=== PATIENT | male | born 1955 | race Caucasian/White ===

== ENCOUNTER → 2016-10-25 | Outpatient (CLI) | payer BC ==
[~2016-10-25] MED LIST: ALPR.5T PO; AMT25T PO; ASP325T PO; ATEN25TA PO; CALC-656 PO; CTLP20T PO; ETAN50PE SQ; FOLI0.8T PO; HYDR1TAB PO; INSULIN PUMP SQ; MELO-195 PO; MTX2.5T PO; MULT-608 PO; NIAC250T17 PO; PNT40TEC PO; PRD10T PO
== END ==
DX: E11.621 Type 2 diabetes mellitus with foot ulcer (principal); M81.0 Age-related osteoporosis without current pathological fracture; L97.422 Non-pressure chronic ulcer of left heel and midfoot with fat layer exposed; L03.116 Cellulitis of left lower limb; Z72.0 Tobacco use

== ENCOUNTER 2016-11-28 10:49 | Outpatient (RCR) | payer BC, OTHER | END 2016-12-04 16:00 | disposition home or self-care (01) | LOC: WOUNDCARE 10:49 | PROVIDERS: ATTEND Nurse Practitioner | DX: E11.621 Type 2 diabetes mellitus with foot ulcer (principal); L97.522 Non-pressure chronic ulcer of other part of left foot with fat layer exposed; L03.116 Cellulitis of left lower limb; I25.10 Atherosclerotic heart disease of native coronary artery without angina pectoris; Z72.0 Tobacco use | CPT/HCPCS: 11042; 11045; 87070; 87075; 87077; 87186; 87205; 99204 ==

== ENCOUNTER → 2016-12-05 | Outpatient (CLI) | payer BC | LOC: WOUNDCARE 08:24 | PROVIDERS: ATTEND Nurse Practitioner | DX: E11.621 Type 2 diabetes mellitus with foot ulcer (principal); L97.422 Non-pressure chronic ulcer of left heel and midfoot with fat layer exposed; I70.244 Atherosclerosis of native arteries of left leg with ulceration of heel and midfoot; N18.4 Chronic kidney disease, stage 4 (severe); M14.672 Charcot's joint, left ankle and foot; Z72.0 Tobacco use | CPT/HCPCS: 11042 ==

== ENCOUNTER → 2016-12-11 | Outpatient (CLI) | payer BC | LOC: WOUNDCARE 12:58 | PROVIDERS: ATTEND Surgery | DX: E11.621 Type 2 diabetes mellitus with foot ulcer (principal); L97.422 Non-pressure chronic ulcer of left heel and midfoot with fat layer exposed; I70.244 Atherosclerosis of native arteries of left leg with ulceration of heel and midfoot; Z72.0 Tobacco use; N18.4 Chronic kidney disease, stage 4 (severe); M14.672 Charcot's joint, left ankle and foot | CPT/HCPCS: 11042 ==

== ENCOUNTER → 2016-12-13 | Outpatient (CLI) | payer BC | LOC: WOUNDCARE 12:46 | PROVIDERS: ATTEND Surgery | DX: E11.621 Type 2 diabetes mellitus with foot ulcer (principal); L97.422 Non-pressure chronic ulcer of left heel and midfoot with fat layer exposed; I70.244 Atherosclerosis of native arteries of left leg with ulceration of heel and midfoot; M14.672 Charcot's joint, left ankle and foot; N18.4 Chronic kidney disease, stage 4 (severe); Z72.0 Tobacco use | CPT/HCPCS: 99212 ==

== ENCOUNTER → 2016-12-19 | Outpatient (CLI) | payer BC | LOC: WOUNDCARE 11:30 | PROVIDERS: ATTEND Nurse Practitioner | DX: E11.621 Type 2 diabetes mellitus with foot ulcer (principal); L97.422 Non-pressure chronic ulcer of left heel and midfoot with fat layer exposed; I70.244 Atherosclerosis of native arteries of left leg with ulceration of heel and midfoot; Z72.0 Tobacco use | CPT/HCPCS: 11042 ==

== ENCOUNTER → 2016-12-26 | Outpatient (CLI) | payer BC | LOC: WOUNDCARE 11:18 | PROVIDERS: ATTEND Nurse Practitioner | DX: E11.621 Type 2 diabetes mellitus with foot ulcer (principal); L97.422 Non-pressure chronic ulcer of left heel and midfoot with fat layer exposed; I70.244 Atherosclerosis of native arteries of left leg with ulceration of heel and midfoot; Z72.0 Tobacco use; N18.4 Chronic kidney disease, stage 4 (severe); M14.672 Charcot's joint, left ankle and foot | CPT/HCPCS: 11042; 87070; 87075; 87077; 87186; 87205 ==

== ENCOUNTER → 2017-01-09 | Outpatient (CLI) | payer BC | LOC: WOUNDCARE 09:53 | PROVIDERS: ATTEND Nurse Practitioner | DX: E11.621 Type 2 diabetes mellitus with foot ulcer (principal); L97.422 Non-pressure chronic ulcer of left heel and midfoot with fat layer exposed; I70.244 Atherosclerosis of native arteries of left leg with ulceration of heel and midfoot; N18.4 Chronic kidney disease, stage 4 (severe); M14.672 Charcot's joint, left ankle and foot; Z72.0 Tobacco use | CPT/HCPCS: 15275 ==

== ENCOUNTER → 2017-01-16 | Outpatient (CLI) | payer BC | LOC: WOUNDCARE 11:23 | PROVIDERS: ATTEND Nurse Practitioner | DX: E11.621 Type 2 diabetes mellitus with foot ulcer (principal); L97.422 Non-pressure chronic ulcer of left heel and midfoot with fat layer exposed; I70.244 Atherosclerosis of native arteries of left leg with ulceration of heel and midfoot; N18.4 Chronic kidney disease, stage 4 (severe); M14.672 Charcot's joint, left ankle and foot; Z72.0 Tobacco use | CPT/HCPCS: 11042 ==

== ENCOUNTER → 2017-01-23 | Outpatient (CLI) | payer BC | LOC: WOUNDCARE 10:53 | PROVIDERS: ATTEND Nurse Practitioner | DX: E11.621 Type 2 diabetes mellitus with foot ulcer (principal); L97.422 Non-pressure chronic ulcer of left heel and midfoot with fat layer exposed; I70.244 Atherosclerosis of native arteries of left leg with ulceration of heel and midfoot; N18.4 Chronic kidney disease, stage 4 (severe); M14.672 Charcot's joint, left ankle and foot; Z72.0 Tobacco use | CPT/HCPCS: 11042 ==

== ENCOUNTER → 2017-01-30 | Outpatient (CLI) | payer BC | LOC: WOUNDCARE 10:47 | PROVIDERS: ATTEND Nurse Practitioner | DX: E11.621 Type 2 diabetes mellitus with foot ulcer (principal); L97.422 Non-pressure chronic ulcer of left heel and midfoot with fat layer exposed; I70.244 Atherosclerosis of native arteries of left leg with ulceration of heel and midfoot; Z72.0 Tobacco use; M14.672 Charcot's joint, left ankle and foot; N18.4 Chronic kidney disease, stage 4 (severe) | CPT/HCPCS: 11042 ==

== ENCOUNTER → 2017-02-06 | Outpatient (CLI) | payer BC | LOC: WOUNDCARE 10:53 | PROVIDERS: ATTEND Nurse Practitioner | DX: E11.621 Type 2 diabetes mellitus with foot ulcer (principal); L97.422 Non-pressure chronic ulcer of left heel and midfoot with fat layer exposed; I70.244 Atherosclerosis of native arteries of left leg with ulceration of heel and midfoot; Z72.0 Tobacco use; N18.4 Chronic kidney disease, stage 4 (severe); M14.672 Charcot's joint, left ankle and foot | CPT/HCPCS: 11042; 11045 ==

== ENCOUNTER → 2017-02-13 | Outpatient (CLI) | payer BC | LOC: WOUNDCARE 10:54 | PROVIDERS: ATTEND Nurse Practitioner | DX: E11.621 Type 2 diabetes mellitus with foot ulcer (principal); L97.422 Non-pressure chronic ulcer of left heel and midfoot with fat layer exposed; I70.244 Atherosclerosis of native arteries of left leg with ulceration of heel and midfoot; Z72.0 Tobacco use | CPT/HCPCS: 11042 ==

== ENCOUNTER → 2017-02-27 | Outpatient (CLI) | payer BC | LOC: WOUNDCARE 10:57 | PROVIDERS: ATTEND Nurse Practitioner | DX: E11.621 Type 2 diabetes mellitus with foot ulcer (principal); L97.422 Non-pressure chronic ulcer of left heel and midfoot with fat layer exposed; I70.244 Atherosclerosis of native arteries of left leg with ulceration of heel and midfoot | CPT/HCPCS: 11042 ==

== ENCOUNTER → 2017-03-14 | Outpatient (CLI) | payer BC, OTHER | LOC: WOUNDCARE 10:57 | PROVIDERS: ATTEND Surgery | DX: E11.621 Type 2 diabetes mellitus with foot ulcer (principal); L97.422 Non-pressure chronic ulcer of left heel and midfoot with fat layer exposed; I70.244 Atherosclerosis of native arteries of left leg with ulceration of heel and midfoot; Z72.0 Tobacco use; N18.4 Chronic kidney disease, stage 4 (severe); M14.672 Charcot's joint, left ankle and foot | CPT/HCPCS: 11042; 87070; 87075; 87205 ==

== ENCOUNTER → 2017-03-27 | Outpatient (CLI) | payer BC | LOC: WOUNDCARE 10:47 | PROVIDERS: ATTEND Nurse Practitioner | DX: I70.244 Atherosclerosis of native arteries of left leg with ulceration of heel and midfoot (principal); M14.672 Charcot's joint, left ankle and foot; N18.4 Chronic kidney disease, stage 4 (severe); Z72.0 Tobacco use | CPT/HCPCS: 11042 ==

== ENCOUNTER → 2017-04-03 | Outpatient (CLI) | payer BC | LOC: WOUNDCARE 10:59 | PROVIDERS: ATTEND Nurse Practitioner | DX: E11.621 Type 2 diabetes mellitus with foot ulcer (principal); L97.422 Non-pressure chronic ulcer of left heel and midfoot with fat layer exposed; I70.244 Atherosclerosis of native arteries of left leg with ulceration of heel and midfoot; N18.4 Chronic kidney disease, stage 4 (severe); M14.672 Charcot's joint, left ankle and foot | CPT/HCPCS: 11042; 82962 ==

== ENCOUNTER → 2017-04-10 | Outpatient (CLI) | payer BC | LOC: WOUNDCARE 11:06 | PROVIDERS: ATTEND Nurse Practitioner | DX: E11.621 Type 2 diabetes mellitus with foot ulcer (principal); L97.422 Non-pressure chronic ulcer of left heel and midfoot with fat layer exposed; I70.244 Atherosclerosis of native arteries of left leg with ulceration of heel and midfoot; Z72.0 Tobacco use; N18.4 Chronic kidney disease, stage 4 (severe); M14.672 Charcot's joint, left ankle and foot | CPT/HCPCS: 11042 ==

== ENCOUNTER → 2017-04-16 | Outpatient (CLI) | payer BC | LOC: WOUNDCARE 11:07 | PROVIDERS: ATTEND Surgery | DX: E11.621 Type 2 diabetes mellitus with foot ulcer (principal); L97.422 Non-pressure chronic ulcer of left heel and midfoot with fat layer exposed; I70.244 Atherosclerosis of native arteries of left leg with ulceration of heel and midfoot; N18.4 Chronic kidney disease, stage 4 (severe); M14.672 Charcot's joint, left ankle and foot; Z72.0 Tobacco use | CPT/HCPCS: 99212 ==

== ENCOUNTER → 2018-08-20 | Outpatient (CLI) | payer OTHER ==
[2018-08-20 10:36] LABS: BASOPHILS % (AUTO) 0 % (0-10); EOSINOPHILS # (AUTO) 0.2 10^3/uL (0.0-0.3); EOSINOPHILS % (AUTO) 1 % (0-10); HEMATOCRIT 35 % (40-54); HEMOGLOBIN 11.6 G/DL (13.3-17.7); LYMPHOCYTES # (AUTO) 1.5 X 10^3 (1.0-4.0); LYMPHOCYTES % (AUTO) 10 % (12-44); MEAN CORPUSCULAR HEMOGLOBIN 28 PG (25-34); MEAN CORPUSCULAR HGB CONC 33 G/DL (32-36); MEAN CORPUSCULAR VOLUME 85 FL (80-99); MEAN PLATELET VOLUME 10.1 FL (7.4-10.4); MONOCYTES # (AUTO) 1.5 X 10^3 (0.0-1.0); MONOCYTES % (AUTO) 11 % (0-12); NEUTROPHILS # (AUTO) 11.3 X 10^3 (1.8-7.8); NEUTROPHILS % (AUTO) 78 % (42-75); PLATELET COUNT 347 10^3/uL (130-400); RED CELL DISTRIBUTION WIDTH 17.2 % (10.0-14.5); WHITE BLOOD COUNT 14.5 10^3/uL (4.3-11.0)
[2018-08-20 10:52] LABS: CALCIUM 8.8 MG/DL (8.5-10.1); CREATININE SERUM 1.31 MG/DL (0.60-1.30); POTASSIUM 4.1 MMOL/L (3.6-5.0)
[2018-08-20 11:04] LABS: ANISOCYTOSIS SLIGHT; BAND NEUTROPHILS 1 %; BASOPHILS % (MANUAL) 1 %; EOSINOPHILS % (MANUAL) 1 %; LYMPHOCYTES % (MANUAL) 10 %; MONOCYTES % (MANUAL) 4 %; NEUTROPHILS % (MANUAL) 83 %
--- NOTE | 2018-08-20 16:19 | Diagnostic Imaging Report ---
INDICATION: Skin ulceration. TECHNIQUE: Three views of the left ankle. CORRELATION STUDY: 10/25/2016. FINDINGS: There is marked collapse of the hindfoot. Significant distortion and abnormal appearance about all osseous structures of the hindfoot are noted likely owing to neuropathic changes. Joint spaces are largely obscured. At the ankle, there is slightly better preservation. There is slight collapse of the talar dome. Generalized soft tissue swelling is present. While there is slight asymmetric lucency along the plantar aspect of the mid foot, otherwise gas collection not suggested. There do appear to be slight erosive changes however suggested about the hind to mid tarsal region along its plantar aspect. Possibility of underlying osteomyelitis would be difficult to exclude. IMPRESSION: 1. Marked deformity about the hindfoot like reflective of neuropathic changes. 2. There does appear to be slight asymmetric lucency along the plantar aspect of the distorted tarsal bones for which underlying erosive change is suspect. If further assessment is desired, MRI may be of additional benefit. Dictated by: Dictated on workstation # [id number]
--- NOTE | 2018-08-20 17:47 | Diagnostic Imaging Report ---
INDICATION: Charcot's joint, pain. TECHNIQUE: 3 views of the left foot at 10:41 a.m. CORRELATION STUDY: 10/25/2016. FINDINGS: Marked midtarsal articulation with slight better preservation of the tarsometatarsal articulations. Diffuse bony demineralization. Amputation at the interphalangeal joint of the great toe. There does appear to be slight more indistinct loss of the cortical margin along the plantar aspect of the midfoot. This is adjacent to slight asymmetric soft tissue thinning, could be reflective of an area of ulceration. Generalized soft tissue swelling present. IMPRESSION: 1. Marked chronic deformity about the left foot, compatible with neuropathic changes. 2. There does appear to be question of some asymmetric erosive change along the plantar aspect of the midtarsal region adjacent to the potential area of ulceration. Dictated by: Dictated on workstation # [id number]
== END ==
LOC: RAD 10:17
PROVIDERS: ATTEND Nurse Practitioner
DX: E11.621 Type 2 diabetes mellitus with foot ulcer (principal); E11.22 Type 2 diabetes mellitus with diabetic chronic kidney disease; N18.4 Chronic kidney disease, stage 4 (severe); L97.424 Non-pressure chronic ulcer of left heel and midfoot with necrosis of bone; M14.672 Charcot's joint, left ankle and foot; I70.244 Atherosclerosis of native arteries of left leg with ulceration of heel and midfoot; M21.6X2 Other acquired deformities of left foot
CPT/HCPCS: 36415; 73610; 73630; 80048; 83036; 85007; 85027

== ENCOUNTER → 2018-08-20 | Outpatient (CLI) | payer BC, OTHER | LOC: WOUNDCARE 08:26 | PROVIDERS: ATTEND Nurse Practitioner | DX: E11.621 Type 2 diabetes mellitus with foot ulcer (principal); L97.424 Non-pressure chronic ulcer of left heel and midfoot with necrosis of bone; N18.4 Chronic kidney disease, stage 4 (severe); M14.672 Charcot's joint, left ankle and foot; I70.244 Atherosclerosis of native arteries of left leg with ulceration of heel and midfoot | CPT/HCPCS: 11044; 87070; 87075; 87077; 87205; 99213 ==

== ENCOUNTER 2018-08-27 10:33 | Emergency (ER) | payer OTHER ==
[~2018-08-27] VITALS: Ht 165.1 cm; Wt 95.3 kg
[~2018-08-27 10:33] MED LIST changes: -CLIN300C11 PO
--- OUTSIDE RECORDS SUMMARY | 2018-08-27 11:07 | XMS REPORT ---
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 Problem list No authorized problems tracked for continuity of care are available for this visit. Encounters No authorized problems tracked for encounter diagnoses are available for this visit. Medications No medications recorded for this patient visit Allergies, adverse reactions, alerts Allergen Category Ingredient Status Reaction Severity Onset No known drug allergies No known drug allergies No known drug allergies Confirmed or Verified Immunizations No immunizations recorded for this patient visit Relevant diagnostic tests and/or laboratory data RESULTS Chemistry [id number]:05:00 Result Normal Range Units Sodium 135 134-145 mEq/l Potassium 4.8 3.5-5.1 mEq/l Chloride 102 98-107 mEq/l CO2 24.1 22-28 mEq/l Glucose H 277 70-105 mg/dl BUN H 33 7-18 mg/dl Creatinine H 1.52 0.6-1.3 mg/dl Calcium L 8.1 8.4-10.2 mg/dl TP - Total Protein 6.2 6.0-8.3 g/dl Albumin L 2.8 3.5-5 g/dl Bilirubin - Total 0.2 0.1-1.0 mg/dl AST 17 10-42 IU/L ALT 15 12-65 IU/L ALP H 123 39-107 IU/L Osmolality 287.3 280-300 mOsm/L Albumin/Globulin Ratio 0.8 0-8 Anion GAP 8.9 8-16 BUN/Creatinine Ratio H 21.7 10-20 Estimated GFR L 47 >=60 mL/min/1.7 Hematology [id number]:05:00 Result Normal Range Units WBC 10.4 4.8-10.8 103/uL RBC 4.9 4.7-6.1 106/uL HGB 13.2 13.0-18.0 g/dl HCT L 39.9 41.9-52.0 % MCV 81.4 80-94 FL MCH L 26.9 27-31 pg MCHC 33.1 33-37 g/dl RDW H 16.5 11.5-15.5 % PLT H 424 130-400 103/uL MPV 9.7 7.3-10.4 FL Neutro % 68.3 40-70 % Lymph % L 18.8 20-40 % Catron % 9.6 0-10.0 % Eos % 2.9 0-7.0 % Baso % 0.4 0-2 % Neutro # 7.1 1.5-7.5 103/uL Lymph # 2.0 0.9-4.0 103/uL Catron # H 1.0 0-0.8 103/uL Eos # 0.3 0-0.6 103/uL Baso # 0.0 0-0.1 103/uL Radiology Results [id number]:05:00 Result Normal Range Units MPV 9.7 7.3-10.4 FL History of procedures No procedures recorded for this patient visit. Functional status Functional Status Finding Observation Time Abdomen Appearance flat 47-27-371961:40 Abdomen soft 04-42-466974:40 Bowel Sounds present 05-00-510336:40 Urination normal :40 Quality sym/unlabored 35-79-881562:40 Cough absent :40 Secretions no :40 Airway natural :40 Chest Tube no :40 Oxygen no 97-99-362968:00 Temp >100.4 no :40 Temp <96.8 no :40 Chills with rigors no :40 HR > 90bpm no 81-20-097088:40 Respirations > 20 no :40 Systolic <90 no 50-83-355532:40 headache stiff neck no 74-08-813318:40 IV Site Location R FA [id number]:55 IV Type peripheral 01-47-649864:55 IV Site Information discontinued :55 IV Site Start Attmpt 1 times :00 IV Site Darius 20 :00 IV Site Appearance WNL [id number]:00 IV Site Color clear :00 IV Site Patent yes :00 Dressing Type occlusive :00 Nursing Note SL dc intact. Discharge instructions reviewed with pt-verbalized understanding. Dc in good condition and ambulatory with cane :55 Vital signs Type Value Date Respiration Rate 16breaths per minute :00 Pulse 65beats per minute :00 Oxygen Saturation 98% :00 BP Systolic 135mmHg :00 BP Diastolic 86mmHg :00 Temperature See CommentsF :00 Social history Type Value Smoking Status CURRENT EVERY DAY SMOKER Treatment Plan No treatment plan text is available for this visit. Hospital discharge instructions Dismissal Condition good Disposition on DC home DC Inst/Educ Give yes Med/Side Effects Rev yes PNE Vac 2014 Flu Vac 2014
--- OUTSIDE RECORDS SUMMARY | 2018-08-27 11:08 | XMS REPORT ---
Author Author [facility] Medical Staff Organization [facility] Address [address] [place], [place] [address] Phone [phone] Care Team Providers Care Elementary Art Teacher Name Role Phone JOSELIN TROTTER, FREEMAN PP [phone] Summary purpose TRANSITION OF CARE AUTO GENERATION [...] diagnostic tests and/or laboratory data RESULTS Chemistry [id number]:05:00 Result Normal Range Units Sodium 135 134-145 [...] Estimated GFR L 47 >=60 mL/min/1.7 Hematology [id number]:05:00 Result Normal Range Units WBC 10.4 4.8-10.8 103/uL RBC 4.9 4.7-6.1 106/uL HGB 13.2 13.0-18.0 g/dl HCT L 39.9 41.9-52.0 % MCV 81.4 80-94 FL MCH L 26.9 27-31 pg MCHC 33.1 33-37 g/dl RDW H 16.5 11.5-15.5 % PLT H 424 130-400 103/uL MPV 9.7 7.3-10.4 FL Neutro % 68.3 40-70 % Lymph % L 18.8 20-40 % [place] % 9.6 0-10.0 % Eos % 2.9 0-7.0 % Baso % 0.4 0-2 % Neutro # 7.1 1.5-7.5 103/uL Lymph # 2.0 0.9-4.0 103/uL [place] # H 1.0 0-0.8 103/uL Eos # 0.3 0-0.6 103/uL Baso # 0.0 0-0.1 103/uL Radiology Results [id number]:05:00 Result Normal Range Units MPV 9.7 7.3-10.4 FL History of procedures Procedure Code Code Type Description Date Performed Performing Physician 96762 CPT-4 ROUTINE VENIPUNCTURE 05-01-2015 COMPA AMARI 43425 CPT-4 COMPREHEN METABOLIC PANEL 05-01-2015 COMPA AMARI 17088 CPT-4 COMPLETE CBC W/AUTO DIFF WBC 05-01-2015 COMPA AMARI J7030 CPT-4 NORMAL SALINE SOLUTION INFUS 05-01-2015 COMPA AMARI 12625 CPT-4 EMERGENCY DEPT VISIT 05-01-2015 COMPA AMARI 25544 CPT-4 EMERGENCY DEPT VISIT 05-01-2015 COMPA AMARI 64263 CPT-4 HYDRATION IV INFUSION INIT 05-01-2015 COMPA AMARI 66442 CPT-4 HYDRATE IV INFUSION ADD-ON 05-01-2015 COMPA AMARI Functional status Functional Status Finding Observation Time Abdomen Appearance flat 77-45-459682:40 Abdomen soft 93-68-138773:40 Bowel Sounds present 88-64-355869:40 Urination normal 99-63-815388:40 Quality sym/unlabored 72-03-688674:40 Cough absent 12-42-057714:40 Secretions no :40 Airway natural :40 Chest Tube no :40 Oxygen no :00 Temp >100.4 no :40 Temp <96.8 no :40 Chills with rigors no :40 HR > 90bpm no :40 Respirations > 20 no :40 Systolic <90 no :40 headache stiff neck no :40 IV Site Location R FA [id number]:55 IV Type peripheral 49-38-279762:55 IV Site Information discontinued :55 IV Site Start Attmpt 1 times :00 IV Site Darius 20 31-28-664228:00 IV Site Appearance WNL [id number]:00 IV Site Color clear :00 IV Site Patent yes 20-67-569421:00 Dressing Type occlusive 01-38-328115:00 Nursing Note SL dc intact. Discharge instructions reviewed with pt-verbalized understanding. Dc in good condition and ambulatory with cane :55 Vital signs Type Value Date Respiration Rate 16breaths per minute :00 Pulse 65beats per minute :00 Oxygen Saturation 98% :00 BP Systolic 135mmHg :00 BP Diastolic 86mmHg :00 Temperature See CommentsF 10-77-058044:00 Social history Type Value Smoking Status CURRENT EVERY DAY SMOKER Treatment Plan No treatment plan text is available for this visit. Hospital discharge instructions Dismissal Condition good Disposition on DC home DC Inst/Educ Give yes Med/Side Effects Rev yes PNE Vac 2014 Flu Vac 2014
--- OUTSIDE RECORDS SUMMARY | 2018-08-27 11:09 | XMS REPORT | Continuity of Care Document ---
Demographics x Preferred Language Unknown Marital Status Unknown Cheondoism Affiliation Unknown Race Unknown Ethnic Group Unknown Author Organization Unknown Address Unknown Allergies Active Description Code Type Severity Reaction Onset Reported/Identified Relationship to Patient Clinical Status Yes No known drug allergies [id number] ND N/A N/A Confirmed or Verified Medications There is no data. Problems There is no data. Procedures There is no data. Results Test Result Range CBC WITH DIFF - 05/01/15 00:00 BASO% 0.4 % 0-2 EOS% 2.9 % 0-7.0 HCT 39.9 % 41.9-52.0 HGB 13.2 G/DL 13.0-18.0 LYMPH% 18.8 % 20-40 MCH 26.9 PG 27-31 MCHC 33.1 G/DL 33-37 MCV 81.4 FL 80-94 MONO% 9.6 % 0-10.0 MPV 9.7 FL 7.3-10.4 NEUTRO% 68.3 % 40-70 PLT 424 10^3u 130-400 RBC 4.9 10^6u 4.7-6.1 RDW 16.5 % 11.5-15.5 WBC 10.4 10^3u 4.8-10.8 NEUTRO# 7.1 10^3u 1.5-7.5 LYMPH# 2.0 10^3u 0.9-4.0 MONO# 1.0 10^3u 0-0.8 EOS# 0.3 10^3u 0-0.6 BASO# 0.0 10^3u 0-0.1 IMM GRANULOCYTE % 0.6 % IMM GRANULOCYTE # 0.1 10^3u 0-5 CMP - 05/01/15 00:00 ALB 2.8 G/DL 3.5-5 ALP 123 IU/L 39-107 ALT 15 IU/L 12-65 AST 17 IU/L 10-42 BCR 21.7 10-20 BUN 33 MG/DL 7-18 CA 8.1 MG/DL 8.4-10.2 CL 102 MEQ/L 98-107 CO2 24.1 MEQ/L 22-28 CREA 1.52 MG/DL 0.6-1.3 EGFR 47 eGFR >=60 GLU 277 MG/DL 70-105 K 4.8 MEQ/L 3.5-5.1 NA 135 MEQ/L 134-145 OSMSC 287.3 MOSML 280-300 TBIL 0.2 MG/DL 0.1-1.0 TP 6.2 G/DL 6.0-8.3 Albumin/Globulin Ratio 0.8 0-8 Anion Gap 8.9 8-16 Encounters ACCT No. Visit Date/Time Discharge Status Pt. Type Provider Facility Loc./Unit Complaint [id number] 05/01/2015 16:35:00 05/01/2015 18:55:00 DIS Emergency COMPA FITZPATRICK [facility] EMR [id number] 04/05/2014 00:00:00 Document Registration [id number] 08/22/2018 14:40:00 08/22/2018 23:59:59 CLS Outpatient [facility]
[2018-08-27 11:51] LABS: BASOPHILS % (AUTO) 0 % (0-10); EOSINOPHILS # (AUTO) 0.2 10^3/uL (0.0-0.3); EOSINOPHILS % (AUTO) 2 % (0-10); HEMATOCRIT 35 % (40-54); HEMOGLOBIN 11.5 G/DL (13.3-17.7); LYMPHOCYTES # (AUTO) 1.7 X 10^3 (1.0-4.0); LYMPHOCYTES % (AUTO) 16 % (12-44); MEAN CORPUSCULAR HEMOGLOBIN 28 PG (25-34); MEAN CORPUSCULAR HGB CONC 33 G/DL (32-36); MEAN CORPUSCULAR VOLUME 85 FL (80-99); MEAN PLATELET VOLUME 10.3 FL (7.4-10.4); MONOCYTES % (AUTO) 9 % (0-12); NEUTROPHILS # (AUTO) 7.6 X 10^3 (1.8-7.8); NEUTROPHILS % (AUTO) 72 % (42-75); PLATELET COUNT 328 10^3/uL (130-400); RED CELL DISTRIBUTION WIDTH 17.3 % (10.0-14.5); WHITE BLOOD COUNT 10.5 10^3/uL (4.3-11.0)
[2018-08-27 12:07] LABS: ALBUMIN 3.2 GM/DL (3.2-4.5); BILIRUBIN,TOTAL 0.4 MG/DL (0.1-1.0); CALCIUM 8.6 MG/DL (8.5-10.1); CREATININE SERUM 1.42 MG/DL (0.60-1.30); INR 1.1 (0.8-1.4); POTASSIUM 3.7 MMOL/L (3.6-5.0); PROTHROMBIN TIME PATIENT 14.1 SEC (12.2-14.7); TOTAL PROTEIN 6.8 GM/DL (6.4-8.2)
--- NOTE | 2018-08-27 12:12 | ED Integumentary General ---
General Chief Complaint: Skin/Wound Problems Stated Complaint: POSS SEPSIS Nursing Triage Note: PT TO ED FROM WOUND CARE, PT HAS LARGE CHRONIC WOUND OF 4 YEARS L BOTTOM OF FOOT, STATES MAYBE INFECTED, WOUND CARE DID DRESSING CHANGE TODAY. PT HAS DRESSING INTACT. PT DENIES FEVER STATES HAS LOTS OF NAUSEA AND PAIN FROM WOUND. SEE LIST FOR CURRENT MEDS. CONTACTED WOUND CARE FOR MEASUREMENT OF WOUND L FOOT Source: patient Exam Limitations: no limitations History of Present Illness Date Seen by Provider: Aug 27, 2018 Time Seen by Provider: 11:06 Allergies and Home Medications Allergies Coded Allergies: No Known Drug Allergies (Unverified , 02/24/11) Home Medications Alprazolam 0.5 Mg Tablet, 1 TAB PO TID PRN, (Reported) Amitriptyline Hcl 25 Mg Tablet, 1 EACH PO HS, (Reported) Aspirin 325 Mg Tab, 325 MG PO DAILY, (Reported) Atenolol 25 Mg Tablet, 1 EACH PO DAILY, (Reported) Calcium Carbonate/Vitamin D3 1 Each Tablet, 1 EACH PO BID, (Reported) Citalopram Hydrobromide 20 Mg Tablet, 1 EACH PO DAILY, (Reported) Etanercept 50 Mg/1 Ml Pen.injctr, 50 MG SQ WEEKLY/WEDNESDAYS, (Reported) Folic Acid 0.8 Mg Tablet, 1 MG PO DAILY, (Reported) Hydrocodone Bit/Acetaminophen 1 Each Tablet, 1 EACH PO Q4HR PRN, (Reported) Meloxicam 15 Mg Tablet, 1 EACH PO DAILY, (Reported) Methotrexate 2.5 Mg Tab, 15 MG PO WEEKLY/FRIDAYS, (Reported) Multivitamins 1 Tab Tablet, 1 TAB PO DAILY, (Reported) Niacin 250 Mg Tablet, 500 MG PO DAILY, (Reported) Pantoprazole Sodium 40 Mg Tablet.dr, 1 TAB PO DAILY, (Reported) Prednisone 10 Mg Tab, 10 MG PO EVERY OTHER DAY, (Reported) Past Dcsxvmu-Ivemac-Gbtojq Hx Patient Social History Alcohol Use: Denies Use Recreational Drug Use: No Smoking Status: Never a Smoker Recent Foreign Travel: No Contact w/Someone Who Travel: No Recent Infectious Disease Expo: No Recent Hopitalizations: No Seasonal Allergies Seasonal Allergies: No Past Medical History Surgeries: Yes Respiratory: Yes Pneumonia Cardiac: No Hypertension Neurological: Yes (16 YRS AGO) Sexually Transmitted Disease: No Genitourinary: No Gastrointestinal: Yes Gastroesophageal Reflux Musculoskeletal: Yes (RHEUMATOID ARTHRITIS) Arthritis Endocrine: Yes Diabetes, Insulin dep HEENT: No Cancer: No Integumentary: Yes (DIABETIC ULCER L FOOT) Blood Disorders: No Physical Exam Vital Signs Vital Signs - First Documented 08/27/18 10:45 Temp 97.9 Pulse 67 Resp 18 B/P (MAP) 174/76 (108) Pulse Ox 100 Capillary Refill : Less Than 3 Seconds Progress/Results/Core Measures Results/Orders Lab Results Laboratory Tests Test 08/27/18 11:33 Range/Units White Blood Count 10.5 4.3-11.0 10^3/uL Red Blood Count 4.17 L 4.35-5.85 10^6/uL Hemoglobin 11.5 L 13.3-17.7 G/DL Hematocrit 35 L 40-54 % Mean Corpuscular Volume 85 80-99 FL Mean Corpuscular Hemoglobin 28 25-34 PG Mean Corpuscular Hemoglobin Concent 33 32-36 G/DL Red Cell Distribution Width 17.3 H 10.0-14.5 % Platelet Count 328 130-400 10^3/uL Mean Platelet Volume 10.3 7.4-10.4 FL Neutrophils (%) (Auto) 72 42-75 % Lymphocytes (%) (Auto) 16 12-44 % Monocytes (%) (Auto) 9 0-12 % Eosinophils (%) (Auto) 2 0-10 % Basophils (%) (Auto) 0 0-10 % Neutrophils # (Auto) 7.6 1.8-7.8 X 10^3 Lymphocytes # (Auto) 1.7 1.0-4.0 X 10^3 Monocytes # (Auto) 1.0 0.0-1.0 X 10^3 Eosinophils # (Auto) 0.2 0.0-0.3 10^3/uL Basophils # (Auto) 0.0 0.0-0.1 10^3/uL Prothrombin Time 14.1 12.2-14.7 SEC INR Comment 1.1 0.8-1.4 Activated Partial Thromboplast Time 32 24-35 SEC Sodium Level 133 L 135-145 MMOL/L Potassium Level 3.7 3.6-5.0 MMOL/L Chloride Level 99 98-107 MMOL/L Carbon Dioxide Level 26 21-32 MMOL/L Anion Gap 8 5-14 MMOL/L Blood Urea Nitrogen 25 H 7-18 MG/DL Creatinine 1.42 H 0.60-1.30 MG/DL Estimat Glomerular Filtration Rate 50 BUN/Creatinine Ratio 18 Glucose Level 73 70-105 MG/DL Lactic Acid Level 1.03 0.50-2.00 MMOL/L Calcium Level 8.6 8.5-10.1 MG/DL Corrected Calcium 9.2 8.5-10.1 MG/DL Total Bilirubin 0.4 0.1-1.0 MG/DL Aspartate Amino Transf (AST/SGOT) 18 5-34 U/L Alanine Aminotransferase (ALT/SGPT) 16 0-55 U/L Alkaline Phosphatase 89 40-136 U/L Total Protein 6.8 6.4-8.2 GM/DL Albumin 3.2 3.2-4.5 GM/DL My Orders Orders - NOBLE HAYES Cbc With Automated Diff (08/27/18 11:06) Comprehensive Metabolic Panel (08/27/18 11:06) Blood Culture (08/27/18 11:06) Protime With Inr (08/27/18 11:06) Partial Thromboplastin Time (08/27/18 11:06) Ed Iv/Invasive Line Start (08/27/18 11:06) Vital Signs Adult Sepsis Patie Q15M (08/27/18 11:06) O2 (08/27/18 11:06) Remove Rings In Anticipation O (08/27/18 11:06) Wound Culture (08/27/18 11:06) Lactic Acid Analyzer (08/27/18 11:06) Foot, Left, 3 Views (08/27/18 11:06) Vital Signs/I&O 08/27/18 10:45 Temp 97.9 Pulse 67 Resp 18 B/P (MAP) 174/76 (108) Pulse Ox 100 Blood Pressure Mean: 108 Departure Impression Primary Impression: Chronic ulcer of left foot Disposition: 01 HOME, SELF-CARE Condition: Stable/Unchanged Departure-Patient Inst. Decision time for Depature: 12:28 Referrals: NO,LOCAL PHYSICIAN (PCP) Primary Care Physician SILVIO MATHEW APRN (Family) Primary Care Physician ALEE CASILLAS APRN, DAVID G DPBetsy Patient Instructions: MRSA (DC), Wound Care (DC) Add. Discharge Instructions: Take medications as directed. Keep your appointment with Dr. Ahmadi as scheduled for 08/29/18 and wound care as scheduled for next week. Return back to the emergency room for worsening symptoms, fever, red streaks going up your leg , or any other concerns as needed. All discharge instructions reviewed with patient and/or family. Voiced understanding. Scripts Clindamycin HCl (Clindamycin HCl) 300 Mg Capsule 300 MG PO TID for 7 Days, #21 CAP Prov: NOBLE HAYES 08/27/18 NOBLE HAYES Aug 27, 2018 12:12
--- NOTE | 2018-08-27 12:21 | Diagnostic Imaging Report ---
CLINICAL INDICATION: Came for wound care. Checking for sepsis. EXAM: X-ray of the left foot, 3 views. COMPARISON: X-ray of the left foot dated 08/20/2018. FINDINGS: Again seen is an area of soft tissue irregularity on the lateral plantar aspect of the foot. There is again seen an area of bony irregularity involving the plantar aspect of the midfoot and erosions cannot be completely excluded. MRI would better evaluate, if clinically necessary. Stable deformity of the left ankle and left foot regions with sclerosis, flatfoot deformity, and disorganization of the midfoot and hindfoot bony structures which may be related to Charcot's joint. There are some chronic appearing calcifications about the mid foot and ankle region. Diffuse osteopenia is seen. There is partial amputation of the first digit at the level of the IP joint. There are stable bony hypertrophic changes involving the base of the first metatarsal bone which may be from old healed fracture changes. A hypertrophic calcaneal spur at the plantar attachment is seen. There is no subcutaneous gas. There is swelling about the left foot. IMPRESSION: 1. Stable appearance of the left foot and bony irregularity involving the plantar aspect of the mid foot. Bony erosions in the region cannot be completely excluded. If there is concern for osteomyelitis, MRI would better evaluate. 2. Again seen is an area suspected to represent a foot ulcer or skin irregularity on the lateral plantar aspect of the foot. There is no subcutaneous air. 3. Again seen are osteopenia and bony sclerosis with disorganization of the left ankle and mid foot region which may related to a Charcot joint. 4. Again seen is partial amputation of the first digit at the IP joint region. Dictated by: Dictated on workstation # [id number]
[2018-08-27] MEDS ORDERED: CLIN300C11 PO (12:33)
[2018-08-27 12:35] VITALS: BP 162/76
== END 2018-08-27 13:00 | disposition home or self-care (01) ==
LOC: EDUNIT# 10:33 → ER 10:34
DX: E11.621 Type 2 diabetes mellitus with foot ulcer (principal); L97.529 Non-pressure chronic ulcer of other part of left foot with unspecified severity; M06.9 Rheumatoid arthritis, unspecified; I10 Essential (primary) hypertension; K21.9 Gastro-esophageal reflux disease without esophagitis; Z79.82 Long term (current) use of aspirin; Z79.52 Long term (current) use of systemic steroids; Z87.01 Personal history of pneumonia (recurrent)
CPT/HCPCS: 36415; 73630; 80053; 83605; 85025; 85610; 85730; 87040; 87070; 87077; 87205

== ENCOUNTER → 2018-08-27 | Outpatient (CLI) | payer OTHER ==
[~2018-08-27] MED LIST changes: +CLIN300C11 PO
== END ==
LOC: WOUNDCARE 10:15
PROVIDERS: ATTEND Nurse Practitioner
DX: E11.621 Type 2 diabetes mellitus with foot ulcer (principal); L97.424 Non-pressure chronic ulcer of left heel and midfoot with necrosis of bone; M14.672 Charcot's joint, left ankle and foot; I70.244 Atherosclerosis of native arteries of left leg with ulceration of heel and midfoot; N18.4 Chronic kidney disease, stage 4 (severe)
CPT/HCPCS: 99213

== ENCOUNTER → 2018-08-27 | Outpatient (CLI) | payer OTHER | LOC: RAD 09:07 | PROVIDERS: ATTEND Nurse Practitioner | DX: E11.621 Type 2 diabetes mellitus with foot ulcer (principal); L97.424 Non-pressure chronic ulcer of left heel and midfoot with necrosis of bone; M14.672 Charcot's joint, left ankle and foot; I70.244 Atherosclerosis of native arteries of left leg with ulceration of heel and midfoot; E11.22 Type 2 diabetes mellitus with diabetic chronic kidney disease; N18.4 Chronic kidney disease, stage 4 (severe); Z53.8 Procedure and treatment not carried out for other reasons ==

== ENCOUNTER 2018-09-11 12:33 | Day surgery (SDC) | payer OTHER, MEDICARE ==
[~2018-09-11] VITALS: Ht 165.1 cm; Wt 95.3 kg
[2018-09-11] VITALS (11 sets, daily range): BP systolic 138–176; BP diastolic 61–78
[~2018-09-11 12:33] MED LIST changes: +CLIN300C11 PO
[2018-09-11] MEDS ORDERED: LIDOCAINE 1% INJ 20 ML 20 ML VIAL ONE (12:58)
[2018-09-11] MEDS ORDERED: HEParin (CATH LAB) 2,000 ML IV ONE (12:58)
[2018-09-11] MEDS ORDERED: NS IV 1000 ML 1,000 ML ONE (12:58)
[2018-09-11] MEDS ORDERED: NS IV 1000 ML 1,000 ML IV SCH ×2 (13:11→14:52)
[2018-09-11] MEDS ORDERED: FURO40TA4 PO (13:36)
[2018-09-11] MEDS ORDERED: INSU100V16 (13:36)
[2018-09-11] MEDS ORDERED: ATEN25TA PO (13:36)
[2018-09-11] MEDS ORDERED: METH2.5T PO (13:36)
[2018-09-11] MEDS ORDERED: PANT40TA3 PO (13:36)
[2018-09-11] MEDS ORDERED: ZOLP10TA5 PO (13:36)
[2018-09-11] MEDS ORDERED: ASPI-983 PO (13:37)
[2018-09-11] MEDS ORDERED: HYDR-3820 PO (13:39)
--- NOTE | 2018-09-11 13:46 | NUR ---
SPOKE WITH THE PATIENT ABOUT HIS MEDICATIONS. HE HAD SOME OF HIS BOTTLES WITH HIM, I COMPARED WITH THE EXT MED HX WELL THE LIST FROM THE DR. OFFICE. HE STATES HE IS NO LONGER TAKING CRESTOR. HE ALSO STATES HIS FUROSEMIDE IS WRITTEN FOR 2 DAILY HOWEVER HE ONLY TAKES 1 TAB DAILY.
--- NOTE | 2018-09-11 13:46 | Diagnostic Imaging Report ---
INDICATION: Preop for heart catheterization. TIME OF EXAM: 1:34 p.m. COMPARISON: No prior studies are available for comparison. FINDINGS: Right chest wall port has tip overlying the SVC. Lungs are clear. There is no infiltrate or failure. No effusion or pneumothorax is seen. IMPRESSION: No acute cardiopulmonary process is detected. Dictated by: Dictated on workstation # [id number]
[2018-09-11] MEDS ORDERED: HEParin 1000 UNIT/ML (10ML VIAL) FOR BOLUS ONE (13:48)
[2018-09-11] MEDS ORDERED: MIDAZOLAM 5 MG/5 ML (VERSED) VIAL ONE (13:48)
[2018-09-11] MEDS ORDERED: fentaNYL INJECTION 100 MCG/2 ML AMP ONE (13:48)
[2018-09-11 13:52] LABS: HEMOGLOBIN 12.3 G/DL (13.3-17.7); MEAN PLATELET VOLUME 10.4 FL (7.4-10.4); RED CELL DISTRIBUTION WIDTH 19.3 % (10.0-14.5)
[2018-09-11 14:04] LABS: PROTHROMBIN TIME PATIENT 13.4 SEC (12.2-14.7)
[2018-09-11 14:10] LABS: ALANINE AMINOTRANSFERASE 18 U/L (0-55); ALBUMIN 3.4 GM/DL (3.2-4.5); ALKALINE PHOSPHATASE 95 U/L (40-136); BILIRUBIN,TOTAL 0.4 MG/DL (0.1-1.0); BUN/CREATININE RATIO 19; CALCIUM 9.1 MG/DL (8.5-10.1); CARBON DIOXIDE 25 MMOL/L (21-32); CHLORIDE 106 MMOL/L (98-107); CHOLESTEROL 161 MG/DL (< 200); CREATININE SERUM 1.04 MG/DL (0.60-1.30); GFR ESTIMATED > 60; GLUCOSE 117 MG/DL (70-105); HDL CHOLESTEROL 55 MG/DL (40-60); POTASSIUM 4.5 MMOL/L (3.6-5.0); SODIUM 138 MMOL/L (135-145); TRIGLYCERIDES 70 MG/DL (<150); VLDL CHOLESTEROL 14 MG/DL (5-40)
--- NOTE | 2018-09-11 14:54 | Discharge Inst-Post CATH ---
Discharge Inst-CATH/EP Post Cardiac Cath/EP D/C Inst Follow Up/Plan Appointment with Dr. DOMINGO's office in 2-4 weeks <b>CARDIAC CATH/EP PROCEDURE DISCHARGE INSTRUCTIONS</b> Cardiac Rehab Please be expecting a follow up call from Cardiac Rehab within in one week. ACTIVITY * Go Home directly and rest. * Limit activity of the leg (or wrist if it was used) for 7 days including aerobics, swimming, jogging, bicycling, etc. * Restrict stair-climbing for 7 days if possible, if not, climb up with your non -cath leg, then bring together on the same step. * Avoid lifting, pushing, pulling or excessive movement of the affected extremity for 7 days. * Customary sexual activity may be resumed after 2 days-use caution not to use a position that strains or causes pain to the affected extremity. * No driving for 24 hours. * NO SMOKING. * Avoid straining for bowel movements for 7 days. * Gentle walking on level ground is allowed. * Returning to work will depend on the type of procedure and the results. Your doctor will discuss this with you. CALL YOUR DOCTOR FOR ANY OF THE FOLLOWING: *If bleeding from the puncture site occurs- Apply gentle pressure to site with clean cloth and call your doctor or EMS. * If a knot or lump forms under the skin, increases in size, or causes pain. * If bruising appears to be worsening or moving further down your leg instead of disappearing. * Temperature above 101 F. CARE OF YOUR GROIN INCISION; * Bruising or purple discoloration of the skin near the puncture site is common. * You may shower only, no bathtub bathing for 5 days. Be careful to avoid slipping as your leg may feel stiff. * If a closure device was used on your femoral artery, please see the attached guide regarding care of the device and your leg. * Leave dressing on FOR 24 hours. CARE OF YOUR WRIST INCISION; * Bruising or purple discoloration of the skin near the puncture site is common. * You may shower. * DO NOT submerge wrist. * Leave dressing on FOR 24 hours. ARLIN DOMINGO MD September 11, 2018 14:54
--- NOTE | 2018-09-11 14:55 | Cardiac Procedure Note-CS/ASA ---
Pre-Procedure Note Pre-Op Procedure Note H&P Reviewed The H&P was reviewed, patient examined and no changes noted. Date H&P Reviewed: September 11, 2018 Time H&P Reviewed: 13:00 Conscious Sedation Pre-Proced Time 13:00 ASA Score 3 For ASA 3 and 4: Consider anesthesia and medical clearance. Also, for patients with a history of failed moderate sedation consider anesthesia. Airway Lungs Heart ASA score ASA 1: a normal healthy patient ASA 2: a patient with a mild systemic disease (mid diabetes, controlled hypertension, obesity x ASA 3: a patient with a severe systemic disease that limits activity (angina , COPD, prior Myocardial infarction) ASA 4: a patient with an incapacitating disease that is a constant threat to life (CHF, renal failure) ASA 5: a moribund patient not expected to survive 24 hrs. (ruptured aneurysm) ASA 6: a declared brain- patient whose organs are being harvested. For emergent operations, add the letter E after the classification Mallampati Classification Grade 3 Sedation Plan Analgesia, Amnesia, Plan communicated to team members, Discussed options with patient/fam, Discussed risks with patient/fam The patient is an appropriate candidate to undergo the planned procedure, sedation, and anesthesia. The patient immediately re-assessed prior to indication. ARLIN DOMINGO MD September 11, 2018 14:55
[2018-09-11] MEDS ORDERED: PATIENT MAY USE OWN MEDS, ALL PO SCH (15:00)
--- NOTE | 2018-09-11 15:01 | Peripheral Report ---
Peripheral Report Physician (s)/Cocoa Room Operator (s) Physician ARLIN DOMINGO MD Pre-Procedure Diagnosis Pre-Procedure Diagnosis: nonhealing foot ulcer Post-Procedure Note Procedure Start Date: September 11, 2018 Name of Procedure: Abdominal aortogram with bilateral runoff Third order Additional imaging Findings/Procedure Note PROCEDURE NOTE: 63 years old gentleman with peripheral arterial disease multiple intervention the past, has nonhealing foot ulcer. Scheduled for peripheral angiogram. After explaining the procedure to the patient, all pros and cons were explained , all questions were answered. The patient signed the consent and then he was placed on the cardiac catheterization laboratory. The patient was placed on the cardiac catheterization laboratory. Groin was prepped SL fashion local anesthesia was used. Sheath placed in the right femoral artery, runoff to the right leg was done. Then I proceeded with a remote catheter placed at the bifurcation and angiogram was done then I crossed over with the stork wire and used short straight catheter advanced to the common femoral artery and runoff to the left leg was done then exchanged the catheter over a long J-wire into a long straight catheter advanced to the popliteal artery and angiogram was done, additional imaging was done to evaluate the trifurcation then separate imaging to the foot level at 2 different angles. Angiogram was done. Then the catheter was flushed and pressure was measured pullback through the SFA did not show significant gradient there was significant step-off from 90/44-126/51 in the common iliac artery, angiogram was done again then I pulled the straight catheter and exchange it into a pigtail catheter placed in the abdominal aorta and abdominal aortogram was done. Addendum the procedure sheath was removed and closure device was used FINDINGS: Abdominal aortogram: Diffuse atherosclerotic disease, normal renal and mesenteric artery, bilateral iliac stents are patent with [id number] disease. Right lower extremity, moderate diffuse disease in the SFA, did not see the arteries below the trifurcation Left lower extremity, patent stent in the proximal and mid SFA patent stent in the distal SFA total occlusion of the posterior tibial artery, good flow through the anterior tibial and peroneal artery, there are stents in the common iliac artery, there is a step up of 35 mmHg but no significant obstructive disease by angiogram. CONCLUSIONS: 1. Patent bilateral iliac stent with diffuse disease in the common iliac arteries and common femoral arteries, there is a step up of 30 mmHg gradient but no significant obstructive disease by angiogram with 2 different angles. 2. Patent stent in the proximal and mid left SFA, patent stent at the distal SFA. 3. Totally occluded left posterior tibial artery that was not reconstructed by collateral, there is good flow through the anterior tibial and peroneal artery down to the foot 4. Moderate to severe diffuse disease at the right lower extremity down to the popliteal artery DISCUSSION AND RECOMMENDATIONS: continue to maximize medical therapy. No intervention is warranted Anesthesia Type: Conscious Sedation Estimated blood loss (mL): 30 ml Contrast Amount: 80 ml Total Radiation Dose: 189 mGy Post-Procedure Diagnosis Post-operative diagnosis: Nonhealing foot ulcer Peripheral vascular disease Hypertension Hyperlipidemia ARLIN DOMINGO MD September 11, 2018 15:01
--- NOTE | 2018-09-11 20:55 | NUR ---
1929-PATIENT EXPLAINED THAT HE HAS INSULIN PUMP AND THAT HE HAD SUPPLIES IN HIS BAG TO CHECK HIS BLOOD SUGAR. HE OBTAINED AN ACCUCHECK AND STATED THAT IT READ 55. PATIENT ORDERED DINNER AND WAS GIVEN THREE ORANGE JUICES TO DRINK WHILE WAITING FOR DINNER TO ARRIVE. 2014-AFTER EATING DINNER, PATIENT STATES THAT HE RECHECKED HIS BLOOD SUGAR AND IT WAS 162. PATIENT AMBULATED IN HALLS WITH NO DIFFICULTY. PATIENT DENIES PAIN IN THE RIGHT GROIN. PATIENT STATES THAT HE IS READY TO GO HOME. 2044-RIGHT GROIN SOFT AND DRESSING DRY/INTACT. IV REMOVED-CATHETER INTACT. PATIENT DENIES ANY PAIN. DISCHARGE INSTRUCTIONS COMPLETED AND PATIENT VERBALIZES UNDERSTANDING.
== END 2018-09-11 20:55 | disposition home or self-care (01) ==
LOC: CATH 12:33 → ICU 15:05 → CATH 20:55
PROVIDERS: ATTEND Internal Medicine Cardiovascular Disease
DX: E11.621 Type 2 diabetes mellitus with foot ulcer (principal); L97.529 Non-pressure chronic ulcer of other part of left foot with unspecified severity; I25.10 Atherosclerotic heart disease of native coronary artery without angina pectoris; E78.2 Mixed hyperlipidemia; F17.210 Nicotine dependence, cigarettes, uncomplicated; E11.51 Type 2 diabetes mellitus with diabetic peripheral angiopathy without gangrene; I10 Essential (primary) hypertension; A52.16 Charcot's arthropathy (tabetic); M06.9 Rheumatoid arthritis, unspecified; Z79.4 Long term (current) use of insulin; Z79.82 Long term (current) use of aspirin; Z79.899 Other long term (current) drug therapy
CPT/HCPCS: 36248; 36415; 71045; 75630; 80053; 80061; 85027; 85610; 85730; 87081

== ENCOUNTER → 2018-09-17 | Outpatient (CLI) | payer OTHER ==
[~2018-09-17] MED LIST changes: +ASPI-983 PO; +FURO40TA4 PO; +GADOBUTROL 10 MMOL/10 ML (GADAVIST) VIAL IV ONE; +HYDR-3820 PO; +INSU100V16; +METH2.5T PO; +PANT40TA3 PO; +ZOLP10TA5 PO
--- NOTE | 2018-09-17 17:35 | Diagnostic Imaging Report ---
PROCEDURE: MRI left lower extremity with and without contrast. TECHNIQUE: Multiplanar, multisequence pre and post contrast-enhanced MRI of the left lower extremity was accomplished. INDICATION: Nonhealing ulcer in left midfoot. FINDINGS: Postsurgical changes of the amputation of the distal phalanx of the great toe is again seen. Marrow signal intensity of the phalanges as well as the metatarsals appears normal. No marrow edema or destructive changes are seen to suggest osteomyelitis. There is significant disorganization and chronic changes involving the ankle and midfoot as well as the subtalar joint. 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 There is a curvilinear line through the subchondral portion of the calcaneus, suspicious for a fracture. Overall quality of the study is severely compromised due to patient motion. Marked heterogeneous signal within the talus as well as the distal tibia is seen. There is generalized enhancement on post contrast images. No definite superficial or deep soft tissue fluid collection or abscess is seen. No definite soft tissue gas is identified. IMPRESSION: Significant disorganization and abnormal signal throughout the midfoot and hindfoot, consistent with a neuropathic joint. There is generalized enhancement present. This does make evaluation for osteomyelitis very difficult. No definite findings of osteomyelitis are seen. No superficial or deep soft tissue fluid collection or abscess is identified. There is lucency through the subchondral portion of the calcaneus at the level of the subtalar joint, suspicious for fracture. Dictated by: Dictated on workstation # [id number]
== END ==
LOC: RAD 14:35
PROVIDERS: ATTEND Surgery
DX: E11.621 Type 2 diabetes mellitus with foot ulcer (principal); L97.429 Non-pressure chronic ulcer of left heel and midfoot with unspecified severity; Z89.412 Acquired absence of left great toe
CPT/HCPCS: 73720

== ENCOUNTER → 2018-09-17 | Outpatient (CLI) | payer OTHER ==
[~2018-09-17] MED LIST changes: -GADOBUTROL 10 MMOL/10 ML (GADAVIST) VIAL IV ONE
== END ==
LOC: WOUNDCARE 10:47
PROVIDERS: ATTEND Nurse Practitioner
DX: E11.621 Type 2 diabetes mellitus with foot ulcer (principal); L97.424 Non-pressure chronic ulcer of left heel and midfoot with necrosis of bone; M14.672 Charcot's joint, left ankle and foot; I70.244 Atherosclerosis of native arteries of left leg with ulceration of heel and midfoot; N18.4 Chronic kidney disease, stage 4 (severe)
CPT/HCPCS: 11042; 11045; 87070; 87075; 87077; 87205

== ENCOUNTER 2018-09-26 12:09 | Inpatient (IN) | payer OTHER, MEDICARE | END 2018-10-02 16:10 | disposition home or self-care (01) | LOC: 4TH 10-02 13:00 → ER 12:09 → 4TH 15:03 | DX: E11.52 Type 2 diabetes mellitus with diabetic peripheral angiopathy with gangrene (principal); L97.524 Non-pressure chronic ulcer of other part of left foot with necrosis of bone; E11.621 Type 2 diabetes mellitus with foot ulcer; E11.618 Type 2 diabetes mellitus with other diabetic arthropathy; I10 Essential (primary) hypertension; F17.210 Nicotine dependence, cigarettes, uncomplicated; K21.9 Gastro-esophageal reflux disease without esophagitis; M06.9 Rheumatoid arthritis, unspecified; M19.91 Primary osteoarthritis, unspecified site; E66.9 Obesity, unspecified; Z79.4 Long term (current) use of insulin; Z68.33 Body mass index [BMI] 33.0-33.9, adult; Z86.73 Personal history of transient ischemic attack (TIA), and cerebral infarction without residual deficits ==

== ENCOUNTER → 2018-09-26 | Outpatient (CLI) | payer OTHER | LOC: WOUNDCARE 10:26 | PROVIDERS: ATTEND Nurse Practitioner | DX: E11.621 Type 2 diabetes mellitus with foot ulcer (principal); L97.424 Non-pressure chronic ulcer of left heel and midfoot with necrosis of bone; M14.672 Charcot's joint, left ankle and foot; I70.244 Atherosclerosis of native arteries of left leg with ulceration of heel and midfoot; N18.4 Chronic kidney disease, stage 4 (severe) | CPT/HCPCS: 11043; 11045 ==

== ENCOUNTER → 2018-10-03 | Outpatient (CLI) | payer MEDICARE, OTHER ==
[~2018-10-03] MED LIST changes: +CFTR1PB IV; +LISI-552 PO; +VANC2PLA5 IV
== END ==
LOC: WOUNDCARE 10:36
PROVIDERS: ATTEND Nurse Practitioner
DX: E11.621 Type 2 diabetes mellitus with foot ulcer (principal); L97.424 Non-pressure chronic ulcer of left heel and midfoot with necrosis of bone; M14.672 Charcot's joint, left ankle and foot; I70.244 Atherosclerosis of native arteries of left leg with ulceration of heel and midfoot; N18.4 Chronic kidney disease, stage 4 (severe)
CPT/HCPCS: 99212

== ENCOUNTER → 2018-10-10 | Outpatient (CLI) | payer OTHER | LOC: WOUNDCARE 10:29 | PROVIDERS: ATTEND Nurse Practitioner | DX: E11.621 Type 2 diabetes mellitus with foot ulcer (principal); L97.424 Non-pressure chronic ulcer of left heel and midfoot with necrosis of bone; M14.672 Charcot's joint, left ankle and foot; I70.244 Atherosclerosis of native arteries of left leg with ulceration of heel and midfoot; N18.4 Chronic kidney disease, stage 4 (severe) | CPT/HCPCS: 99212 ==

== ENCOUNTER → 2018-10-17 | Outpatient (CLI) | payer OTHER | LOC: WOUNDCARE 10:20 | PROVIDERS: ATTEND Nurse Practitioner | DX: E11.621 Type 2 diabetes mellitus with foot ulcer (principal); L97.424 Non-pressure chronic ulcer of left heel and midfoot with necrosis of bone; M14.672 Charcot's joint, left ankle and foot; I70.244 Atherosclerosis of native arteries of left leg with ulceration of heel and midfoot; N18.4 Chronic kidney disease, stage 4 (severe) | CPT/HCPCS: 99213 ==

== ENCOUNTER 2018-11-01 10:00 | Outpatient (CLI) | payer OTHER ==
[~2018-11-01] VITALS: Ht 165.1 cm; Wt 90.7 kg
[~2018-11-01 10:00] MED LIST changes: +ONDN4T PO
== END 2018-11-01 10:36 | disposition home or self-care (01) ==
LOC: PREOP 10:00
PROVIDERS: ATTEND Surgery
DX: Z01.818 Encounter for other preprocedural examination (principal)
CPT/HCPCS: 87081

== ENCOUNTER 2018-11-03 08:09 | Outpatient (RCR) | payer OTHER ==
[2018-10-03] MEDS: cefTRIAXone 2,000 MG/SWFI 20 ML IV PUSH IV SCH ×2 (12:20)
[2018-10-03] MEDS: VANCOMYCIN 2000 MG/NS 500 ML IVPB IV SCH ×2 (13:00)
[2018-10-03 13:06] VITALS: BP 134/57
--- NOTE | 2018-10-03 13:14 | NUR ---
1200 - PT STATED HE FELT THAT HIS BLOOD SUGAR WAS LOW. PT ASKED FOR BLOOD SUGAR TO BE CHECKED. FSBS 94. PT REQUESTED FOOD. DIET ET FOOD ORDERED FOR PT. Addendum: 10/03/18 at 1316 by CAMMIE QUIROZ RN Amended: Links added.
[2018-10-03 15:21] VITALS: BP 134/57
[2018-10-04] MEDS: cefTRIAXone 2,000 MG/SWFI 20 ML IV PUSH IV SCH ×2 (11:32)
[2018-10-04] MEDS: VANCOMYCIN 2000 MG/NS 500 ML IVPB IV SCH ×2 (11:51)
[2018-10-04 14:00] VITALS: BP 160/72
[2018-10-05] MEDS: cefTRIAXone 2,000 MG/SWFI 20 ML IV PUSH IV SCH ×2 (09:50)
--- NOTE | 2018-10-05 10:20 | NUR ---
VANCO TROUGH DRAWN, OK PER BETH VARGAS, PHARMACIST, TO START VANCOMYCIN 2 GM IV WHILE VANCO TROUGH RESULTS ARE PENDING.
[2018-10-05] MEDS: VANCOMYCIN 2000 MG/NS 500 ML IVPB IV SCH ×2 (10:25)
--- NOTE | 2018-10-05 11:05 | NUR ---
VANCO TROUGH 21.1 UG/ML. CALL RECEIVED FROM BETH VARGAS, PHARMACIST, TO STOP VANCOMYCIN INFUSION AND DRAW VANCO TROUGH TOMORROW, 10/06/18.
[2018-10-05 11:10] VITALS: BP 152/63
[2018-10-06] MEDS: cefTRIAXone 2,000 MG/SWFI 20 ML IV PUSH IV SCH ×2 (09:44)
--- NOTE | 2018-10-06 09:50 | NUR ---
VANCO TROUGH DRAWN PER ORDER, PERIPHERAL STICK BY [employer]EROOM FOUNDRY LABORER.
[2018-10-06] MEDS: VANCOMYCIN 1500 MG/NS 500 ML IVPB IV SCH ×2 (10:31)
--- NOTE | 2018-10-06 10:31 | NUR ---
VANCO TROUGH 15.5. VANCO DOSE CHANGED TO 1500 MG PER PHARMACY.
[2018-10-06 12:45] VITALS: BP 138/60
[2018-10-07] MEDS: cefTRIAXone 2,000 MG/SWFI 20 ML IV PUSH IV SCH ×2 (11:35)
[2018-10-07] MEDS: VANCOMYCIN 1500 MG/NS 500 ML IVPB IV SCH ×2 (12:08)
[2018-10-07 14:18] VITALS: BP 146/56
[2018-10-08] MEDS: cefTRIAXone 2,000 MG/SWFI 20 ML IV PUSH IV SCH ×2 (11:39)
[2018-10-08 11:51] LABS: BASOPHILS % (AUTO) 0 % (0-10); EOSINOPHILS # (AUTO) 0.2 10^3/uL (0.0-0.3); EOSINOPHILS % (AUTO) 2 % (0-10); HEMATOCRIT 35 % (40-54); HEMOGLOBIN 11.1 G/DL (13.3-17.7); LYMPHOCYTES # (AUTO) 1.2 X 10^3 (1.0-4.0); LYMPHOCYTES % (AUTO) 10 % (12-44); MEAN CORPUSCULAR HGB CONC 32 G/DL (32-36); MEAN CORPUSCULAR VOLUME 84 FL (80-99); MEAN PLATELET VOLUME 9.8 FL (7.4-10.4); MONOCYTES # (AUTO) 0.9 X 10^3 (0.0-1.0); MONOCYTES % (AUTO) 8 % (0-12); NEUTROPHILS # (AUTO) 9.7 X 10^3 (1.8-7.8); NEUTROPHILS % (AUTO) 81 % (42-75); PLATELET COUNT 509 10^3/uL (130-400); RED CELL DISTRIBUTION WIDTH 21.4 % (10.0-14.5)
[2018-10-08 11:52] LABS: MEAN CORPUSCULAR HEMOGLOBIN 26 PG (25-34)
--- NOTE | 2018-10-08 12:35 | NUR ---
VANCO TROUGH 17 .8. CALLED TO PHARMACY. WILL CONTINUE CURRENT 1500 MG DOSE IV DAILY
[2018-10-08] MEDS: VANCOMYCIN 1500 MG/NS 500 ML IVPB IV SCH ×2 (12:55)
[2018-10-08 13:07] LABS: BAND NEUTROPHILS 1 %; BASOPHILS % (MANUAL) 0 %; EOSINOPHILS % (MANUAL) 1 %; LYMPHOCYTES % (MANUAL) 9 %; MONOCYTES % (MANUAL) 5 %; NEUTROPHILS % (MANUAL) 84 %
[2018-10-08 13:08] LABS: ANISOCYTOSIS SLIGHT; HELMET/BITE CELLS SLIGHT; HYPOCHROMASIA SLIGHT
[2018-10-08 15:00] VITALS: BP 145/61
[2018-10-09 11:20] VITALS: BP 120/54
[2018-10-09] MEDS: cefTRIAXone 2,000 MG/SWFI 20 ML IV PUSH IV SCH ×2 (11:34)
[2018-10-09] MEDS: VANCOMYCIN 1500 MG/NS 500 ML IVPB IV SCH ×2 (11:34)
[2018-10-10] MEDS: cefTRIAXone 2,000 MG/SWFI 20 ML IV PUSH IV SCH ×2 (11:51)
[2018-10-10] MEDS: VANCOMYCIN 1500 MG/NS 500 ML IVPB IV SCH ×2 (11:56)
[2018-10-10 14:19] VITALS: BP 157/63
[2018-10-11] MEDS: cefTRIAXone 2,000 MG/SWFI 20 ML IV PUSH IV SCH ×2 (11:35)
[2018-10-11] MEDS: VANCOMYCIN 1500 MG/NS 500 ML IVPB IV SCH ×2 (11:40)
[2018-10-11 13:45] VITALS: BP 151/58
[2018-10-12] MEDS: cefTRIAXone 2,000 MG/SWFI 20 ML IV PUSH IV SCH ×2 (09:31)
[2018-10-12] MEDS: VANCOMYCIN 1500 MG/NS 500 ML IVPB IV SCH ×2 (09:36)
[2018-10-12 09:53] VITALS: BP 108/56
[2018-10-13] MEDS: cefTRIAXone 2,000 MG/SWFI 20 ML IV PUSH IV SCH ×2 (08:17)
[2018-10-13] MEDS: VANCOMYCIN 1500 MG/NS 500 ML IVPB IV SCH ×2 (08:21)
[2018-10-13 08:22] VITALS: BP 146/63
[2018-10-14 07:55] VITALS: BP 157/68
[2018-10-14] MEDS: cefTRIAXone 2,000 MG/SWFI 20 ML IV PUSH IV SCH ×2 (08:17)
[2018-10-14] MEDS: VANCOMYCIN 1500 MG/NS 500 ML IVPB IV SCH ×2 (08:17)
[2018-10-14 08:36] LABS: BUN/CREATININE RATIO 13; CALCIUM 8.9 MG/DL (8.5-10.1); CARBON DIOXIDE 23 MMOL/L (21-32); CHLORIDE 101 MMOL/L (98-107); CREATININE SERUM 0.98 MG/DL (0.60-1.30); GFR ESTIMATED > 60; GLUCOSE 120 MG/DL (70-105); POTASSIUM 3.6 MMOL/L (3.6-5.0); SODIUM 133 MMOL/L (135-145)
[2018-10-14 08:43] LABS: VANCOMYCIN,TROUGH 20.2 UG/ML (10.0-20.0)
[2018-10-15] MEDS: cefTRIAXone 2,000 MG/SWFI 20 ML IV PUSH IV SCH ×2 (11:17)
[2018-10-15] MEDS: VANCOMYCIN 1500 MG/NS 500 ML IVPB IV SCH ×2 (11:23)
[2018-10-15 13:25] VITALS: BP 147/62
[2018-10-16 11:20] VITALS: BP 133/63
[2018-10-16 11:36] LABS: BASOPHILS % (AUTO) 1 % (0-10); EOSINOPHILS # (AUTO) 0.2 10^3/uL (0.0-0.3); EOSINOPHILS % (AUTO) 2 % (0-10); HEMATOCRIT 34 % (40-54); LYMPHOCYTES # (AUTO) 1.1 X 10^3 (1.0-4.0); LYMPHOCYTES % (AUTO) 13 % (12-44); MEAN CORPUSCULAR HEMOGLOBIN 27 PG (25-34); MEAN CORPUSCULAR HGB CONC 32 G/DL (32-36); MEAN CORPUSCULAR VOLUME 85 FL (80-99); MEAN PLATELET VOLUME 10.5 FL (7.4-10.4); MONOCYTES # (AUTO) 0.5 X 10^3 (0.0-1.0); MONOCYTES % (AUTO) 6 % (0-12); NEUTROPHILS # (AUTO) 6.8 X 10^3 (1.8-7.8); NEUTROPHILS % (AUTO) 79 % (42-75); PLATELET COUNT 376 10^3/uL (130-400); RED CELL DISTRIBUTION WIDTH 21.2 % (10.0-14.5); WHITE BLOOD COUNT 8.6 10^3/uL (4.3-11.0)
[2018-10-16] MEDS: cefTRIAXone 2,000 MG/SWFI 20 ML IV PUSH IV SCH ×2 (12:03)
[2018-10-16] MEDS: VANCOMYCIN 1500 MG/NS 500 ML IVPB IV SCH ×2 (12:06)
[2018-10-17 11:05] VITALS: BP 110/49
[2018-10-17] MEDS: cefTRIAXone 2,000 MG/SWFI 20 ML IV PUSH IV SCH ×2 (11:20)
[2018-10-17] MEDS: VANCOMYCIN 1250 MG/NS 250 ML IVPB IV SCH ×2 (11:25)
[2018-10-18 11:08] VITALS: BP 146/63
[2018-10-18] MEDS: cefTRIAXone 2,000 MG/SWFI 20 ML IV PUSH IV SCH ×2 (11:23)
[2018-10-18] MEDS: VANCOMYCIN 1250 MG/NS 250 ML IVPB IV SCH ×2 (11:33)
[2018-10-19 08:05] VITALS: BP 146/63
[2018-10-19] MEDS: cefTRIAXone 2,000 MG/SWFI 20 ML IV PUSH IV SCH ×2 (08:15)
[2018-10-19] MEDS: VANCOMYCIN INJECTION 1,000 MG in NS (IVPB) 250 ML IV SCH (08:32)
[2018-10-19 08:44] LABS: BUN/CREATININE RATIO 23; CALCIUM 8.3 MG/DL (8.5-10.1); CARBON DIOXIDE 22 MMOL/L (21-32); CHLORIDE 101 MMOL/L (98-107); CREATININE SERUM 1.17 MG/DL (0.60-1.30); GFR ESTIMATED > 60; GLUCOSE 143 MG/DL (70-105); POTASSIUM 3.4 MMOL/L (3.6-5.0); SODIUM 133 MMOL/L (135-145)
[2018-10-20 08:00] VITALS: BP 144/66
[2018-10-20] MEDS: cefTRIAXone 2,000 MG/SWFI 20 ML IV PUSH IV SCH ×2 (08:09)
[2018-10-20] MEDS: VANCOMYCIN INJECTION 1,000 MG in NS (IVPB) 250 ML IV SCH (08:30)
[2018-10-21] MEDS: VANCOMYCIN INJECTION 1,000 MG in NS (IVPB) 250 ML IV SCH (08:17)
[2018-10-21] MEDS: cefTRIAXone 2,000 MG/SWFI 20 ML IV PUSH IV SCH ×2 (09:32)
[2018-10-21 09:38] VITALS: BP 126/54
[2018-10-22 10:28] VITALS: BP 125/50
[2018-10-22] MEDS: cefTRIAXone 2,000 MG/SWFI 20 ML IV PUSH IV SCH ×2 (10:41)
[2018-10-22] MEDS: VANCOMYCIN INJECTION 1,000 MG in NS (IVPB) 250 ML IV SCH (10:41)
[2018-10-23 10:20] VITALS: BP 139/59
[2018-10-23] MEDS: cefTRIAXone 2,000 MG/SWFI 20 ML IV PUSH IV SCH ×2 (10:48)
[2018-10-23] MEDS: VANCOMYCIN INJECTION 1,000 MG in NS (IVPB) 250 ML IV SCH (10:59)
[2018-10-23 13:48] LABS: BASOPHILS % (AUTO) 0 % (0-10); EOSINOPHILS # (AUTO) 0.2 10^3/uL (0.0-0.3); EOSINOPHILS % (AUTO) 2 % (0-10); HEMATOCRIT 34 % (40-54); HEMOGLOBIN 10.9 G/DL (13.3-17.7); LYMPHOCYTES # (AUTO) 1.2 X 10^3 (1.0-4.0); LYMPHOCYTES % (AUTO) 13 % (12-44); MEAN CORPUSCULAR HEMOGLOBIN 28 PG (25-34); MEAN CORPUSCULAR HGB CONC 32 G/DL (32-36); MEAN CORPUSCULAR VOLUME 86 FL (80-99); MEAN PLATELET VOLUME 10.1 FL (7.4-10.4); MONOCYTES # (AUTO) 0.6 X 10^3 (0.0-1.0); MONOCYTES % (AUTO) 7 % (0-12); NEUTROPHILS # (AUTO) 7.1 X 10^3 (1.8-7.8); NEUTROPHILS % (AUTO) 77 % (42-75); PLATELET COUNT 271 10^3/uL (130-400); WHITE BLOOD COUNT 9.2 10^3/uL (4.3-11.0)
[2018-10-24 09:20] VITALS: BP 134/54
[2018-10-24] MEDS: cefTRIAXone 2,000 MG/SWFI 20 ML IV PUSH IV SCH ×2 (09:30)
[2018-10-24] MEDS: VANCOMYCIN INJECTION 1,000 MG in NS (IVPB) 250 ML IV SCH (09:35)
[2018-10-25] MEDS: cefTRIAXone 2,000 MG/SWFI 20 ML IV PUSH IV SCH ×2 (08:35)
[2018-10-25] MEDS: VANCOMYCIN INJECTION 1,000 MG in NS (IVPB) 250 ML IV SCH (08:40)
[2018-10-25 11:34] VITALS: BP 140/67
[2018-10-26 08:25] VITALS: BP 103/42
[2018-10-27 08:15] VITALS: BP 141/62
[2018-10-27] MEDS: cefTRIAXone 2,000 MG/SWFI 20 ML IV PUSH IV SCH ×2 (08:25)
[2018-10-27] MEDS: VANCOMYCIN INJECTION 1,000 MG in NS (IVPB) 250 ML IV SCH (08:32)
[2018-10-28] MEDS: VANCOMYCIN INJECTION 1,000 MG in NS (IVPB) 250 ML IV SCH (08:12)
[2018-10-28] MEDS: cefTRIAXone 2,000 MG/SWFI 20 ML IV PUSH IV SCH ×2 (09:29)
[2018-10-28 09:35] VITALS: BP 133/52
[2018-10-29] MEDS: cefTRIAXone 2,000 MG/SWFI 20 ML IV PUSH IV SCH ×2 (10:02)
[2018-10-29] MEDS: VANCOMYCIN INJECTION 1,000 MG in NS (IVPB) 250 ML IV SCH (10:07)
--- NOTE | 2018-10-29 11:04 | NUR ---
PTD VANCOMYCIN VANCOMYCIN TROUGH 18.5 - CONTINUE WITH CURRENT DOSING AND REPEAT LEVEL IN 1 WEEK.
[2018-10-29 11:26] VITALS: BP 147/62
[2018-10-30 09:40] VITALS: BP 141/50
[2018-10-30 09:47] LABS: BASOPHILS % (AUTO) 0 % (0-10); EOSINOPHILS # (AUTO) 0.4 10^3/uL (0.0-0.3); EOSINOPHILS % (AUTO) 3 % (0-10); HEMATOCRIT 33 % (40-54); HEMOGLOBIN 10.6 G/DL (13.3-17.7); LYMPHOCYTES # (AUTO) 1.3 X 10^3 (1.0-4.0); LYMPHOCYTES % (AUTO) 12 % (12-44); MEAN CORPUSCULAR HEMOGLOBIN 27 PG (25-34); MEAN CORPUSCULAR HGB CONC 32 G/DL (32-36); MEAN CORPUSCULAR VOLUME 85 FL (80-99); MEAN PLATELET VOLUME 10.2 FL (7.4-10.4); MONOCYTES # (AUTO) 1.2 X 10^3 (0.0-1.0); MONOCYTES % (AUTO) 11 % (0-12); NEUTROPHILS % (AUTO) 74 % (42-75); PLATELET COUNT 308 10^3/uL (130-400); RED CELL DISTRIBUTION WIDTH 20.6 % (10.0-14.5); WHITE BLOOD COUNT 10.9 10^3/uL (4.3-11.0)
[2018-10-30] MEDS: cefTRIAXone 2,000 MG/SWFI 20 ML IV PUSH IV SCH ×2 (09:54)
[2018-10-30] MEDS: VANCOMYCIN INJECTION 1,000 MG in NS (IVPB) 250 ML IV SCH (09:55)
[2018-10-30 10:02] LABS: CALCIUM 8.3 MG/DL (8.5-10.1); CREATININE SERUM 1.43 MG/DL (0.60-1.30)
[2018-10-31] MEDS: cefTRIAXone 2,000 MG/SWFI 20 ML IV PUSH IV SCH ×2 (08:39)
[2018-10-31 08:43] VITALS: BP 145/63
[2018-10-31] MEDS: VANCOMYCIN INJECTION 1,000 MG in NS (IVPB) 250 ML IV SCH (08:47)
[2018-11-01] MEDS: cefTRIAXone 2,000 MG/SWFI 20 ML IV PUSH IV SCH ×2 (09:13)
[2018-11-01] MEDS: VANCOMYCIN INJECTION 1,000 MG in NS (IVPB) 250 ML IV SCH (09:22)
[2018-11-01 10:58] VITALS: BP 126/52
[2018-11-02] MEDS: cefTRIAXone 2,000 MG/SWFI 20 ML IV PUSH IV SCH ×2 (08:46)
[2018-11-02] MEDS: VANCOMYCIN INJECTION 1,000 MG in NS (IVPB) 250 ML IV SCH (08:47)
[2018-11-02 09:06] VITALS: BP 130/53
[~2018-11-03] VITALS: Ht 165.1 cm; Wt 90.7 kg
[~2018-11-03 08:09] MED LIST changes: +TROUGH ORDER-PHARMACY XX NR; +TROUGH ORDER-PHARMACY XX ONE
[2018-11-03] MEDS: VANCOMYCIN INJECTION 1,000 MG in NS (IVPB) 250 ML IV SCH (08:24)
[2018-11-03] MEDS: cefTRIAXone 2,000 MG/SWFI 20 ML IV PUSH IV SCH ×2 (08:24)
[2018-11-03 09:35] VITALS: BP 131/61
[2018-11-04] MEDS ORDERED: TROUGH ORDER-PHARMACY XX ONE (09:00)
[2018-11-22] MEDS ORDERED: BACL10TA PO (15:01)
[2018-11-22] MEDS ORDERED: TAMS0.4C98 PO (15:01)
[2018-11-22] MEDS ORDERED: PROM25TA14 PO (15:01)
[2018-12-28] MEDS ORDERED: FURO-125 PO (12:40)
[2018-12-28] MEDS ORDERED: POTA-53 PO (12:40)
== END 2019-01-01 | disposition home or self-care (01) ==
LOC: SDC 08:09
PROVIDERS: ATTEND Family Medicine
DX: M86.672 Other chronic osteomyelitis, left ankle and foot (principal)
CPT/HCPCS: 36415; 80048; 80202; 82962; 85007; 85025; 85027; 86141; 96365; 96366; 96374; 96375; 96376; 99211; 99212

== ENCOUNTER 2018-11-04 06:15 | Inpatient (IN) | payer OTHER, MEDICARE ==
[~2018-11-04] VITALS: Ht 165.1 cm; Wt 90.3 kg
[2018-11-04] VITALS (12 sets, daily range): BP systolic 101–165; BP diastolic 54–72
[~2018-11-04 06:15] MED LIST changes: -TROUGH ORDER-PHARMACY XX NR; -TROUGH ORDER-PHARMACY XX ONE
[2018-11-04] MEDS ORDERED: LACTATED RINGERS 1,000 ML IV PRN (06:23)
[2018-11-04] MEDS ORDERED: ceFAZolin 2 GM/50 ML NS 50 ML IV ONE (06:30)
[2018-11-04] MEDS ORDERED: MIDAZOLAM 2 MG/2 ML (VERSED) VIAL ONE (07:20)
[2018-11-04] MEDS ORDERED: fentaNYL INJECTION 250 MCG/5 ML AMP ONE (07:21)
--- NOTE | 2018-11-04 07:47 | Progress Note-Pre Operative ---
Pre-Operative Progress Note H&P Reviewed The H&P was reviewed, patient examined and no changes noted. Date Seen by Provider: Nov 04, 2018 Time Seen by Provider: 07:35 Date H&P Reviewed: Nov 04, 2018 Time H&P Reviewed: 07:35 Pre-Operative Diagnosis: left charcot joint, chronic open wound left lower extremity ROGER NOGUERA DO Nov 04, 2018 07:47
[2018-11-04] MEDS ORDERED: ROCURONIUM 10 MG/ML 5 ML SYRINGE IV ONE (08:05)
[2018-11-04] MEDS ORDERED: GLYCOPYRROLATE 0.2 MG/ML (ROBINUL) 2 ML VIAL ONE (08:05)
[2018-11-04] MEDS ORDERED: NEOSTIGMINE 3 MG/3 ML VIAL ONE (08:05)
[2018-11-04] MEDS ORDERED: DEXAMETHASONE 10 MG/ML (DECADRON) 1 ML VIAL ONE (08:05)
[2018-11-04] MEDS ORDERED: proPOfol 200 MG/20 ML (DIPRIVAN) VIAL IV ONE (08:05)
[2018-11-04] MEDS ORDERED: ONDANSETRON 4 MG/2 ML (SDV) Z0FRAN ONE ×2 (08:05→09:31)
[2018-11-04] MEDS ORDERED: SUCCINYLCHOLINE INJ 100 MG/5 ML SYR ONE (08:05)
[2018-11-04] MEDS: D5 NS 1000 ML IV SOLUTION 1,000 ML IV SCH ×2 (09:25→11:11)
[2018-11-04] MEDS ORDERED: D5 NS 1000 ML IV SOLUTION 1,000 ML IV ONE (09:26)
[2018-11-04] MEDS ORDERED: morphine INJ 10 MG/ML 1ML (SYR OR VIAL) ONE (09:31)
[2018-11-04] MEDS ORDERED: ONDANSETRON 4 MG/2 ML (SDV) Z0FRAN IVP PRN (09:45)
[2018-11-04] MEDS ORDERED: MEPERIDINE (DEMEROL) INJ 50 MG/ML IVP ONE (09:45)
[2018-11-04] MEDS ORDERED: morphine INJ 10 MG/ML 1ML (SYR OR VIAL) IVP ONE (09:45)
[2018-11-04] MEDS ORDERED: fentaNYL INJECTION 100 MCG/2 ML AMP IVP ONE (09:45)
[2018-11-04] MEDS ORDERED: HYDROmorphone 2 MG/ML VIAL (DILAUDID) IV ONE (09:45)
[2018-11-04] MEDS ORDERED: PROMETHAZINE INJ 25 MG/ML (PHENERGAN) AMP IVP ONE (09:45)
--- NOTE | 2018-11-04 10:20 | NUR ---
Pt to room 410 via bed from PACU, pt awake but sleepy, O2 @ 4lpm n/c, dressing to L) leg c/d/i, pt had L) BKA. Bolus of 500ml D5NS infusing into power port in R) upper chest. Report rec'd from Saira WHITMAN
--- NOTE | 2018-11-04 10:29 | Progress Note-Post Operative ---
Post-Operative Progess Note Surgeon (s)/Passenger Service Representative (s) Surgeon ROGER NOGUERA DO Passenger Service Representative: Dr. Jones Pre-Operative Diagnosis left charcot joint, chronic open wound left lower extremity Post-Operative Diagnosis same Procedure & Operative Findings Date of Procedure 11/04/18 Procedure Performed/Findings left below knee amputation Anesthesia Type gen Estimated Blood Loss Estimated blood loss (mL): min Specimens/Packing Specimens Removed left lower extremity ROGER NOGUERA DO Nov 04, 2018 10:29
--- NOTE | 2018-11-04 10:41 | Consultation-Hospitalist ---
HPI History of Present Illness: HPI/Chief Complaint Chief Complaint: Osteomyelitis of the left foot s/p left amputation HPI: This is a 63yoWM known to me from prior admission who presents after an amputation performed by Dr. Sandhu he performed an uncomplicated left below the knee amputation. He does use and insulin pump boluses only and his present who does not live in the same house as him is at the bedside and reports he continuing to smoke although he says he is not smoking anymore. We will evaluate blood sugar readings monitor BP and monitor lab work. Source: patient Exam Limitations: no limitations Date Seen 11/04/18 Attending Physician Brannon Sandhu DO [facility] Center/[facility] [place] Referring Physician Date of Admission Nov 04, 2018 at 06:15 Home Medications & Allergies Home Medications Reviewed patient Home Medication Reconciliation performed by pharmacy medication reconciliations wafer fab technician and/or nursing. Patients Allergies have been reviewed. Allergies Allergies Coded Allergies No Known Drug Allergies (Glqwbhakmb83/21/11) Past Cijogyf-Ukklbb-Nufwjr Hx Past Med/Social Hx: Reviewed Nursing Past Med/Soc Hx, Reviewed and Corrections made Patient Social History Marrital Status: Employed/Student: retired Alcohol Use: Denies Use Recreational Drug Use: No Smoking Status: Current Everyday Smoker Type Used: Cigarettes 2nd Hand Smoke Exposure: Yes Physical Abuse Screen: No Sexual Abuse: No Recent Foreign Travel: No Contact w/other who traveled: No Recent Hopitalizations: No Recent Infectious Disease Expo: No Immunizations Up To Date Pediatric: No Date of Pneumonia Vaccine: Dec 12, 2017 Seasonal Allergies Seasonal Allergies: Yes (FOOT INFECTION) Past Medical History Surgeries: Appendectomy, Gallbladder, Orthopedic Currently Using CPAP: No Currently Using BIPAP: No Cardiac: High Cholesterol, Hypertension, Peripheral Vascular Neurological: Neuropathy, TIA Sexually Transmitted Disease: No Genitourinary: Bladder Infection, Renal Failure Gastrointestinal: Chronic Constipation, Ulcer, Gall Bladder Disease Musculoskeletal: Arthritis, Rheumatoid Arthritis, Chronic Back Pain, Fractures Endocrine: Diabetes, Insulin dep Loss of Vision: Denies Hearing Impairment: Denies History of Blood Disorders: No Adverse Reaction to Blood Magallanes: No (N/A) Family History No Pertinent Family Hx Review of Systems Constitutional: see HPI, malaise, weakness EENTM: no symptoms reported Respiratory: no symptoms reported Cardiovascular: no symptoms reported Gastrointestinal: no symptoms reported Genitourinary: no symptoms reported Musculoskeletal: see HPI (right bka) Skin: no symptoms reported Psychiatric/Neurological: No Symptoms Reported Physical Exam Physical Exam Vital Signs Vital Signs - First Documented Capillary Refill : Height, Weight, BMI Height: 5'5.00" Weight: 200lbs. 0.0oz. 90.590691kn; 33.3 BMI Method:Stated General Appearance: No Apparent Distress, WD/WN, Chronically ill Eyes: Bilateral Eye Normal Inspection, Bilateral Eye PERRL HEENT: PERRL/EOMI, Normal ENT Inspection, Pharynx Normal Neck: Full Range of Motion, Normal Inspection, Non Tender, Supple, Carotid Bruit Respiratory: Chest Non Tender, Lungs Clear, Normal Breath Sounds, No Accessory Muscle Use, No Respiratory Distress Cardiovascular: Regular Rate, Rhythm, No Edema, No Gallop, No JVD, No Murmur, Normal Peripheral Pulses Gastrointestinal: Normal Bowel Sounds, No Organomegaly, No Pulsatile Mass, Non Tender, Soft Back: Normal Inspection, No CVA Tenderness, No Vertebral Tenderness Extremity: Normal Capillary Refill, Normal Inspection, Normal Range of Motion, Non Tender, No Calf Tenderness, No Pedal Edema, Other (left BKA with dressing intact) Neurologic/Psychiatric: Alert, Oriented x3, No Motor/Sensory Deficits, Normal Mood/Affect Skin: Normal Color, Warm/Dry Lymphatic: No Adenopathy Results Results/Procedures Labs Laboratory Tests 11/04/18 18:35 Patient resulted labs reviewed. 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 DM brittle on insulin pump HTN HLP Plan: Insulin pump boluses along with SSI Home meds Pain control Check labs in am Diagnosis/Problems Diagnosis/Problems (1) Status post below knee amputation of left lower extremity Status: Acute (2) Insulin pump in place Status: Chronic (3) Hypertension Status: Chronic Qualifiers: Hypertension type: essential hypertension Qualified Codes: I10 - Essential (primary) hypertension (4) Rheumatoid arthritis Status: Chronic Qualifiers: Rheumatoid arthritis location: unspecified site Rheumatoid factor presence: unspecified presence Qualified Codes: M06.9 - Rheumatoid arthritis, unspecified (5) Atherosclerotic occlusive disease Status: Chronic (6) Smoker Status: Chronic (7) Diabetes Status: Chronic Qualifiers: Diabetes mellitus type: type 2 Diabetes mellitus custodial insulin use: with ad terminal makeup operator use Diabetes mellitus complication status: with circulatory complication Diabetes mellitus complication detail: with peripheral angiopathy with gangrene Qualified Codes: E11.52 - Type 2 diabetes mellitus with diabetic peripheral angiopathy with gangrene; 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
[2018-11-04] MEDS ORDERED: HYDROcodone/APAP 5 MG/325 MG (LORTAB) TAB PO PRN (10:45)
[2018-11-04] MEDS: morphine INJ 4 MG/ML 1 ML (VIAL/SYRINGE) IVP PRN ×2 (11:28→14:00)
[2018-11-04] MEDS ORDERED: D5 NS 1000 ML IV SOLUTION 500 ML IV SCH (11:45)
[2018-11-04] MEDS ORDERED: SEVOFLURANE (ULTANE) 15 ML INHAL SOLN ONE (12:46)
[2018-11-04] MEDS ORDERED: NON-FORMULARY MEDICATION 1 EA EA (Zolpidem Tartrate 10 MG) PO PRN (13:45)
--- NOTE | 2018-11-04 14:08 | Physical Therapy Progress Note ---
Therapy Progress Note Patient is still lethargic from surgery and is unsafe to evaluate at this time. PT to begin in a.m. Family present and agree. KASIE ANTONY PT Nov 04, 2018 14:08
[2018-11-04] MEDS: LACTATED RINGERS 1,000 ML IV SCH ×2 (14:30→23:52)
[2018-11-04] MEDS ORDERED: ZOLPIDEM 5 MG (AMBIEN) TAB PO PRN (14:30)
[2018-11-04] MEDS: ceFAZolin 2 GM/50 ML NS 50 ML IV SCH ×2 (15:21→23:59)
--- NOTE | 2018-11-04 16:35 | NUR ---
Dr. Cantrell notified of bs of 443, pt is to give self Novolog with his pump, gave 11 units.
[2018-11-04 19:07] LABS: CALCIUM 8.1 MG/DL (8.5-10.1); CREATININE SERUM 1.36 MG/DL (0.60-1.30); POTASSIUM 4.5 MMOL/L (3.6-5.0)
[2018-11-04] MEDS: HYDROcodone/APAP 10 MG/325 MG (LORTAB) TAB PO PRN ×2 (19:37→23:53)
[2018-11-04] MEDS: inSUlin ASPART (NovoLOG) 1 UNIT/0.01 ML (CHARGE PER UNIT) SC SCH ×2 (20:58→21:00)
[2018-11-05 03:35] VITALS: BP 148/68
--- NOTE | 2018-11-05 05:49 | OPERATIVE REPORT ---
DATE OF SERVICE: 11/04/2018 PREOPERATIVE DIAGNOSIS: Left Charcot joint chronic open wound, left lower extremity. POSTOPERATIVE DIAGNOSIS: Left Charcot joint chronic open wound, left lower extremity. PROCEDURE: Left below knee amputation. SURGEON: Brannon Sandhu DO PLUG SHAPER HAND: Dr. Jones, assisted in retraction, dissection and closure. ANESTHESIA: General. ESTIMATED BLOOD LOSS: Minimal. COMPLICATIONS: None. INDICATIONS: The patient is a 63-year-old male with a chronic open wound left lower extremity that has unable to be heal despite multiple medical management strategies. The patient has been recommended by multiple physicians to have left below knee amputation. He is also suspected that he has osteomyelitis present as well. He has left Charcot joint. The patient was discussed risks and benefits of procedure and wished to proceed with procedure. Consent was signed in the chart. DESCRIPTION OF PROCEDURE: The patient was taken to the operating suite. His left lower extremity was prepped and draped in sterile fashion. Timeout was performed. A fish mouth incision was made distal to the tibia plateau. Skin and subcutaneous tissue was divided. The muscle was continued to be divided until the tibia was encountered. The tibia was then dissected completely around and a bone saw was used to transect the tibia. The anterior surface also had angle cut made for better pressure positioning. File was used to file the bone edges until smooth. The muscles were then continued to be divided until vascular bundles were encountered. When vascular bundles were encountered, these were dissected around tied off and then transected. The fibula was also dissected around proximal to where the tibia was cut and then transected as well with the bone saw. A tourniquet was used during dissection. Once the tibia and fibula were both cut, the muscles were continued to be divided until completely divided. Once completely divided, the skin flaps were then brought together for closure after the wound was irrigated with copious amounts of irrigation. Hemostasis was achieved. Vasculature hemostasis was checked with the tourniquet off and was left off the remainder of the case. Again, the wound was irrigated with copious amounts of irrigation. The skin was then closed using Prolene sutures and justo. The skin was then washed and dried, sterile bandage was applied. The patient tolerated procedure well without any complications. He was taken to recovery room in stable condition. Job ID: [id number] DocumentID: [id number] Dictated Date: 11/04/2018 21:05:48 Peeled Potato Inspector Date: 11/05/2018 05:48:31 Dictated By: DO BALDO BARLOW
[2018-11-05 06:07] LABS: BASOPHILS % (AUTO) 0 % (0-10); EOSINOPHILS % (AUTO) 0 % (0-10); HEMATOCRIT 29 % (40-54); HEMOGLOBIN 8.9 G/DL (13.3-17.7); LYMPHOCYTES # (AUTO) 1.5 X 10^3 (1.0-4.0); LYMPHOCYTES % (AUTO) 10 % (12-44); MEAN CORPUSCULAR HEMOGLOBIN 27 PG (25-34); MEAN CORPUSCULAR HGB CONC 31 G/DL (32-36); MEAN CORPUSCULAR VOLUME 86 FL (80-99); MEAN PLATELET VOLUME 10.3 FL (7.4-10.4); MONOCYTES # (AUTO) 1.2 X 10^3 (0.0-1.0); MONOCYTES % (AUTO) 8 % (0-12); NEUTROPHILS # (AUTO) 12.6 X 10^3 (1.8-7.8); NEUTROPHILS % (AUTO) 82 % (42-75); PLATELET COUNT 313 10^3/uL (130-400); RED CELL DISTRIBUTION WIDTH 19.7 % (10.0-14.5); WHITE BLOOD COUNT 15.3 10^3/uL (4.3-11.0)
[2018-11-05] MEDS: HYDROcodone/APAP 10 MG/325 MG (LORTAB) TAB PO PRN ×3 (06:12→23:20)
[2018-11-05] MEDS: inSUlin ASPART (NovoLOG) 1 UNIT/0.01 ML (CHARGE PER UNIT) SC SCH ×4 (06:12→21:02)
[2018-11-05 06:27] LABS: ANISOCYTOSIS SLIGHT; BAND NEUTROPHILS 2 %; LYMPHOCYTES % (MANUAL) 4 %; MONOCYTES % (MANUAL) 7 %; NEUTROPHILS % (MANUAL) 87 %
[2018-11-05 06:28] LABS: ALANINE AMINOTRANSFERASE 9 U/L (0-55); ALBUMIN 2.5 GM/DL (3.2-4.5); ALKALINE PHOSPHATASE 83 U/L (40-136); BILIRUBIN,TOTAL 0.2 MG/DL (0.1-1.0); BUN/CREATININE RATIO 18; CALCIUM 7.9 MG/DL (8.5-10.1); CARBON DIOXIDE 23 MMOL/L (21-32); CHLORIDE 104 MMOL/L (98-107); CREATININE SERUM 1.12 MG/DL (0.60-1.30); GFR ESTIMATED > 60; GLUCOSE 173 MG/DL (70-105); POTASSIUM 4.6 MMOL/L (3.6-5.0); SODIUM 133 MMOL/L (135-145); TOTAL PROTEIN 5.5 GM/DL (6.4-8.2)
--- NOTE | 2018-11-05 07:08 | Anesthesia-General Post-Op ---
General Patient Condition Mental Status/LOC: Same as Preop Cardiovascular: Satisfactory Nausea/Vomiting: Absent Respiratory: Satisfactory Pain: Controlled Complications: Absent Post Op Complications Complications None Follow Up Care/Instructions Patient Instructions None needed. Anesthesia/Patient Condition Patient Condition Patient is doing well, no complaints, stable vital signs, no apparent adverse anesthesia problems. No complications reported per nursing. LOIS MO CRNA Nov 05, 2018 07:08
[2018-11-05 08:54] VITALS: BP 128/62
--- NOTE | 2018-11-05 09:25 | Physical Therapy Evaluation ---
PT Evaluation-General Medical Diagnosis Admission Date Nov 04, 2018 at 06:15 Medical Diagnosis: left BKA Onset Date: Nov 04, 2018 Therapy Diagnosis Therapy Diagnosis: generalized weakness/debility Height/Weight Height (Feet): 5 Height (Inches): 5.00 Weight (Pounds): 211 Weight (Ounces): 4.2 Precautions Precautions/Isolations: Fall Prevention, Standard Precautions Weight Bear Status Right Lower Extremity: Right Full Weight Bearing Referral Physician: Edson Reason for Referral: Evaluation/Treatment Medical History Pertinent Medical History: DM, HTN, PVD, Rheumatoid Arthritis, Smoking Additional Medical History left Charcot joint (chronic wound) Current History s/p left BKA due to osteomyelitis left foot Reviewed History: Yes Social History Home: Single Level Current Living Status: Spouse family is putting ramp for w/c access Prior/Core FIM Prior Level of Function Therapy Code Descriptions/Definitions Functional [place] Measure: 0=Not Assessed/NA 4=Minimal Assistance 1=Total Assistance 5=Supervision or Setup 2=Maximal Assistance 6=Modified [place] 3=Moderate Assistance 7=Complete [place] Therapy Quality Codes: 6 Independent with activity with or without an assistive device 5 Patient requires set up or clean up by helper. Patient completes activity by themselves 4 Supervision or touching assist (CGA). Speed provide cues , steadying assist 3 The helper provides less than half the effort to complete the activity 2 The helper provides more than half the effort to complete the activity 1 Dependent. The helper does all the effort to complete an activity 7 Patient refused to complete or attempt activity 9 The patient did not perform the activity before the current illness or injury 88 Not attempted due to Medical conditions or safety concerns Functional Abilities and Goals: Independent: Patient completed the activities by him/herself, with or without an assistive device, with no assistance from a helper. Needed Some Help: Patient needed partial assistance from another person to complete activities. Dependent: A helper completed the activities for the patient. Unknown: Not Applicable: Bed Mobility: 6 Transfers (B,C,W/C) (FIM): 6 Gait: 6 Stairs: 6 Indoor Mobility (Ambulation): Independent Stairs: Independent Prior Devices Use: Other-see list below Prior Device Use: cane PT Evaluation-Current Subjective Patient agrees to PT. Pain Numeric Pain Scale: 3 Location: Left Pain Description: Acute Comment: stump Objective Patient Orientation: Normal For Age Problem Solving: Fair Attachments: IV ROM/Strength ROM Lower Extremities bilateral LE WFL Strength Lower Extremities right knee flexion/extension 4-/5 grossly/hip flexion 4/5; DF/PF 3+/5 left LE NT due to new BKA Integumentary/Posture Integumentary refer to nursing notes Bowel Incontinence: No Bladder Incontinence: No Posture WFL Neuromuscular (Tone, Coordination, Reflexes) grossly intact Sensory Vision: Wears Glasses Hearing: Functional Sensation Right Lower Extremit: Impaired Sensation Left Lower Extremity: Impaired Transfers Therapy Code Descriptions/Definitions Functional [place] Measure: 0=Not Assessed/NA 4=Minimal Assistance 1=Total Assistance 5=Supervision or Setup 2=Maximal Assistance 6=Modified [place] 3=Moderate Assistance 7=Complete [place] Transfers (B, C, W/C) (FIM): 4 Scootin Rollin Supine to/from Sit: 5 Sit to/from Stand: 4 patient unable to perform "hopping" with FWW bed to recliner due to right LE weakness and impaired sensation/proprioception Gait Mode of Locomotion: Both Anticipated Mode of Locomotion: Both Balance Sitting Static: Normal Sitting Dynamic: Normal Standing Static: Fair Standing Dynamic: Fair Assessment/Needs 63 y.o. male, will benefit from skilled PT to address functional strength and mobility to improve current LOF and to safely return to home with spouse at maximum LOF. From a PT standpoint, patient would benefit from ARU to address functional goals. Rehab Potential: Fair PT Jail Goals Jail Goals PT Jail Goals Time Frame: Nov 23, 2018 Transfers (B,C,W/C) (FIM): 6 Gait (FIM): 1 Gait distance (FIM): 1=up to 49 ft Distance: 45' Gait Level of Assist: 5 Gait Assistive Device: FWW Wheelchair (FIM): 6 Wheelchair distance (FIM): 3=150 ft Distance: 150' Wheelchair Level of Assist: 6 PT Plan Problem List Problem List: Activity Tolerance, Functional Strength, Safety, Balance, Gait, Transfer, Bed Mobility Treatment/Plan Treatment Plan: Continue Plan of Care Treatment Plan: Bed Mobility, Education, Functional Activity Talia, Functional Strength, Gait, Safety, Therapeutic Exercise, Transfers Treatment Duration: Nov 23, 2018 Frequency: 11 times per week Estimated Hrs Per Day: .5 hour per day Patient and/or Family Agrees t: Yes Safety Risks/Education Patient Education: Safety Issues Teaching Recipient: Patient Teaching Methods: Discussion Response to Teaching: Verbalize Understanding Discharge Recommendations Therapy D/C Recommendations: Acute Rehab, Home w/ Family Support Equpiment Recommendations-D/C: Front Wheeled Walker, Manual Wheelchair Time/GCodes Time In: 815 Time Out: 832 Total Billed Treatment Time: 17 Total Billed Treatment 1 visit EVModC 17 min KASIE ANTONY PT Nov 05, 2018 09:25
[2018-11-05] MEDS: LACTATED RINGERS 1,000 ML IV SCH ×3 (09:35→22:10)
[2018-11-05] MEDS: ASPIRIN E.C. 81 MG (ECOTRIN) TAB PO SCH (09:36)
[2018-11-05] MEDS: PANTOPRAZOLE 40 MG (PROTONIX) TAB PO SCH ×2 (09:36→11:05)
[2018-11-05] MEDS: lisINopril 20 MG (PRINIVIL) TABLET PO SCH (09:36)
[2018-11-05] MEDS: ATENOLOL 25 MG (TENORMIN) TAB PO SCH (09:36)
[2018-11-05] MEDS: FUROSEMIDE 40 MG (LASIX) TAB PO SCH (09:36)
--- NOTE | 2018-11-05 10:52 | Progress Note-Hospitalist ---
Subjective HPI/CC On Admission Date Seen by Provider: Nov 05, 2018 Time Seen by Provider: 10:00 Chief Complaint: Osteomyelitis of the left foot s/p left amputation HPI: This is a 63yoWM known to me from prior admission who presents after an amputation performed by Dr. Sandhu he performed an uncomplicated left below the knee amputation. He does use and insulin pump boluses only and his present who does not live in the same house as him is at the bedside and reports he continuing to smoke although he says he is not smoking anymore. We will evaluate blood sugar readings monitor BP and monitor lab work. Subjective/Events-last exam Pt doing much better Up in a chair Suppository and fleets will be initiated for BM Miralax BID will also be ordered Urinary retention will be managed by Dr. Aguilar who will place Bui catheter in place on bladder medication and will manage that component Vancomycin was discontinued since he was on that as an out patient and I don't believe that is necessary since he did have the amputation of the left BKA He will be transferred to in patient rehab for further recovery after suffering the amputation Review of Systems General: Fatigue Musculoskeletal: leg pain Objective Exam Vital Signs Vital Signs Date Time Temp Pulse Resp B/P (MAP) Pulse Ox O2 Delivery O2 Flow Rate FiO2 11/05/18 16:16 97.8 58 20 146/65 (92) 100 Room Air 11/05/18 12:49 0.00 Capillary Refill : Less Than 3 Seconds General Appearance: No Apparent Distress, WD/WN, Chronically ill HEENT: PERRL/EOMI, Normal ENT Inspection, Pharynx Normal Neck: Full Range of Motion, Normal Inspection, Non Tender, Supple, Carotid Bruit Respiratory: Chest Non Tender, Lungs Clear, Normal Breath Sounds, No Accessory Muscle Use, No Respiratory Distress Cardiovascular: Regular Rate, Rhythm, No Edema, No Gallop, No JVD, No Murmur, Normal Peripheral Pulses Gastrointestinal: Normal Bowel Sounds, No Organomegaly, No Pulsatile Mass, Non Tender, Soft Back: Normal Inspection, No CVA Tenderness, No Vertebral Tenderness Extremity: Normal Capillary Refill, Normal Inspection, Normal Range of Motion, Non Tender, No Calf Tenderness, No Pedal Edema, Other (left BKA with dressing intact) Neurologic/Psychiatric: Alert, Oriented x3, No Motor/Sensory Deficits, Normal Mood/Affect Skin: Normal Color, Warm/Dry Lymphatic: No Adenopathy Results/Procedures Lab Laboratory Tests 11/05/18 05:50 Patient resulted labs reviewed. 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 DM brittle on insulin pump HTN HLP Leukocytosis Anemia of chronic disease Plan: Insulin pump boluses along with SSI Home meds Pain control Check labs in am Diagnosis/Problems Diagnosis/Problems (1) Status post below knee amputation of left lower extremity Status: Acute (2) Insulin pump in place Status: Chronic (3) Hypertension Status: Chronic Qualifiers: Hypertension type: essential hypertension Qualified Codes: I10 - Essential (primary) hypertension (4) Rheumatoid arthritis Status: Chronic Qualifiers: Rheumatoid arthritis location: unspecified site Rheumatoid factor presence: unspecified presence Qualified Codes: M06.9 - Rheumatoid arthritis, unspecified (5) Atherosclerotic occlusive disease Status: Chronic (6) Smoker Status: Chronic (7) Diabetes Status: Chronic Qualifiers: Diabetes mellitus type: type 2 Diabetes mellitus fci insulin use: with salvage determiner use Diabetes mellitus complication status: with circulatory complication Diabetes mellitus complication detail: with peripheral angiopathy with gangrene Qualified Codes: E11.52 - Type 2 diabetes mellitus with diabetic peripheral angiopathy with gangrene; 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
--- NOTE | 2018-11-05 11:07 | NUR ---
pt states he is giving himself 6.5 units of insulin for a BS of 291.
[2018-11-05] MEDS: morphine INJ 4 MG/ML 1 ML (VIAL/SYRINGE) IVP PRN (11:14)
[2018-11-05] MEDS ORDERED: BISACODYL 10 MG SUPP (DULCOLAX) PR NR (12:45)
[2018-11-05 12:49] VITALS: BP 161/72
--- NOTE | 2018-11-05 13:27 | CONSULTATION REPORT ---
DATE OF SERVICE: 11/05/2018 ATTENDING PHYSICIAN: Dr. Cantrell and Dr. Sandhu. SUMMARY: A 63-year-old white man who yesterday underwent a left below knee amputation and postop retention yesterday. Bladder scan showed 1000 mL of urine and he was straight cathed for it. Now he has 900 mL. He denies any voiding symptoms in the past. He takes no medication for prostate or bladder. No previous surgeries on them either. PHYSICAL EXAMINATION: : Phallus circumcised adequate meatus. Testes down the scrotum. RECTAL: Deferred at this point. IMPRESSION: Urinary retention, benign prostatic hyperplasia and/or neurogenic bladder. PLAN: A 16-[place] Bui catheter to dependent drainage with the bladder and decompress it. Start him on Flomax 0.4 mg daily and Proscar 5 mg daily. The patient will be here for a while and probably go to the rehab downstairs. So, we will take that opportunity to monitor his voiding and few days after the Flomax buildup in his system, we will take the catheter out and perform a flexible cystoscopy at bedside and manage accordingly. This plan was fully explained to the patient. Job ID: [id number] DocumentID: [id number] Dictated Date: 11/05/2018 10:25:04 Armed Security Guard Date: 11/05/2018 13:26:18 Dictated By: ESMER ROBERTSON MD
--- NOTE | 2018-11-05 13:29 | Occupational Therapy Eval ---
OT Evaluation-General/PLF Medical Diagnosis Admission Date Nov 04, 2018 at 06:15 Medical Diagnosis: left BKA Onset Date: Nov 04, 2018 Therapy Diagnosis Therapy Diagnosis: impaired ADLS and mobility Height/Weight Height (Feet): 5 Height (Inches): 5.00 Weight (Pounds): 211 Weight (Ounces): 4.2 Precautions Precautions/Isolations: Fall Prevention, Standard Precautions Safety Interventions: Reorient-PRN Referral Physician: Edson Referral Reason: Activity Tolerance, Self Care, Evaluation/Treatment, Strengthening/ROM Medical History Pertinent Medical History: DM, HTN, PVD, Rheumatoid Arthritis, Smoking Current History s/p left BKA due to osteomyelitis left foot Reviewed History: Yes Social History Home: Single Level Current Living Status: Spouse Entry Into Home: Stairs With Railing Steps Into Home: 2 pt stated there are 2 OMER then landing with additional step./ pt stated his family will be building ramp. ADL-Prior Level of Function Therapy Code Descriptions/Definitions Functional [place] Measure: 0=Not Assessed/NA 4=Minimal Assistance 1=Total Assistance 5=Supervision or Setup 2=Maximal Assistance 6=Modified [place] 3=Moderate Assistance 7=Complete [place] Therapy Quality Codes: 6 Independent with activity with or without an assistive device 5 Patient requires set up or clean up by helper. Patient completes activity by themselves 4 Supervision or touching assist (CGA). [place] provide cues , steadying assist 3 The helper provides less than half the effort to complete the activity 2 The helper provides more than half the effort to complete the activity 1 Dependent. The helper does all the effort to complete an activity 7 Patient refused to complete or attempt activity 9 The patient did not perform the activity before the current illness or injury 88 Not attempted due to Medical conditions or safety concerns Functional Abilities and Goals: Independent: Patient completed the activities by him/herself, with or without an assistive device, with no assistance from a helper. Needed Some Help: Patient needed partial assistance from another person to complete activities. Dependent: A helper completed the activities for the patient. Unknown: Not Applicable: Self Care: Independent Functional Cognition: Independent DME/Equipment: Tub/Shower Occupation: works at [employer] as [address] Self: Yes OT Current Status Subjective pt sitting in recliner chair upon OT arrival in no apparent distress. pt c/o of no pain. pt agreed to OT eval. . Pain Numeric Pain Scale: 0-No Pain Mental Status/Objective Patient Orientation: Person, Place, Time, Situation Attachments: Bui Catheter, IV Current Glasses/Contacts: Yes Hearing Aids: No Dentures/Partials: No Hand Dominance: Right Upper Extremity ROM WFL Upper Extremity Coordination WFL finger to nose test Upper Extremity Sensation WFL Tobi UE Upper Extremity Strength 4/5 MMT Edema: noted edema in L stump ADL-Treatment Therapy Code Descriptions/Definitions Functional [place] Measure: 0=Not Assessed/NA 4=Minimal Assistance 1=Total Assistance 5=Supervision or Setup 2=Maximal Assistance 6=Modified [place] 3=Moderate Assistance 7=Complete [place] Therapy Quality Codes: 6 Independent with activity with or without an assistive device 5 Patient requires set up or clean up by helper. Patient completes activity by themselves 4 Supervision or touching assist (CGA). [place] provide cues , steadying assist 3 The helper provides less than half the effort to complete the activity 2 The helper provides more than half the effort to complete the activity 1 Dependent. The helper does all the effort to complete an activity 7 Patient refused to complete or attempt activity 9 The patient did not perform the activity before the current illness or injury 88 Not attempted due to Medical conditions or safety concerns Grooming (FIM): 4 (CGA while standing for safety. balacne) Bathing (FIM): 4 (CGA while stanidng fo rsafety/ balance ) Upper Body Dressing (FIM): 5 Lower Body Dressing (FIM): 4 (CGA ) Toileting (FIM): 4 (standing to perform hygiene ) Transfers (B, C, W/C) (FIM): 4 SCORE for evaluation not TREATMENT this date. based on clinical judgement. OT Short Term Goals Short Term Goals Grooming(FIM): 5 Bathing(FIM): 5 Lower Body Dressing(FIM): 5 Toileting(FIM): 5 Transfers (B,C,W/C) (FIM): 5 Toilet/Commode Transfer(FIM): 5 1=Demonstrate adherence to instructed precautions during ADL tasks. 2=Patient will verbalize/demonstrate understanding of assistive devices/modifications for ADL. 3=Patient will improve strength/tolerance for activity to enable patient to perform ADL's. OT Real Estate Loan Processor Goals Real Estate Loan Processor Goals Time Frame: Dec 03, 2018 Grooming(FIM): 6 Bathing(FIM): 6 Bathing Location: L Arm, R Arm, L Upper Leg, R Upper Leg, R Lower Leg (including foot), Chest, Abdomen, Buttocks, Perineal Area Upper Body Dressing(FIM): 6 Lower Body Dressing(FIM): 6 Toileting(FIM): 6 Transfers (B,C,W/C) (FIM): 6 Toilet/Commode Transfer(FIM): 6 Additional Goals: 1-Demonstrate ADL Tasks, 2-Verbalize Understanding, 3- ImproveStrength/Talia 1=Demonstrate adherence to instructed precautions during ADL tasks. 2=Patient will verbalize/demonstrate understanding of assistive device s/modifications for ADL. 3=Patient will improve strength/tolerance for activity to enable patient to perform ADL's. OT Education/Plan Problem List/Assessment Assessment: Decreased Activ Tolerance, Decreased Safety Aware, Decreased UE Strength, Impaired Coordination, Impaired Funct Balance, Impaired I ADL's, Impaired Self-Care Skills pt presents with functional limitations affecting areas of ADLS and functional transfers with deficits in the above mentioned. pt would benefot from OT services to increase independence with ADLS/ functional transfers and for safe transition to home. pt is NOT safe to return home at this time. recommended d/c to inpt rehab to continue address above mention deficits. Discharge Recommendations Plan/Recommendations: Continue POC Therapy D/C Recommendations: Acute Rehab Treatment Plan/Plan of Care Treatment,Training & Education: Yes Patient would benefit from OT for education, treatment and training to promote independence in ADL's, mobility, safety and/or upper extremity function for ADL's. Plan of Care: ADL Retraining, Caregiver Training, Functional Mobility, Group Exercise/Act as Ind, UE Funct Exercise/Act Treatment Duration: Nov 26, 2018 Frequency: 5 times per week Estimated Hrs Per Day: .25 hour per day Agreement: Yes Rehab Potential: Fair Time/GCodes Start Time: 13:00 Stop Time: 13:15 Billed Treatment Time EVM 15 minutes MINO CHIN OT Nov 05, 2018 13:29
--- NOTE | 2018-11-05 13:37 | Physical Therapy Daily Note ---
PT Daily Note-Current Subjective Patient reports fatigue and agrees to PT. Mental Status Patient Orientation: Normal For Age Attachments: Bui Catheter, IV Transfers Therapy Code Descriptions/Definitions Functional [place] Measure: 0=Not Assessed/NA 4=Minimal Assistance 1=Total Assistance 5=Supervision or Setup 2=Maximal Assistance 6=Modified [place] 3=Moderate Assistance 7=Complete [place] Therapy Quality Codes: 6 Independent with activity with or without an assistive device 5 Patient requires set up or clean up by helper. Patient completes activity by themselves 4 Supervision or touching assist (CGA). [place] provide cues , steadying as sist 3 The helper provides less than half the effort to complete the activity 2 The helper provides more than half the effort to complete the activity 1 Dependent. The helper does all the effort to complete an activity 7 Patient refused to complete or attempt activity 9 The patient did not perform the activity before the current illness or injury 88 Not attempted due to Medical conditions or safety concerns Transfers (B, C, W/C) (FIM): 3 Scootin Supine to/from Sit: 5 Sit to/from Stand: 3 Bed to/from Chair: 3 patient is slightly unsteady and requires mod assist for safety with transfer recliner to bed with use of FWW Weight Bearing Right Lower Extremity: Right Full Weight Bearing Exercises Supine Ex: Quad Set, Glut sets, Heel Slides, Straight leg raise Supine Reps: 15 Assessment Patient tolerated treatment well and is in bed with needs met. Plan transfer to ARU this week. PT Short Term Goals Short Term Goals Transfers (B,C,W/C) (FIM): 5 PT [facility] Goals Chancellor Goals PT [facility] Goals Time Frame: Nov 23, 2018 Transfers (B,C,W/C) (FIM): 6 Gait (FIM): 1 Gait distance (FIM): 1=up to 49 ft Distance: 45' Gait Level of Assist: 5 Gait Assistive Device: FWW Wheelchair (FIM): 6 Wheelchair distance (FIM): 3=150 ft Distance: 150' Wheelchair Level of Assist: 6 PT Plan Treatment/Plan Treatment Plan: Continue Plan of Care Treatment Plan: Bed Mobility, Education, Functional Activity Talia, Functional Strength, Gait, Safety, Therapeutic Exercise, Transfers Treatment Duration: Nov 23, 2018 Frequency: 11 times per week Estimated Hrs Per Day: .5 hour per day Patient and/or Family Agrees t: Yes Time/GCodes Time In: 1316 Time Out: 1328 Total Billed Treatment Time: 12 Total Billed Treatment 1 visit EX 12 min KASIE ANTONY PT Nov 05, 2018 13:37
[2018-11-05] MEDS ORDERED: ONDANSETRON 4 MG (ZOFRAN) ORAL DISSOLVE TAB PO PRN (15:15)
[2018-11-05 16:16] VITALS: BP 146/65
[2018-11-05] MEDS: TAMSULOSIN 0.4 MG (FLOMAX) CAP PO SCH (18:08)
[2018-11-05] MEDS ORDERED: MINERAL OIL ENEMA 133 ML BTL PR NR (18:15)
[2018-11-05] MEDS ORDERED: FLEET ENEMA ADULT 1 EA BTL PR NR (18:45)
--- NOTE | 2018-11-05 19:43 | Progress Note ---
Subjective Date Seen by a Provider: Nov 05, 2018 Time Seen by a Provider: 07:10 Subjective/Events-last exam patient states that his pain is under control. Patient was in urinary retention had to be straight cathed. denies any new complaints. Denies any nausea vomiting fever sweats chills shortness of breath or chest pain. Objective Exam Vital Signs Date Time Temp Pulse Resp B/P (MAP) Pulse Ox O2 Delivery O2 Flow Rate FiO2 11/05/18 16:16 97.8 58 20 146/65 (92) 100 Room Air 11/05/18 12:49 97.9 56 20 161/72 (101) 98 Room Air 0.00 11/05/18 08:54 97.6 63 19 128/62 (84) 98 Room Air 0.00 11/05/18 08:15 Room Air 11/05/18 03:35 98.2 58 16 148/68 (94) 94 Room Air 11/04/18 23:41 97.8 56 19 135/63 (87) 96 Room Air 11/04/18 21:00 Room Air I & O 11/05/18 07:00 Intake Total 5070 ml Output Total 1810 ml Balance 3260 ml Capillary Refill : Less Than 3 Seconds General Appearance: No Apparent Distress, WD/WN, Chronically ill HEENT: PERRL/EOMI, Normal ENT Inspection, Pharynx Normal Neck: Full Range of Motion, Normal Inspection, Non Tender, Supple Respiratory: Chest Non Tender, No Accessory Muscle Use, No Respiratory Distress Cardiovascular: Regular Rate, Rhythm, No JVD Gastrointestinal: non tender, soft, no organomegaly Extremity: No Pedal Edema, Other (left BKA with dressing intact takeoff tomorr ow for evaluation.) Neurologic/Psychiatric: Alert, Oriented x3, No Motor/Sensory Deficits, Normal Mood/Affect Skin: Normal Color, Warm/Dry Lymphatic: No Adenopathy Results Lab Laboratory Tests 11/04/18 20:37: Glucometer 290H 11/05/18 02:25: Glucometer 146H 11/05/18 05:50: White Blood Count 15.3H, Red Blood Count 3.34L, Hemoglobin 8.9L, Hematocrit 29L, Mean Corpuscular Volume 86, Mean Corpuscular Hemoglobin 27, Mean Corpuscular Hemoglobin Concent 31L, Red Cell Distribution Width 19.7H, Platelet Count 313, Mean Platelet Volume 10.3, Neutrophils (%) (Auto) 82H, Lymphocytes (%) (Auto) 10L, Monocytes (%) (Auto) 8, Eosinophils (%) (Auto) 0, Basophils (%) (Auto) 0, Neutrophils # (Auto) 12.6H, Lymphocytes # (Auto) 1.5, Monocytes # (Auto) 1.2H, Eosinophils # (Auto) 0.0, Basophils # (Auto) 0.0, Neutrophils % (Manual) 87, Lymphocytes % (Manual) 4, Monocytes % (Manual) 7, Band Neutrophils 2, Anisocytosis SLIGHT, Sodium Level 133L, Potassium Level 4.6, Chloride Level 104, Carbon Dioxide Level 23, Anion Gap 6, Blood Urea Nitrogen 20H, Creatinine 1.12, Estimat Glomerular Filtration Rate > 60, BUN/Creatinine Ratio 18, Glucose Level 173H, Calcium Level 7.9L, Corrected Calcium 9.1, Total Bilirubin 0.2, Aspartate Amino Transf (AST/SGOT) 17, Alanine Aminotransferase (ALT/SGPT) 9, Alkaline Phosphatase 83, Total Protein 5.5L, Albumin 2.5L 11/05/18 05:52: Glucometer 151H 11/05/18 11:02: Glucometer 291H 11/05/18 12:22: Glucometer 253H 11/05/18 15:25: Glucometer 76 11/05/18 17:39: Glucometer 45*L 11/05/18 18:56: Glucometer 81 Assessment/Plan Assessment/Plan Assessment/Plan status post left BKA Continue pain control PTOT. We'll take bandage down tomorrow Incentive spirometry Clinical Quality Measures DVT/VTE Risk/Contraindication: Risk Factor Score Per Nursin RFS Level Per Nursing on Admit: 4+=Very High ROGER NOGUERA DO Nov 05, 2018 19:43
[2018-11-05 20:06] VITALS: BP 116/56
[2018-11-05] MEDS: POLYETHYLENE GLYCOL 17 GM (MIRALAX) PACK PO SCH (21:01)
[2018-11-05 23:40] VITALS: BP 151/66
[2018-11-06 03:51] VITALS: BP 154/66
[2018-11-06 05:50] LABS: BASOPHILS % (AUTO) 0 % (0-10); EOSINOPHILS # (AUTO) 0.4 10^3/uL (0.0-0.3); EOSINOPHILS % (AUTO) 4 % (0-10); HEMATOCRIT 28 % (40-54); HEMOGLOBIN 8.9 G/DL (13.3-17.7); LYMPHOCYTES # (AUTO) 2.3 X 10^3 (1.0-4.0); LYMPHOCYTES % (AUTO) 25 % (12-44); MEAN CORPUSCULAR HEMOGLOBIN 27 PG (25-34); MEAN CORPUSCULAR HGB CONC 32 G/DL (32-36); MEAN CORPUSCULAR VOLUME 85 FL (80-99); MEAN PLATELET VOLUME 10.4 FL (7.4-10.4); MONOCYTES % (AUTO) 11 % (0-12); NEUTROPHILS # (AUTO) 5.6 X 10^3 (1.8-7.8); NEUTROPHILS % (AUTO) 60 % (42-75); PLATELET COUNT 289 10^3/uL (130-400); RED CELL DISTRIBUTION WIDTH 19.2 % (10.0-14.5); WHITE BLOOD COUNT 9.3 10^3/uL (4.3-11.0)
[2018-11-06 06:07] LABS: ALANINE AMINOTRANSFERASE 8 U/L (0-55); ALBUMIN 2.4 GM/DL (3.2-4.5); ALKALINE PHOSPHATASE 87 U/L (40-136); BILIRUBIN,TOTAL 0.2 MG/DL (0.1-1.0); BUN/CREATININE RATIO 20; CALCIUM 7.8 MG/DL (8.5-10.1); CARBON DIOXIDE 26 MMOL/L (21-32); CHLORIDE 101 MMOL/L (98-107); CREATININE SERUM 1.02 MG/DL (0.60-1.30); GFR ESTIMATED > 60; GLUCOSE 140 MG/DL (70-105); POTASSIUM 4.1 MMOL/L (3.6-5.0); SODIUM 134 MMOL/L (135-145); TOTAL PROTEIN 5.3 GM/DL (6.4-8.2)
[2018-11-06] MEDS: inSUlin ASPART (NovoLOG) 1 UNIT/0.01 ML (CHARGE PER UNIT) SC SCH ×4 (06:07→20:19)
[2018-11-06] MEDS: PANTOPRAZOLE 40 MG (PROTONIX) TAB PO SCH (06:18)
--- NOTE | 2018-11-06 07:03 | Progress Note ---
Subjective Date Seen by a Provider: Nov 06, 2018 Time Seen by a Provider: 07:00 Subjective/Events-last exam Patient doing well. No complaints. Pain controlled. Denies n/v fever sweats chills shortness of breath or chest pain. Objective Exam Vital Signs Date Time Temp Pulse Resp B/P (MAP) Pulse Ox O2 Delivery O2 Flow Rate FiO2 11/06/18 03:51 98.6 58 18 154/66 (95) 98 Room Air 11/05/18 23:40 98.5 68 18 151/66 (94) 95 Room Air 11/05/18 21:00 Room Air 11/05/18 20:50 Room Air 11/05/18 20:06 98.2 59 20 116/56 (76) 98 Room Air 11/05/18 16:16 97.8 58 20 146/65 (92) 100 Room Air 11/05/18 12:49 97.9 56 20 161/72 (101) 98 Room Air 0.00 11/05/18 08:54 97.6 63 19 128/62 (84) 98 Room Air 0.00 11/05/18 08:15 Room Air I & O 11/06/18 07:00 Intake Total 2820 ml Output Total 5275 ml Balance -2455 ml Capillary Refill : Less Than 3 Seconds General Appearance: No Apparent Distress, WD/WN, Chronically ill HEENT: PERRL/EOMI, Normal ENT Inspection Neck: Full Range of Motion, Normal Inspection, Non Tender, Supple Respiratory: Chest Non Tender, No Accessory Muscle Use, No Respiratory Distress Cardiovascular: Regular Rate, Rhythm, No JVD Gastrointestinal: non tender, soft, no organomegaly Extremity: No Pedal Edema, Other (left BKA incision clean dry intact minimal swelling) Neurologic/Psychiatric: Alert, Oriented x3, No Motor/Sensory Deficits, Normal Mood/Affect Skin: Normal Color, Warm/Dry Lymphatic: No Adenopathy Results Lab Laboratory Tests 11/05/18 11:02: Glucometer 291H 11/05/18 12:22: Glucometer 253H 11/05/18 15:25: Glucometer 76 11/05/18 17:39: Glucometer 45*L 11/05/18 18:56: Glucometer 81 11/05/18 20:42: Glucometer 163H 11/06/18 05:07: Glucometer 156H 11/06/18 05:40: White Blood Count 9.3, Red Blood Count 3.26L, Hemoglobin 8.9L, Hematocrit 28L, Mean Corpuscular Volume 85, Mean Corpuscular Hemoglobin 27, Mean Corpuscular Hemoglobin Concent 32, Red Cell Distribution Width 19.2H, Platelet Count 289, Mean Platelet Volume 10.4, Neutrophils (%) (Auto) 60, Lymphocytes (%) (Auto) 25, Monocytes (%) (Auto) 11, Eosinophils (%) (Auto) 4, Basophils (%) (Auto) 0, Neutrophils # (Auto) 5.6, Lymphocytes # (Auto) 2.3, Monocytes # (Auto) 1.0, Eosinophils # (Auto) 0.4H, Basophils # (Auto) 0.0, Sodium Level 134L, Potassium Level 4.1, Chloride Level 101, Carbon Dioxide Level 26, Anion Gap 7, Blood Urea Nitrogen 20H, Creatinine 1.02, Estimat Glomerular Filtration Rate > 60, BUN/Creatinine Ratio 20, Glucose Level 140H, Calcium Level 7.8L, Corrected Calcium 9.1, Total Bilirubin 0.2, Aspartate Amino Transf (AST/SGOT) 18, Alanine Aminotransferase (ALT/SGPT) 8, Alkaline Phosphatase 87, Total Protein 5.3L, Albumin 2.4L Assessment/Plan Assessment/Plan Assessment/Plan status post left BKA Urinary retention-Dr. Aguilar following Dr. Cantrell for medical management Continue pain control PTOT. Change dressing daily Incentive spirometry Clinical Quality Measures DVT/VTE Risk/Contraindication: Risk Factor Score Per Nursin RFS Level Per Nursing on Admit: 4+=Very High ROGER NOGUERA DO Nov 06, 2018 07:03
[2018-11-06 08:13] VITALS: BP 146/67
[2018-11-06] MEDS: HYDROcodone/APAP 10 MG/325 MG (LORTAB) TAB PO PRN ×2 (08:31→15:10)
[2018-11-06] MEDS: lisINopril 20 MG (PRINIVIL) TABLET PO SCH (08:31)
[2018-11-06] MEDS: POLYETHYLENE GLYCOL 17 GM (MIRALAX) PACK PO SCH ×2 (08:31→20:43)
[2018-11-06] MEDS: FUROSEMIDE 40 MG (LASIX) TAB PO SCH (08:31)
[2018-11-06] MEDS: ATENOLOL 25 MG (TENORMIN) TAB PO SCH (08:32)
[2018-11-06] MEDS: ASPIRIN E.C. 81 MG (ECOTRIN) TAB PO SCH (08:32)
[2018-11-06] MEDS: FINASTERIDE (PROSCAR) 5 MG TAB PO SCH (08:32)
--- NOTE | 2018-11-06 10:15 | NUR ---
IRF Evaluation Order received to evaluate patient for the ARU. Chart review complete and discussed with Dr. Cantrell - patient accepted. Prior authorization initiated and clinic information submitted; prior auth granted for admission, 11/08/18. Met with patient to discuss details of rehabilitation program, as well as notification of insurance authorization. Patient please to hear insurance has approved. Patient agreeable to required therapy regimen and admission. Patient notified of admission date. Will continue to follow, as needed. Thank you for this referral.
--- NOTE | 2018-11-06 11:12 | Progress Note-Urology ---
Progress Note-Urology Progress Notes/Assess & Plan Progress/Assessment & Plan URINE CLEAR. TOLERATE FLOMAX WELL. BEDSIDE CYSTOSCOPY SUNDAY Final Diagnosis URINE RETENTION ESMER ROBERTSON MD Nov 06, 2018 11:12
--- NOTE | 2018-11-06 11:32 | Physical Therapy Daily Note ---
PT Daily Note-Current Subjective Patient in bed pre tx, agrees to PT, has no pain at rest but states that he has been having a lot of phantom sensation. Appearance Patient in recliner post tx with nurse call, phone, tray, legs elevated with left leg on pillow. Mental Status Patient Orientation: Person, Place, Situation Attachments: Bui Catheter Transfers Therapy Code Descriptions/Definitions Functional [place] Measure: 0=Not Assessed/NA 4=Minimal Assistance 1=Total Assistance 5=Supervision or Setup 2=Maximal Assistance 6=Modified [place] 3=Moderate Assistance 7=Complete [place] Therapy Quality Codes: 6 Independent with activity with or without an assistive device 5 Patient requires set up or clean up by helper. Patient completes activity by themselves 4 Supervision or touching assist (CGA). [place] provide cues , steadying assist 3 The helper provides less than half the effort to complete the activity 2 The helper provides more than half the effort to complete the activity 1 Dependent. The helper does all the effort to complete an activity 7 Patient refused to complete or attempt activity 9 The patient did not perform the activity before the current illness or injury 88 Not attempted due to Medical conditions or safety concerns Transfers (B, C, W/C) (FIM): 4 Scootin Rollin Supine to/from Sit: 5 Sit to/from Stand: 4 Bed to/from Chair: 4 Sit to stand and transfers min assist. Patient is able to slowly pivot on his right foot but not able to lift it from the floor. Weight Bearing Right Lower Extremity: Right Full Weight Bearing Exercises Supine Ex: Ankle pumps, Quad Set, Glut sets, Heel Slides (left leg, just SLR with knee flex/ext), Straight leg raise, Hip abd/add Supine Reps: 15 Treatments LE ROM, bed mobility and transfers Assessment Current Status: Fair Progress improved bed mobility and transfers PT Short Term Goals Short Term Goals Transfers (B,C,W/C) (FIM): 5 PT Single End Sewer Goals Fdc Goals PT Fdc Goals Time Frame: Nov 23, 2018 Transfers (B,C,W/C) (FIM): 6 Gait (FIM): 1 Gait distance (FIM): 1=up to 49 ft Distance: 45' Gait Level of Assist: 5 Gait Assistive Device: FWW Wheelchair (FIM): 6 Wheelchair distance (FIM): 3=150 ft Distance: 150' Wheelchair Level of Assist: 6 PT Plan Problem List Problem List: Activity Tolerance, Functional Strength, Safety, Balance, Gait, Transfer, Bed Mobility, ROM Treatment/Plan Treatment Plan: Continue Plan of Care Treatment Plan: Bed Mobility, Education, Functional Activity Talia, Functional Strength, Gait, Safety, Therapeutic Exercise, Transfers Treatment Duration: Nov 23, 2018 Frequency: 11 times per week Estimated Hrs Per Day: .5 hour per day Patient and/or Family Agrees t: Yes Safety Risks/Education Patient Education: Transfer Techniques, Correct Positioning, Safety Issues Teaching Recipient: Patient Teaching Methods: Demonstration, Discussion Response to Teaching: Reinforcement Needed Time/GCodes Time In: 1111 Time Out: 1127 Total Billed Treatment Time: 16 Total Billed Treatment 1 visit FA Sally' NICHOLAS PINA PT Nov 06, 2018 11:32
--- NOTE | 2018-11-06 11:35 | Progress Note-Hospitalist ---
Subjective HPI/CC On Admission Date Seen by Provider: Nov 06, 2018 Time Seen by Provider: 10:00 Chief Complaint: Osteomyelitis of the left foot s/p left amputation HPI: This is a 63yoWM known to me from prior admission who presents after an amputation performed by Dr. Sandhu he performed an uncomplicated left below the knee amputation. He does use and insulin pump boluses only and his present who does not live in the same house as him is at the bedside and reports he continuing to smoke although he says he is not smoking anymore. We will evaluate blood sugar readings monitor BP and monitor lab work. Subjective/Events-last exam Patient doing very well today Obtained approval from insurance to admit to inpatient rehab on Sunday Looking forward to inpatient rehab Had a bowel movement after suppository Bui maintained by Dr. Aguilar No pain is reported Dr. Sandhu reviewed the amputation site and everything looks good to his satisfaction Reviewed meds and labs Blood sugar is much improved Review of Systems General: Fatigue Musculoskeletal: leg pain Objective Exam Vital Signs Vital Signs Date Time Temp Pulse Resp B/P (MAP) Pulse Ox O2 Delivery O2 Flow Rate FiO2 11/06/18 19:01 98.2 65 20 109/64 (79) 95 Room Air 11/06/18 12:31 0.00 Capillary Refill : Less Than 3 Seconds General Appearance: No Apparent Distress, WD/WN, Chronically ill HEENT: PERRL/EOMI, Normal ENT Inspection Neck: Full Range of Motion, Normal Inspection, Non Tender, Supple Respiratory: Chest Non Tender, No Accessory Muscle Use, No Respiratory Distress Cardiovascular: Regular Rate, Rhythm, No JVD Gastrointestinal: Normal Bowel Sounds, No Organomegaly, No Pulsatile Mass, Non Tender, Soft Back: Normal Inspection, No CVA Tenderness, No Vertebral Tenderness Extremity: No Pedal Edema, Other (left BKA incision clean dry intact minimal swelling) Neurologic/Psychiatric: Alert, Oriented x3, No Motor/Sensory Deficits, Normal Mood/Affect Skin: Normal Color, Warm/Dry Lymphatic: No Adenopathy Results/Procedures Lab Laboratory Tests 11/06/18 05:40 Patient resulted labs reviewed. 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 DM brittle on insulin pump HTN HLP Leukocytosis Anemia of chronic disease Plan: Insulin pump boluses along with SSI Home meds Pain control Check labs in am Diagnosis/Problems Diagnosis/Problems (1) Status post below knee amputation of left lower extremity Status: Acute (2) Insulin pump in place Status: Chronic (3) Hypertension Status: Chronic Qualifiers: Hypertension type: essential hypertension Qualified Codes: I10 - Essential (primary) hypertension (4) Rheumatoid arthritis Status: Chronic Qualifiers: Rheumatoid arthritis location: unspecified site Rheumatoid factor presence: unspecified presence Qualified Codes: M06.9 - Rheumatoid arthritis, unspecified (5) Atherosclerotic occlusive disease Status: Chronic (6) Smoker Status: Chronic (7) Diabetes Status: Chronic Qualifiers: Diabetes mellitus type: type 2 Diabetes mellitus joint terminal attack controller insulin use: with nursing home use Diabetes mellitus complication status: with circulatory complication Diabetes mellitus complication detail: with peripheral angiopathy with gangrene Qualified Codes: E11.52 - Type 2 diabetes mellitus with diabetic peripheral angiopathy with gangrene; Z79.4 - FPC (current) use of insulin (8) Nausea Status: Acute Clinical Quality Measures DVT/VTE Risk/Contraindication: Risk Factor Score Per Nursin RFS Level Per Nursing on Admit: 4+=Very High NANCY ORR DO Nov 06, 2018 11:35
[2018-11-06 12:31] VITALS: BP 164/70
[2018-11-06] MEDS: LACTATED RINGERS 1,000 ML IV SCH (12:58)
--- NOTE | 2018-11-06 14:11 | Occupational Ther Daily Note ---
OT Current Status-Daily Note Subjective Pt alert, sitting in recliner. Pt agrees to therapy. No c/o pain. Mental Status/Objective Patient Orientation: Person, Place, Time, Situation Therapy Code Descriptions/Definitions Functional [place] Measure: 0=Not Assessed/NA 4=Minimal Assistance 1=Total Assistance 5=Supervision or Setup 2=Maximal Assistance 6=Modified [place] 3=Moderate Assistance 7=Complete [place] Attachments: IV (midline) Other Treatment Pt stated that nrsg gave pt sponge bath today. UE exercises using light resistance theraband to increase strength for daily functional tasks and transfers. Pt tolerated 5 exercises 2 sets 10 reps each. After therapy, pt sitting in recliner with call light/phone in reach. All needs met in room. OT Short Term Goals Short Term Goals Grooming(FIM): 5 Bathing(FIM): 5 Lower Body Dressing(FIM): 5 Toileting(FIM): 5 Transfers (B,C,W/C) (FIM): 5 Toilet/Commode Transfer(FIM): 5 1=Demonstrate adherence to instructed precautions during ADL tasks. 2=Patient will verbalize/demonstrate understanding of assistive devices/modifications for ADL. 3=Patient will improve strength/tolerance for activity to enable patient to perform ADL's. OT Mcfp Goals [place] Goals Time Frame: Dec 03, 2018 Grooming(FIM): 6 Bathing(FIM): 6 Bathing Location: L Arm, R Arm, L Upper Leg, R Upper Leg, R Lower Leg (including foot), Chest, Abdomen, Buttocks, Perineal Area Upper Body Dressing(FIM): 6 Lower Body Dressing(FIM): 6 Toileting(FIM): 6 Transfers (B,C,W/C) (FIM): 6 Toilet/Commode Transfer(FIM): 6 Additional Goals: 1-Demonstrate ADL Tasks, 2-Verbalize Understanding, 3- ImproveStrength/Talia 1=Demonstrate adherence to instructed precautions during ADL tasks. 2=Patient will verbalize/demonstrate understanding of assistive devices/modifications for ADL. 3=Patient will improve strength/tolerance for activity to enable patient to perform ADL's. OT Education/Plan Problem List/Assessment Assessment: Decreased UE Strength, Impaired Self-Care Skills pt presents with functional limitations affecting areas of ADLS and functional transfers with deficits in the above mentioned. pt would benefot from OT services to increase independence with ADLS/ functional transfers and for safe transition to home. pt is NOT safe to return home at this time. recommended d/c to inpt rehab to continue address above mention deficits. Discharge Recommendations Plan/Recommendations: Continue POC Treatment Plan/Plan of Care Patient would benefit from OT for education, treatment and training to promote independence in ADL's, mobility, safety and/or upper extremity function for ADL's. Plan of Care: ADL Retraining, Caregiver Training, Functional Mobility, Group Exercise/Act as Ind, UE Funct Exercise/Act Treatment Duration: Nov 26, 2018 Frequency: 5 times per week Estimated Hrs Per Day: .25 hour per day Agreement: Yes Rehab Potential: Fair Time/GCodes Start Time: 13:30 Stop Time: 13:45 Total Time Billed (hr/min): 15 Billed Treatment Time 1 visit-EX 1 (15 min) RUDOLPH LANG Nov 06, 2018 14:11
--- NOTE | 2018-11-06 15:12 | Physical Therapy Daily Note ---
PT Daily Note-Current Subjective Patient in recliner pre tx, agrees to PT, has 7/10 pain in left leg, nurse notified. Appearance Patient in bed post tx with nurse call, phone, tray, family in the room. Mental Status Patient Orientation: Person, Place, Situation Transfers Therapy Code Descriptions/Definitions Functional [place] Measure: 0=Not Assessed/NA 4=Minimal Assistance 1=Total Assistance 5=Supervision or Setup 2=Maximal Assistance 6=Modified [place] 3=Moderate Assistance 7=Complete [place] Therapy Quality Codes: 6 Independent with activity with or without an assistive device 5 Patient requires set up or clean up by helper. Patient completes activity by themselves 4 Supervision or touching assist (CGA). [place] provide cues , steadying assist 3 The helper provides less than half the effort to complete the activity 2 The helper provides more than half the effort to complete the activity 1 Dependent. The helper does all the effort to complete an activity 7 Patient refused to complete or attempt activity 9 The patient did not perform the activity before the current illness or injury 88 Not attempted due to Medical conditions or safety concerns Transfers (B, C, W/C) (FIM): 4 Scootin Rollin Supine to/from Sit: 5 Sit to/from Stand: 4 Bed to/from Chair: 4 Min assist to stand from chair, CGA for transfer to bed Weight Bearing Right Lower Extremity: Right Full Weight Bearing Exercises Supine Ex: Quad Set, Glut sets, Heel Slides (just SLR and then knee flex/ext on the left side), Straight leg raise, Hip abd/add Supine Reps: 15 (LLE) Treatments bed mobility and transfers, LE ROM Assessment Current Status: Fair Progress improving general mobility but does not have enough strength in arms to get right foot off of floor to take a step. PT Short Term Goals Short Term Goals Transfers (B,C,W/C) (FIM): 5 PT Mcc Goals Mcc Goals PT Mcc Goals Time Frame: Nov 23, 2018 Transfers (B,C,W/C) (FIM): 6 Gait (FIM): 1 Gait distance (FIM): 1=up to 49 ft Distance: 45' Gait Level of Assist: 5 Gait Assistive Device: FWW Wheelchair (FIM): 6 Wheelchair distance (FIM): 3=150 ft Distance: 150' Wheelchair Level of Assist: 6 PT Plan Problem List Problem List: Activity Tolerance, Functional Strength, Safety, Balance, Gait, Transfer, Bed Mobility, ROM Treatment/Plan Treatment Plan: Continue Plan of Care Treatment Plan: Bed Mobility, Education, Functional Activity Talia, Functional Strength, Gait, Safety, Therapeutic Exercise, Transfers Treatment Duration: Nov 23, 2018 Frequency: 11 times per week Estimated Hrs Per Day: .5 hour per day Patient and/or Family Agrees t: Yes Safety Risks/Education Patient Education: Transfer Techniques, Correct Positioning, Safety Issues Teaching Recipient: Patient Teaching Methods: Demonstration, Discussion Response to Teaching: Reinforcement Needed Time/GCodes Time In: 1452 Time Out: 1505 Total Billed Treatment Time: 13 Total Billed Treatment 1 visit FA Juvenal' NICHOLAS PINA PT Nov 06, 2018 15:12
[2018-11-06 15:44] VITALS: BP 151/65
[2018-11-06] MEDS: TAMSULOSIN 0.4 MG (FLOMAX) CAP PO SCH (17:46)
[2018-11-06 19:01] VITALS: BP 109/64
--- NOTE | 2018-11-06 20:43 | NUR ---
PT FSBS 186. PT STATED HE ADMINISTERED 1.5 UNITS VIA INSULIN PUMP.
[2018-11-06 23:34] VITALS: BP 156/71
[2018-11-07] MEDS: inSUlin ASPART (NovoLOG) 1 UNIT/0.01 ML (CHARGE PER UNIT) SC SCH ×4 (05:24→21:49)
[2018-11-07] MEDS: PANTOPRAZOLE 40 MG (PROTONIX) TAB PO SCH (06:01)
[2018-11-07 07:55] VITALS: BP 170/68
[2018-11-07] MEDS: ATENOLOL 25 MG (TENORMIN) TAB PO SCH (08:06)
[2018-11-07] MEDS: FUROSEMIDE 40 MG (LASIX) TAB PO SCH (08:06)
[2018-11-07] MEDS: FINASTERIDE (PROSCAR) 5 MG TAB PO SCH (08:06)
[2018-11-07] MEDS: ASPIRIN E.C. 81 MG (ECOTRIN) TAB PO SCH (08:06)
[2018-11-07] MEDS: lisINopril 20 MG (PRINIVIL) TABLET PO SCH (08:06)
[2018-11-07] MEDS: POLYETHYLENE GLYCOL 17 GM (MIRALAX) PACK PO SCH ×2 (08:06→21:51)
--- NOTE | 2018-11-07 09:23 | Progress Note-Urology ---
Progress Note-Urology Progress Notes/Assess & Plan Progress/Assessment & Plan CYSTOSCOPY TOMORROW AT BEDSIDE. FULLY EXPLAINED Final Diagnosis URINE RETENTION ESMER ROBERTSON MD Nov 07, 2018 09:23
[2018-11-07] MEDS: HYDROcodone/APAP 10 MG/325 MG (LORTAB) TAB PO PRN (09:41)
--- NOTE | 2018-11-07 09:51 | Physical Therapy Daily Note ---
PT Daily Note-Current Subjective Pt. in bed and agrees to therapy, pain rated 7/10 in the L leg. Pt. received pain meds prior to session. Mental Status Patient Orientation: Normal For Age Attachments: Bui Catheter Transfers Therapy Code Descriptions/Definitions Functional [place] Measure: 0=Not Assessed/NA 4=Minimal Assistance 1=Total Assistance 5=Supervision or Setup 2=Maximal Assistance 6=Modified [place] 3=Moderate Assistance 7=Complete [place] Therapy Quality Codes: 6 Independent with activity with or without an assistive device 5 Patient requires set up or clean up by helper. Patient completes activity by themselves 4 Supervision or touching assist (CGA). [place] provide cues , steadying assist 3 The helper provides less than half the effort to complete the activity 2 The helper provides more than half the effort to complete the activity 1 Dependent. The helper does all the effort to complete an activity 7 Patient refused to complete or attempt activity 9 The patient did not perform the activity before the current illness or injury 88 Not attempted due to Medical conditions or safety concerns Transfers (B, C, W/C) (FIM): 4 Supine to/from Sit: 5 Sit to/from Stand: 4 Bed to/from Chair: 4 Weight Bearing Right Lower Extremity: Right Full Weight Bearing Exercises Supine Ex: Quad Set, Glut sets, Straight leg raise, Hip abd/add Supine Reps: 15 (15-20) Seated Therapy Exercises: Long arc quads Seated Reps: 20 Treatments LE exercise, transfers Assessment Current Status: Good Progress Pt. did well with exercises. He is still unable to clear R foot fully from floor during bed to chair transfer, only able to pivot foot. Pt. up in chair with call light and all needs met. PT Short Term Goals Short Term Goals Transfers (B,C,W/C) (FIM): 5 PT C.O.D. Biller Goals C.O.D. Biller Goals PT C.O.D. Biller Goals Time Frame: Nov 23, 2018 Transfers (B,C,W/C) (FIM): 6 Gait (FIM): 1 Gait distance (FIM): 1=up to 49 ft Distance: 45' Gait Level of Assist: 5 Gait Assistive Device: FWW Wheelchair (FIM): 6 Wheelchair distance (FIM): 3=150 ft Distance: 150' Wheelchair Level of Assist: 6 PT Plan Treatment/Plan Treatment Plan: Continue Plan of Care Treatment Plan: Bed Mobility, Education, Functional Activity Tlaia, Functional Strength, Gait, Safety, Therapeutic Exercise, Transfers Treatment Duration: Nov 23, 2018 Frequency: 11 times per week Estimated Hrs Per Day: .5 hour per day Patient and/or Family Agrees t: Yes Time/GCodes Time In: 938 Time Out: 1002 Total Billed Treatment Time: 23 Total Billed Treatment 1, Ex 13', FA 10' KAY JOHNSTON PT Nov 07, 2018 09:51
--- NOTE | 2018-11-07 10:43 | Progress Note ---
Subjective Date Seen by a Provider: Nov 07, 2018 Time Seen by a Provider: 10:41 Subjective/Events-last exam patient doing well. Pain controlled. No new complaints. Denies any nausea vomiting fever sweats chills shortness of breath or chest pain. Patient for cystoscopy tomorrow at bedside. Objective Exam Vital Signs Date Time Temp Pulse Resp B/P (MAP) Pulse Ox O2 Delivery O2 Flow Rate FiO2 11/07/18 08:10 Room Air 11/07/18 07:55 97.9 62 18 170/68 (102) 97 Room Air 11/06/18 23:34 97.2 58 18 156/71 (99) 97 Room Air 11/06/18 21:00 Room Air 11/06/18 19:01 98.2 65 20 109/64 (79) 95 Room Air 11/06/18 15:44 98.5 56 20 151/65 (93) 100 Room Air 11/06/18 12:31 97.4 59 19 164/70 (101) 98 Room Air 0.00 I & O 11/07/18 07:00 Intake Total 2067 ml Output Total 5350 ml Balance -3283 ml Capillary Refill : Less Than 3 Seconds General Appearance: No Apparent Distress, WD/WN, Chronically ill HEENT: PERRL/EOMI, Normal ENT Inspection Neck: Full Range of Motion, Normal Inspection, Non Tender, Supple Respiratory: Chest Non Tender, No Accessory Muscle Use, No Respiratory Distress Cardiovascular: Regular Rate, Rhythm, No JVD Gastrointestinal: non tender, soft, no organomegaly Extremity: No Pedal Edema, Other (left BKA incision clean dry intact minimal swelling) Neurologic/Psychiatric: Alert, Oriented x3, No Motor/Sensory Deficits, Normal Mood/Affect Skin: Normal Color, Warm/Dry Lymphatic: No Adenopathy Results Lab Laboratory Tests 11/06/18 11:04: Glucometer 90 11/06/18 16:22: Glucometer 66L 11/06/18 19:47: Glucometer 186H 11/07/18 05:19: Glucometer 62L 11/07/18 08:00: Glucometer 42*L Assessment/Plan Assessment/Plan Assessment/Plan status post left BKA Urinary retention-Dr. Aguilar following planning cystoscopy tomorrow at bedside Dr. Cantrell for medical management Continue pain control PTOT. Change dressing daily Incentive spirometry possible transferred to rehabilitation tomorrow Clinical Quality Measures DVT/VTE Risk/Contraindication: Risk Factor Score Per Nursin RFS Level Per Nursing on Admit: 4+=Very High ROGER NOGUERA DO Nov 07, 2018 10:43
--- NOTE | 2018-11-07 11:28 | Progress Note-Hospitalist ---
Subjective HPI/CC On Admission Date Seen by Provider: Nov 07, 2018 Time Seen by Provider: 10:30 Chief Complaint: Osteomyelitis of the left foot s/p left amputation HPI: This is a 63yoWM known to me from prior admission who presents after an amputation performed by Dr. Sandhu he performed an uncomplicated left below the knee amputation. He does use and insulin pump boluses only and his present who does not live in the same house as him is at the bedside and reports he continuing to smoke although he says he is not smoking anymore. We will evaluate blood sugar readings monitor BP and monitor lab work. Subjective/Events-last exam Patient doing well Sleeping in chair currently We'll send rehabilitation tomorrow No pain is reported Bowels are moving well Maintained on catheter for urology Review of Systems General: Fatigue Genitourinary: Retention Musculoskeletal: leg pain Objective Exam Vital Signs Vital Signs Date Time Temp Pulse Resp B/P (MAP) Pulse Ox O2 Delivery O2 Flow Rate FiO2 11/07/18 08:10 Room Air 11/07/18 07:55 97.9 62 18 170/68 (102) 97 11/06/18 12:31 0.00 Capillary Refill : Less Than 3 Seconds General Appearance: No Apparent Distress, WD/WN, Chronically ill HEENT: PERRL/EOMI, Normal ENT Inspection Neck: Full Range of Motion, Normal Inspection, Non Tender, Supple Respiratory: Chest Non Tender, No Accessory Muscle Use, No Respiratory Distress Cardiovascular: Regular Rate, Rhythm, No JVD Gastrointestinal: Normal Bowel Sounds, No Organomegaly, No Pulsatile Mass, Non Tender, Soft Back: Normal Inspection, No CVA Tenderness, No Vertebral Tenderness Extremity: No Pedal Edema, Other (left BKA incision clean dry intact minimal swelling) Neurologic/Psychiatric: Alert, Oriented x3, No Motor/Sensory Deficits, Normal Mood/Affect Skin: Normal Color, Warm/Dry Lymphatic: No Adenopathy Results/Procedures Lab Patient resulted labs reviewed. 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 DM brittle on insulin pump HTN HLP Leukocytosis Anemia of chronic disease Plan: Insulin pump boluses along with SSI Home meds Pain control Check labs in am Inpatient rehabilitation tomorrow Diagnosis/Problems Diagnosis/Problems (1) Status post below knee amputation of left lower extremity Status: Acute (2) Insulin pump in place Status: Chronic (3) Hypertension Status: Chronic Qualifiers: Hypertension type: essential hypertension Qualified Codes: I10 - Essential (primary) hypertension (4) Rheumatoid arthritis Status: Chronic Qualifiers: Rheumatoid arthritis location: unspecified site Rheumatoid factor presence: unspecified presence Qualified Codes: M06.9 - Rheumatoid arthritis, unspecified (5) Atherosclerotic occlusive disease Status: Chronic (6) Smoker Status: Chronic (7) Diabetes Status: Chronic Qualifiers: Diabetes mellitus type: type 2 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
--- NOTE | 2018-11-07 11:28 | NUR ---
Blood sugar 182, pt stated he would give himself 1.5 units of insulin.
--- NOTE | 2018-11-07 14:19 | Occupational Ther Daily Note ---
OT Current Status-Daily Note Subjective Pt alert, sitting in recliner. Pt agrees to therapy. No c/o pain at this time. Mental Status/Objective Patient Orientation: Person, Place, Time, Situation Therapy Code Descriptions/Definitions Functional Cocke Measure: 0=Not Assessed/NA 4=Minimal Assistance 1=Total Assistance 5=Supervision or Setup 2=Maximal Assistance 6=Modified Cocke 3=Moderate Assistance 7=Complete Cocke Other Treatment UE exercises using medium resistance theraband to increase strength for daily functional tasks and transfers. Pt requires skills of therapist for instructions to complete technique of exercises correctly. Pt tolerated 5 exercises 2 sets 10 reps each. Pt fatigued after 2 sets and requested to quit. After therapy, pt sitting in recliner with call light/phone in reach. All needs met in room. OT Short Term Goals Short Term Goals Grooming(FIM): 5 Bathing(FIM): 5 Lower Body Dressing(FIM): 5 Toileting(FIM): 5 Transfers (B,C,W/C) (FIM): 5 Toilet/Commode Transfer(FIM): 5 1=Demonstrate adherence to instructed precautions during ADL tasks. 2=Patient will verbalize/demonstrate understanding of assistive devices/modifications for ADL. 3=Patient will improve strength/tolerance for activity to enable patient to perform ADL's. OT Rn Paralegal Goals Rn Paralegal Goals Time Frame: Dec 03, 2018 Grooming(FIM): 6 Bathing(FIM): 6 Bathing Location: L Arm, R Arm, L Upper Leg, R Upper Leg, R Lower Leg (including foot), Chest, Abdomen, Buttocks, Perineal Area Upper Body Dressing(FIM): 6 Lower Body Dressing(FIM): 6 Toileting(FIM): 6 Transfers (B,C,W/C) (FIM): 6 Toilet/Commode Transfer(FIM): 6 Additional Goals: 1-Demonstrate ADL Tasks, 2-Verbalize Understanding, 3- ImproveStrength/Talia 1=Demonstrate adherence to instructed precautions during ADL tasks. 2=Patient will verbalize/demonstrate understanding of assistive devices/modifications for ADL. 3=Patient will improve strength/tolerance for activity to enable patient to perform ADL's. OT Education/Plan Problem List/Assessment pt presents with functional limitations affecting areas of ADLS and functional transfers with deficits in the above mentioned. pt would benefot from OT services to increase independence with ADLS/ functional transfers and for safe transition to home. pt is NOT safe to return home at this time. recommended d/c to inpt rehab to continue address above mention deficits. Discharge Recommendations Plan/Recommendations: Continue POC Treatment Plan/Plan of Care Patient would benefit from OT for education, treatment and training to promote independence in ADL's, mobility, safety and/or upper extremity function for ADL's. Plan of Care: ADL Retraining, Caregiver Training, Functional Mobility, Group Exercise/Act as Ind, UE Funct Exercise/Act Treatment Duration: Nov 26, 2018 Frequency: 5 times per week Estimated Hrs Per Day: .25 hour per day Agreement: Yes Rehab Potential: Fair Time/GCodes Start Time: 11:30 Stop Time: 11:40 Total Time Billed (hr/min): 10 Billed Treatment Time 1 visit-EX 1 (10 min) RUDOLPH LANG Nov 07, 2018 14:19
[2018-11-07 15:56] VITALS: BP 105/61
[2018-11-07] MEDS: TAMSULOSIN 0.4 MG (FLOMAX) CAP PO SCH (17:49)
[2018-11-07 23:52] VITALS: BP 168/62
[2018-11-08] MEDS: inSUlin ASPART (NovoLOG) 1 UNIT/0.01 ML (CHARGE PER UNIT) SC SCH (05:27)
[2018-11-08 05:31] LABS: BASOPHILS % (AUTO) 1 % (0-10); EOSINOPHILS # (AUTO) 0.3 10^3/uL (0.0-0.3); EOSINOPHILS % (AUTO) 4 % (0-10); HEMATOCRIT 32 % (40-54); LYMPHOCYTES # (AUTO) 2.2 X 10^3 (1.0-4.0); LYMPHOCYTES % (AUTO) 29 % (12-44); MEAN CORPUSCULAR HEMOGLOBIN 27 PG (25-34); MEAN CORPUSCULAR HGB CONC 32 G/DL (32-36); MEAN CORPUSCULAR VOLUME 85 FL (80-99); MEAN PLATELET VOLUME 10.5 FL (7.4-10.4); MONOCYTES # (AUTO) 0.8 X 10^3 (0.0-1.0); MONOCYTES % (AUTO) 11 % (0-12); NEUTROPHILS # (AUTO) 4.2 X 10^3 (1.8-7.8); NEUTROPHILS % (AUTO) 56 % (42-75); PLATELET COUNT 341 10^3/uL (130-400); RED CELL DISTRIBUTION WIDTH 19.5 % (10.0-14.5); WHITE BLOOD COUNT 7.5 10^3/uL (4.3-11.0)
[2018-11-08] MEDS: PANTOPRAZOLE 40 MG (PROTONIX) TAB PO SCH (05:43)
[2018-11-08 05:48] LABS: ALANINE AMINOTRANSFERASE 9 U/L (0-55); ALBUMIN 2.6 GM/DL (3.2-4.5); ALKALINE PHOSPHATASE 97 U/L (40-136); BILIRUBIN,TOTAL 0.3 MG/DL (0.1-1.0); BUN/CREATININE RATIO 25; CALCIUM 8.4 MG/DL (8.5-10.1); CARBON DIOXIDE 27 MMOL/L (21-32); CHLORIDE 102 MMOL/L (98-107); GFR ESTIMATED > 60; GLUCOSE 105 MG/DL (70-105); POTASSIUM 4.7 MMOL/L (3.6-5.0); SODIUM 136 MMOL/L (135-145); TOTAL PROTEIN 5.8 GM/DL (6.4-8.2)
[2018-11-08 08:00] VITALS: BP 131/70
[2018-11-08] MEDS: ASPIRIN E.C. 81 MG (ECOTRIN) TAB PO SCH (08:34)
[2018-11-08] MEDS: FUROSEMIDE 40 MG (LASIX) TAB PO SCH (08:34)
[2018-11-08] MEDS: POLYETHYLENE GLYCOL 17 GM (MIRALAX) PACK PO SCH (08:35)
[2018-11-08] MEDS: lisINopril 20 MG (PRINIVIL) TABLET PO SCH (08:35)
[2018-11-08] MEDS: FINASTERIDE (PROSCAR) 5 MG TAB PO SCH (08:35)
[2018-11-08] MEDS: ATENOLOL 25 MG (TENORMIN) TAB PO SCH (08:35)
[2018-11-08] MEDS ORDERED: LIDOCAINE UROJET 2% GEL 10 ML PKG ONE (08:42)
--- NOTE | 2018-11-08 09:12 | Discharge Summary-Hospitalist ---
Diagnosis/Chief Complaint Date of Admission Nov 04, 2018 at 06:15 Date of Discharge Discharge Date: Nov 08, 2018 Discharge Diagnosis (1) Status post below knee amputation of left lower extremity Status: Acute (2) Insulin pump in place Status: Chronic (3) Hypertension Status: Chronic (4) Rheumatoid arthritis Status: Chronic (5) Atherosclerotic occlusive disease Status: Chronic (6) Smoker Status: Chronic (7) Diabetes Status: Chronic (8) Nausea Status: Acute Discharge Summary Discharge Physical Exam Allergies: Coded Allergies: No Known Drug Allergies (Unverified , 02/24/11) Vitals & I&Os Vital Signs Date Time Temp Pulse Resp B/P (MAP) Pulse Ox O2 Delivery O2 Flow Rate FiO2 11/08/18 09:14 99 Room Air 11/08/18 08:00 97.3 67 20 131/70 (90) 11/06/18 12:31 0.00 General Appearance: No Apparent Distress, WD/WN Respiratory: Chest Non Tender, Lungs Clear, Normal Breath Sounds, No Accessory Muscle Use, No Respiratory Distress Cardiovascular: Regular Rate, Rhythm, No Edema, No Gallop, No JVD, No Murmur, Normal Peripheral Pulses Neurologic/Psychiatric: Alert, Oriented x3, No Motor/Sensory Deficits, Normal Mood/Affect Hospital Course Was the Problem List Reviewed?: Yes Hospital course: Patient had an uneventful hospital course for the 5 days he was in the hospital following an uncomplicated left below the knee amputation due to chronic diabetic ulcer with severe osteomyelitis unable to be salvaged even with aggressive wound care. He does continue to smoke so we did chromosomal disorders counselor smoking cessation. He had no complications other than labile blood sugars and he was restarted on his insulin pump for boluses only. Labs remained stable and pain was controlled and bowel function was regaining normalcy with the use of laxatives. Overall he was deemed stable for discharge to the inpatient rehab unit to continue recovery with a new left below the knee amputation status. Labs (last 24 hrs) Laboratory Tests 11/07/18 20:54: Glucometer 111H 11/08/18 05:13: Glucometer 111H 11/08/18 05:20: White Blood Count 7.5, Red Blood Count 3.72L, Hemoglobin 10.0L, Hematocrit 32L, Mean Corpuscular Volume 85, Mean Corpuscular Hemoglobin 27, Mean Corpuscular Hemoglobin Concent 32, Red Cell Distribution Width 19.5H, Platelet Count 341, Mean Platelet Volume 10.5H, Neutrophils (%) (Auto) 56, Lymphocytes (%) (Auto) 29, Monocytes (%) (Auto) 11, Eosinophils (%) (Auto) 4, Basophils (%) (Auto) 1, Neutrophils # (Auto) 4.2, Lymphocytes # (Auto) 2.2, Monocytes # (Auto) 0.8, Eosinophils # (Auto) 0.3, Basophils # (Auto) 0.0, Sodium Level 136, Potassium Level 4.7, Chloride Level 102, Carbon Dioxide Level 27, Anion Gap 7, Blood Urea Nitrogen 25H, Creatinine 1.00, Estimat Glomerular Filtration Rate > 60, BUN/Creatinine Ratio 25, Glucose Level 105, Calcium Level 8.4L, Corrected Calcium 9.5, Total Bilirubin 0.3, Aspartate Amino Transf (AST/SGOT) 17, Alanine Aminotransferase (ALT/SGPT) 9, Alkaline Phosphatase 97, Total Protein 5.8L, Albumin 2.6L Patient resulted labs reviewed. Pending Labs Discussion & Recommendations Discharge Planning: <30 minutes discharge planning Discharge Home Medications: Active Scripts Active Lisinopril 20 Mg Tablet 20 Mg PO DAILY Reported Zofran (Ondansetron HCl) 4 Mg Tab 4 Mg PO PRN Hydrocodon-Acetaminophn 10-325 (Hydrocodone/Acetaminophen) 1 Each Tablet 1 Tab PO TID PRN Aspirin EC (Aspirin) 81 Mg Tablet.dr 81 Mg PO DAILY Pantoprazole Sodium 40 Mg Tablet.dr 40 Mg PO DAILY Novolog (Insulin Aspart) 100 Unit/1 Ml Susp PER INSULIN PUMP Zolpidem Tartrate 10 Mg Tablet 10 Mg PO HS PRN Furosemide 40 Mg Tablet 40 Mg PO DAILY Atenolol 25 Mg Tablet 25 Mg PO DAILY Instructions to patient/family Please see electronic discharge instructions given to patient. Clinical Quality Measures DVT/VTE Risk/Contraindication: Risk Factor Score Per Nursin RFS Level Per Nursing on Admit: 4+=Very High Problem Qualifiers (1) Hypertension: Hypertension type: essential hypertension Qualified Codes: I10 - Essential (primary) hypertension (2) Rheumatoid arthritis: Rheumatoid arthritis location: unspecified site Rheumatoid factor presence: unspecified presence Qualified Codes: M06.9 - Rheumatoid arthritis, unspecified (3) Diabetes: Diabetes mellitus type: type 2 Diabetes mellitus mcc insulin use: with mcc use Diabetes mellitus complication status: with circulatory complication Diabetes mellitus complication detail: with peripheral angiopathy with gangrene Qualified Codes: E11.52 - Type 2 diabetes mellitus with diabetic peripheral angiopathy with gangrene; Z79.4 - nursing home (current) use of insulin NANCY ORR DO Nov 08, 2018 09:12
--- NOTE | 2018-11-08 09:22 | NUR ---
CYSTO DONE AT BEDSIDE. HURTADO LEFT OUT.
--- NOTE | 2018-11-08 09:24 | Progress Note-Pre Operative ---
Pre-Operative Progress Note H&P Reviewed The H&P was reviewed, patient examined and no changes noted. Date Seen by Provider: Nov 08, 2018 Time Seen by Provider: 09:24 Date H&P Reviewed: Nov 04, 2018 Time H&P Reviewed: 09:24 Pre-Operative Diagnosis: ESMER COLÓN MD Nov 08, 2018 09:24
--- NOTE | 2018-11-08 09:25 | Progress Note-Post Operative ---
Post-Operative Progess Note Surgeon (s)/Library Media Specialist (s) Surgeon ESMER ROBERTSON MD Library Media Specialist: NONE Pre-Operative Diagnosis RETENTION Post-Operative Diagnosis SAME Procedure & Operative Findings Date of Procedure 11/08/18 Procedure Performed/Findings CYSTOSCOPY Anesthesia Type LOCAL Estimated Blood Loss Estimated blood loss (mL): NONE Specimens/Packing Specimens Removed NONE Packing: NONE ESMER ROBERTSON MD Nov 08, 2018 09:25
--- NOTE | 2018-11-08 09:49 | NUR ---
TO RASHAD PER . REPORT TO ROBERTO.
--- NOTE | 2018-11-08 09:52 | NUR ---
UPDATED ROBERTO WHITMAN ON DR. WETZEL NEW ORDERS.
--- NOTE | 2018-11-08 16:12 | OPERATIVE REPORT ---
DATE OF SERVICE: 11/08/2018 PREOPERATIVE DIAGNOSIS: Urinary retention. POSTOPERATIVE DIAGNOSIS: Urinary retention. OPERATION PERFORMED: Cystoscopy. SURGEON: Jesus Robertson MD. ANESTHESIA: Local. COMPLICATIONS: None. DESCRIPTION OF PROCEDURE: With the patient supine in his bed, the catheter was removed. The genitalia were prepped and draped in the usual sterile fashion. Urethra was infiltrated with lidocaine jelly. A penile clamp was applied. This was then removed and a flexible cystoscope was introduced under vision. The anterior urethra was normal. The prostate was small with mild obstruction. The bladder was entered. This revealed some trabeculations. Ureteric orifices were normal in shape, size and configuration with clear efflux. No foreign body or bladder tumor visualized. Cystoscopy confirmed in antegrade fashion and the cystoscope was removed. The patient tolerated the procedure and anesthesia well, remained in his bed in stable condition. PLAN: Trial of voiding and follow up with bladder scans. Keep him on Flomax, stop the Proscar. Job ID: [id number] DocumentID: [id number] Dictated Date: 11/08/2018 09:26:46 Asphalt Patcher Date: 11/08/2018 16:11:49 Dictated By: JESUS ROBERTSON MD
== END 2018-11-08 09:45 | DRG 617 ==
LOC: 4TH 06:15 → SURG 06:16 → EDSTATUS 07:30 → 4TH 10:20
PROVIDERS: ADMIT Surgery; ATTEND Surgery
PROC: 0Y6J0Z1 Detachment at Left Lower Leg, High, Open Approach (ICD-10-PCS; principal; 2018-11-04 07:48)
PROC: 0TJB8ZZ Inspection of Bladder, Via Natural or Artificial Opening Endoscopic (ICD-10-PCS; 2018-11-08)
DX: E11.621 Type 2 diabetes mellitus with foot ulcer (principal); L97.529 Non-pressure chronic ulcer of other part of left foot with unspecified severity; E11.69 Type 2 diabetes mellitus with other specified complication; M86.9 Osteomyelitis, unspecified; E11.65 Type 2 diabetes mellitus with hyperglycemia; E11.610 Type 2 diabetes mellitus with diabetic neuropathic arthropathy; E11.51 Type 2 diabetes mellitus with diabetic peripheral angiopathy without gangrene; I70.203 Unspecified atherosclerosis of native arteries of extremities, bilateral legs; F17.210 Nicotine dependence, cigarettes, uncomplicated; I12.9 Hypertensive chronic kidney disease with stage 1 through stage 4 chronic kidney disease, or unspecified chronic kidney disease; N18.9 Chronic kidney disease, unspecified; M06.9 Rheumatoid arthritis, unspecified; I25.10 Atherosclerotic heart disease of native coronary artery without angina pectoris; E78.2 Mixed hyperlipidemia; R33.9 Retention of urine, unspecified; D63.8 Anemia in other chronic diseases classified elsewhere
CPT/HCPCS: 36415; 80048; 80053; 82962; 85007; 85025; 85027; 86850; 86900; 86901

== ENCOUNTER 2018-11-08 09:47 | Inpatient (IN) | payer OTHER, MEDICARE | END 2018-11-23 12:30 | disposition home health service (06) ==

== ENCOUNTER 2018-12-28 11:45 | Emergency (ER) | payer OTHER, MEDICARE | END 2018-12-28 13:37 | disposition home or self-care (01) | LOC: ER FS 11:45 ==

== ENCOUNTER 2019-03-05 11:17 | Emergency (ER) | payer OTHER, MEDICARE ==
[~2019-03-05] VITALS: Ht 167.7 cm; Wt 85.9 kg
[~2019-03-05 11:17] MED LIST changes: +BACL10TA PO; +FURO-125 PO; +POTA-53 PO; +PROM25TA14 PO; +TAMS0.4C98 PO
[2019-03-05] MEDS ORDERED: D5 LR IV SOLUTION 1,000 ML IV SCH (11:30)
[2019-03-05] MEDS ORDERED: ONDANSETRON 4 MG/2 ML (SDV) Z0FRAN IVP ONE (11:45)
[2019-03-05 11:47] LABS: BACTERIA,URINE NEGATIVE /HPF; BILIRUBIN,URINE NEGATIVE (NEGATIVE); CLARITY,URINE CLEAR; COLOR,URINE YELLOW; GLUCOSE, URINE (UA) 1+ (NEGATIVE); KETONES,URINE NEGATIVE (NEGATIVE); LEUKOCYTE ESTERASE ,URINE NEGATIVE (NEGATIVE); NITRITE,URINE NEGATIVE (NEGATIVE); PROTEIN,URINE NEGATIVE (NEGATIVE); SQUAMOUS EPITHELIAL CELL,UR RARE /HPF; WBC,URINE RARE /HPF
--- NOTE | 2019-03-05 11:57 | ED General ---
General Stated Complaint: AMS Source of Information: Patient, EMS Exam Limitations: No Limitations History of Present Illness Date Seen by Provider: Mar 05, 2019 Time Seen by Provider: 11:35 Initial Comments The patient is a pleasant 64-year-old male who presents for evaluation of hypoglycemia via EMS. Apparently someone at been trying to reach the patient while he was sleeping and someone checked on him and then called EMS when he was not responding to the door or the phone calls. He has an insulin pump on which had still been running. He has had episodes of hypoglycemia in the past. He reports some mild nausea but denies any pain, fevers or chills, urinary complaints, abdominal or back pain, chest pain or shortness of breath, headache, or diarrhea. He is now alert and oriented 4, calm, and appears to be no distress. In the field the patient had a glucose of 27. Upon arrival his blood sugar is 80. He disconnected his insulin pump upon arrival to prevent further insulin administration. Timing/Duration: 12 Hours Severity: Moderate Associated Systoms: Nausea/Vomiting (nausea only) Allergies and Home Medications Allergies Coded Allergies: metaproterenol (Verified Allergy, Unknown, 03/05/19) Home Medications Aspirin 81 Mg Tablet.dr, 81 MG PO DAILY, (Reported) Baclofen 10 Mg Tablet, 5 MG PO Q6H PRN for MUSCLE SPASMS Prescribed by: NANCY ORR on 11/22/18 1501 Insulin Aspart 100 Unit/1 Ml Susp, PER INSULIN PUMP, (Reported) Lisinopril 20 Mg Tablet, 20 MG PO DAILY Prescribed by: SUSANA RODRIGUEZ on 10/02/18 1206 Ondansetron HCl 4 Mg Tab, 4 MG PO PRN, (Reported) Pantoprazole Sodium 40 Mg Tablet.dr, 40 MG PO DAILY, (Reported) Promethazine HCl 25 Mg Tablet, 25 MG PO Q6H PRN for NAUSEA/VOMITING Prescribed by: NANCY ORR on 11/22/18 1501 Tamsulosin HCl 0.4 Mg Cap, 0.4 MG PO DAILY@1800 Prescribed by: NANCY ORR on 11/22/18 1501 Zolpidem Tartrate 10 Mg Tablet, 10 MG PO HS PRN for SLEEP, (Reported) Patient Home Medication List Home Medication List Reviewed: Yes Review of Systems Review of Systems Constitutional: no symptoms reported EENTM: no symptoms reported Respiratory: no symptoms reported Cardiovascular: no symptoms reported Gastrointestinal: nausea Genitourinary: no symptoms reported Musculoskeletal: no symptoms reported Skin: no symptoms reported Psychiatric/Neurological: No Symptoms Reported Hematologic/Lymphatic: No Symptoms Reported Immunological/Allergic: no symptoms reported All Other Systems Reviewed Negative Unless Noted: Yes Past Uvkucml-Pzlhbw-Aoaqgw Hx Past Med/Social Hx: Reviewed Nursing Past Med/Soc Hx Patient Social History Alcohol Beverage of Choice: [place] Type Used: Cigarettes Former Smoker, Quit: Nov 03, 2018 2nd Hand Smoke Exposure: Yes Recent Foreign Travel: No Recent Hopitalizations: No Immunizations Up To Date PED Vaccines UTD: Yes Date of Pneumonia Vaccine: Dec 12, 2017 Seasonal Allergies Seasonal Allergies: Yes Past Medical History Surgeries: Yes (L FOOT-MULTIPLE ) Amputation, Appendectomy, Gallbladder, Orthopedic Respiratory: No Pneumonia, COPD Currently Using CPAP: No Currently Using BIPAP: No Cardiac: Yes Cardiomyopathy, Chronic Edema/Swelling, Coronary Artery Disease, High Cholesterol, Hypertension, Peripheral Vascular Neurological: Yes Neuropathy, TIA Sexually Transmitted Disease: No Genitourinary: No Bladder Infection, Renal Failure Gastrointestinal: No Chronic Constipation, Ulcer, Gall Bladder Disease Musculoskeletal: Yes (RHEUMATOID ARTHRITIS) Arthritis, Rheumatoid Arthritis, Chronic Back Pain, Fractures Endocrine: Yes (HAS INSULIN PUMP) Diabetes, Insulin dep HEENT: Yes (GLASSES) Loss of Vision: Denies Hearing Impairment: Denies Cancer: No Psychosocial: No Integumentary: Yes (DIABETIC ULCER L FOOT resulting in BKA) Blood Disorders: No Adverse Reaction/Blood Tranf: No (N/A) Family Medical History No Pertinent Family Hx Physical Exam Vital Signs Vital Signs - First Documented 03/05/19 11:17 Temp 36.3 Pulse 91 Resp 18 B/P (MAP) 178/82 (114) Pulse Ox 99 O2 Delivery Room Air Capillary Refill : Height, Weight, BMI Height: 5'5.00" Weight: 193lbs. 8.0oz. 87.041402oe; 33.1 BMI Method:Stated General Appearance: No Apparent Distress, WD/WN HEENT: PERRL/EOMI, Pharynx Normal Neck: Full Range of Motion, Non Tender, Supple Respiratory: Chest Non Tender, Lungs Clear, Normal Breath Sounds, No Accessory Muscle Use, No Respiratory Distress Cardiovascular: Regular Rate, Rhythm, No Edema, No Murmur Gastrointestinal: Normal Bowel Sounds, Non Tender, Soft Extremity: Normal Capillary Refill, Normal Inspection, Non Tender Neurologic/Psychiatric: Alert, Oriented x3, No Motor/Sensory Deficits, Normal Mood/Affect Skin: Normal Color, Warm/Dry Progress/Results/Core Measures Suspected Sepsis SIRS Temperature: Pulse: Respiratory Rate: Laboratory Tests 03/05/19 11:30: White Blood Count 7.4 Blood Pressure / Mean: Laboratory Tests 03/05/19 11:30: Creatinine 1.15, Platelet Count 265, Total Bilirubin 0.4 Results/Orders Lab Results Laboratory Tests Test 03/05/19 11:25 03/05/19 11:30 Range/Units Glucometer 79 70-110 MG/DL White Blood Count 7.4 4.3-11.0 10^3/uL Red Blood Count 5.26 4.35-5.85 10^6/uL Hemoglobin 13.2 L 13.3-17.7 G/DL Hematocrit 41 40-54 % Mean Corpuscular Volume 78 L 80-99 FL Mean Corpuscular Hemoglobin 25 25-34 PG Mean Corpuscular Hemoglobin Concent 32 32-36 G/DL Red Cell Distribution Width 17.6 H 10.0-14.5 % Platelet Count 265 130-400 10^3/uL Mean Platelet Volume 10.1 7.4-10.4 FL Neutrophils (%) (Auto) 73 42-75 % Lymphocytes (%) (Auto) 15 12-44 % Monocytes (%) (Auto) 10 0-12 % Eosinophils (%) (Auto) 1 0-10 % Basophils (%) (Auto) 1 0-10 % Neutrophils # (Auto) 5.4 1.8-7.8 X 10^3 Lymphocytes # (Auto) 1.1 1.0-4.0 X 10^3 Monocytes # (Auto) 0.7 0.0-1.0 X 10^3 Eosinophils # (Auto) 0.1 0.0-0.3 10^3/uL Basophils # (Auto) 0.1 0.0-0.1 10^3/uL Urine Color YELLOW Urine Clarity CLEAR Urine pH 6.0 5-9 Urine Specific [place] 1.020 1.016-1.022 Urine Protein NEGATIVE NEGATIVE Urine Glucose (UA) 1+ H NEGATIVE Urine Ketones NEGATIVE NEGATIVE Urine Nitrite NEGATIVE NEGATIVE Urine Bilirubin NEGATIVE NEGATIVE Urine Urobilinogen 0.2 NORMAL MG/DL Urine Leukocyte Esterase NEGATIVE NEGATIVE Urine RBC (Auto) NEGATIVE NEGATIVE Urine RBC NONE /HPF Urine WBC RARE /HPF Urine Squamous Epithelial Cells RARE /HPF Urine Crystals NONE /LPF Urine Bacteria NEGATIVE /HPF Urine Casts NONE /LPF Urine Mucus NONE /LPF Urine Culture Indicated NO Sodium Level 136 135-145 MMOL/L Potassium Level 4.6 3.6-5.0 MMOL/L Chloride Level 101 98-107 MMOL/L Carbon Dioxide Level 21 21-32 MMOL/L Anion Gap 14 5-14 MMOL/L Blood Urea Nitrogen 21 H 7-18 MG/DL Creatinine 1.15 0.60-1.30 MG/DL Estimat Glomerular Filtration Rate > 60 BUN/Creatinine Ratio 18 Glucose Level 98 70-105 MG/DL Calcium Level 9.1 8.5-10.1 MG/DL Corrected Calcium 9.3 8.5-10.1 MG/DL Magnesium Level 2.1 1.6-2.4 MG/DL Total Bilirubin 0.4 0.1-1.0 MG/DL Aspartate Amino Transf (AST/SGOT) 28 5-34 U/L Alanine Aminotransferase (ALT/SGPT) 13 0-55 U/L Alkaline Phosphatase 143 H 40-136 U/L Troponin I < 0.30 <0.30 NG/ML Total Protein 7.8 6.4-8.2 GM/DL Albumin 3.7 3.2-4.5 GM/DL Serum Alcohol < 10 <10 MG/DL My Orders Orders - STEFANY ARMSTRONG DO Alcohol (03/05/19 11:29) Cbc With Automated Diff (03/05/19 11:29) Comprehensive Metabolic Panel (03/05/19 11:29) Creatine Kinase (03/05/19 11:29) Magnesium (03/05/19 11:29) Ua Culture If Indicated (03/05/19 11:29) Accucheck Stat ONCE (03/05/19 11:29) Troponin I Fs (03/05/19 11:29) Ekg Tracing (03/05/19 11:29) Continuous Ekg Monitoring (03/05/19 11:29) D5 Lr Iv Solution (Dextrose 5%/Lactated (03/05/19 11:30) Ondansetron Injection (Zofran Injectio (03/05/19 11:45) Accucheck Stat ONCE (03/05/19 12:45) Medications Given in ED Current Medications Medications Dose Ordered Sig/Shay Route Start Time Stop Time Status Last Admin Dose Admin Ondansetron HCl 4 mg ONCE ONCE IVP 03/05/19 11:45 03/05/19 11:46 DC 03/05/19 12:02 4 MG Vital Signs/I&O 03/05/19 11:17 Temp 36.3 Pulse 91 Resp 18 B/P (MAP) 178/82 (114) Pulse Ox 99 O2 Delivery Room Air Capillary Refill : Progress Note : Progress Note @1312 - Patient and updated on lab and imaging results. The patient's states the patient is supposed to be checked his blood sugar every 6 hours and subsequent alarm clock but slept through it. She states that he has done this before where he did not wake up and check his sugar which caused him to go to low. Workup today fails to reveal any emergent pathology. The patient is stable for discharge home at this time. His is comfortable keeping a close eye on him. The patient understands that if he has not checked his blood sugar and his insulin pump continues to run that this could be life-threatening. Advised the patient to return to the emergency Department immediately for new or worsening symptoms. He expresses verbal understanding and agreement. ECG EKG : Comment @1153 - normal sinus rhythm, rate of 85, normal axis, no acute ischemic findings noted, no STEMI, reviewed and interpreted by myself Departure Impression Primary Impression: Hypoglycemia associated with diabetes Disposition: 01 HOME, SELF-CARE Condition: Stable Departure-Patient Inst. Decision time for Depature: 13:15 Referrals: ROGER NOGUERA DO (PCP) Primary Care Physician Patient Instructions: Low Blood Sugar in People With Diabetes Add. Discharge Instructions: Check your blood sugar frequently as directed. Return to the emergency Department immediately for new or worsening symptoms. Follow-up with your doctor in the next 1-2 days. STEFANY ARMSTRONG DO Mar 05, 2019 11:56 POS
[2019-03-05 11:59] LABS: HEMATOCRIT 41 % (40-54); HEMOGLOBIN 13.2 G/DL (13.3-17.7); MEAN CORPUSCULAR HEMOGLOBIN 25 PG (25-34); MEAN CORPUSCULAR HGB CONC 32 G/DL (32-36); MEAN CORPUSCULAR VOLUME 78 FL (80-99); MEAN PLATELET VOLUME 10.1 FL (7.4-10.4); PLATELET COUNT 265 10^3/uL (130-400); RED CELL DISTRIBUTION WIDTH 17.6 % (10.0-14.5); WHITE BLOOD COUNT 7.4 10^3/uL (4.3-11.0)
[2019-03-05 12:00] LABS: BASOPHILS # (AUTO) 0.1 10^3/uL (0.0-0.1); BASOPHILS % (AUTO) 1 % (0-10); EOSINOPHILS # (AUTO) 0.1 10^3/uL (0.0-0.3); EOSINOPHILS % (AUTO) 1 % (0-10); LYMPHOCYTES # (AUTO) 1.1 X 10^3 (1.0-4.0); LYMPHOCYTES % (AUTO) 15 % (12-44); MONOCYTES # (AUTO) 0.7 X 10^3 (0.0-1.0); MONOCYTES % (AUTO) 10 % (0-12); NEUTROPHILS # (AUTO) 5.4 X 10^3 (1.8-7.8); NEUTROPHILS % (AUTO) 73 % (42-75)
[2019-03-05 12:21] LABS: ALANINE AMINOTRANSFERASE 13 U/L (0-55); ALKALINE PHOSPHATASE 143 U/L (40-136); BILIRUBIN,TOTAL 0.4 MG/DL (0.1-1.0); BUN/CREATININE RATIO 18; CALCIUM 9.1 MG/DL (8.5-10.1); CARBON DIOXIDE 21 MMOL/L (21-32); CHLORIDE 101 MMOL/L (98-107); CREATININE SERUM 1.15 MG/DL (0.60-1.30); GFR ESTIMATED > 60; GLUCOSE 98 MG/DL (70-105); MAGNESIUM 2.1 MG/DL (1.6-2.4); POTASSIUM 4.6 MMOL/L (3.6-5.0); SODIUM 136 MMOL/L (135-145)
[2019-03-05 12:22] LABS: ALBUMIN 3.7 GM/DL (3.2-4.5); TOTAL PROTEIN 7.8 GM/DL (6.4-8.2)
[2019-03-05 13:32] VITALS: BP 125/52
[2019-03-05 15:05] LABS: CREATINE KINASE 53 U/L (30-200)
== END 2019-03-05 13:32 | disposition home or self-care (01) ==
LOC: EDUNIT# 11:17 → ER FS 11:18
DX: E11.649 Type 2 diabetes mellitus with hypoglycemia without coma (principal); E11.40 Type 2 diabetes mellitus with diabetic neuropathy, unspecified; E11.621 Type 2 diabetes mellitus with foot ulcer; L97.529 Non-pressure chronic ulcer of other part of left foot with unspecified severity; I10 Essential (primary) hypertension; E78.00 Pure hypercholesterolemia, unspecified; J44.9 Chronic obstructive pulmonary disease, unspecified; I25.10 Atherosclerotic heart disease of native coronary artery without angina pectoris; M06.9 Rheumatoid arthritis, unspecified; Z90.49 Acquired absence of other specified parts of digestive tract; Z86.73 Personal history of transient ischemic attack (TIA), and cerebral infarction without residual deficits; Z79.4 Long term (current) use of insulin; Z88.8 Allergy status to other drugs, medicaments and biological substances; Z79.82 Long term (current) use of aspirin; Z87.891 Personal history of nicotine dependence
CPT/HCPCS: 36415; 80053; 80320; 81000; 82550; 82962; 83735; 84484; 85025; 93005; 96361; 96374

== ENCOUNTER 2019-03-20 13:17 | Outpatient (RCR) | payer OTHER, MEDICARE ==
[~2019-03-20 13:17] MED LIST changes: -TAMS0.4C98 PO; +TMSL.4C PO
== END 2019-03-20 15:08 | disposition home or self-care (01) ==
PROVIDERS: ATTEND Surgery
DX: R26.9 Unspecified abnormalities of gait and mobility (principal); Z89.512 Acquired absence of left leg below knee

== ENCOUNTER → 2019-04-25 | Outpatient (CLI) | payer OTHER, MEDICARE ==
[~2019-04-25] MED LIST changes: +TAMS0.4C98 PO; -TMSL.4C PO
== END ==
LOC: WOUNDCARE 09:04
PROVIDERS: ATTEND Surgery
DX: E11.622 Type 2 diabetes mellitus with other skin ulcer (principal); L22 Diaper dermatitis; L89.892 Pressure ulcer of other site, stage 2
CPT/HCPCS: 99214

== ENCOUNTER → 2020-10-13 | Outpatient (CLI) | payer BC, MEDICARE ==
[~2020-10-13] MED LIST changes: +ACHYD1T PO; +ASPI-1238 PO; -ASPI-983 PO; -CLIN300C11 PO; +CLIN300C12 PO; -HYDR-3820 PO; -LISI-552 PO; +LISI20TA26 PO; -PANT40TA3 PO; +PANT40TA52 PO; -TAMS0.4C98 PO; +TMSL.4C PO
--- NOTE | 2020-10-13 16:35 | Diagnostic Imaging Report ---
INDICATION: Right hand pain. EXAMINATION: Three views of the right hand. FINDINGS: No fracture, dislocation or other acute abnormality. Joint spaces are well maintained. IMPRESSION: Negative right hand. Dictated by: Dictated on workstation # [id number]
== END ==
LOC: RAD FS 15:17
PROVIDERS: ATTEND Nurse Practitioner Family
DX: M25.441 Effusion, right hand (principal)
CPT/HCPCS: 73130

== ENCOUNTER → 2020-10-19 | Outpatient (CLI) | payer BC, MEDICARE ==
--- NOTE | 2020-10-19 14:45 | Diagnostic Imaging Report ---
INDICATION: Hand pain. COMPARISON: None. FINDINGS: Three views of the left hand were obtained and show no fractures, dislocations, or other acute bony abnormalities. Joint spaces are well maintained throughout. The soft tissues appear unremarkable. No radiopaque foreign bodies are identified. IMPRESSION: Unremarkable radiographic exam of the left hand. Dictated by: Dictated on workstation # [id number]
== END ==
LOC: RAD FS 14:21
PROVIDERS: ATTEND Nurse Practitioner
DX: M79.642 Pain in left hand (principal)
CPT/HCPCS: 73130

== ENCOUNTER 2021-09-14 02:00 | Emergency (ER) | payer BC, MEDICARE ==
[~2021-09-14] VITALS: Ht 165.1 cm; Wt 83.4 kg
[~2021-09-14 02:00] MED LIST changes: +CLIN-144 PO; -CLIN300C12 PO
--- NOTE | 2021-09-14 02:08 | ED General ---
General Stated Complaint: HYPOGLYCEMIA History of Present Illness Date Seen by Provider: September 14, 2021 Time Seen by Provider: 02:07 Initial Comments 66-year-old male with hyperglycemia. Patient has a history of diabetes. His pump is not working and presents for insulin. 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 Patient's blood sugar is over 500. Allergies and Home Medications Allergies Coded Allergies: metaproterenol (Verified Allergy, Unknown, 03/05/19) Patient Home Medication List Home Medication List Reviewed: Yes Aspirin (Aspirin EC) 81 Mg Tablet.dr, 81 MG PO DAILY, (Reported) Entered as Reported by: SILVIO CHANG on 09/11/18 1337 Baclofen (Baclofen) 10 Mg Tablet, 5 MG PO Q6H PRN for MUSCLE SPASMS Prescribed by: NANCY ORR on 11/22/18 1501 Insulin Aspart (Novolog) 100 Unit/1 Ml Susp, PER INSULIN PUMP, (Reported) Entered as Reported by: SILVIO CHANG on 09/11/18 1336 Lisinopril (Lisinopril) 20 Mg Tablet, 20 MG PO DAILY Prescribed by: SUSANA RODRIGUEZ on 10/02/18 1206 Ondansetron HCl (Zofran) 4 Mg Tab, 4 MG PO PRN, (Reported) Entered as Reported by: ZOHAIB POSEY on 11/01/18 0958 Pantoprazole Sodium (Pantoprazole Sodium) 40 Mg Tablet.dr, 40 MG PO DAILY, (Reported) Entered as Reported by: SILVIO CHANG on 09/11/18 1336 Promethazine HCl (Promethazine Tablet) 25 Mg Tablet, 25 MG PO Q6H PRN for NAUSEA/VOMITING Prescribed by: NANCY ORR on 11/22/18 1501 Tamsulosin HCl (Flomax) 0.4 Mg Cap, 0.4 MG PO DAILY@1800 Prescribed by: NANCY ORR on 11/22/18 1501 Zolpidem Tartrate (Zolpidem Tartrate) 10 Mg Tablet, 10 MG PO HS PRN for SLEEP, (Reported) Entered as Reported by: SILVIO CHANG on 09/11/18 1336 Review of Systems Review of Systems Constitutional: see HPI EENTM: no symptoms reported Respiratory: no symptoms reported Cardiovascular: no symptoms reported Gastrointestinal: no symptoms reported Genitourinary: no symptoms reported Musculoskeletal: no symptoms reported Skin: no symptoms reported Psychiatric/Neurological: No Symptoms Reported Hematologic/Lymphatic: See HPI Physical Exam Vital Signs Vital Signs - First Documented 09/14/21 02:02 Temp 37.0 Pulse 85 Resp 16 B/P (MAP) 135/80 (98) Pulse Ox 99 O2 Delivery Room Air Capillary Refill : Height, Weight, BMI Height: '" Weight: lbs. oz. kg; BMI Method: General Appearance: No Apparent Distress, WD/WN Respiratory: No Accessory Muscle Use, No Respiratory Distress Cardiovascular: Regular Rate, Rhythm Neurologic/Psychiatric: Alert, Oriented x3, Normal Mood/Affect Skin: Normal Color, Warm/Dry Progress/Results/Core Measures Suspected Sepsis SIRS Temperature: Pulse: Respiratory Rate: Blood Pressure / Mean: Results/Orders Lab Results Laboratory Tests Test 09/14/21 03:11 09/14/21 04:16 09/14/21 05:24 Range/Units Glucometer 480 *H 385 H 309 H 70-110 MG/DL My Orders Orders - ELAINA ENGEL DO Accucheck Stat ONCE (09/14/21 02:02) Insulin Aspart (Novolog) (Novolog (Charg (09/14/21 02:15) Insulin Aspart (Novolog) (Novolog (Charg (09/14/21 02:16) Insulin Aspart (Novolog) (Novolog (Charg (09/14/21 03:15) Insulin Aspart (Novolog) (Novolog (Charg (09/14/21 04:30) Medications Given in ED Current Medications Medications Dose Ordered Sig/Shay Route Start Time Stop Time Status Last Admin Dose Admin Insulin Aspart 7 unit ONCE ONCE SC 09/14/21 03:15 09/14/21 03:16 DC 09/14/21 03:19 7 UNIT Insulin Aspart 10 unit ONCE ONCE SC 09/14/21 02:15 09/14/21 02:16 DC 09/14/21 02:18 10 UNIT Insulin Aspart 10 unit ONCE ONCE SC 09/14/21 04:30 09/14/21 04:31 DC 09/14/21 04:25 10 UNIT Vital Signs/I&O 09/14/21 02:02 Temp 37.0 Pulse 85 Resp 16 B/P (MAP) 135/80 (98) Pulse Ox 99 O2 Delivery Room Air Capillary Refill : Progress Note : Progress Note Patient received approximately 27 units of insulin subcu. Patient's blood sugar now around 300. He feels he will be good the rest of his shift until he gets home. Departure Impression Primary Impression: Hyperglycemia Disposition: 01 HOME, SELF-CARE Condition: Stable ELAINA ENGEL DO September 14, 2021 02:08
[2021-09-14] MEDS ORDERED: inSUlin ASPART (NovoLOG) 1 UNIT/0.01 ML (CHARGE PER UNIT) SC ONE ×3 (02:15→04:30)
[2021-09-14] MEDS ORDERED: inSUlin ASPART (NovoLOG) 1 UNIT/0.01 ML (CHARGE PER UNIT) ONE (02:16)
[2021-09-14 06:16] VITALS: BP 135/80
== END 2021-09-14 06:17 | disposition home or self-care (01) ==
LOC: EDUNIT# 02:00 → ER FS 02:07
DX: E11.65 Type 2 diabetes mellitus with hyperglycemia (principal); Z79.4 Long term (current) use of insulin
CPT/HCPCS: 82947

== ENCOUNTER → 2021-10-17 | Outpatient (CLI) | payer BC, MEDICARE ==
[~2021-10-17] MED LIST changes: +CATHETER FLUSH 10 ML SYR IVP PRN
--- NOTE | 2021-10-17 13:26 | Diagnostic Imaging Report ---
PROCEDURE: CT abdomen and pelvis without contrast. TECHNIQUE: Multiple contiguous axial images were obtained through the abdomen and pelvis without the use of intravenous contrast. Auto Exposure Controls were utilized during the CT exam to meet ALARA standards for radiation dose reduction. INDICATION: Prostate carcinoma. COMPARISON: No prior studies are available for comparison. FINDINGS: The lung bases are clear. No focal liver mass is identified. The gallbladder is surgically absent. No biliary ductal dilatation is seen. Pancreas and spleen are unremarkable. A low-density nodule in the right adrenal gland is noted measuring 3.4 x 2.0 cm suggestive of an adenoma. Left adrenal gland is unremarkable. A right kidney contains a tiny hyperdense cortical lesion in the lower pole, 7 mm in size. Left kidney contains an exophytic low-attenuation lesion measuring 2.7 cm in diameter. There is a hyperdense lesion arising laterally and exophytically from the left kidney measuring 2.8 cm. Additional cortical lesions are present as well. There are marked renal vascular calcifications present. Aorta is heavily calcified but nonaneurysmal. No central retroperitoneal or mesenteric lymphadenopathy is seen. Colon does show moderate stool. No free fluid is seen. There is no fluid collection. The bladder is unremarkable. Prostate is unremarkable. No definite pelvic lymphadenopathy is identified. No definite osteolytic or blastic lesions are identified. IMPRESSION: 1. No evidence of abdominal or pelvic lymphadenopathy or metastatic disease. 2. Probable right adrenal adenoma. 3. Hyperdense renal lesions bilaterally. While these may represent hemorrhagic cysts, solid lesions cannot be entirely excluded, and continued follow-up to confirm stability would be recommended. Dictated by: Dictated on workstation # [id number]
--- NOTE | 2021-10-17 16:09 | Diagnostic Imaging Report ---
INDICATION: Prostate carcinoma. Patient was administered 26.1 mCi technetium 99m MDP intravenously and whole-body imaging was performed after 3 hour delay. No prior bone scans are available for comparison. There is normal uptake of activity by the axial and appendicular skeleton. There is uptake by the kidneys with excretion to urinary bladder. Postop changes of left below-knee amputations noted. There is a focus of intense uptake involving the right lower extremity at the level of the mid tibia, indeterminate. No other suspicious foci are identified. IMPRESSION: Abnormal focus of uptake involving the right tibia, mid shaft. Plain film radiographs would be useful for further evaluation, if not already performed. Dictated by: Dictated on workstation # [id number]
== END ==
LOC: CARD 12:00
PROVIDERS: ATTEND Urology
DX: C61 Malignant neoplasm of prostate (principal); N28.9 Disorder of kidney and ureter, unspecified
CPT/HCPCS: 74176; 78306; A9503

== ENCOUNTER 2021-10-24 13:23 | Outpatient (RCR) | payer BC, MEDICARE ==
[~2021-10-24 13:23] MED LIST changes: -CATHETER FLUSH 10 ML SYR IVP PRN
== END 2021-11-03 | disposition home or self-care (01) ==
LOC: ONC 13:23
PROVIDERS: ATTEND Radiology Radiation Oncology
DX: C61 Malignant neoplasm of prostate (principal)
CPT/HCPCS: 99204

== ENCOUNTER → 2021-10-28 | Outpatient (CLI) | payer BC, MEDICARE ==
--- NOTE | 2021-10-28 13:25 | Diagnostic Imaging Report ---
PROCEDURE: US Renal Bilateral. TECHNIQUE: Multiple real-time grayscale images were obtained over the kidneys in various projections bilaterally. INDICATION: Hyperdense renal lesions noted on recent CT. The study is performed for further evaluation. Correlation is made with CT exam from 10/17/2021. Right kidney measures 10.2 x 5.1 x 5.8 cm and left kidney measures 10.5 x 5.0 x 5.3 cm. Hypoechoic masses within both kidneys are noted which have the appearance of cysts. Largest on the right measures 1.1 x 0.8 x 0.5 cm in the mid upper pole. Largest on the left is in the lower pole measuring 2.9 x 2.5 x 3.27 m. No internal vascularity is present. Prostate appears to be enlarged and indents the bladder base. IMPRESSION: 1. Bilateral renal cysts, likely accounting for the hyperdense lesions noted on CT. No definite solid renal lesion is seen. There is no hydronephrosis. 2. Prostatomegaly. Dictated by: Dictated on workstation # [id number]
--- NOTE | 2021-10-28 15:03 | Diagnostic Imaging Report ---
INDICATION: Leg pain. TIME OF EXAM: 12:21 PM. COMPARISON: No prior studies are available for comparison. EXAMINATION: AP and lateral views of the right tibia and fibula were obtained. FINDINGS: There is a healing fracture of the fibula at the junction of the proximal and mid 3rd. There is some callus formation present. Fracture line does remain visible however. Alignment is anatomic. Tibia is intact. Alignment at the knee and ankle is normal. IMPRESSION: Healing fibular fracture, as described. Dictated by: Dictated on workstation # [id number]
== END ==
LOC: RAD 12:00
PROVIDERS: ATTEND Urology
DX: N28.1 Cyst of kidney, acquired (principal); S82.401D Unspecified fracture of shaft of right fibula, subsequent encounter for closed fracture with routine healing; C61 Malignant neoplasm of prostate
CPT/HCPCS: 73590; 76770

== ENCOUNTER 2021-11-22 14:28 | Emergency (ER) | payer OTHER, BC, MEDICARE ==
[~2021-11-22] VITALS: Ht 165.1 cm; Wt 79.4 kg
[2021-11-22 14:39] VITALS: BP 150/66
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
== END 2021-11-22 15:31 | disposition home or self-care (01) ==
LOC: EDUNIT# 14:28 → ER FS 14:29
DX: S29.9XXA Unspecified injury of thorax, initial encounter (principal); E11.9 Type 2 diabetes mellitus without complications; F17.200 Nicotine dependence, unspecified, uncomplicated; Z96.41 Presence of insulin pump (external) (internal); Z79.4 Long term (current) use of insulin; V43.52XA Car driver injured in collision with other type car in traffic accident, initial encounter; Y92.410 Unspecified street and highway as the place of occurrence of the external cause
CPT/HCPCS: 71101

== ENCOUNTER 2021-12-14 05:59 | Outpatient (CLI) | payer BC, MEDICARE ==
[~2021-12-14] VITALS: Ht 165 cm; Wt 72.3 kg
== END 2021-12-14 14:20 | disposition home or self-care (01) ==
LOC: PREOP 05:59
PROVIDERS: ATTEND Urology
DX: Z01.818 Encounter for other preprocedural examination (principal)

== ENCOUNTER 2021-12-21 06:04 | Day surgery (SDC) | payer BC, MEDICARE ==
[2021-12-21] VITALS (10 sets, daily range): BP systolic 118–190; BP diastolic 58–91
[~2021-12-21] VITALS: Ht 165 cm; Wt 72.3 kg
[2021-12-21] MEDS ORDERED: fentaNYL INJ 100 MCG/2 ML AMP ONE (07:10)
[2021-12-21] MEDS ORDERED: proPOfol 200 MG/20 ML (DIPRIVAN) VIAL IV ONE (07:10)
[2021-12-21] MEDS ORDERED: ONDANSETRON 4 MG/2 ML (SDV) Z0FRAN ONE (07:10)
[2021-12-21] MEDS ORDERED: MIDAZOLAM 2 MG/2 ML (VERSED) VIAL ONE (07:10)
[2021-12-21] MEDS ORDERED: LIDOCAINE PF 2% 5 ML (XYLOCAINE) VIAL ONE (07:10)
[2021-12-21] MEDS ORDERED: LACTATED RINGERS 1,000 ML IV PRN (07:15)
[2021-12-21] MEDS ORDERED: ceFAZolin INJECTION 1,000 MG VIAL IV ONE (07:15)
--- NOTE | 2021-12-21 07:21 | Progress Note-Pre Operative ---
Pre-Operative Progress Note Date of Available H&P: Dec 21, 2021 Date H&P Reviewed: Dec 21, 2021 Time H&P Reviewed: 07:21 Changes from last HP NONE Pre-Operative Diagnosis: CA PROSTATE ESMER ROBERTSON MD Dec 21, 2021 07:21
--- NOTE | 2021-12-21 07:25 | Progress Note-Post Operative ---
Post-Operative Progess Note Surgeon (s)/Consultant Electronics (s) Surgeon ESMER ROBERTSON MD Consultant Electronics: NONE Pre-Operative Diagnosis CA PROSTATE Post-Operative Diagnosis SAME Procedure & Operative Findings Date of Procedure 12/21/21 Procedure Performed/Findings SPACE OAR PLACEMENT Anesthesia Type GENERAL Estimated Blood Loss Estimated blood loss (mL): NONE Specimens/Packing Specimens Removed NONE Packing: NONE ESMER ROBERTSON MD Dec 21, 2021 07:25
--- NOTE | 2021-12-21 07:36 | Discharge Inst-Urology ---
Discharge Inst-Urology Reconcile Patient Problems Problems Reviewed?: Yes Final Diagnosis CA PROSTATE Patient Instructions/Follow Up Plan/Assessment/Instructions Please make appointment to been seen in office in 3 months. Rest for 2 days Showers, no bath for a week In 48 hours, if no bleeding, may resume ASA Keep bowels soft and moving Increase oral fluids for 48 hours and then as needed. Diet as tolerated. If questions or concerns contact your physician Or seek help at emergency department. ESMER ROBERTSON MD Dec 21, 2021 07:36
[2021-12-21] MEDS ORDERED: SEVOFLURANE (ULTANE) 15 ML INHAL SOLN ONE (08:11)
--- NOTE | 2021-12-21 08:21 | Anesthesia-General Post-Op ---
General Patient Condition Mental Status/LOC: Same as Preop Cardiovascular: Satisfactory Nausea/Vomiting: Absent Respiratory: Satisfactory Pain: Controlled Complications: Absent Post Op Complications Complications None Follow Up Care/Instructions Patient Instructions None needed. Anesthesia/Patient Condition Patient Condition Patient is doing well, no complaints, stable vital signs, no apparent adverse anesthesia problems. No complications reported per nursing. ANISHA LUTHER CRNA Dec 21, 2021 08:21
[2021-12-21] MEDS ORDERED: fentaNYL INJ 100 MCG/2 ML AMP IVP ONE (08:30)
[2021-12-21] MEDS ORDERED: ONDANSETRON 4 MG/2 ML (SDV) Z0FRAN IVP PRN (08:30)
[2021-12-21] MEDS ORDERED: SULF1TAB38 PO (09:35)
== END 2021-12-21 10:15 ==
LOC: SDC 06:04
PROVIDERS: ATTEND Urology
DX: C61 Malignant neoplasm of prostate (principal)
CPT/HCPCS: 55874; 87081; C1889

== ENCOUNTER → 2022-01-04 | Outpatient (RCR) | payer BC, MEDICARE ==
[~2022-01-04] MED LIST changes: +SULF1TAB38 PO
== END | disposition home or self-care (01) ==
LOC: ONC 12-26 09:32
PROVIDERS: ATTEND Radiology Radiation Oncology
DX: Z51.0 Encounter for antineoplastic radiation therapy (principal); C61 Malignant neoplasm of prostate; E11.9 Type 2 diabetes mellitus without complications; E78.00 Pure hypercholesterolemia, unspecified; I10 Essential (primary) hypertension; K21.9 Gastro-esophageal reflux disease without esophagitis
CPT/HCPCS: 77300; 77301; 77334; 77338; 77385

== ENCOUNTER → 2022-02-03 | Outpatient (RCR) | payer BC, MEDICARE | END | disposition home or self-care (01) | LOC: ONC 01-05 14:40 | PROVIDERS: ATTEND Radiology Radiation Oncology | DX: Z51.0 Encounter for antineoplastic radiation therapy (principal); C61 Malignant neoplasm of prostate; E11.9 Type 2 diabetes mellitus without complications; E78.00 Pure hypercholesterolemia, unspecified; I10 Essential (primary) hypertension; K21.9 Gastro-esophageal reflux disease without esophagitis | CPT/HCPCS: 77336; 77385 ==

== ENCOUNTER 2022-02-08 14:11 | Outpatient (RCR) | payer BC, MEDICARE | END 2022-03-06 | disposition home or self-care (01) | LOC: ONC 14:11 | PROVIDERS: ATTEND Radiology Radiation Oncology | DX: Z51.0 Encounter for antineoplastic radiation therapy (principal); C61 Malignant neoplasm of prostate; E11.9 Type 2 diabetes mellitus without complications; E78.00 Pure hypercholesterolemia, unspecified; I10 Essential (primary) hypertension; K21.9 Gastro-esophageal reflux disease without esophagitis | CPT/HCPCS: 77336; 77385 ==

== ENCOUNTER 2022-03-16 10:40 | Outpatient (RCR) | payer BC, MEDICARE ==
[2022-03-27] MEDS ORDERED: ASPI-1238 PO (11:52)
[2022-03-27] MEDS ORDERED: LISI40TA9 PO (11:52)
[2022-03-27] MEDS ORDERED: ZOLP10TA PO (11:52)
[2022-03-27] MEDS ORDERED: INSU100V (11:52)
[2022-03-27] MEDS ORDERED: HYDR-3820 PO (11:52)
[2022-04-01] MEDS ORDERED: MECL-149 PO (11:23)
[2022-04-01] MEDS ORDERED: INSU100V SC (11:23)
[2022-04-01] MEDS ORDERED: BENZ100C18 PO (11:23)
[2022-04-01] MEDS ORDERED: AMLO-250 PO (11:23)
== END 2022-04-05 | disposition home or self-care (01) ==
LOC: ONC 10:40
PROVIDERS: ATTEND Radiology Radiation Oncology
DX: C61 Malignant neoplasm of prostate (principal); E11.9 Type 2 diabetes mellitus without complications; E78.00 Pure hypercholesterolemia, unspecified; I10 Essential (primary) hypertension; K21.9 Gastro-esophageal reflux disease without esophagitis; Z12.5 Encounter for screening for malignant neoplasm of prostate
CPT/HCPCS: G0103; G0463; 36415; 84153; 99214

== ENCOUNTER 2022-03-26 21:12 | Inpatient (IN) | payer BC, MEDICARE ==
[~2022-03-26] VITALS: Ht 165.1 cm; Wt 77.9 kg
[2022-03-26 21:38] LABS: BASOPHILS # (AUTO) 0.1 10^3/uL (0.0-0.1); BASOPHILS % (AUTO) 1 % (0-10); EOSINOPHILS # (AUTO) 0.3 10^3/uL (0.0-0.3); EOSINOPHILS % (AUTO) 4 % (0-10); HEMATOCRIT 37 % (40-54); HEMOGLOBIN 12.2 g/dL (13.3-17.7); LYMPHOCYTES # (AUTO) 1.4 10^3/uL (1.0-4.0); LYMPHOCYTES % (AUTO) 20 % (12-44); MEAN CORPUSCULAR HEMOGLOBIN 28 pg (25-34); MEAN CORPUSCULAR HGB CONC 33 g/dL (32-36); MEAN CORPUSCULAR VOLUME 87 fL (80-99); MEAN PLATELET VOLUME 10.3 fL (9.0-12.2); MONOCYTES # (AUTO) 0.7 10^3/uL (0.0-1.0); MONOCYTES % (AUTO) 10 % (0-12); NEUTROPHILS # (AUTO) 4.8 10^3/uL (1.8-7.8); NEUTROPHILS % (AUTO) 65 % (42-75); PLATELET COUNT 274 10^3/uL (130-400); WHITE BLOOD COUNT 7.4 10^3/uL (4.3-11.0)
--- NOTE | 2022-03-26 21:38 | ED Neurological Problem ---
General Stated Complaint: CONFUSION Source: patient Exam Limitations: no limitations History of Present Illness Date Seen by Provider: Mar 26, 2022 Time Seen by Provider: 21:18 Initial Comments 67yoM with PMH of IDDM, TIA, COPD, CAD, PAD, HTN, HLD coming in due to confusion. 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 He was confused as to what he was doing even with the mouse and required assistance. He states when he came into work around 7 PM he was feeling okay. Shortly after arrival that he started feeling odd. He states he is feeling a little off balance as well. Denies any pain anywhere. Otherwise denying any headache, vision changes, chest pain, shortness of breath, abdominal pain, nausea, vomiting, diarrhea, focal weakness or numbness, fever, chills, or any other concerns. Allergies and Home Medications Allergies Coded Allergies: metaproterenol (Verified Allergy, Unknown, 12/21/21) Patient Home Medication List Home Medication List Reviewed: Yes Insulin Aspart (Novolog) 100 Unit/1 Ml Susp, PER INSULIN PUMP, (Reported) Entered as Reported by: SILVIO CHANG on 09/11/18 1336 Lisinopril (Lisinopril) 20 Mg Tablet, 20 MG PO DAILY Prescribed by: SUSANA RODRIGUEZ on 10/02/18 1206 Ondansetron HCl (Zofran) 4 Mg Tab, 4 MG PO PRN, (Reported) Entered as Reported by: ZOHAIB POSEY on 11/01/18 0958 Pantoprazole Sodium (Pantoprazole Sodium) 40 Mg Tablet.dr, 40 MG PO DAILY, (Reported) Entered as Reported by: SILVIO CHANG on 09/11/18 1336 Sulfamethoxazole/Trimethoprim (Bactrim Ds Tablet) 1 Each Tablet, 1 EACH PO BID Prescribed by: MINDY BROWN on 12/21/21 0935 Zolpidem Tartrate (Zolpidem Tartrate) 10 Mg Tablet, 10 MG PO HS PRN for SLEEP, (Reported) Entered as Reported by: SILVIO CHANG on 09/11/18 1336 Review of Systems Review of Systems Constitutional: No fever Eyes: No Symptoms Reported Ears, Nose, Mouth, Throat: no symptoms reported Respiratory: no symptoms reported Cardiovascular: no symptoms reported Gastrointestinal: no symptoms reported Genitourinary: no symptoms reported Musculoskeletal: no symptoms reported Skin: no symptoms reported Psychiatric/Neurological: See HPI Endocrine: No Symptoms Reported Hematologic/Lymphatic: No Symptoms Reported All Other Systems Reviewed Negative Unless Noted: Yes Past Qrmmqrq-Ivulto-Ztlcgg Hx Patient Social History Tobacco Use?: Yes Tobacco type used: Cigarettes Immunizations Up To Date PED Vaccines UTD: Yes First/Initial COVID19 Vaccinat: 04/25 Second COVID19 Vaccination Vincent: 05/27 Third COVID19 Vaccination Date: 01/25 Seasonal Allergies Seasonal Allergies: Yes Past Medical History Surgery/Hospitalization HX: DM Surgeries: Yes (L FOOT-MULTIPLE, L Below the Knee Amputation,COLONOSCOPY, CATARACTS) Amputation, Appendectomy, Gallbladder, Orthopedic Respiratory: Yes Pneumonia Currently Using CPAP: No Currently Using BIPAP: No Cardiac: Yes Chronic Edema/Swelling, High Cholesterol, Hypertension, Peripheral Vascular Neurological: Yes (TIA OVER 20 YEARS AGO) Neuropathy, TIA Sexually Transmitted Disease: No Genitourinary: No Bladder Infection Gastrointestinal: No Chronic Constipation, Ulcer, Gall Bladder Disease Musculoskeletal: Yes (RHEUMATOID ARTHRITIS) Arthritis, Rheumatoid Arthritis, Chronic Back Pain, Fractures Endocrine: Yes (HAS INSULIN PUMP) Diabetes, Insulin dep HEENT: Yes (GLASSES) Loss of Vision: Denies Hearing Impairment: Denies Cancer: Yes Prostate Psychosocial: Yes ( INSOMNIA) Sleep Difficulties Integumentary: Yes (DIABETIC ULCER L FOOT resulting in BKA) Blood Disorders: No Adverse Reaction/Blood Tranf: No (N/A) Family Medical History No Pertinent Family Hx Physical Exam Vital Signs Vital Signs - First Documented 03/26/22 21:26 Temp 36.5 Pulse 72 Resp 20 B/P (MAP) 131/56 (81) Pulse Ox 98 O2 Delivery Room Air Capillary Refill : Height, Weight, BMI Height: 5'5.00" Weight: 193lbs. 8.0oz. 87.855180cv; 26.55 BMI Method:Stated General Appearance: WD/WN, no apparent distress HEENT: PERRL/EOMI, normal ENT inspection, TMs normal, pharynx normal Neck: non-tender, full range of motion, supple, normal inspection Respiratory: chest non-tender, lungs clear, normal breath sounds, no respiratory distress, no accessory muscle use Cardiovascular: regular rate, rhythm, no edema, no murmur Gastrointestinal: normal bowel sounds, non tender, soft; No distended, No guarding, No rebound Back: normal inspection, no CVA tenderness, no vertebral tenderness Extremities: normal range of motion, non-tender, normal inspection, no pedal edema, no calf tenderness, normal capillary refill Neurologic/Psychiatric: heat treater helper II-XII nml as tested, no motor/sensory deficits, al ert, normal mood/affect, oriented x 3 Crainal Nerves: normal hearing, PERRL, other (Intermittently with some word finding difficulty, other times no problem speaking) Coordination/Gait: normal finger to nose, other (Difficult to assess gait given he has left leg partial amputation, appears similar to baseline) Motor/Sensory: no motor deficit, no sensory deficit, no pronator drift Skin: normal color, warm/dry Lymphatic: no adenopathy Stroke Onset of Symptoms Date of Onset of Symptoms: Mar 26, 2022 Time of Symptom Onset: 19:20 Onset of Symptoms: Yes NIH Stroke Scale Assessment Select: Initial Level of Consciousness: 0=Alert (0), Level of Consciousness- Questions: 0=Answers both month/age (0), LOC Commands: 0=Performs both tasks (0), Gaze: Normal (0), Visual Dewitt: 0=No visual loss (0), Facial Movement (Facial Paresis): 0=Normal symmetrical mnt (0), Motor Function-Arms Right: 0= No drift (0), Motor Function-Arms Left: 0=No drift (0), Motor Function-Legs Right: 0=No drift (0), Motor Function-Legs Left: 0=No drift (0), Limb Ataxia: 0=Absent (0), Sensory: 0=Normal:no loss (0), Best Language: 0=No aphasia (0), Dysarthria: 1=Mild to moderate loss (1), Extinction & Inattention: 0=No abnormality (0), Total: 1 Stroke Thrombolytic Exclusion Improving Symptoms: Yes TPA Contraindication: Yes IV - TPa Received IV - TPa Procedure Performed?: No Progress/Results/Core Measures Results/Orders Lab Results Laboratory Tests Test 03/26/22 21:36 Range/Units White Blood Count 7.4 4.3-11.0 10^3/uL Red Blood Count 4.29 L 4.30-5.52 10^6/uL Hemoglobin 12.2 L 13.3-17.7 g/dL Hematocrit 37 L 40-54 % Mean Corpuscular Volume 87 80-99 fL Mean Corpuscular Hemoglobin 28 25-34 pg Mean Corpuscular Hemoglobin Concent 33 32-36 g/dL Red Cell Distribution Width 15.6 H 10.0-14.5 % Platelet Count 274 130-400 10^3/uL Mean Platelet Volume 10.3 9.0-12.2 fL Immature Granulocyte % (Auto) 0 % Neutrophils (%) (Auto) 65 42-75 % Lymphocytes (%) (Auto) 20 12-44 % Monocytes (%) (Auto) 10 0-12 % Eosinophils (%) (Auto) 4 0-10 % Basophils (%) (Auto) 1 0-10 % Neutrophils # (Auto) 4.8 1.8-7.8 10^3/uL Lymphocytes # (Auto) 1.4 1.0-4.0 10^3/uL Monocytes # (Auto) 0.7 0.0-1.0 10^3/uL Eosinophils # (Auto) 0.3 0.0-0.3 10^3/uL Basophils # (Auto) 0.1 0.0-0.1 10^3/uL Immature Granulocyte # (Auto) 0.0 0.0-0.1 10^3/uL Prothrombin Time 12.9 12.2-14.7 SEC INR Comment 0.9 0.8-1.4 Activated Partial Thromboplast Time 28 24-35 SEC Sodium Level 133 L 135-145 MMOL/L Potassium Level 4.0 3.6-5.0 MMOL/L Chloride Level 98 98-107 MMOL/L Carbon Dioxide Level 22 21-32 MMOL/L Anion Gap 13 5-14 MMOL/L Blood Urea Nitrogen 34 H 7-18 MG/DL Creatinine 1.97 H 0.60-1.30 MG/DL Estimat Glomerular Filtration Rate 36 BUN/Creatinine Ratio 17 Glucose Level 202 H 70-105 MG/DL Calcium Level 8.5 8.5-10.1 MG/DL Corrected Calcium 9.0 8.5-10.1 MG/DL Total Bilirubin 0.2 0.1-1.0 MG/DL Aspartate Amino Transf (AST/SGOT) 11 5-34 U/L Alanine Aminotransferase (ALT/SGPT) 6 0-55 U/L Alkaline Phosphatase 100 40-136 U/L Troponin I < 0.30 <0.30 NG/ML Total Protein 6.6 6.4-8.2 GM/DL Albumin 3.4 3.2-4.5 GM/DL My Orders Orders - NYA CODY MD Cbc With Automated Diff (03/26/22:30) Protime With Inr (03/26/22:30) Partial Thromboplastin Time (03/26/22:30) Comprehensive Metabolic Panel (03/26/22:) Troponin I Fs (03/26/22:30) Ua Culture If Indicated (03/26/22:30) Chest 1 View Ap/Pa Only (03/26/22:) Ekg Tracing (03/26/22) Accucheck Stat ONCE (03/26/22:30) Ed Iv/Invasive Line Start (03/26/22:30) Ed Iv/Invasive Line Start (03/26/22:30) Vital Signs Stroke Patient Q15M (03/26/22 21:30) Ct Head Wo-R/O Stroke (03/26/22 21:30) O2 (03/26/22:30) Intake & Output 06,14,22 (03/26/22:30) Monitor-Rhythm Ecg Trace Only (03/26/22:30) Dysphagia Screening Tool Q10MX1 (03/26/22 21:30) Ondansetron Injection (Zofran Injectio (03/26/22 21:45) Lactated Ringers (Lr 1000 Ml Iv Solution (03/26/22 21:52) Meclizine Tablet (Antivert Tablet) (03/26/22 22:00) Ct Angio Head/Neck (03/26/22 22:05) Iohexol Injection (Omnipaque 350 Mg/Ml 1 (03/26/22 22:15) Received Contrast (Hold Metformin- Contr (03/26/22 22:15) Ns (Ivpb) (Sodium Chloride 0.9% Ivpb Bag (03/26/22 22:15) Medications Given in ED Current Medications Medications Dose Ordered Sig/Shay Route Start Time Stop Time Status Last Admin Dose Admin Iohexol 75 ml ONCE ONCE IV 03/26/22 22:15 03/26/22 22:16 DC 03/26/22 22:29 75 ML Meclizine HCl 25 mg ONCE ONCE PO 03/26/22 22:00 03/26/22 22:01 DC 03/26/22 21:58 25 MG Ondansetron HCl 4 mg ONCE ONCE IVP 03/26/22 21:45 03/26/22 21:46 DC 03/26/22 21:49 4 MG Sodium Chloride 100 ml ONCE ONCE IV 03/26/22 22:15 03/26/22 22:16 DC 03/26/22 22:29 100 ML Vital Signs/I&O 03/26/22 21:26 Temp 36.5 Pulse 72 Resp 20 B/P (MAP) 131/56 (81) Pulse Ox 98 O2 Delivery Room Air Progress Progress Note : Progress Note 67-year-old male with above history presenting for word finding difficulties initially as well as dizziness. ABCs were intact and vitals were stable on presentation. Glucose 186. EKG sinus with no acute ischemic changes. An IV was placed and basic labs were obtained and were significant for an elevated creatinine around 1.96 which is significant compared to prior, sodium 133, hemoglobin around baseline, negative troponin. CT head with no acute abnormalities as well as chest x-ray. CTA head and neck also obtained. I contacted stroke and discussed the case with the stroke neurologist, Dr. Valdovinos. The patient's initial NIH was 1 for his word finding difficulties, but when I reassessed him after CT head, it was 0 and he was improving. Although he is feeling dizzy, he had normal truncal stability, normal wphidn-ud-nstf, normal visual dewitt, and no objective findings of a posterior stroke. Dr. Valdovinos recommended against tPA at this time given the relatively mild symptoms and improvement in them as well. He did recommend an MRI when able. I contacted Dr. Roberts, and the patient will be admitted under observation status for an MRI of the brain tomorrow. He did get some IV fluids and creatinine can be reassessed tomorrow for improvement. Initial ECG Impression Date: Mar 26, 2022 Initial ECG Impression Time: 21:34 Initial ECG Rate: 74 Initial ECG Rhythm: Normal Sinus Comment Narrow QRS, normal axis, no significant ST changes or T wave abnormalities, incomplete right bundle branch block Diagnostic Imaging Diagonstic Imaging: Xray (chest), CT (head without, CTA head and neck) Comments NAME: EMANUEL CABRERA [facility] REC#: [id number] PT STATUS: REG ER : 1955 PHYSICIAN: YNA CODY MD ADMIT DATE: 03/26/22/ER FS Draft Date of Exam:03/26/22 CT HEAD WO-R/O STROKE INDICATION: Word finding difficulty, dysarthria. TECHNIQUE: Routine non contrast-enhanced axial images were obtained from the skull base to the vertex. Auto Exposure Controls were utilized during the CT exam to meet ALARA standards for radiation dose reduction COMPARISON: None. FINDINGS: The ventricles and cortical sulci are diffusely prominent, compatible with age-related volume loss. There are confluent areas of abnormal, low attenuation in the periventricular white matter. This is consistent with small vessel ischemic changes; age-indeterminate. There is no prior study available for comparison. There is no midline shift or mass-effect. No acute intra-axial hemorrhage is seen. There is no abnormal area of increased or decreased density to suggest acute hemorrhage or edema. No extra-axial mass or collection is present. The bony calvarium is intact. The visualized paranasal sinuses are unremarkable. The mastoid air cells are clear. IMPRESSION: 1. No acute intracranial abnormality. No CT evidence of mass, acute infarct or intracranial hemorrhage. 2. Small vessel ischemic changes in the periventricular and subcortical white matter; likely chronic. Report was called and faxed to the [facility] at 9:58 p.m., by jojo. Dictated on workstation # [id number] Dict: 03/26/222152 Trans: 03/26/222199 JOJO [id number] Interpreted by: ISAAK JACKSON MD Electronically signed by: [facility], [facility]. [place], [place] NAME: EMANUEL CABRERA [facility] REC#: [id number] PT STATUS: REG ER : 1955 PHYSICIAN: NYA CODY MD ADMIT DATE: 03/26/22/ER FS Draft Date of Exam:03/26/22 CHEST 1 VIEW AP/PA ONLY INDICATION: AMS Dizziness. COMPARISON: 11/22/2021. FINDINGS: Single frontal view of the chest demonstrates normal heart size and pulmonary vascularity. The lungs are well aerated and clear. No large pleural effusion or pneumothorax is seen. The visualized osseous structures show no acute abnormality. Right-sided subclavian central line is seen with tip in cavoatrial junction IMPRESSION: No acute cardiopulmonary process. Dictated on workstation # [id number] Dict: 03/26/222154 Trans: 03/26/222202 [facility] [id number] Interpreted by: ISAAK JACKSON MD Electronically signed by: Departure Impression Primary Impression: TIA (transient ischemic attack) Additional Impressions: LAMBERT (acute kidney injury) Diabetes Qualified Codes: E10.9 - Type 1 diabetes mellitus without complications Disposition: 30 STILL A PATIENT Condition: Stable Admissions Decision to Admit Reason: Admit from ER (General) Decision to Admit/Date: Mar 26, 2022 Time/Decision to Admit Time: 22:45 Transfer Method of Transfer: EMS Departure-Patient Inst. Referrals: [facility] (PCP) Primary Care Physician SILVIO MATHEW APRN (Family) Primary Care Physician NYA CODY MD Mar 26, 2022 21:38
[2022-03-26] MEDS ORDERED: ONDANSETRON 4 MG/2 ML (SDV) Z0FRAN IVP ONE (21:45)
[2022-03-26 21:46] LABS: INR 0.9 (0.8-1.4); PROTHROMBIN TIME PATIENT 12.9 SEC (12.2-14.7)
[2022-03-26] MEDS ORDERED: LACTATED RINGERS 1,000 ML IV STA (21:52)
[2022-03-26 21:58] LABS: BUN/CREATININE RATIO 17; CARBON DIOXIDE 22 MMOL/L (21-32); CHLORIDE 98 MMOL/L (98-107); CREATININE SERUM 1.97 MG/DL (0.60-1.30); GFR ESTIMATED 36; SODIUM 133 MMOL/L (135-145)
[2022-03-26 21:59] LABS: ALANINE AMINOTRANSFERASE 6 U/L (0-55); ALBUMIN 3.4 GM/DL (3.2-4.5); ALKALINE PHOSPHATASE 100 U/L (40-136); BILIRUBIN,TOTAL 0.2 MG/DL (0.1-1.0); CALCIUM 8.5 MG/DL (8.5-10.1); GLUCOSE 202 MG/DL (70-105); TOTAL PROTEIN 6.6 GM/DL (6.4-8.2)
[2022-03-26] MEDS ORDERED: MECLIZINE 25 MG (ANTIVERT) TAB PO ONE (22:00)
--- NOTE | 2022-03-26 22:01 | Diagnostic Imaging Report ---
INDICATION: Word finding difficulty, dysarthria. TECHNIQUE: Routine non contrast-enhanced axial images were obtained from the skull base to the vertex. Auto Exposure Controls were utilized during the CT exam to meet ALARA standards for radiation dose reduction COMPARISON: None. FINDINGS: The ventricles and cortical sulci are diffusely prominent, compatible with age-related volume loss. There are confluent areas of abnormal, low attenuation in the periventricular white matter. This is consistent with small vessel ischemic changes; age-indeterminate. There is no prior study available for comparison. There is no midline shift or mass-effect. No acute intra-axial hemorrhage is seen. There is no abnormal area of increased or decreased density to suggest acute hemorrhage or edema. No extra-axial mass or collection is present. The bony calvarium is intact. The visualized paranasal sinuses are unremarkable. The mastoid air cells are clear. IMPRESSION: 1. No acute intracranial abnormality. No CT evidence of mass, acute infarct or intracranial hemorrhage. 2. Small vessel ischemic changes in the periventricular and subcortical white matter; likely chronic. Report was called and faxed to the [facility] at 9:58 p.m., by linda. Dictated by: Dictated on workstation # [id number]
--- NOTE | 2022-03-26 22:04 | Diagnostic Imaging Report ---
INDICATION: AMS Dizziness. COMPARISON: 11/22/2021. FINDINGS: Single frontal view of the chest demonstrates normal heart size and pulmonary vascularity. The lungs are well aerated and clear. No large pleural effusion or pneumothorax is seen. The visualized osseous structures show no acute abnormality. Right-sided subclavian central line is seen with tip in cavoatrial junction IMPRESSION: No acute cardiopulmonary process. Dictated by: Dictated on workstation # [id number]
[2022-03-26] MEDS ORDERED: IOHEXOL 350 MG/ML 100 ML (OMNIPAQUE 350) VIAL IV ONE (22:15)
[2022-03-26] MEDS ORDERED: HOLD METFORMIN - RECEIVED CONTRAST 20 ML VIAL IV SCH (22:15)
[2022-03-26] MEDS ORDERED: NS 100 ML (IVPB) BAG IV ONE (22:15)
[2022-03-26] MEDS ORDERED: PROMETHAZINE INJ 25 MG/ML (PHENERGAN) AMP IVP ONE (23:30)
[2022-03-27] VITALS (24 sets, daily range): BP systolic 99–200; BP diastolic 43–91
[2022-03-27] MEDS ORDERED: MECLIZINE 25 MG (ANTIVERT) TAB PO PRN (01:00)
[2022-03-27] MEDS ORDERED: ACETAMINOPHEN 500 MG TAB (TYLENOL) PO PRN (01:00)
[2022-03-27] MEDS ORDERED: RT-ALBUTEROL SULF 2.5 MG/3 ML PRE-MIX VIAL INH PRN (01:45)
[2022-03-27] MEDS ORDERED: DEXTROSE 50% 50 ML (IMS) SYR ONE ×3 (03:44→18:59)
[2022-03-27] MEDS ORDERED: D5W 1000 ML IV SOLUTION 1,000 ML IV SCH (04:15)
[2022-03-27] MEDS ORDERED: DEXTROSE 50% 50 ML (IMS) SYR IV ONE ×3 (04:30→19:15)
[2022-03-27] MEDS: CATHETER FLUSH 10 ML SYR IVP SCH ×3 (05:55→21:40)
[2022-03-27] MEDS: hydrALAZINE (APESOLINE) 20 MG/ML VIAL IV PRN (05:55)
[2022-03-27] MEDS: PANTOPRAZOLE 40 MG (PROTONIX) TAB PO SCH (06:00)
[2022-03-27] MEDS: inSUlin ASPART (NovoLOG) 1 UNIT/0.01 ML (CHARGE PER UNIT) SC SCH ×2 (06:10→11:55)
[2022-03-27] MEDS ORDERED: NS IV 500 ML 500 ML IV PRN (06:15)
--- NOTE | 2022-03-27 07:33 | Diagnostic Imaging Report ---
PROCEDURE: CT angiography of the head and CT angiography of the neck with and without contrast. TECHNIQUE: Contiguous noncontrast images were obtained from the skull base through the vertex. After intravenous contrast administration, helical CT angiography of the neck was performed. Source data was reformatted into 3D MIP projections. Delayed post contrast acquisition was also obtained. Auto Exposure Controls were utilized during the CT exam to meet ALARA standards for radiation dose reduction. INDICATION: Vertigo, difficulty finding words, delayed postcontrast, enhanced head CT shows dural venous sinus enhancement with no suspicious parenchymal or meningeal enhancement. There is some atrophy and periventricular white matter disease more advanced than typically encountered for age, correlate for risk factors of small vessel disease. FINDINGS: CT angiogram neck: There is conventional branching of the aortic arch. Cervical vertebral arteries widely patent and codominant. The bilateral common carotids, the carotid bifurcations, major extrarenal and cervical internal carotids patent with scattered calcified plaques without significant stenosis. CT angiogram head: Scattered calcified plaques throughout the intradural vertebral arteries results in about 50% stenoses. The basilar was patent. The bilateral OFFICE RECEPTIONIST segments patent. There is heavy calcified plaques of the intracranial ICAs without their significant stenosis. The anterior cerebral arteries patent. The bilateral middle cerebral arterial segments as well as their primary branches patent. No aneurysm or vascular malformation or branch occlusion. No thrombus. IMPRESSION: 1. Atrophy and white matter disease greater than typically encountered for age. No acute-appearing intracerebral pathology. 2. Cervical and intracranial atherosclerotic disease without occlusive thrombus, aneurysm or hemodynamically significant stenosis and no dissection or acute-appearing abnormalities. Agree with preliminary. Dictated by: Dictated on workstation # [id number]
[2022-03-27] MEDS: ONDANSETRON 4 MG/2 ML (SDV) Z0FRAN IV PRN ×2 (08:12→21:44)
[2022-03-27 10:05] LABS: ABG BASE EXCESS -4.8 MMOL/L (-2.5-2.5); ABG OXYGEN SATURATION 99 % (94-100); ABG PCO2 35 MMHG (35-45); ABG PH 7.36 (7.37-7.43); ABG PO2 84 MMHG (79-93); ABG TCO2 20.5 MMOL/L (21.0-31.0)
[2022-03-27 10:08] LABS: ALLENS TEST POSITIVE; PATIENT TEMP 37.7; VENTILATOR NO
[2022-03-27 10:20] LABS: BILIRUBIN,URINE NEGATIVE (NEGATIVE); CLARITY,URINE CLEAR; COLOR,URINE YELLOW; GLUCOSE, URINE (UA) TRACE (NEGATIVE); KETONES,URINE TRACE (NEGATIVE); LEUKOCYTE ESTERASE ,URINE TRACE (NEGATIVE); NITRITE,URINE NEGATIVE (NEGATIVE); PH,URINE 5.5 (5-9); PROTEIN,URINE 2+ (NEGATIVE)
--- NOTE | 2022-03-27 10:27 | Tele-ICU Consult ---
History of Present Illness History of Present Illness Date Seen by Provider: Mar 27, 2022 Time Seen by Provider: 09:21 Date of Admission (Tele-ICU Physician , consultation as per request of PCP Service provided via interactive audio and video telecommunications E-CARE system to a patient admitted to ICU bed in [facility]. Available chart/ vitals / labs / Images reviewed H&P is from ER notes Patient's information available about PMH, Shx, Fhx allergy reviewed inEMR. ROS as per chart and RN report Now in ICU, hemodynamically stable Video assessment done using teleICU camera, rest of exam as per RN Discussed with RN. 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 There is no hydronephros) Hypoglycemia - insulin pump removed , satble BS now , regular accuchecks Lethargy - follows command , but as per RN can be kept awake for only few minites - CT - No acute intracranial abnormality - BS WNL - will check ABG COPD, - stable CAD - stable Prostate CA dx 2021 - no mets - s/p RAD TX summer 2021 Hyperdense renal lesions on CT 10/2021 , suspected hemorr cysts Tobacco addiction , smoker PAD, s/o LEFT BKA 2018 Probable right adrenal adenoma on CT 10/2021 Lines : periph , (Central Line Necessity Reviewed) Pantoja: + ( has h/o post op urinary retention OG: Nutrition: might need speach eval - Analgesia: Anxiety/ delirium VTE Prophylaxis: heparin sq Stress Ulcer Prophylaxis: Plans in collaboration with bedside consultants and IM MDs. Discussed with RN to reach out if any questions or concerns A total of 35 minutes of critical care time was devoted to this patient today, required to treat and/or prevent further deterioration of critical care condition ( as above ) . I am remotely monitoring this patient from another state. I am unable to do the bedside exam, and history/physical and pertinent information is taken from other notes in the computer and bedside staff. . Allergies and Home Medications Allergies Coded Allergies: metaproterenol (Verified Allergy, Unknown, 12/21/21) Home Medications Insulin Aspart 100 Unit/1 Ml Susp, PER INSULIN PUMP, (Reported) Lisinopril 20 Mg Tablet, 20 MG PO DAILY Prescribed by: SUSANA RODRIGUEZ on 10/02/18 1206 Ondansetron HCl 4 Mg Tab, 4 MG PO PRN, (Reported) Pantoprazole Sodium 40 Mg Tablet.dr, 40 MG PO DAILY, (Reported) Sulfamethoxazole/Trimethoprim 1 Each Tablet, 1 EACH PO BID Prescribed by: MINDY BROWN on 12/21/21 0935 Zolpidem Tartrate 10 Mg Tablet, 10 MG PO HS PRN for SLEEP, (Reported) Past Medical/Social/Family Hx Patient Social History Tobacco Use?: Yes Tobacco type used: Cigarettes Smoking Status: Current Everyday Smoker Smokeless Tobacco Frequency: Never a User Use of E-Cig and/or Vaping dev: No Substance use?: No Alcohol Use?: Yes Alcohol Frequency: Rarely Pt stated abuse/neglect: No Immunizations Up To Date Influenza Vaccine Up-to-Date: Yes; Up-to-Date First/Initial COVID19 Vaccinat: 04/25 Second COVID19 Vaccination Vincent: 05/27 Tetanus Booster (TDap): More Than 5 Years Hepatitis A: Yes Hepatitis B: Yes TB Skin Test: Negative Date of Pneumonia Vaccine: Dec 12, 2017 Current Status Advance Directives: No Communicates: Verbally Primary Language: [place] Preferred Spoken Language: [place] Is interpretation needed?: No Implanted or Applied Medical D: Insulin pump Review of Systems Constitutional: see HPI Focused Exam Height, Weight, BMI Height: 5'5.00" Weight: 193lbs. 8.0oz. 87.695747lt; 28.57 BMI Method:Stated Exam Exam Patient acknowledged, consented, and participated in this virtual visit which was conducted using real time audio/video Vital Signs Date Time Temp Pulse Resp B/P (MAP) Pulse Ox O2 Delivery O2 Flow Rate FiO2 03/27/22 10:00 87 8 110/46 (67) 96 Nasal Cannula 2.00 03/27/22 09:00 78 10 120/49 (72) 95 Nasal Cannula 2.00 03/27/22 08:00 95 Room Air 03/27/22 08:00 89 17 129/59 (82) 95 Nasal Cannula 2.00 03/27/22 07:46 37.2 03/27/22 07:00 94 16 132/59 (83) 98 Nasal Cannula 2.00 03/27/22 07:00 96 03/27/22 06:00 89 12 177/77 (110) 98 Nasal Cannula 2.00 03/27/22 05:33 03/27/22 05:00 72 29 200/91 (127) 86 Nasal Cannula 2.00 03/27/22 04:10 36.2 74 17 129/55 (79) 97 Nasal Cannula 2.00 03/27/22 04:05 97 Nasal Cannula 2.00 03/27/22 03:20 36.2 79 16 183/54 (97) 94 Nasal Cannula 2.00 03/27/22 01:38 Room Air 03/27/22 01:22 36.5 72 98 21 03/27/22 00:40 36.3 71 18 138/72 (94) 97 Room Air 03/26/22 23:46 75 18 157/66 98 Room Air 03/26/22 21:26 36.5 72 20 131/56 (81) 98 Room Air I & O 03/27/22 07:00 Intake Total 1025 ml Output Total 1500 ml Balance -475 ml Height & Weight Height: 5'5.00" Weight: 193lbs. 8.0oz. 87.978481zz; 28.57 BMI Method:Stated General Appearance: No Apparent Distress Capillary Refill: Less Than 3 Seconds Gastrointestinal: normal bowel sounds, non tender, soft; No distended, No guarding, No rebound Results Lab Laboratory Tests 03/26/22 21:36 Assessment/Plan Assessment/Plan 1 DALLIN STARK MD Mar 27, 2022 10:27
[2022-03-27 10:38] LABS: AMORPHOUS SEDIMENT,UR FEW AMOR URATES /LPF; BACTERIA,URINE FEW /HPF; RBC,URINE 0-2 /HPF
[2022-03-27 10:53] LABS: CALCIUM 8.1 MG/DL (8.5-10.1); CREATININE SERUM 1.74 MG/DL (0.60-1.30); POTASSIUM 4.8 MMOL/L (3.6-5.0)
[2022-03-27] MEDS ORDERED: NS IV 1000 ML 1,000 ML IV SCH (11:45)
[2022-03-27] MEDS ORDERED: ASPI-1238 PO (11:52)
[2022-03-27] MEDS ORDERED: LISI40TA9 PO (11:52)
[2022-03-27] MEDS ORDERED: HYDR-3820 PO (11:52)
[2022-03-27] MEDS ORDERED: ZOLP10TA PO (11:52)
[2022-03-27] MEDS ORDERED: INSU100V (11:52)
[2022-03-27] MEDS ORDERED: NS IV 1000 ML 500 ML IV SCH (12:15)
[2022-03-27] MEDS ORDERED: inSUlin (REGULAR) HUMAN 1 UNIT/0.01 ML (CHARGE PER UNIT) SC NR (13:30)
[2022-03-27] MEDS ORDERED: inSUlin (REGULAR) HUMAN 1 UNIT/0.01 ML (CHARGE PER UNIT) IV NR (13:45)
--- NOTE | 2022-03-27 14:19 | Progress Note ---
Subjective Subjective/Events-last exam Patient is very lethargic. Wakes and answers questions appropriately but does not stay awake. States that he has not felt any better since arriving to hospital. No new neurological concerns since arriving. Review of Systems General: Malaise Pulmonary: No Dyspnea, No Cough Cardiovascular: No: Chest Pain, Palpitations Gastrointestinal: No: Nausea, Vomiting, Abdominal Pain, Diarrhea, Constipation Neurological: Weakness, Confusion Objective Exam Last Set of Vital Signs Vital Signs Date Time Temp Pulse Resp B/P (MAP) Pulse Ox O2 Delivery O2 Flow Rate FiO2 03/27/22 13:00 90 18 117/49 (71) 94 Nasal Cannula 2.00 03/27/22 12:00 37.6 03/27/22 01:22 21 Capillary Refill : Less Than 3 Seconds I&O Intake and Output 03/27/22 00:00 Intake Total 1000 ml Balance 1000 ml IV Total 1000 ml General: Alert, Oriented X3, No Acute Distress Lungs: Clear to Auscultation, Normal Air Movement Heart: Regular Rate, Other (systolic murmur) Abdomen: Soft, No Tenderness Extremities: No Edema, Other (L BKA) Neuro: Other (lethargic) Results/Procedures Lab Laboratory Tests 03/26/22 21:36: White Blood Count 7.4, Red Blood Count 4.29L, Hemoglobin 12.2L, Hematocrit 37L, Mean Corpuscular Volume 87, Mean Corpuscular Hemoglobin 28, Mean Corpuscular Hemoglobin Concent 33, Red Cell Distribution Width 15.6H, Platelet Count 274, Mean Platelet Volume 10.3, Immature Granulocyte % (Auto) 0, Neutrophils (%) (Auto) 65, Lymphocytes (%) (Auto) 20, Monocytes (%) (Auto) 10, Eosinophils (%) (Auto) 4, Basophils (%) (Auto) 1, Neutrophils # (Auto) 4.8, Lymphocytes # (Auto) 1.4, Monocytes # (Auto) 0.7, Eosinophils # (Auto) 0.3, Basophils # (Auto) 0.1, Immature Granulocyte # (Auto) 0.0, Prothrombin Time 12.9, INR Comment 0.9, Activated Partial Thromboplast Time 28, Sodium Level 133L, Potassium Level 4.0, Chloride Level 98, Carbon Dioxide Level 22, Anion Gap 13, Blood Urea Nitrogen 34H, Creatinine 1.97H, Estimat Glomerular Filtration Rate 36, BUN/Creatinine Ratio 17, Glucose Level 202H, Calcium Level 8.5, Corrected Calcium 9.0, Total B ilirubin 0.2, Aspartate Amino Transf (AST/SGOT) 11, Alanine Aminotransferase (ALT/SGPT) 6, Alkaline Phosphatase 100, Troponin I < 0.30, Total Protein 6.6, Albumin 3.4 03/27/22 03:43: Glucometer 20*L 03/27/22 03:54: Glucometer 293H 03/27/22 04:10: Glucometer 211H 03/27/22 05:14: Glucometer 207H 03/27/22 06:02: Glucometer 197H 03/27/22 08:02: Glucometer 230H 03/27/22 09:58: Blood Gas Puncture Site R RADIAL, Blood Gas Patient Temperature 37.7, Arterial Blood pH 7.36L, Arterial Blood Partial Pressure CO2 35, Arterial Blood Partial Pressure O2 84, Arterial Blood HCO3 20L, Arterial Blood Total CO2 20.5L, Arterial Blood Oxygen Saturation 99, Arterial Blood Base Excess -4.8L, Georges Test POSITIVE, Blood Gas Ventilator Setting NO, Blood Gas Inspired Oxygen UNK 03/27/22 10:05: Urine Color YELLOW, Urine Clarity CLEAR, Urine pH 5.5, Urine Specific [place] >=1.030, Urine Protein 2+H, Urine Glucose (UA) TRACEH, Urine Ketones TRACEH, Urine Nitrite NEGATIVE, Urine Bilirubin NEGATIVE, Urine Urobilinogen 0.2, Urine Leukocyte Esterase TRACEH, Urine RBC (Auto) TRACE-IH, Urine RBC 0-2, Urine WBC 5-10H, Urine Crystals PRESENTH, Urine Amorphous Sediment FEW BUBBA URATESH, Urine Bacteria FEWH, Urine Casts NONE, Urine Mucus NEGATIVE, Urine Culture Indicated YES, Influenza Type A (RT-PCR) Not Detected, Influenza Type B (RT-PCR) Not Detected, SARS-CoV-2 RNA (RT-PCR) Not Detected 03/27/22 10:09: Sodium Level 130L, Potassium Level 4.8, Chloride Level 100, Carbon Dioxide Level 16L, Anion Gap 14, Blood Urea Nitrogen 28H, Creatinine 1.74H, Estimat Glomerular Filtration Rate 42, BUN/Creatinine Ratio 16, Glucose Level 395H, Calcium Level 8.1L, Procalcitonin 0.11H 03/27/22 10:47: Glucometer 424*H 03/27/22 12:57: Glucometer 426*H Assessment/Plan Assessment/Plan (1) Altered mental status Status: Acute Assessment & Plan: 03/27: TIA vs Hypoglycemia, CT w/o acute concerns. MRI today pending, Speech ordered Qualifiers: Qualified Codes: R40.0 - Somnolence (2) LAMBERT (acute kidney injury) Status: Acute Assessment & Plan: 03/27: Gentle IVF hydration, continue to trend (3) HTN (hypertension) Status: Chronic Assessment & Plan: 03/27: With concerns about TIA, permissive HTN, will continue to monitor Qualifiers: Qualified Codes: I10 - Essential (primary) hypertension (4) Hyponatremia Status: Acute Assessment & Plan: 03/27: Will continue to monitor, could be related to hyperglycemia (5) Type 1 diabetes mellitus Status: Chronic Assessment & Plan: 03/27: Insulin pump dependent, pump has been removed and patient is on SSI Qualifiers: Qualified Codes: E10.59 - Type 1 diabetes mellitus with other circulatory complications (6) Systolic murmur Status: Acute Assessment & Plan: 03/27: Echo ordered and pending (7) CAD (coronary artery disease) Status: Chronic Qualifiers: Qualified Codes: I25.10 - Atherosclerotic heart disease of [place] coronary artery without angina pectoris (8) Tobacco abuse Status: Chronic (9) Insulin pump in place Status: Chronic (10) H/O prostate cancer Status: Chronic Clinical Quality Measures Stroke: Date of last known well: Mar 26, 2022 Time of last known well: 19:20 CORKY FIERRO MD Mar 27, 2022 14:19
[2022-03-27 14:47] LABS: POTASSIUM 4.3 MMOL/L (3.6-5.0)
[2022-03-27 14:48] LABS: CALCIUM 7.9 MG/DL (8.5-10.1)
[2022-03-27 14:53] LABS: CREATININE SERUM 1.97 MG/DL (0.60-1.30)
--- NOTE | 2022-03-27 15:16 | Diagnostic Imaging Report ---
PROCEDURE: MR imaging of the brain without contrast. TECHNIQUE: Multiplanar, multisequence MR imaging of the brain was performed without contrast. INDICATION: Possible stroke. COMPARISON is made with CT brain study of 03/26/2022. The quality of the study is significantly compromised. Patient was unable to lie still. The patient had significant coughing episodes during the study. Ventricles and sulci are prominent. Periventricular white matter changes are again noted. No diffusion restriction is seen to suggest acute ischemia. IMPRESSION: Limited exam. There are significant changes of chronic microvascular ischemia. No acute ischemia is detected. Dictated by: Dictated on workstation # [id number]
[2022-03-27] MEDS: cefTRIAXone 1 GM PRE-MIX 50 ML IV SCH (16:13)
[2022-03-27] MEDS: NS IV 1000 ML 1,000 ML IV SCH (17:30)
[2022-03-27 20:38] LABS: CALCIUM 7.9 MG/DL (8.5-10.1); CREATININE SERUM 1.91 MG/DL (0.60-1.30); POTASSIUM 4.4 MMOL/L (3.6-5.0)
[2022-03-27] MEDS ORDERED: cefTRIAXone 1 GM PRE-MIX 50 ML IV SCH (21:00)
[2022-03-28] VITALS (25 sets, daily range): BP systolic 118–184; BP diastolic 44–82
[2022-03-28] MEDS: NS IV 1000 ML 1,000 ML IV SCH ×5 (01:33→23:32)
[2022-03-28] MEDS: cefTRIAXone 1 GM PRE-MIX 50 ML IV SCH ×2 (04:24→17:10)
[2022-03-28 05:06] LABS: BASOPHILS % (AUTO) 0 % (0-10); EOSINOPHILS # (AUTO) 0.1 10^3/uL (0.0-0.3); EOSINOPHILS % (AUTO) 1 % (0-10); HEMATOCRIT 36 % (40-54); HEMOGLOBIN 11.5 g/dL (13.3-17.7); LYMPHOCYTES # (AUTO) 0.9 10^3/uL (1.0-4.0); LYMPHOCYTES % (AUTO) 10 % (12-44); MEAN CORPUSCULAR HEMOGLOBIN 29 pg (25-34); MEAN CORPUSCULAR HGB CONC 32 g/dL (32-36); MEAN CORPUSCULAR VOLUME 90 fL (80-99); MEAN PLATELET VOLUME 10.7 fL (9.0-12.2); MONOCYTES # (AUTO) 0.7 10^3/uL (0.0-1.0); MONOCYTES % (AUTO) 8 % (0-12); NEUTROPHILS # (AUTO) 7.2 10^3/uL (1.8-7.8); NEUTROPHILS % (AUTO) 80 % (42-75); PLATELET COUNT 263 10^3/uL (130-400)
[2022-03-28 05:27] LABS: BILIRUBIN,TOTAL 0.3 MG/DL (0.1-1.0); CALCIUM 8.1 MG/DL (8.5-10.1); CREATININE SERUM 2.13 MG/DL (0.60-1.30); PHOSPHORUS 3.4 MG/DL (2.3-4.7); POTASSIUM 4.1 MMOL/L (3.6-5.0); TOTAL PROTEIN 5.7 GM/DL (6.4-8.2)
[2022-03-28] MEDS: POTASSIUM CL 10MEQ/50ML IVPB 50 ML IV SCH (05:44)
[2022-03-28] MEDS: MAGNESIUM 1 GM/100 ML IVPB 100 ML IV SCH (05:45)
[2022-03-28] MEDS: KCL 20 MEQ TAB (K-DUR) PO SCH (05:45)
[2022-03-28] MEDS: PANTOPRAZOLE 40 MG (PROTONIX) TAB PO SCH (06:02)
[2022-03-28] MEDS: CATHETER FLUSH 10 ML SYR IVP SCH ×3 (06:02→22:06)
[2022-03-28] MEDS: ONDANSETRON 4 MG/2 ML (SDV) Z0FRAN IV PRN ×2 (08:09→19:55)
--- NOTE | 2022-03-28 09:56 | Tele-ICU Progress Note ---
Subjective Date Seen by a Provider: Mar 28, 2022 Time Seen by a Provider: 09:50 Subjective/Events-last exam (Tele-ICU Physician , Progress Note ) Service provided via interactive audio and video telecommunications E-CARE system to a patient admitted to ICU bed in [facility]. 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 There are significant changes of chronic microvascular ischemia. No acute ischemia is detected. - AO this am , no focal deficit , still somewhat lethargic as per RN report Hypertension on presentation SBP 200 - permissive hypertension LAMBERT - not improved with hydration IV Bui in place, good UO ( US 10/2021 - Bilateral renal cysts, likely accounting for the hyperdense lesions noted on CT. There is no hydronephros) - will repeat if no improvement mild DKA 03/27 - insulin gtt to cont , follow AG and bicarb ( Hypoglycemia on admission - insulin pump removed , regular accuchecks ) Fever, suspected UTI - started on Ceftriaxone empirically 03/27- follow urine cx Lethargy - follows command , but as per RN can be kept awake for only few minites - CT - No acute intracranial abnormality - ABG WNL COPD, - stable CAD - ECHO 03/27/22- EF 75% , RVSP 35 mmHg - stable Prostate CA dx 2021 - no mets - s/p RAD TX summer 2021 Hyperdense renal lesions on CT 10/2021 , suspected hemorrhagic cysts Tobacco addiction , smoker PAD, s/p LEFT BKA 2018 Probable right adrenal adenoma on CT 10/2021 Lines : periph , (Central Line Necessity Reviewed) Bui: + ( has h/o post op urinary retention OG: Nutrition: might need speach eval - Analgesia: Anxiety/ delirium VTE Prophylaxis: heparin sq Stress Ulcer Prophylaxis: ppi Plans in collaboration with bedside consultants and IM MDs. Discussed with RN to reach out if any questions or concerns A total of 35 minutes of critical care time was devoted to this patient today, required to treat and/or prevent further deterioration of critical care condition ( as above ) . I am remotely monitoring this patient from another state. I am unable to do the bedside exam, and history/physical and pertinent information is taken from other notes in the computer and bedside staff. . Sepsis Event Evaluation Height, Weight, BMI Height: 5'5.00" Weight: 193lbs. 8.0oz. [id number]; 28.57 BMI Method:Stated Exam Exam Patient acknowledged, consented, and participated in this virtual visit which was conducted using real time audio/video Vital Signs Date Time Temp Pulse Resp B/P (MAP) Pulse Ox O2 Delivery O2 Flow Rate FiO2 03/28/22 09:00 61 20 121/71 (88) 96 Nasal Cannula 2.00 03/28/22 08:50 37.0 03/28/22 08:15 95 Room Air 03/28/22 08:00 68 21 130/48 (75) 96 Nasal Cannula 2.00 03/28/22 07:51 73 03/28/22 07:00 68 24 141/57 (85) 93 Nasal Cannula 2.00 03/28/22 06:00 68 22 138/49 (78) 96 Room Air 03/28/22 05:00 74 23 124/44 (70) 97 Room Air 03/28/22 04:05 37.5 Room Air 03/28/22 04:00 92 Room Air 03/28/22 04:00 73 26 118/48 (71) 88 Room Air 03/28/22 03:00 82 24 135/53 (80) 93 Room Air 03/28/22 02:00 77 22 134/57 (82) 94 Room Air 03/28/22 01:00 73 03/28/22 01:00 76 12 127/61 (83) 93 Room Air 03/28/22 00:00 73 20 142/57 (85) 95 Room Air 03/27/22 23:59 95 Room Air 03/27/22 23:08 03/27/22 23:00 69 19 106/52 (70) 94 Room Air 03/27/22 22:00 70 16 115/56 (75) 93 Room Air 03/27/22 21:00 80 15 118/49 (72) 96 Room Air 03/27/22 20:00 97 Room Air 03/27/22 20:00 70 20 116/53 (74) 93 Room Air 03/27/22 19:50 37.6 71 20 101/46 (64) 95 Room Air 03/27/22 19:00 71 22 118/49 (72) 95 Room Air 03/27/22 19:00 71 03/27/22 18:45 93 Nasal Cannula 2.00 03/27/22 18:00 68 99/50 (66) 94 Nasal Cannula 2.00 03/27/22 17:00 69 16 102/45 (64) 96 Nasal Cannula 2.00 03/27/22 16:00 73 14 101/43 (62) 93 Nasal Cannula 2.00 03/27/22 16:00 37.3 03/27/22 16:00 94 Nasal Cannula 2.00 03/27/22 15:00 84 16 126/52 (76) 97 Nasal Cannula 2.00 03/27/22 14:00 89 17 116/50 (72) 94 Nasal Cannula 2.00 03/27/22 13:00 90 18 117/49 (71) 94 Nasal Cannula 2.00 03/27/22 13:00 92 03/27/22 12:00 37.6 03/27/22 12:00 89 24 109/54 (72) 95 Nasal Cannula 2.00 03/27/22 12:00 97 Nasal Cannula 2.00 03/27/22 11:00 89 30 95 Nasal Cannula 2.00 03/27/22 10:00 87 8 110/46 (67) 96 Nasal Cannula 2.00 I & O 03/28/22 07:00 Intake Total 3475 ml Output Total 550 ml Balance 2925 ml Height & Weight Height: 5'5.00" Weight: 193lbs. 8.0oz. 87.686219ug; 28.57 BMI Method:Stated General Appearance: No Apparent Distress Capillary Refill: Less Than 3 Seconds Gastrointestinal: normal bowel sounds, non tender, soft; No distended, No guarding, No rebound Results Lab Laboratory Tests 03/26/22 21:36 03/27/22 10:09 03/27/22 14:30 03/27/22 20:08 03/28/22 04:15 Assessment/Plan Assessment/Plan 1 DALLIN STARK MD Mar 28, 2022 09:56
[2022-03-28 10:10] LABS: POTASSIUM 4.1 MMOL/L (3.6-5.0)
[2022-03-28 10:11] LABS: CALCIUM 8.1 MG/DL (8.5-10.1)
[2022-03-28 10:16] LABS: CREATININE SERUM 1.7 MG/DL (0.60-1.30)
[2022-03-28] MEDS: inSUlin ASPART (NovoLOG) 1 UNIT/0.01 ML (CHARGE PER UNIT) SC SCH ×3 (13:45→21:00)
--- NOTE | 2022-03-28 17:21 | Progress Note ---
Subjective Subjective/Events-last exam Patient states that he feels some better but still very weak. He stays awake much better. Little appetite and was started on insulin gtts yesterday due to labial blood sugars. Review of Systems General: Fatigue, Malaise Pulmonary: No Dyspnea; Cough Cardiovascular: No: Chest Pain, Palpitations, Edema Gastrointestinal: No: Nausea, Vomiting, Abdominal Pain, Diarrhea, Constipation Neurological: Weakness, Incoordination Objective Exam Last Set of Vital Signs Vital Signs Date Time Temp Pulse Resp B/P (MAP) Pulse Ox O2 Delivery O2 Flow Rate FiO2 03/28/22 17:00 76 20 165/67 (99) 95 Room Air 03/28/22 16:00 36.8 03/28/22 09:00 2.00 03/27/22 01:22 21 Capillary Refill : Less Than 3 Seconds I&O Intake and Output 03/28/22 00:00 Intake Total 2350 ml Output Total 1950 ml Balance 400 ml Intake Oral 200 ml IV Total 2150 ml Output Urine Total 1950 ml Daily Weight Change No General: Alert, Oriented X3, No Acute Distress Lungs: Other (Basilar crackles and diffuse wheezing, no signs of consolidation) Heart: Regular Rate, Normal S2, Other (systolic murmur ) Abdomen: Soft Extremities: Other (Left BKA) Neuro: Normal Speech Results/Procedures Lab Laboratory Tests 03/27/22 17:32: Glucometer 108 03/27/22 18:13: Glucometer 73 03/27/22 18:58: Glucometer 62L 03/27/22 19:16: Glucometer 119H 03/27/22 19:30: Glucometer 117H 03/27/22 19:39: Glucometer 105 03/27/22 19:49: Glucometer 123H 03/27/22 20:08: Sodium Level 135, Potassium Level 4.4, Chloride Level 105, Carbon Dioxide Level 18L, Anion Gap 12, Blood Urea Nitrogen 33H, Creatinine 1.91H, Estimat Glomerular Filtration Rate 37, BUN/Creatinine Ratio 17, Glucose Level 120H, Calcium Level 7.9L 03/27/22 20:13: Glucometer 119H 03/27/22 20:32: Glucometer 125H 03/27/22 21:19: Glucometer 158H 03/27/22 21:57: Glucometer 171H 03/27/22 23:16: Glucometer 195H 03/28/22 00:21: Glucometer 233H 03/28/22 01:13: Glucometer 249H 03/28/22 02:27: Glucometer 295H 03/28/22 03:09: Glucometer 279H 03/28/22 04:01: Glucometer 261H 03/28/22 04:15: White Blood Count 9.0, Red Blood Count 3.96L, Hemoglobin 11.5L, Hematocrit 36L, Mean Corpuscular Volume 90, Mean Corpuscular Hemoglobin 29, Mean Corpuscular Hemoglobin Concent 32, Red Cell Distribution Width 15.9H, Platelet Count 263, Mean Platelet Volume 10.7, Immature Granulocyte % (Auto) 1, Neutrophils (%) (Auto) 80H, Lymphocytes (%) (Auto) 10L, Monocytes (%) (Auto) 8, Eosinophils (%) (Auto) 1, Basophils (%) (Auto) 0, Neutrophils # (Auto) 7.2, Lymphocytes # (Auto) 0.9L, Monocytes # (Auto) 0.7, Eosinophils # (Auto) 0.1, Basophils # (Auto) 0.0, Immature Granulocyte # (Auto) 0.1, Sodium Level 135, Potassium Level 4.1, Chloride Level 107, Carbon Dioxide Level 13L, Anion Gap 15H, Blood Urea Nitrogen 37H, Creatinine 2.13H, Estimat Glomerular Filtration Rate 33, BUN/Creatinine Ratio 17, Glucose Level 275H, Calcium Level 8.1L, Corrected Calcium 8.9, Phosphorus Level 3.4, Magnesium Level 2.0, Total Bilirubin 0.3, Aspartate Amino Transf (AST/SGOT) 12, Alanine Aminotransferase (ALT/SGPT) 6, Alkaline Phosphatase 83, Total Protein 5.7L, Albumin 3.0L 03/28/22 05:00: Glucometer 235H 03/28/22 06:06: Glucometer 202H 03/28/22 07:05: Glucometer 186H 03/28/22 08:01: Glucometer 151H 03/28/22 08:57: Glucometer 117H 03/28/22 09:47: Sodium Level 136, Potassium Level 4.1, Chloride Level 110H, Carbon Dioxide Level 20L, Anion Gap 6, Blood Urea Nitrogen 33H, Creatinine 1.70H, Estimat Glomerular Filtration Rate 43, BUN/Creatinine Ratio 19, Glucose Level 101, Calcium Level 8.1L 03/28/22 10:07: Glucometer 88 03/28/22 10:57: Glucometer 128H 03/28/22 16:29: Glucometer 86 Microbiology 03/27/22 MRSA Screen - Final, Complete MRSA not isolated Assessment/Plan Assessment/Plan (1) Altered mental status Status: Acute Assessment & Plan: 03/27: TIA vs Hypoglycemia, CT w/o acute concerns. MRI today pending, Speech ordered 03/28: MRI with chronic microvascular disease, no acute findings, not likely cause of acute mental status change Qualifiers: Qualified Codes: R40.0 - Somnolence (2) LAMBERT (acute kidney injury) Status: Acute Assessment & Plan: 03/27: Gentle IVF hydration, continue to trend 03/28: Mild improvement, will continue to monitor (3) HTN (hypertension) Status: Chronic Assessment & Plan: 03/27: With concerns about TIA, permissive HTN, will con tinue to monitor Qualifiers: Qualified Codes: I10 - Essential (primary) hypertension (4) Type 1 diabetes mellitus Status: Chronic Assessment & Plan: 03/27: Insulin pump dependent, pump has been removed and patient is on SSI Qualifiers: Qualified Codes: E10.59 - Type 1 diabetes mellitus with other circulatory complications (5) Systolic murmur Status: Acute Assessment & Plan: 03/27: Echo ordered and pending (6) CAD (coronary artery disease) Status: Chronic Qualifiers: Qualified Codes: I25.10 - Atherosclerotic heart disease of [place] coronary artery without angina pectoris (7) Tobacco abuse Status: Chronic (8) Insulin pump in place Status: Chronic (9) H/O prostate cancer Status: Chronic (10) Hyponatremia Status: Resolved Assessment & Plan: 03/27: Will continue to monitor, could be related to hyperglycemia Clinical Quality Measures Stroke: Date of last known well: Mar 26, 2022 Time of last known well: 19:20 CORKY FIERRO MD Mar 28, 2022 17:21
[2022-03-28] MEDS: hydrALAZINE (APESOLINE) 20 MG/ML VIAL IV PRN (18:30)
[2022-03-29] VITALS: BP 147/57
[2022-03-29 05:30] LABS: BASOPHILS % (AUTO) 1 % (0-10); EOSINOPHILS # (AUTO) 0.1 10^3/uL (0.0-0.3); EOSINOPHILS % (AUTO) 1 % (0-10); HEMATOCRIT 37 % (40-54); HEMOGLOBIN 11.9 g/dL (13.3-17.7); LYMPHOCYTES # (AUTO) 0.7 10^3/uL (1.0-4.0); LYMPHOCYTES % (AUTO) 9 % (12-44); MEAN CORPUSCULAR HEMOGLOBIN 29 pg (25-34); MEAN CORPUSCULAR HGB CONC 32 g/dL (32-36); MEAN CORPUSCULAR VOLUME 89 fL (80-99); MEAN PLATELET VOLUME 10.2 fL (9.0-12.2); MONOCYTES # (AUTO) 0.8 10^3/uL (0.0-1.0); MONOCYTES % (AUTO) 9 % (0-12); NEUTROPHILS % (AUTO) 80 % (42-75); PLATELET COUNT 223 10^3/uL (130-400); WHITE BLOOD COUNT 8.7 10^3/uL (4.3-11.0)
[2022-03-29 05:52] LABS: ALBUMIN 2.9 GM/DL (3.2-4.5); BILIRUBIN,TOTAL 0.3 MG/DL (0.1-1.0); CALCIUM 8.2 MG/DL (8.5-10.1); CREATININE SERUM 1.48 MG/DL (0.60-1.30); MAGNESIUM 1.9 MG/DL (1.6-2.4); PHOSPHORUS 2.9 MG/DL (2.3-4.7); POTASSIUM 4.2 MMOL/L (3.6-5.0); TOTAL PROTEIN 5.9 GM/DL (6.4-8.2)
[2022-03-29] MEDS: cefTRIAXone 1 GM PRE-MIX 50 ML IV SCH (06:07)
[2022-03-29] MEDS: PANTOPRAZOLE 40 MG (PROTONIX) TAB PO SCH (06:07)
[2022-03-29] MEDS: POTASSIUM CL 10MEQ/50ML IVPB 50 ML IV SCH (06:09)
[2022-03-29] MEDS: CATHETER FLUSH 10 ML SYR IVP SCH ×3 (06:11→20:47)
[2022-03-29] MEDS: MAGNESIUM 1 GM/100 ML IVPB 100 ML IV SCH (06:20)
[2022-03-29] MEDS: KCL 20 MEQ TAB (K-DUR) PO SCH (06:20)
[2022-03-29] MEDS: hydrALAZINE (APESOLINE) 20 MG/ML VIAL IV PRN (06:24)
[2022-03-29] MEDS: inSUlin ASPART (NovoLOG) 1 UNIT/0.01 ML (CHARGE PER UNIT) SC SCH ×4 (06:25→20:38)
[2022-03-29] MEDS: ONDANSETRON 4 MG/2 ML (SDV) Z0FRAN IV PRN ×2 (06:33→10:42)
--- NOTE | 2022-03-29 10:27 | Tele-ICU Progress Note ---
Subjective Date Seen by a Provider: Mar 29, 2022 Time Seen by a Provider: 10:25 Subjective/Events-last exam (Tele-ICU Physician , Progress Note ) Service provided via interactive audio and video telecommunications E-CARE system to a patient admitted to ICU bed in [facility]. 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 There are significant changes of chronic microvascular ischemia. No acute ischemia is detected. - AO this am , no focal deficit , LESS lethargic as per RN report Hypertension on presentation SBP 200 - permissive hypertension for presumed TIA - NOW WILL FOLLOW USUAL BP CONTROL R VERO LAMBERT - improved with hydration IV - NO SIGNS VO _ WILL CONT GENTLE HYDRATION NOW < CAN STOP IF PO INTAKE IS GOOD Bui in place, good UO ( US 10/2021 - Bilateral renal cysts, likely accounting for the hyperdense lesions noted on CT. There is no hydronephros) - will repeat if no improvement mild DKA 03/27 - insulin gtt OFF, ISS - PER PCP ( Hypoglycemia on admission - insulin pump removed , regular accuchecks ) Fever, suspected UTI - started on Ceftriaxone empirically 03/27- follow urine cx Lethargy - follows command , but as per RN can be kept awake for only few minites - CT - No acute intracranial abnormality - ABG WNL COPD, - stable CAD - ECHO 03/27/22- EF 75% , RVSP 35 mmHg - stable Prostate CA dx 2021 - no mets - s/p RAD [place] summer 2021 Hyperdense renal lesions on CT 10/2021 , suspected hemorrhagic cysts Tobacco addiction , smoker PAD, s/p LEFT BKA 2018 Probable right adrenal adenoma on CT 10/2021 Lines : periph , (Central Line Necessity Reviewed) Bui: + ( has h/o post op urinary retention OG: Nutrition: might need speach eval - Analgesia: Anxiety/ delirium VTE Prophylaxis: heparin sq Stress Ulcer Prophylaxis: ppi Plans in collaboration with bedside consultants and IM MDs. Discussed with RN to reach out if any questions or concerns A total of 31 minutes of critical care time was devoted to this patient today, required to treat and/or prevent further deterioration of critical care condition ( as above ) . I am remotely monitoring this patient from another state. I am unable to do the bedside exam, and history/physical and pertinent information is taken from other notes in the computer and bedside staff. . Sepsis Event Evaluation Height, Weight, BMI Height: 5'5.00" Weight: 193lbs. 8.0oz. 87.627898oj; 28.57 BMI Method:Stated Exam Exam Patient acknowledged, consented, and participated in this virtual visit which was conducted using real time audio/video Vital Signs Date Time Temp Pulse Resp B/P (MAP) Pulse Ox O2 Delivery O2 Flow Rate FiO2 03/29/22 10:00 80 26 114/45 (68) 94 Room Air 03/29/22 09:00 84 23 162/71 (101) 94 Room Air 03/29/22 08:00 84 27 140/58 (85) 95 Room Air 03/29/22 08:00 37.4 03/29/22 07:00 78 27 150/55 (86) 93 Room Air 03/29/22 07:00 83 03/29/22 06:00 72 26 174/66 (102) 92 Room Air 03/29/22 05:00 75 18 183/71 (108) 94 Room Air 03/29/22 04:15 75 17 168/71 (103) 95 Room Air 03/29/22 04:00 95 Room Air 03/29/22 03:45 36.8 03/29/22 03:30 74 19 162/62 (95) 95 Room Air 03/29/22 02:00 74 19 160/62 (94) 95 Room Air 03/29/22 01:00 73 18 158/61 (93) 96 Room Air 03/29/22 01:00 73 03/29/22 00:44 36.8 03/29/22 00:00 70 21 147/57 (87) 93 Room Air 03/29/22 00:00 94 Room Air 03/28/22 23:00 71 22 153/61 (91) 92 Room Air 03/28/22 22:00 69 19 140/81 (100) 93 Room Air 03/28/22 21:00 82 19 172/63 (99) 92 Room Air 03/28/22 20:00 73 14 175/67 (103) 95 Room Air 03/28/22 20:00 36.6 03/28/22 20:00 92 Room Air 03/28/22 19:00 82 03/28/22 19:00 82 13 177/65 (102) 95 Room Air 03/28/22 18:45 71 155/59 (91) 03/28/22 18:05 70 19 184/82 (116) 92 Room Air 03/28/22 17:50 95 Room Air 03/28/22 17:00 76 20 165/67 (99) 95 Room Air 03/28/22 16:17 95 Room Air 03/28/22 16:00 36.8 03/28/22 16:00 76 20 165/71 (102) 95 Room Air 03/28/22 15:00 71 12 145/45 (78) 95 Room Air 03/28/22 14:00 68 15 175/69 (104) 95 Room Air 03/28/22 13:56 60 03/28/22 13:00 66 15 154/66 (95) 93 Room Air 03/28/22 12:31 95 Room Air 03/28/22 12:00 67 28 131/59 (83) 93 Room Air 03/28/22 11:00 66 28 152/60 (90) 94 Room Air I & O 03/29/22 07:00 Intake Total 1015 ml Output Total 2650 ml Balance -1635 ml Height & Weight Height: 5'5.00" Weight: 193lbs. 8.0oz. 87.892348ri; 28.57 BMI Method:Stated General Appearance: No Apparent Distress Capillary Refill: Less Than 3 Seconds Gastrointestinal: normal bowel sounds, non tender, soft; No distended, No guarding, No rebound Results Lab Laboratory Tests 03/27/22 14:30 03/27/22 20:08 03/28/22 04:15 03/28/22 09:47 03/29/22 05:05 Assessment/Plan Assessment/Plan 1 DALLIN STARK MD Mar 29, 2022 10:27
--- NOTE | 2022-03-29 16:17 | Progress Note ---
Subjective Subjective/Events-last exam Patient states that he is still feeling tired but better. Appetite improving. Taking better PO. Has not been up. Review of Systems General: Fatigue Pulmonary: Dyspnea, Cough Cardiovascular: No: Chest Pain, Palpitations, Edema Gastrointestinal: Nausea; No: Abdominal Pain, Diarrhea, Constipation Neurological: Weakness, Incoordination Objective Exam Last Set of Vital Signs Vital Signs Date Time Temp Pulse Resp B/P (MAP) Pulse Ox O2 Delivery O2 Flow Rate FiO2 03/29/22 14:00 88 24 132/56 (81) 93 Room Air 03/29/22 08:00 37.4 03/28/22 09:00 2.00 03/27/22 01:22 21 Capillary Refill : Less Than 3 Seconds I&O Intake and Output 03/29/22 00:00 Intake Total 2105 ml Output Total 2150 ml Balance -45 ml Intake Oral 955 ml IV Total 1150 ml Output Urine Total 2150 ml General: Alert, Oriented X3, No Acute Distress Lungs: Other (basilar crackles, normal work of breathing) Heart: Regular Rate, No Murmurs Abdomen: Normal Bowel Sounds, Soft, No Tenderness Extremities: No Edema, No Tenderness/Swelling, Other (Left BKA) Skin: No Rashes Neuro: Normal Speech Results/Procedures Lab Laboratory Tests 03/28/22 16:29: Glucometer 86 03/29/22 05:05: White Blood Count 8.7, Red Blood Count 4.13L, Hemoglobin 11.9L, Hematocrit 37L, Mean Corpuscular Volume 89, Mean Corpuscular Hemoglobin 29, Mean Corpuscular Hemoglobin Concent 32, Red Cell Distribution Width 15.8H, Platelet Count 223, Mean Platelet Volume 10.2, Immature Granulocyte % (Auto) 1, Neutrophils (%) (Auto) 80H, Lymphocytes (%) (Auto) 9L, Monocytes (%) (Auto) 9, Eosinophils (%) (Auto) 1, Basophils (%) (Auto) 1, Neutrophils # (Auto) 7.0, Lymphocytes # (Auto) 0.7L, Monocytes # (Auto) 0.8, Eosinophils # (Auto) 0.1, Basophils # (Auto) 0.0, Immature Granulocyte # (Auto) 0.0, Sodium Level 136, Potassium Level 4.2, Chloride Level 108H, Carbon Dioxide Level 15L, Anion Gap 13, Blood Urea Nitrogen 26H, Creatinine 1.48H, Estimat Glomerular Filtration Rate 51, BUN/Creatinine Ratio 18, Glucose Level 268H, Calcium Level 8.2L, Corrected Calcium 9.1, Phosphorus Level 2.9, Magnesium Level 1.9, Total Bilirubin 0.3, Aspartate Amino Transf (AST/SGOT) 11, Alanine Aminotransferase (ALT/SGPT) 6, Alkaline Phosphatase 83, Total Protein 5.9L, Albumin 2.9L 03/29/22 05:35: Glucometer 251H 03/29/22 09:39: Glucometer 275H 03/29/22 12:59: Glucometer 478*H Microbiology 03/27/22 Urine Culture - Final, Complete NO GROWTH 03/27/22 MRSA Screen - Final, Complete MRSA not isolated Assessment/Plan Assessment/Plan (1) Altered mental status Status: Acute Assessment & Plan: 03/27: TIA vs Hypoglycemia, CT w/o acute concerns. MRI today pending, Speech ordered 03/28: MRI with chronic microvascular disease, no acute findings, not likely cause of acute mental status change 03/29: Seems to be closer to baseline today Qualifiers: Qualified Codes: R40.0 - Somnolence (2) LAMBERT (acute kidney injury) Status: Acute Assessment & Plan: 03/27: Gentle IVF hydration, continue to trend 03/28: Mild improvement, will continue to monitor 03/29: Trending down (3) HTN (hypertension) Status: Chronic Assessment & Plan: 03/27: With concerns about TIA, permissive HTN, will continue to monitor Qualifiers: Qualified Codes: I10 - Essential (primary) hypertension (4) Type 1 diabetes mellitus Status: Chronic Assessment & Plan: 03/27: Insulin pump dependent, pump has been removed and patient is on SSI 03/29: Started on long acting insulin, on insulin gtts Qualifiers: Qualified Codes: E10.59 - Type 1 diabetes mellitus with other circulatory complications (5) Systolic murmur Status: Acute Assessment & Plan: 03/27: Echo ordered and pending (6) CAD (coronary artery disease) Status: Chronic Qualifiers: Qualified Codes: I25.10 - Atherosclerotic heart disease of [place] coronary artery without angina pectoris (7) Tobacco abuse Status: Chronic (8) Insulin pump in place Status: Chronic (9) H/O prostate cancer Status: Chronic (10) Hyponatremia Status: Resolved Assessment & Plan: 03/27: Will continue to monitor, could be related to hyperglycemia Clinical Quality Measures Stroke: Date of last known well: Mar 26, 2022 Time of last known well: 19:20 CORKY FIERRO MD Mar 29, 2022 16:17
[2022-03-29] MEDS: NS IV 1000 ML 1,000 ML IV SCH ×2 (17:06→19:25)
[2022-03-30 05:15] LABS: BASOPHILS % (AUTO) 1 % (0-10); EOSINOPHILS # (AUTO) 0.3 10^3/uL (0.0-0.3); EOSINOPHILS % (AUTO) 3 % (0-10); HEMATOCRIT 32 % (40-54); HEMOGLOBIN 10.7 g/dL (13.3-17.7); LYMPHOCYTES # (AUTO) 1.2 10^3/uL (1.0-4.0); LYMPHOCYTES % (AUTO) 15 % (12-44); MEAN CORPUSCULAR HEMOGLOBIN 29 pg (25-34); MEAN CORPUSCULAR HGB CONC 33 g/dL (32-36); MEAN CORPUSCULAR VOLUME 88 fL (80-99); MEAN PLATELET VOLUME 10.8 fL (9.0-12.2); MONOCYTES # (AUTO) 0.8 10^3/uL (0.0-1.0); MONOCYTES % (AUTO) 10 % (0-12); NEUTROPHILS # (AUTO) 5.6 10^3/uL (1.8-7.8); NEUTROPHILS % (AUTO) 71 % (42-75); PLATELET COUNT 224 10^3/uL (130-400); WHITE BLOOD COUNT 7.9 10^3/uL (4.3-11.0)
[2022-03-30] MEDS: CATHETER FLUSH 10 ML SYR IVP SCH ×3 (05:15→21:21)
[2022-03-30] MEDS: KCL 20 MEQ TAB (K-DUR) PO SCH (05:16)
[2022-03-30] MEDS: MAGNESIUM 1 GM/100 ML IVPB 100 ML IV SCH (05:16)
[2022-03-30] MEDS: POTASSIUM CL 10MEQ/50ML IVPB 50 ML IV SCH (05:16)
--- NOTE | 2022-03-30 05:24 | Progress Note - Hospitalist ---
Subjective HPI/CC On Admission Date Seen by Provider: Mar 30, 2022 Time Seen by Provider: 09:30 Subjective/Events-last exam Much improved sugars Moving to 4th floor PT OT ordered Anti-tussives ordered Review of Systems General: Fatigue, Malaise Pulmonary: Dyspnea, Cough Objective Exam Vital Signs Vital Signs Date Time Temp Pulse Resp B/P (MAP) Pulse Ox O2 Delivery O2 Flow Rate FiO2 03/30/22 17:34 162/71 (101) 03/30/22 15:55 37.4 80 18 95 Room Air 03/28/22 09:00 2.00 03/27/22 01:22 21 Capillary Refill : Less Than 3 Seconds General Appearance: No Apparent Distress, WD/WN, Chronically ill, Obese Respiratory: No Accessory Muscle Use, No Respiratory Distress, Decreased Breath Sounds Cardiovascular: Regular Rate, Rhythm Neurologic/Psychiatric: Alert, Oriented x3, No Motor/Sensory Deficits, Normal Mood/Affect Results/Procedures Lab Laboratory Tests 03/30/22 04:33 Patient resulted labs reviewed. Assessment/Plan Assessment and Plan Assess & Plan/Chief Complaint (1) Altered mental status Status: Acute Assessment & Plan: 03/27: TIA vs Hypoglycemia, CT w/o acute concerns. MRI today pending, Speech ordered 03/28: MRI with chronic microvascular disease, no acute findings, not likely cause of acute mental status change 03/29: Seems to be closer to baseline today Qualifiers: Qualified Codes: R40.0 - Somnolence (2) LAMBERT (acute kidney injury) Status: Acute Assessment & Plan: 03/27: Gentle IVF hydration, continue to trend 03/28: Mild improvement, will continue to monitor 03/29: Trending down (3) HTN (hypertension) Status: Chronic Assessment & Plan: 03/27: With concerns about TIA, permissive HTN, will continue to monitor Qualifiers: Qualified Codes: I10 - Essential (primary) hypertension (4) Type 1 diabetes mellitus Status: Chronic Assessment & Plan: 03/27: Insulin pump dependent, pump has been removed and p atient is on SSI 03/29: Started on long acting insulin, on insulin gtts Qualifiers: Qualified Codes: E10.59 - Type 1 diabetes mellitus with other circulatory complications (5) Systolic murmur Status: Acute Assessment & Plan: 03/27: Echo ordered and pending (6) CAD (coronary artery disease) Status: Chronic Qualifiers: Qualified Codes: I25.10 - Atherosclerotic heart disease of [place] coronary artery without angina pectoris (7) Tobacco abuse Status: Chronic (8) Insulin pump in place Status: Chronic (9) H/O prostate cancer Status: Chronic (10) Hyponatremia Status: Resolved Assessment & Plan: 03/27: Will continue to monitor, could be related to hyperglycemia Plan: Insulin PT OT Monitor closely Clinical Quality Measures Stroke: Date of last known well: Mar 26, 2022 Time of last known well: 19:20 NANCY ORR DO Mar 30, 2022 05:24
[2022-03-30 05:33] LABS: ALBUMIN 2.7 GM/DL (3.2-4.5); POTASSIUM 4.1 MMOL/L (3.6-5.0)
[2022-03-30 05:34] LABS: CALCIUM 8.3 MG/DL (8.5-10.1)
[2022-03-30 05:35] LABS: TOTAL PROTEIN 5.6 GM/DL (6.4-8.2)
[2022-03-30 05:37] LABS: BILIRUBIN,TOTAL 0.4 MG/DL (0.1-1.0)
[2022-03-30 05:38] LABS: PHOSPHORUS 2.6 MG/DL (2.3-4.7)
[2022-03-30 05:39] LABS: CREATININE SERUM 1.6 MG/DL (0.60-1.30)
[2022-03-30 05:42] LABS: MAGNESIUM 1.9 MG/DL (1.6-2.4)
[2022-03-30] MEDS: inSUlin ASPART (NovoLOG) 1 UNIT/0.01 ML (CHARGE PER UNIT) SC SCH ×4 (05:48→21:16)
[2022-03-30] MEDS: NS IV 1000 ML 1,000 ML IV SCH (05:52)
[2022-03-30] MEDS: PANTOPRAZOLE 40 MG (PROTONIX) TAB PO SCH (05:52)
--- NOTE | 2022-03-30 07:47 | Tele-ICU Progress Note ---
Progress Note Pt seen on video. Resting/sleeping in bed, NAD Focused Exam Height, Weight, BMI Height: 5'5.00" Weight: 193lbs. 8.0oz. 87.688778xp; 28.57 BMI Method:Stated Respiratory: No Accessory Muscle Use, No Respiratory Distress Cardiovascular: Regular Rate, Rhythm Skin: normal color Meds/Labs/Orders Lab results: Laboratory Tests Test 03/29/22 09:39 03/29/22 12:59 03/29/22 17:25 03/29/22 19:58 Range/Units Glucometer 275 H 478 *H 414 *H 341 H 70-110 MG/DL Test 03/30/22 04:33 Range/Units White Blood Count 7.9 4.3-11.0 10^3/uL Red Blood Count 3.68 L 4.30-5.52 10^6/uL Hemoglobin 10.7 L 13.3-17.7 g/dL Hematocrit 32 L 40-54 % Mean Corpuscular Volume 88 80-99 fL Mean Corpuscular Hemoglobin 29 25-34 pg Mean Corpuscular Hemoglobin Concent 33 32-36 g/dL Red Cell Distribution Width 15.4 H 10.0-14.5 % Platelet Count 224 130-400 10^3/uL Mean Platelet Volume 10.8 9.0-12.2 fL Immature Granulocyte % (Auto) 0 % Neutrophils (%) (Auto) 71 42-75 % Lymphocytes (%) (Auto) 15 12-44 % Monocytes (%) (Auto) 10 0-12 % Eosinophils (%) (Auto) 3 0-10 % Basophils (%) (Auto) 1 0-10 % Neutrophils # (Auto) 5.6 1.8-7.8 10^3/uL Lymphocytes # (Auto) 1.2 1.0-4.0 10^3/uL Monocytes # (Auto) 0.8 0.0-1.0 10^3/uL Eosinophils # (Auto) 0.3 0.0-0.3 10^3/uL Basophils # (Auto) 0.0 0.0-0.1 10^3/uL Immature Granulocyte # (Auto) 0.0 0.0-0.1 10^3/uL Sodium Level 135 135-145 MMOL/L Potassium Level 4.1 3.6-5.0 MMOL/L Chloride Level 109 H 98-107 MMOL/L Carbon Dioxide Level 19 L 21-32 MMOL/L Anion Gap 7 5-14 MMOL/L Blood Urea Nitrogen 30 H 7-18 MG/DL Creatinine 1.60 H 0.60-1.30 MG/DL Estimat Glomerular Filtration Rate 46 BUN/Creatinine Ratio 19 Glucose Level 149 H 70-105 MG/DL Calcium Level 8.3 L 8.5-10.1 MG/DL Corrected Calcium 9.3 8.5-10.1 MG/DL Phosphorus Level 2.6 2.3-4.7 MG/DL Magnesium Level 1.9 1.6-2.4 MG/DL Total Bilirubin 0.4 0.1-1.0 MG/DL Aspartate Amino Transf (AST/SGOT) 12 5-34 U/L Alanine Aminotransferase (ALT/SGPT) 9 0-55 U/L Alkaline Phosphatase 79 40-136 U/L Total Protein 5.6 L 6.4-8.2 GM/DL Albumin 2.7 L 3.2-4.5 GM/DL Allergies Allergies Coded Allergies: metaproterenol (Verified Allergy, Unknown, 12/21/21) Assessment/Plan Assessment and Plan Assess & Plan/Chief Complaint 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 , CTA neg 03/27/22 Prophy Hep SC, pantoprazole Pt now transferred off floor. GISELLA LANTIGUA MD Mar 30, 2022 07:47
[2022-03-30] MEDS: cefTRIAXone 1 GM PRE-MIX 50 ML IV SCH (08:56)
[2022-03-30] MEDS: guaiFENesin/CODEINE (ROBITUSSIN AC) 10ML UDC PO PRN ×2 (11:09→21:16)
[2022-03-30] MEDS: BENZONATATE 100 MG (TESSALON) CAPSULE PO SCH ×3 (11:12→21:15)
--- NOTE | 2022-03-30 11:24 | Physical Therapy Evaluation ---
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 9-Bktdygpkcm-nfvxire completes the activity by him/herself with no assistance from a helper. 5-Set-up or Clean-up Assistance-helper sets up or cleans up; patient completes activity. [place] assists only prior to or following the activity. 4-Supervision or Touching Assistance-helper provides verbal cues and/or touching/steadying and/or contact guard assistance as patient completes activity. Assistance may be provided throughout the activity or intermittently. 3-Partial/Moderate Assistance-helper does LESS THAN HALF the effort. [place] lifts, holds or supports trunk or limbs, but provides less than half the effort. 2-Substantial/Maximal Assistance-helper does MORE THAN HALF the effort. [place] lifts or holds trunk or limbs and provides more than half the effort. 7-Bjctdueou-wlbjgx does ALL the effort. Patient does none of the effort to complete the activity. Or, the assistance of 2 or more helpers is required for the patient to complete the activity. If activity was not attempted, code reason: 7-Patient Refused. 9-Not Applicable-not attempted and the patient did not perform the activity before the current illness, exacerbation or injury. 10-Not Attempted due to Environmental Limitations-(lack of equipment, weather restraints, etc.). 88-Not Attempted due to Medical Conditions or Safety Concerns. Bed Mobility: 6 Transfers (B,C,W/C): 6 Gait: 6 Indoor Mobility (Ambulation): Independent Prior Devices Use: Other-see list below Prior Device Use: cane PT Evaluation-Current Subjective Patient agrees to PT. Objective Patient Orientation: Person, Time, Situation ROM/Strength ROM Lower Extremities left BKA(WFL)/right LE WFL Strength Lower Extremities right LE 3+/5 grossly/left LE 3/5 grossly Integumentary/Posture Bowel Incontinence: Yes Bladder Incontinence: Bui Cath Neuromuscular (Tone, Coordination, Reflexes) diminished coordination Sensory Vision: Functional Hearing: Functional Transfers Lying to Sitting/Side of Bed(Q: 3 Sit to Stand (QC): 3 Chair/Dqg-tw-Jnybo Xfer(QC): 3 Gait Mode of Locomotion: Walk Anticipated Mode of Locomotion: Walk Walk 10 feet (QC): 3 Walk 50 ft with 2 Turns(QC): 3 Walk 150 ft (QC): 88 Distance: 50' Gait Assistive Device: FWW Comments/Gait Description assist to don prosthetic/slow, slightly unsteady gait sequence Balance Sitting Static: Poor Sitting Dynamic: Poor Standing Static: Poor Standing Dynamic: Poor Assessment/Needs 67 y.o. male, will benefit from skilled PT to address functional strength and mobility to improve current LOF to safely return to home at maximum LOF. Rehab Potential: Fair PT Substation Wireman Goals Mcfp Goals PT Mcfp Goals Time Frame: Apr 15, 2022 Roll Left & Right (QC): 6 Sit to Lying (QC): 6 Lying-Sitting on Side/Bed(QC): 6 Sit to Stand (QC): 6 Chair/Xhv-gr-Sqwfp Xfer(QC): 6 Toilet Transfer (QC): 6 Walk 10 feet (QC): 4 Walk 50ft with 2 Turns (QC): 4 Walk 150 ft (QC): 4 PT Plan Problem List Problem List: Activity Tolerance, Functional Strength, Safety, Balance, Gait, Transfer, Bed Mobility Treatment/Plan Treatment Plan: Continue Plan of Care Treatment Plan: Bed Mobility, Education, Functional Activity Talia, Functional Strength, Gait, Safety, Therapeutic Exercise, Transfers Treatment Duration: Apr 15, 2022 Frequency: 6 times per week Estimated Hrs Per Day: .25 hour per day Discharge Recommendations Therapy Discharge Recommendati: Post Acute PT Time Time In: 1102 Time Out: 1114 DATE: Mar 30, 2022 Total Billed Treatment Time: 12 Total Billed Treatment [facility] 12 min KASIE ANTONY PT Mar 30, 2022 11:24
[2022-03-30 12:20] VITALS: BP 162/72
--- NOTE | 2022-03-30 12:42 | Occupational Therapy Eval ---
OT Evaluation-General/PLF Medical Diagnosis Admission Date Mar 28, 2022 at 13:21 Medical Diagnosis: TIA/LAMBERT Onset Date: Mar 28, 2022 Therapy Diagnosis Therapy Diagnosis: Weakness Height/Weight Height (Feet): 5 Height (Inches): 5.00 Weight (Pounds): 193 Weight (Ounces): 8.0 Precautions Precautions/Isolations: Fall Prevention, Standard Precautions Weight Bear Status Weight Bearing Restriction: Weight Bearing/Tolerated Referral Physician: Tamia Referral Reason: Activity Tolerance, Self Care, Evaluation/Treatment, Strengthening/ROM Medical History Pertinent Medical History: CAD, COPD, DM, HTN, PVD, Rheumatoid Arthritis, Smoking Additional Medical History Left BKA Current History Pt. was at work in [facility] and states, "I don't know what happened." His co-workers got him seen right then by providers. 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 Reviewed History: Yes Social History Home: Single Level Current Living Status: Alone Entry Into Home: Ramp ADL-Prior Level of Function SCALE: Activities may be completed with or without assistive devices. 4-Zaodmkbewm-zrhncwx completes the activity by him/herself with no assistance from a helper. 5-Set-up or Clean-up Assistance-helper sets up or cleans up; patient completes activity. [place] assists only prior to or following the activity. 4-Supervision or Touching Assistance-helper provides verbal cues and/or touching/steadying and/or contact guard assistance as patient completes activity. Assistance may be provided throughout the activity or intermittently. 3-Partial/Moderate Assistance-helper does LESS THAN HALF the effort. [place] lifts, holds or supports trunk or limbs, but provides less than half the effort. 2-Substantial/Maximal Assistance-helper does MORE THAN HALF the effort. [place] lifts or holds trunk or limbs and provides more than half the effort. 7-Hnnfnzicn-itpsgk does ALL the effort. Patient does none of the effort to complete the activity. Or, the assistance of 2 or more helpers is required for the patient to complete the activity. If activity was not attempted, code reason: 7-Patient Refused. 9-Not Applicable-not attempted and the patient did not perform the activity before the current illness, exacerbation or injury. 10-Not Attempted due to Environmental Limitations-(lack of equipment, weather restraints, etc.). 88-Not Attempted due to Medical Conditions or Safety Concerns. ADL PLOF Comments Pt. lives alone. He states that he has a ramp that he uses. Pt. uses a single point cane typically. 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 Pt. independent with daily skills. Self Care: Independent Functional Cognition: Independent DME/Equipment: Bath Chair, Shower DME/Equipment Comments Pt. has a cane. Occupation: Works at first front ventilator of [employer] Self: Yes OT Current Status Subjective No pain reported other than "being stiff" when standing. Mental Status/Objective Patient Orientation: Person, Place, Time, Situation Current Glasses/Contacts: Yes Hand Dominance: Right Upper Extremity ROM Pt. able to bring bilateral UE overhead. Pt. demonstrates 3/5 strength in right shoulder/elbow, and 3+/5 in left. Edema: Pt. has edema in bilateral forearms, as well as bruising. Pt. demonstrates what looks to be an IV infiltration on both forearms. He no longer has these IVs, but has swelling and bruising. Pt. verbalizes that he doesn't know what happened. ADL-Treatment Eating (QC): 6 (per pt.) On/Off Footwear (QC): 5 (Pt. able to don his own prosthetic leg and garment after set up.) Other Treatments Pt. able to stand from chair but does require min assist. He uses walker. He reports that he just feels stiff with standing. Education OT Patient Education: Correct positioning, Modified ADL techniques, Progress toward Goal/Update tx plan, Purpose of tx/functional activities, Reviewed precautions, Rehab process, Transfer techniques Teaching Recipient: Patient Teaching Methods: Demonstration, Discussion Response to Teaching: Verbalize Understanding, Return Demonstration OT [employer] Treatment [employer] Operator Goals Waste[employer] Treatment Plant Operator Goals Time Frame: Apr 13, 2022 Eating (QC): 6 Oral Hygiene (QC): 6 Toileting Hygiene (QC): 6 Shower/Bathe Self (QC): 6 Upper Body Dressing (QC): 6 Lower Body Dressing (QC): 6 On/Off Footwear (QC): 6 Additional Goals: 1-Demonstrate ADL Tasks, 2-Verbalize Understanding, 3- ImproveStrength/Talia 1=Demonstrate adherence to instructed precautions during ADL tasks. 2=Patient will verbalize/demonstrate understanding of assistive devices/modifications for ADL. 3=Patient will improve strength/tolerance for activity to enable patient to perform ADL's. OT Education/Plan Problem List/Assessment Assessment: Decreased Activ Tolerance, Dependent Transfers, Impaired I ADL's, Impaired Self-Care Skills Discharge Recommendations Plan/Recommendations: Continue POC Therapy Discharge Recommendati: Post Acute OT Treatment Plan/Plan of Care Treatment,Training & Education: Yes Patient would benefit from OT for education, treatment and training to promote independence in ADL's, mobility, safety and/or upper extremity function for ADL's. Plan of Care: ADL Retraining, Functional Mobility, UE Funct Exercise/Act Treatment Duration: Apr 13, 2022 Frequency: 3 times per week (Pt. would benefit from skilled OT services 3- 5x/week) Estimated Hrs Per Day: .25 hour per day Agreement: Yes Rehab Potential: Good Time Start Time: 11:50 Stop Time: 12:00 DATE: Mar 30, 2022 Total Time Billed (hr/min): 10 Billed Treatment Time 1, DOROTHEA DIAZ OT Mar 30, 2022 12:42
[2022-03-30 15:55] VITALS: BP 206/84
[2022-03-30] MEDS: hydrALAZINE (APESOLINE) 20 MG/ML VIAL IV PRN (16:53)
[2022-03-30 17:34] VITALS: BP 162/71
[2022-03-30 19:15] VITALS: BP 195/82
[2022-03-30] MEDS ORDERED: ZOLPIDEM 5 MG (AMBIEN) TAB PO PRN (21:00)
[2022-03-30 21:13] VITALS: BP 178/72
[2022-03-30 23:00] VITALS: BP 170/70
[2022-03-31] VITALS (7 sets, daily range): BP systolic 144–185; BP diastolic 66–79
[2022-03-31] MEDS: hydrALAZINE (APESOLINE) 20 MG/ML VIAL IV PRN (03:51)
[2022-03-31] MEDS: CATHETER FLUSH 10 ML SYR IVP SCH ×3 (03:51→21:03)
[2022-03-31] MEDS: inSUlin ASPART (NovoLOG) 1 UNIT/0.01 ML (CHARGE PER UNIT) SC SCH ×4 (05:45→20:39)
--- NOTE | 2022-03-31 06:10 | Progress Note - Hospitalist ---
Subjective HPI/CC On Admission Date Seen by Provider: Mar 31, 2022 Time Seen by Provider: 10:00 Subjective/Events-last exam Improved status Back to baseline Improved sugars Will DC tomorrow Review of Systems General: Fatigue, Malaise Pulmonary: Cough Objective Exam Vital Signs Vital Signs Date Time Temp Pulse Resp B/P (MAP) Pulse Ox O2 Delivery O2 Flow Rate FiO2 03/31/22 11:02 36.9 78 18 177/79 (111) 95 Room Air 03/30/22 21:22 2.00 03/27/22 01:22 21 Capillary Refill : Less Than 3 Seconds General Appearance: No Apparent Distress, WD/WN, Chronically ill Respiratory: Lungs Clear, Normal Breath Sounds Cardiovascular: Regular Rate, Rhythm Neurologic/Psychiatric: Alert, Oriented x3, No Motor/Sensory Deficits, Normal Mood/Affect Results/Procedures Lab Laboratory Tests 03/31/22 05:35 Patient resulted labs reviewed. Assessment/Plan Assessment and Plan Assess & Plan/Chief Complaint (1) Altered mental status Status: Acute Assessment & Plan: 03/27: TIA vs Hypoglycemia, CT w/o acute concerns. MRI today pending, Speech ordered 03/28: MRI with chronic microvascular disease, no acute findings, not likely cause of acute mental status change 03/29: Seems to be closer to baseline today Qualifiers: Qualified Codes: R40.0 - Somnolence (2) LAMBERT (acute kidney injury) Status: Acute Assessment & Plan: 03/27: Gentle IVF hydration, continue to trend 03/28: Mild improvement, will continue to monitor 03/29: Trending down (3) HTN (hypertension) Status: Chronic Assessment & Plan: 03/27: With concerns about TIA, permissive HTN, will continue to monitor Qualifiers: Qualified Codes: I10 - Essential (primary) hypertension (4) Type 1 diabetes mellitus Status: Chronic Assessment & Plan: 03/27: Insulin pump dependent, pump has been removed and patient is on SSI 03/29: Started on long acting insulin, on insulin gtts Qualifiers: Qualified Codes: E10.59 - Type 1 diabetes mellitus with other circulatory complications (5) Systolic murmur Status: Acute Assessment & Plan: 03/27: Echo ordered and pending (6) CAD (coronary artery disease) Status: Chronic Qualifiers: Qualified Codes: I25.10 - Atherosclerotic heart disease of [place] coronary artery without angina pectoris (7) Tobacco abuse Status: Chronic (8) Insulin pump in place Status: Chronic (9) H/O prostate cancer Status: Chronic (10) Hyponatremia Status: Resolved Assessment & Plan: 03/27: Will continue to monitor, could be related to hyperglycemia Plan: Insulin PT OT Monitor closely Clinical Quality Measures Stroke: Date of last known well: Mar 26, 2022 Time of last known well: 19:20 NANCY ORR DO Mar 31, 2022 06:10
[2022-03-31 06:11] LABS: BASOPHILS % (AUTO) 1 % (0-10); EOSINOPHILS # (AUTO) 0.3 10^3/uL (0.0-0.3); EOSINOPHILS % (AUTO) 5 % (0-10); HEMATOCRIT 35 % (40-54); HEMOGLOBIN 11.6 g/dL (13.3-17.7); LYMPHOCYTES # (AUTO) 0.7 10^3/uL (1.0-4.0); LYMPHOCYTES % (AUTO) 12 % (12-44); MEAN CORPUSCULAR HEMOGLOBIN 28 pg (25-34); MEAN CORPUSCULAR HGB CONC 33 g/dL (32-36); MEAN CORPUSCULAR VOLUME 86 fL (80-99); MEAN PLATELET VOLUME 10.2 fL (9.0-12.2); MONOCYTES # (AUTO) 0.5 10^3/uL (0.0-1.0); MONOCYTES % (AUTO) 8 % (0-12); NEUTROPHILS # (AUTO) 4.6 10^3/uL (1.8-7.8); NEUTROPHILS % (AUTO) 75 % (42-75); PLATELET COUNT 237 10^3/uL (130-400); WHITE BLOOD COUNT 6.2 10^3/uL (4.3-11.0)
[2022-03-31 06:37] LABS: ALBUMIN 2.8 GM/DL (3.2-4.5); BILIRUBIN,TOTAL 0.3 MG/DL (0.1-1.0); CALCIUM 8.4 MG/DL (8.5-10.1); CREATININE SERUM 1.5 MG/DL (0.60-1.30); MAGNESIUM 1.8 MG/DL (1.6-2.4); POTASSIUM 4.1 MMOL/L (3.6-5.0); TOTAL PROTEIN 5.9 GM/DL (6.4-8.2)
[2022-03-31] MEDS: cefTRIAXone 1 GM PRE-MIX 50 ML IV SCH (08:54)
[2022-03-31] MEDS: PANTOPRAZOLE 40 MG (PROTONIX) TAB PO SCH (08:55)
[2022-03-31] MEDS: BENZONATATE 100 MG (TESSALON) CAPSULE PO SCH ×3 (08:55→21:02)
[2022-03-31] MEDS: ASPIRIN E.C. 81 MG (ECOTRIN) TAB PO SCH (08:55)
[2022-03-31] MEDS ORDERED: amLODIPine 5 MG (NORVASC) TAB PO NR (10:30)
--- NOTE | 2022-03-31 11:40 | Occupational Ther Daily Note ---
OT Current Status-Daily Note Subjective Pt in bed, agreeable to OT Tx. Pt is hopeful he will be able to discharge soon, states no concerns with his ability to complete ADLs at home. Mental Status/Objective Patient Orientation: Normal For Age ADL-Treatment Therapy Code Descriptions/Definitions Functional [place] Measure: 0=Not Assessed/NA 4=Minimal Assistance 1=Total Assistance 5=Supervision or Setup 2=Maximal Assistance 6=Modified [place] 3=Moderate Assistance 7=Complete IndependenceSCALE: Activities may be completed with or without assistive devices. 9-Cvujpfsxun-sdnuhdp completes the activity by him/herself with no assistance from a helper. 5-Set-up or Clean-up Assistance-helper sets up or cleans up; patient completes activity. [place] assists only prior to or following the activity. 4-Supervision or Touching Assistance-helper provides verbal cues and/or touching/steadying and/or contact guard assistance as patient completes activity. Assistance may be provided throughout the activity or intermittently. 3-Partial/Moderate Assistance-helper does LESS THAN HALF the effort. [place] lifts, holds or supports trunk or limbs, but provides less than half the effort. 2-Substantial/Maximal Assistance-helper does MORE THAN HALF the effort. [place] lifts or holds trunk or limbs and provides more than half the effort. 5-Mvqsbfpyg-uvnubx does ALL the effort. Patient does none of the effort to complete the activity. Or, the assistance of 2 or more helpers is required for the patient to complete the activity. If activity was not attempted, code reason: 7-Patient Refused. 9-Not Applicable-not attempted and the patient did not perform the activity before the current illness, exacerbation or injury. 10-Not Attempted due to Environmental Limitations-(lack of equipment, weather restraints, etc.). 88-Not Attempted due to Medical Conditions or Safety Concerns. Eating (QC): 6 (Per pt report) Oral Hygiene (QC): 5 (Set up at bed level.) Shower/Bathe Self (QC): 7 Lower Body Dressing (QC): 7 Toileting Hygiene (QC): 7 Other Treatment Pt in bed, agreeable to OT tx. pt declined OOB activities, as he took a walk with PT earlier and was thinking about taking a nap. Pt agreeable to oral care, completed with set up assist at bed level. Pt declined other ADLs at this time. OT educated pt on purpose/benefits of UE exercises, instructing pt to complete shoulder flexion, and elbow flexion/extension, he verbalized understanding, and indicated he would complete later. Post tx, pt in bed, call light in reach and all needs met Education OT Patient Education: Correct positioning, Energy conservation, Modified ADL techniques, Progress toward Goal/Update tx plan, Purpose of tx/functional activities Teaching Recipient: Patient Teaching Methods: Discussion Response to Teaching: Verbalize Understanding OT Alf Goals Head Tennis Professional Goals Time Frame: Apr 13, 2022 Eating (QC): 6 Oral Hygiene (QC): 6 Toileting Hygiene (QC): 6 Shower/Bathe Self (QC): 6 Upper Body Dressing (QC): 6 Lower Body Dressing (QC): 6 On/Off Footwear (QC): 6 Additional Goals: 1-Demonstrate ADL Tasks, 2-Verbalize Understanding, 3- ImproveStrength/Talia 1=Demonstrate adherence to instructed precautions during ADL tasks. 2=Patient will verbalize/demonstrate understanding of assistive devices/modifications for ADL. 3=Patient will improve strength/tolerance for activity to enable patient to perform ADL's. OT Education/Plan Problem List/Assessment Assessment: Decreased Activ Tolerance, Decreased UE Strength, Impaired I ADL's, Impaired Self-Care Skills Discharge Recommendations Plan/Recommendations: Continue POC Treatment Plan/Plan of Care Patient would benefit from OT for education, treatment and training to promote independence in ADL's, mobility, safety and/or upper extremity function for ADL's. Plan of Care: ADL Retraining, Functional Mobility, UE Funct Exercise/Act Treatment Duration: Apr 13, 2022 Frequency: 3 times per week (Pt. would benefit from skilled OT services 3- 5x/week) Estimated Hrs Per Day: .25 hour per day Agreement: Yes Rehab Potential: Good Time Start Time: 11:15 Stop Time: 11:25 DATE: Mar 31, 2022 Total Time Billed (hr/min): 10 Billed Treatment Time 1, ADL LASHELL AWAN OT Mar 31, 2022 11:40
--- NOTE | 2022-03-31 11:48 | Physical Therapy Daily Note ---
PT Daily Note-Current Subjective Pt is alert and in bed on arrival. Agreeable to treatment. Pain Section J - Health Conditions 1. Rarely or not at all 2. Occasionally 3. Frequently 4. Almost constantly 8. Unable to answer Pain Effect on Sleep: 1 Pain Interference with Therapy: 1 Pain Interference w/Day-to-Day: 1 Mental Status Patient Orientation: Person, Place, Time, Situation Transfers SCALE: Activities may be completed with or without assistive devices. 5-Pbukzunmqn-uzxnenm completes the activity by him/herself with no assistance from a helper. 5-Set-up or Clean-up Assistance-helper sets up or cleans up; patient completes activity. [place] assists only prior to or following the activity. 4-Supervision or Touching Assistance-helper provides verbal cues and/or touching/steadying and/or contact guard assistance as patient completes activity. Assistance may be provided throughout the activity or intermittently. 3-Partial/Moderate Assistance-helper does LESS THAN HALF the effort. [place] lifts, holds or supports trunk or limbs, but provides less than half the effort. 2-Substantial/Maximal Assistance-helper does MORE THAN HALF the effort. [place] lifts or holds trunk or limbs and provides more than half the effort. 2-Eseoqcxlr-kjlqby does ALL the effort. Patient does none of the effort to complete the activity. Or, the assistance of 2 or more helpers is required for the patient to complete the activity. If activity was not attempted, code reason: 7-Patient Refused. 9-Not Applicable-not attempted and the patient did not perform the activity before the current illness, exacerbation or injury. 10-Not Attempted due to Environmental Limitations-(lack of equipment, weather restraints, etc.). 88-Not Attempted due to Medical Conditions or Safety Concerns. Roll Left & Right (QC): 5 Sit to Lying (QC): 5 Lying to Sitting/Side of Bed(Q: 5 Sit to Stand (QC): 5 5 for donning/doffing of (L) BKA prosthesis Gait Training Does the Patient Walk?: Yes Distance: 150ft Walk 10 feet (QC): 5 Walk 50 ft with 2 Turns(QC): 5 Walk 150 ft (QC): 5 Gait Persons Needed: 1 Gait Assistive Device: FWW Verbal cues for safe turning. Wheelchair Training Does the Pt Use a Wheelchair?: No Exercises Seated Therapy Exercises: LE Protocol Seated Reps: 15 Assessment Current Status: Good Progress Pt showed good stability and balance during gait and transfers. Only required verbal cues 2x during turning for safer foot placement. PT Usp Goals Usp Goals PT Usp Goals Time Frame: Apr 15, 2022 Roll Left & Right (QC): 6 Sit to Lying (QC): 6 Lying-Sitting on Side/Bed(QC): 6 Sit to Stand (QC): 6 Chair/Exl-uy-Xftzw Xfer(QC): 6 Toilet Transfer (QC): 6 Walk 10 feet (QC): 4 Walk 50ft with 2 Turns (QC): 4 Walk 150 ft (QC): 4 PT Plan Treatment/Plan Treatment Plan: Continue Plan of Care Treatment Plan: Bed Mobility, Education, Functional Activity [place], Functional Strength, Gait, Safety, Therapeutic Exercise, Transfers Treatment Duration: Apr 15, 2022 Frequency: 6 times per week Estimated Hrs Per Day: .25 hour per day Time Time In: 0846 Time Out: 0901 DATE: Mar 31, 2022 Total Billed Treatment Time: 15 Total Billed Treatment 1, gt 15 AMARA MORALES PT Mar 31, 2022 11:48
[2022-04-01 03:28] VITALS: BP 162/67
[2022-04-01] MEDS: inSUlin ASPART (NovoLOG) 1 UNIT/0.01 ML (CHARGE PER UNIT) SC SCH ×2 (05:33→11:11)
[2022-04-01 05:44] LABS: BASOPHILS % (AUTO) 1 % (0-10); EOSINOPHILS # (AUTO) 0.4 10^3/uL (0.0-0.3); EOSINOPHILS % (AUTO) 6 % (0-10); HEMATOCRIT 36 % (40-54); HEMOGLOBIN 11.9 g/dL (13.3-17.7); LYMPHOCYTES # (AUTO) 1.1 10^3/uL (1.0-4.0); LYMPHOCYTES % (AUTO) 17 % (12-44); MEAN CORPUSCULAR HEMOGLOBIN 29 pg (25-34); MEAN CORPUSCULAR HGB CONC 33 g/dL (32-36); MEAN CORPUSCULAR VOLUME 87 fL (80-99); MEAN PLATELET VOLUME 10.7 fL (9.0-12.2); MONOCYTES # (AUTO) 0.7 10^3/uL (0.0-1.0); MONOCYTES % (AUTO) 11 % (0-12); NEUTROPHILS # (AUTO) 4.4 10^3/uL (1.8-7.8); NEUTROPHILS % (AUTO) 65 % (42-75); PLATELET COUNT 266 10^3/uL (130-400); WHITE BLOOD COUNT 6.7 10^3/uL (4.3-11.0)
[2022-04-01] MEDS: CATHETER FLUSH 10 ML SYR IVP SCH (06:00)
[2022-04-01 06:06] LABS: ALBUMIN 2.8 GM/DL (3.2-4.5); BILIRUBIN,TOTAL 0.3 MG/DL (0.1-1.0); CALCIUM 8.5 MG/DL (8.5-10.1); CREATININE SERUM 1.17 MG/DL (0.60-1.30); MAGNESIUM 1.9 MG/DL (1.6-2.4); POTASSIUM 3.6 MMOL/L (3.6-5.0); TOTAL PROTEIN 6.1 GM/DL (6.4-8.2)
[2022-04-01 07:59] VITALS: BP 156/68
[2022-04-01] MEDS: PANTOPRAZOLE 40 MG (PROTONIX) TAB PO SCH (08:26)
[2022-04-01] MEDS: cefTRIAXone 1 GM PRE-MIX 50 ML IV SCH (08:26)
[2022-04-01] MEDS: ASPIRIN E.C. 81 MG (ECOTRIN) TAB PO SCH (08:26)
[2022-04-01] MEDS: BENZONATATE 100 MG (TESSALON) CAPSULE PO SCH ×2 (08:26→12:36)
[2022-04-01] MEDS ORDERED: lisINopril 40 MG (PRINIVIL) TABLET PO SCH (09:00)
[2022-04-01] MEDS ORDERED: amLODIPine 5 MG (NORVASC) TAB PO SCH (09:00)
[2022-04-01 11:03] VITALS: BP 180/72
[2022-04-01] MEDS ORDERED: AMLO-250 PO (11:23)
[2022-04-01] MEDS ORDERED: BENZ100C18 PO (11:23)
[2022-04-01] MEDS ORDERED: MECL-149 PO (11:23)
[2022-04-01] MEDS ORDERED: INSU100V SC (11:23)
--- NOTE | 2022-04-01 11:24 | Discharge Summary ---
Discharge Summary Hospital Course Was the Problem List Reviewed?: Yes Problems/Dx: (1) Altered mental status Status: Acute Qualifiers: Qualified Codes: R40.0 - Somnolence (2) Hyponatremia Status: Resolved (3) H/O prostate cancer Status: Chronic (4) Systolic murmur Status: Acute (5) Tobacco abuse Status: Chronic (6) CAD (coronary artery disease) Status: Chronic Qualifiers: Qualified Codes: I25.10 - Atherosclerotic heart disease of [place] coronary artery without angina pectoris (7) LAMBERT (acute kidney injury) Status: Acute (8) Type 1 diabetes mellitus Status: Chronic Qualifiers: Qualified Codes: E10.59 - Type 1 diabetes mellitus with other circulatory complications (9) HTN (hypertension) Status: Chronic Qualifiers: Qualified Codes: I10 - Essential (primary) hypertension (10) TIA (transient ischemic attack) Status: Acute Hospital Course Date of Admission: Mar 28, 2022 at 13:21 Admission Diagnosis : Family Physician/Provider: Tiara Robertson Aprn Date of Discharge: 04/01/22 Discharge Diagnosis: [ ] Hospital Course: Uneventful hospital course although he was admitted to ICU for several days for presumed TIA. MRI did not show any damage. He was placed on protocol meds. Diabetes was much improved but he will go back to his insulin pump at home. Smoke cessation was counseled. He completed antibiotics for abnormal UA and bacterial bronchitis. Labs and Pending Lab Test: Laboratory Tests 03/31/22 16:04: Glucometer 199H 03/31/22 20:06: Glucometer 112H 04/01/22 05:02: Glucometer 47*L 04/01/22 05:15: White Blood Count 6.7, Red Blood Count 4.15L, Hemoglobin 11.9L, Hematocrit 36L, Mean Corpuscular Volume 87, Mean Corpuscular Hemoglobin 29, Mean Corpuscular Hemoglobin Concent 33, Red Cell Distribution Width 15.1H, Platelet Count 266, Mean Platelet Volume 10.7, Immature Granulocyte % (Auto) 1, Neutrophils (%) (Auto) 65, Lymphocytes (%) (Auto) 17, Monocytes (%) (Auto) 11, Eosinophils (%) (Auto) 6, Basophils (%) (Auto) 1, Neutrophils # (Auto) 4.4, Lymphocytes # (Auto) 1.1, Monocytes # (Auto) 0.7, Eosinophils # (Auto) 0.4H, Basophils # (Auto) 0.0, Immature Granulocyte # (Auto) 0.0, Sodium Level 137, Potassium Level 3.6, Chloride Level 105, Carbon Dioxide Level 20L, Anion Gap 12, Blood Urea Nitrogen 23H, Creatinine 1.17, Estimat Glomerular Filtration Rate 67, BUN/Creatinine Ratio 20, Glucose Level 50*L, Calcium Level 8.5, Corrected Calcium 9.5, Magnesium Level 1.9, Total Bilirubin 0.3, Aspartate Amino Transf (AST/SGOT) 14, Alanine Aminotransferase (ALT/SGPT) 6, Alkaline Phosphatase 75, Total Protein 6 .1L, Albumin 2.8L 04/01/22 06:02: Glucometer 138H 04/01/22 11:00: Glucometer 281H Microbiology 03/27/22 Urine Culture - Final, Complete NO GROWTH 03/27/22 MRSA Screen - Final, Complete MRSA not isolated Home Meds Active Meclizine HCl 25 Mg Tablet 25 Mg PO BID PRN Tessalon Perles (Benzonatate) 100 Mg Capsule 200 Mg PO TID Amlodipine Besylate 5 Mg Tablet 5 Mg PO DAILY Humalog (Insulin Lispro) 100 Unit/Ml Vial 1 Unit SC UD USES INSULIN PUMP Reported Hydrocodone-Acetamin 10-325 mg (Hydrocodone/Acetaminophen) 10 Mg-325 Mg Tablet 1 Ea PO Q8H PRN Aspirin EC (Aspirin) 81 Mg Tablet.dr 81 Mg PO DAILY Ambien (Zolpidem Tartrate) 10 Mg Tablet 10 Mg PO HS PRN Lisinopril 40 Mg Tablet 40 Mg PO DAILY Pantoprazole Sodium 40 Mg Tablet.dr 40 Mg PO DAILY Assessment/Pt Instructions PCP in 1 week Discharge Planning: <30 minutes discharge planning Discharge Physical Examination Vital Signs Vital Signs Date Time Temp Pulse Resp B/P (MAP) Pulse Ox O2 Delivery O2 Flow Rate FiO2 04/01/22 11:03 37.0 70 16 180/72 (108) 93 Room Air 03/30/22 21:22 03/27/22 01:22 21 General Appearance: No Apparent Distress, WD/WN, Chronically ill Respiratory: Lungs Clear Cardiovascular: Regular Rate, Rhythm Allergies: Coded Allergies: metaproterenol (Verified Allergy, Unknown, 12/21/21) Discharge Summary Date of Admission Mar 28, 2022 at 13:21 Date of Discharge Discharge Date: Apr 01, 2022 Discharge Diagnosis (1) Altered mental status Status: Acute Assessment & Plan: 03/27: TIA vs Hypoglycemia, CT w/o acute concerns. MRI today pending, Speech ordered 03/28: MRI with chronic microvascular disease, no acute findings, not likely cause of acute mental status change 03/29: Seems to be closer to baseline today Qualifiers: Qualified Codes: R40.0 - Somnolence (2) LAMBERT (acute kidney injury) Status: Acute Assessment & Plan: 03/27: Gentle IVF hydration, continue to trend 03/28: Mild improvement, will continue to monitor 03/29: Trending down (3) HTN (hypertension) Status: Chronic Assessment & Plan: 03/27: With concerns about TIA, permissive HTN, will continue to monitor Qualifiers: Qualified Codes: I10 - Essential (primary) hypertension (4) Type 1 diabetes mellitus Status: Chronic Assessment & Plan: 03/27: Insulin pump dependent, pump has been removed and patient is on SSI 03/29: Started on long acting insulin, on insulin gtts Qualifiers: Qualified Codes: E10.59 - Type 1 diabetes mellitus with other circulatory complications (5) Systolic murmur Status: Acute Assessment & Plan: 03/27: Echo ordered and pending (6) CAD (coronary artery disease) Status: Chronic Qualifiers: Qualified Codes: I25.10 - Atherosclerotic heart disease of [place] coronary artery without angina pectoris (7) Tobacco abuse Status: Chronic (8) Insulin pump in place Status: Chronic (9) H/O prostate cancer Status: Chronic (10) Hyponatremia Status: Resolved Assessment & Plan: 03/27: Will continue to monitor, could be related to hyperglycemia Plan: Insulin PT OT Monitor closely Clinical Quality Measures Stroke: Date of last known well: Mar 26, 2022 Time of last known well: 19:20 NANCY ORR DO Apr 01, 2022 11:24
--- NOTE | 2022-04-01 12:52 | Physical Therapy Daily Note ---
PT Daily Note-Current Subjective Pt. seated at EOB, agrees to ambulation. Pain Section J - Health Conditions 1. Rarely or not at all 2. Occasionally 3. Frequently 4. Almost constantly 8. Unable to answer Pain Effect on Sleep: 1 Pain Interference with Therapy: 1 Pain Interference w/Day-to-Day: 1 Mental Status Patient Orientation: Person, Place, Time, Situation Transfers SCALE: Activities may be completed with or without assistive devices. 0-Slfggwspkv-pwcukad completes the activity by him/herself with no assistance from a helper. 5-Set-up or Clean-up Assistance-helper sets up or cleans up; patient completes activity. [place] assists only prior to or following the activity. 4-Supervision or Touching Assistance-helper provides verbal cues and/or touching/steadying and/or contact guard assistance as patient completes activ ity. Assistance may be provided throughout the activity or intermittently. 3-Partial/Moderate Assistance-helper does LESS THAN HALF the effort. [place] lifts, holds or supports trunk or limbs, but provides less than half the effort. 2-Substantial/Maximal Assistance-helper does MORE THAN HALF the effort. [place] lifts or holds trunk or limbs and provides more than half the effort. 0-Bodgtbkfm-qtyhvn does ALL the effort. Patient does none of the effort to complete the activity. Or, the assistance of 2 or more helpers is required for the patient to complete the activity. If activity was not attempted, code reason: 7-Patient Refused. 9-Not Applicable-not attempted and the patient did not perform the activity before the current illness, exacerbation or injury. 10-Not Attempted due to Environmental Limitations-(lack of equipment, weather restraints, etc.). 88-Not Attempted due to Medical Conditions or Safety Concerns. Sit to Stand (QC): 4 min A with sit to stand Gait Training Does the Patient Walk?: Yes Distance: 125 ft Walk 10 feet (QC): 4 Walk 50 ft with 2 Turns(QC): 4 Gait Persons Needed: 1 Gait Assistive Device: FWW CGA needed to ensure steadiness Assessment Current Status: Good Progress Pt. able to increase ambulation distance today but did fatigue with walking further in hallway. Pt. had no eugenio LOB during ambulation. Pt. returned to bed post session, call light in reach and all needs met. PT Handbag Finisher Goals Halfway Goals PT Handbag Finisher Goals Time Frame: Apr 15, 2022 Roll Left & Right (QC): 6 Sit to Lying (QC): 6 Lying-Sitting on Side/Bed(QC): 6 Sit to Stand (QC): 6 Chair/Fyc-qi-Nixxz Xfer(QC): 6 Toilet Transfer (QC): 6 Walk 10 feet (QC): 4 Walk 50ft with 2 Turns (QC): 4 Walk 150 ft (QC): 4 PT Plan Treatment/Plan Treatment Plan: Continue Plan of Care Treatment Plan: Bed Mobility, Education, Functional Activity [place], Functional Strength, Gait, Safety, Therapeutic Exercise, Transfers Treatment Duration: Apr 15, 2022 Frequency: 6 times per week Estimated Hrs Per Day: .25 hour per day Time Time In: 08 Time Out: 828 DATE: Apr 01, 2022 Total Billed Treatment Time: 13 Total Billed Treatment 1, GT 13' KAY JOHNSTON PT Apr 01, 2022 12:52
== END 2022-04-01 14:08 | disposition home or self-care (01) | DRG 69 ==
LOC: EDUNIT# 21:12 → ER FS 21:20 → 4TH 03-27 00:32 → ICU 03-27 04:09 → OBSVTOIN 03-28 13:21 → 4TH 03-30 10:27
PROVIDERS: ADMIT Internal Medicine; ATTEND Internal Medicine
DX: G45.9 Transient cerebral ischemic attack, unspecified (principal); E10.10 Type 1 diabetes mellitus with ketoacidosis without coma; E87.1 Hypo-osmolality and hyponatremia; N17.9 Acute kidney failure, unspecified; J44.0 Chronic obstructive pulmonary disease with (acute) lower respiratory infection; J20.9 Acute bronchitis, unspecified; I10 Essential (primary) hypertension; E10.649 Type 1 diabetes mellitus with hypoglycemia without coma; F17.210 Nicotine dependence, cigarettes, uncomplicated; Z20.822 Contact with and (suspected) exposure to COVID-19; I25.10 Atherosclerotic heart disease of native coronary artery without angina pectoris; R53.83 Other fatigue; E10.40 Type 1 diabetes mellitus with diabetic neuropathy, unspecified; E78.00 Pure hypercholesterolemia, unspecified; M06.9 Rheumatoid arthritis, unspecified; R01.1 Cardiac murmur, unspecified; G89.29 Other chronic pain; M54.9 Dorsalgia, unspecified; G47.00 Insomnia, unspecified; R29.701 NIHSS score 1; N28.1 Cyst of kidney, acquired; R82.90 Unspecified abnormal findings in urine; Z89.512 Acquired absence of left leg below knee; Z85.46 Personal history of malignant neoplasm of prostate; Z79.4 Long term (current) use of insulin
CPT/HCPCS: 36415; 70450; 70496; 70498; 70551; 71045; 80048; 80053; 81000; 82805; 82947; 83735; 84100; 84145; 84484; 85025; 85610; 85730; 87081; 87088; 87636; 93005; 93041; 93306; 94760; G0378; Q9967

== ENCOUNTER → 2022-04-06 | Outpatient (CLI) | payer BC, MEDICARE ==
[~2022-04-06] MED LIST changes: +AMLO-250 PO; +BENZ100C18 PO; +HYDR-3820 PO; +INSU100V; +INSU100V SC; +LISI40TA9 PO; +MECL-149 PO; +ZOLP10TA PO
[2022-04-06 14:46] LABS: BILIRUBIN,TOTAL 0.2 MG/DL (0.1-1.0); CALCIUM 8.5 MG/DL (8.5-10.1); CREATININE SERUM 1.69 MG/DL (0.60-1.30); POTASSIUM 4.6 MMOL/L (3.6-5.0); TOTAL PROTEIN 6.9 GM/DL (6.4-8.2)
[2022-04-06 14:47] LABS: ALBUMIN 3.4 GM/DL (3.2-4.5)
== END ==
LOC: LAB FS 14:06
PROVIDERS: ATTEND Nurse Practitioner Family
DX: E87.1 Hypo-osmolality and hyponatremia (principal)
CPT/HCPCS: 36415; 80053

== ENCOUNTER 2022-05-19 20:50 | Emergency (ER) | payer BC, MEDICARE ==
[2022-05-19] MEDS ORDERED: NS IV 500 ML 500 ML IV ONE ×2 (21:15→23:00)
[2022-05-19 21:18] LABS: BASOPHILS # (AUTO) 0.1 10^3/uL (0.0-0.1); BASOPHILS % (AUTO) 1 % (0-10); EOSINOPHILS # (AUTO) 0.5 10^3/uL (0.0-0.3); EOSINOPHILS % (AUTO) 6 % (0-10); HEMATOCRIT 38 % (40-54); HEMOGLOBIN 12.7 g/dL (13.3-17.7); LYMPHOCYTES # (AUTO) 1.4 10^3/uL (1.0-4.0); LYMPHOCYTES % (AUTO) 16 % (12-44); MEAN CORPUSCULAR HEMOGLOBIN 29 pg (25-34); MEAN CORPUSCULAR HGB CONC 34 g/dL (32-36); MEAN CORPUSCULAR VOLUME 85 fL (80-99); MEAN PLATELET VOLUME 10.6 fL (9.0-12.2); MONOCYTES # (AUTO) 0.6 10^3/uL (0.0-1.0); MONOCYTES % (AUTO) 7 % (0-12); NEUTROPHILS % (AUTO) 70 % (42-75); PLATELET COUNT 302 10^3/uL (130-400); WHITE BLOOD COUNT 8.6 10^3/uL (4.3-11.0)
--- NOTE | 2022-05-19 21:18 | ED Neurological Problem ---
General Stated Complaint: DIZZY Source: patient Exam Limitations: no limitations History of Present Illness Date Seen by Provider: May 19, 2022 Time Seen by Provider: 20:50 Initial Comments Here with report of acute onset of dizziness and fuzziness that happened at 2030 tonight. 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 Does have longstanding history of diabetes. He was admitted in March 2022 for similar and had several day stay and work-up including MRI, CT and echo. These did not reveal any significant findings other than chronic microvascular disease. Patient does have history of hypertension. He states his diabetes is doing okay today. Reports eating and drinking are right. Does admit to cough but states he is a long-term smoker. Denies nausea, vomiting, diarrhea, chest pain, dysuria or abdominal discomfort. Does admit global weakness. 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 Follows with [facility] Timing/Duration: 1/2 hour Severity: moderate Associated Symptoms: confusion; No fever/chills, No nausea/vomiting, No slurred speech; weakness (Global), other (Dizziness) Allergies and Home Medications Allergies Coded Allergies: metaproterenol (Verified Allergy, Unknown, 12/21/21) Patient Home Medication List Home Medication List Reviewed: Yes Amlodipine Besylate (Amlodipine Besylate) 5 Mg Tablet, 5 MG PO DAILY Prescribed by: NANCY ORR on 04/01/22 112 Aspirin (Aspirin EC) 81 Mg Tablet.dr, 81 MG PO DAILY, (Reported) Entered as Reported by: ANNETTE JONAS on 03/27/22 115 Benzonatate (Tessalon Perles) 100 Mg Capsule, 200 MG PO TID Prescribed by: NANCY ORR on 04/01/22 112 Hydrocodone/Acetaminophen (Hydrocodone-Acetamin 10-325 mg) 10 Mg-325 Mg Tablet, 1 EA PO Q8H PRN for PAIN-MODERATE (5-7), (Reported) Entered as Reported by: ANNETTE JONAS on 03/27/22 115 Insulin Lispro (Humalog) 100 Unit/Ml Vial, 1 UNIT SC UD Prescribed by: NANCY ORR on 04/01/22 1123 Lisinopril (Lisinopril) 40 Mg Tablet, 40 MG PO DAILY, (Reported) Entered as Reported by: ANNETTE JONAS on 03/27/22 1152 Meclizine HCl (Meclizine HCl) 25 Mg Tablet, 25 MG PO BID PRN for VERTIGO Prescribed by: NANCY ORR on 04/01/22 1123 Pantoprazole Sodium (Pantoprazole Sodium) 40 Mg Tablet.dr, 40 MG PO DAILY, (Reported) Entered as Reported by: SILVIO CHANG on 09/11/18 1336 Zolpidem Tartrate (Ambien) 10 Mg Tablet, 10 MG PO HS PRN for SLEEP, (Reported) Entered as Reported by: ANNETTE JONAS on 03/27/22 1152 Review of Systems Review of Systems Constitutional: see HPI; No chills, No fever Eyes: No Symptoms Reported Ears, Nose, Mouth, Throat: denies nose discharge, denies throat pain Respiratory: cough; No short of breath Cardiovascular: No chest pain, No palpitations Gastrointestinal: No diarrhea, No nausea, No vomiting Genitourinary: see HPI Musculoskeletal: see HPI; No muscle pain; muscle weakness Psychiatric/Neurological: Denies Headache; Weakness All Other Systems Reviewed Negative Unless Noted: Yes Past Bjduemq-Kqbpey-Qxnkhx Hx Patient Social History Tobacco Use?: Yes Substance use?: No Alcohol Use?: Yes Alcohol Frequency: Once in a while Immunizations Up To Date PED Vaccines UTD: Yes First/Initial COVID19 Vaccinat: 04/25 Second COVID19 Vaccination Vincent: 05/27 Third COVID19 Vaccination Date: 01/25 Seasonal Allergies Seasonal Allergies: Yes Past Medical History Surgery/Hospitalization HX: DM Surgeries: Yes (L FOOT-MULTIPLE, L Below the Knee Amputation,COLONOSCOPY, CATARACTS) Amputation, Appendectomy, Gallbladder, Orthopedic Respiratory: Yes Pneumonia Currently Using CPAP: No Currently Using BIPAP: No Cardiac: Yes Chronic Edema/Swelling, High Cholesterol, Hypertension, Peripheral Vascular Neurological: Yes (TIA OVER 20 YEARS AGO) Neuropathy, TIA Sexually Transmitted Disease: No Genitourinary: No Bladder Infection Gastrointestinal: No Chronic Constipation, Ulcer, Gall Bladder Disease Musculoskeletal: Yes (RHEUMATOID ARTHRITIS) Arthritis, Rheumatoid Arthritis, Chronic Back Pain, Fractures Endocrine: Yes (HAS INSULIN PUMP) Diabetes, Insulin dep HEENT: Yes (GLASSES) Loss of Vision: Denies Hearing Impairment: Denies Cancer: Yes Prostate Psychosocial: Yes ( INSOMNIA) Sleep Difficulties Integumentary: Yes (DIABETIC ULCER L FOOT resulting in BKA) Blood Disorders: No Adverse Reaction/Blood Tranf: No (N/A) Family Medical History Reviewed Nursing Family Hx No Pertinent Family Hx Physical Exam Vital Signs Vital Signs - First Documented 05/19/22 21:00 Temp 36.9 Pulse 74 Resp 18 B/P (MAP) 120/61 (80) Pulse Ox 97 O2 Delivery Room Air Capillary Refill : Height, Weight, BMI Height: 5'5.00" Weight: 193lbs. 8.0oz. 87.934483my; 28.57 BMI Method:Stated General Appearance: WD/WN, no apparent distress HEENT: PERRL/EOMI, pharynx normal Neck: full range of motion, supple Respiratory: lungs clear, normal breath sounds Cardiovascular: regular rate, rhythm; No no murmur; other (Did have episode of tachycardia on stethoscope evaluation but resolved quickly. This was right after we moved him to the bed. Dizziness remains. Regular rate and rhythm on auscultation afterwards and as noted on monitor.) Gastrointestinal: non tender, soft, other (Insulin pump right lower quadrant area) Back: normal inspection, no CVA tenderness, no vertebral tenderness Extremities: normal range of motion, non-tender Neurologic/Psychiatric: alert, normal mood/affect Crainal Nerves: normal hearing, normal speech, PERRL Coordination/Gait: other (Weak gait and required 1-2 person assist to transfer from wheelchair to bed. Moves all extremities equally. Has left BKA. No obvious focal weakness.) Motor/Sensory: no motor deficit, no sensory deficit Skin: normal color, warm/dry Stroke NIH Stroke Scale Assessment Gaze: Normal (0), Total: Stroke Thrombolytic Exclusion Improving Symptoms: Yes Focused Exam Lactate Level 05/19/22 21:15: Lactic Acid Level 2.17*H 05/19/22 23:15: Lactic Acid Level 0.90 Lactic Acid Level Laboratory Tests Test 05/19/22 21:15 05/19/22 23:15 Lactic Acid Level 2.17 MMOL/L (0.50-2.00) *H 0.90 MMOL/L (0.50-2.00) Progress/Results/Core Measures Results/Orders Lab Results Laboratory Tests Test 05/19/22 21:01 05/19/22 21:05 05/19/22 21:15 05/19/22 23:15 Range/Units Glucometer 112 H 70-110 MG/DL Influenza Type A (RT-PCR) Not Detected Not Detecte Influenza Type B (RT-PCR) Not Detected Not Detecte SARS-CoV-2 RNA (RT-PCR) Not Detected Not Detecte White Blood Count 8.6 4.3-11.0 10^3/uL Red Blood Count 4.39 4.30-5.52 10^6/uL Hemoglobin 12.7 L 13.3-17.7 g/dL Hematocrit 38 L 40-54 % Mean Corpuscular Volume 85 80-99 fL Mean Corpuscular Hemoglobin 29 25-34 pg Mean Corpuscular Hemoglobin Concent 34 32-36 g/dL Red Cell Distribution Width 15.7 H 10.0-14.5 % Platelet Count 302 130-400 10^3/uL Mean Platelet Volume 10.6 9.0-12.2 fL Immature Granulocyte % (Auto) 1 % Neutrophils (%) (Auto) 70 42-75 % Lymphocytes (%) (Auto) 16 12-44 % Monocytes (%) (Auto) 7 0-12 % Eosinophils (%) (Auto) 6 0-10 % Basophils (%) (Auto) 1 0-10 % Neutrophils # (Auto) 6.0 1.8-7.8 10^3/uL Lymphocytes # (Auto) 1.4 1.0-4.0 10^3/uL Monocytes # (Auto) 0.6 0.0-1.0 10^3/uL Eosinophils # (Auto) 0.5 H 0.0-0.3 10^3/uL Basophils # (Auto) 0.1 0.0-0.1 10^3/uL Immature Granulocyte # (Auto) 0.0 0.0-0.1 10^3/uL Sodium Level 134 L 135-145 MMOL/L Potassium Level 4.6 3.6-5.0 MMOL/L Chloride Level 101 98-107 MMOL/L Carbon Dioxide Level 21 21-32 MMOL/L Anion Gap 12 5-14 MMOL/L Blood Urea Nitrogen 36 H 7-18 MG/DL Creatinine 1.74 H 0.60-1.30 MG/DL Estimat Glomerular Filtration Rate 42 BUN/Creatinine Ratio 21 Glucose Level 101 70-105 MG/DL Lactic Acid Level 2.17 *H 0.90 0.50-2.00 MMOL/L Calcium Level 8.9 8.5-10.1 MG/DL Corrected Calcium 9.3 8.5-10.1 MG/DL Magnesium Level 1.9 1.6-2.4 MG/DL Total Bilirubin 0.2 0.1-1.0 MG/DL Aspartate Amino Transf (AST/SGOT) 14 5-34 U/L Alanine Aminotransferase (ALT/SGPT) 8 0-55 U/L Alkaline Phosphatase 107 40-136 U/L Troponin I < 0.30 <0.30 NG/ML C-Reactive Protein 0.90 H <0.50 MG/DL Total Protein 6.9 6.4-8.2 GM/DL Albumin 3.5 3.2-4.5 GM/DL Test 05/19/22 23:43 Range/Units Urine Color YELLOW Urine Clarity CLERA Urine pH 5.0 5-9 Urine Specific [place] 1.025 H 1.016-1.022 Urine Protein 2+ H NEGATIVE Urine Glucose (UA) NEGATIVE NEGATIVE Urine Ketones NEGATIVE NEGATIVE Urine Nitrite NEGATIVE NEGATIVE Urine Bilirubin NEGATIVE NEGATIVE Urine Urobilinogen 0.2 < = 1.0 MG/DL Urine Leukocyte Esterase NEGATIVE NEGATIVE Urine RBC (Auto) TRACE H NEGATIVE Urine RBC 2-5 H /HPF Urine WBC NONE /HPF Urine Squamous Epithelial Cells 0-2 /HPF Urine Crystals NONE /LPF Urine Bacteria TRACE /HPF Urine Casts PRESENT /LPF Urine Hyaline Casts 2-5 H /LPF Urine Granular Casts 0-2 H /LPF Urine Coarse Granular Casts RARE H /LPF Urine Mucus SMALL H /LPF Urine Culture Indicated NO My Orders Orders - ANIKA RAINES MD Cbc With Automated Diff (05/19/22 21:05) Comprehensive Metabolic Panel (05/19/22 21:05) Magnesium (05/19/22 21:05) Ua Culture If Indicated (05/19/22 21:05) Influenza A And B By Pcr (05/19/22 21:05) Crp Fs (05/19/22 21:05) Troponin I Fs (05/19/22 21:05) Chest 1 View Ap/Pa Only (05/19/22 21:05) Ns Iv 500 Ml (Sodium Chloride 0.9%) (05/19/22 21:15) Ekg Tracing (05/19/22 21:05) Monitor-Rhythm Ecg Trace Only (05/19/22 21:05) Covid 19 Inhouse Test (05/19/22 21:05) Lactic Acid Analyzer (05/19/22 21:07) Blood Culture (05/19/22 21:07) Ed Iv/Invasive Line Start (05/19/22 21:39) Ct Head Wo (05/19/22 21:41) Implanted Port: Access (05/19/22 22:19) Ns Iv 500 Ml (Sodium Chloride 0.9%) (05/19/22 23:00) Medications Given in ED Current Medications Medications Dose Ordered Sig/Shay Route Start Time Stop Time Status Last Admin Dose Admin Sodium Chloride 500 ml @ 0 mls/hr Q0M ONCE IV 05/19/22 21:15 05/19/22 21:16 DC 05/19/22 21:38 999 MLS/HR Sodium Chloride 500 ml @ 0 mls/hr Q0M ONCE IV 05/19/22 23:00 05/19/22 23:01 DC 05/19/22 22:57 999 MLS/HR Vital Signs/I&O 05/19/22 21:00 Temp 36.9 Pulse 74 Resp 18 B/P (MAP) 120/61 (80) Pulse Ox 97 O2 Delivery Room Air 05/20/22 00:00 Intake Total 500 ml Balance 500 ml Progress Progress Note : Progress Note Seen and evaluated. IV, labs, EKG and chest x-ray ordered. We will go ahead and check COVID and influenza due to predominance in the community. Normal saline 500 mL bolus ordered. We will check CBC, CMP, troponin, blood culture, lactic acid and UA. I have reviewed previous hospitalization visit and hospitalist notes as well as H&P and echocardiogram from visit in March 2022. Patient was admitted for TIA symptoms and did have CT of the head, CT angiogram of the head and neck and MRI. Only findings were of chronic microvascular disease without focal ischemic event noted. Echocardiogram shows EF of approximately 75% without significant abnormalities but slightly hypertrophic heart. Patient does have history of hypertension. Monitor patient. Differential diagnosis includes cardiac event, electrolyte abnormality, infectious etiology, stroke/TIA. 2138: We are unable to obtain IV access although to get blood draw. I was able to place an 18-gauge catheter to the left antecubital space via ultrasound guidance x1 stick and we got further blood draws including blood cultures. We will go ahead and order CT of the head. I did do stroke scale which was 0 on my assessment. Lactic acid noted to be slightly above 2 I was called by the lab. Further labs to be reviewed. 2141: CBC reviewed and shows normal white count with slightly low hemoglobin and normal platelets without left shift. Chemistry shows essentially normal electrolytes although slightly low sodium at 134. Serum creatinine of 1.74 is consistent with his previous hospitalization. LFTs and mag are normal. Troponin is negative. CRP is slightly elevated. Glucose noted at 101. Lactic acid was 2.17. We are pending UA, chest x-ray and CT of the head. 2145: Chest x-ray shows no acute finding on my interpretation and similar to previous. Pending radiology review. 2125: CT head complete and shows no intracranial hemorrhage on my interpretation but we are pending radiology review. We did access his port as the IV line placed was intermittent. Still pending UA. Monitor patient. 2247: CT notes reviewed. Patient is overall feeling better but has not been able to provide urine. We will repeat normal saline 500 mL bolus. Monitor patient. 0002: Patient is doing much better. He feels like he is at baseline and nursing staff that knows him agrees. I did offer admission but he has declined. He states he feels safe going back home. We did walk him and he was steady and he denied dizziness, chest pain or any other concerns. UA has resulted and does not show nitrites or ketones. It does have findings of concentration with specific gravity of 1.025. Discharged home with return precautions. Patient verbalized understanding instructions and agreement with plan. Initial ECG Impression Date: May 19, 2022 Initial ECG Impression Time: 21:05 Initial ECG Rate: 71 Initial ECG Rhythm: Normal Sinus Comment Sinus rhythm with right ventricular conduction delay. Normal axis. No evidence of ST elevation MN. Similar to 03/26/2022. Interpreted by me. Diagnostic Imaging Diagonstic Imaging: Xray Plain Films/CT/US/NM/MRI: chest Comments [facility]. [place], [place] NAME: EMANUEL CABRERA [facility] REC#: [id number] PT STATUS: REG ER : 1955 PHYSICIAN: ANIKA RAINES MD ADMIT DATE: 05/19/22/ER FS Signed Date of Exam:05/19/22 CHEST 1 VIEW AP/PA ONLY INDICATION: Weakness and dizziness. EXAMINATION: Frontal chest was obtained at 9:38 p.m. COMPARISON: 03/26/2022. Port-A-Cath is unchanged. Heart is normal in size. Mediastinal silhouette is unremarkable. There is hyperinflation compatible with COPD. There is no focal infiltrate or pneumothorax or pleural fluid. IMPRESSION: COPD changes with no acute process in the chest. Dictated by: Dictated on workstation # [id number] Dict: 05/19/222207 Trans: 05/19/222214 [facility] [id number] Interpreted by: NALINI DONG MD Electronically signed by: NALINI DONG MD 05/19/222214 Diagonstic Imaging: CT Plain Films/CT/US/NM/MRI: head Comments [facility] [place] [place] NAME: EMANUEL CABRERA [facility] REC#: [id number] PT STATUS: REG ER : 1955 PHYSICIAN: ANIKA RAINES MD ADMIT DATE: 05/19/22/ER FS Draft Date of Exam:05/19/22 CT HEAD WO INDICATION: Dizziness. TECHNIQUE: Multiple contiguous axial images were obtained through the brain without the use of intravenous contrast. Auto Exposure Controls were utilized during the CT exam to meet ALARA standards for radiation dose reduction. COMPARISON: Noncontrast head CT is compared to 03/26/2022. FINDINGS: There are diffuse atrophic changes. There is no extra-axial fluid collection. No intracranial hemorrhage. No intracranial mass or mass effect. No midline shift. There are fairly extensive low-density changes throughout the deep white matter compatible with chronic ischemic change. The appearance was similar on the previous study. Calvarial windows are unremarkable. There is a retention cyst or polyp in the left maxillary sinus. IMPRESSION: Atrophic changes with extensive chronic changes in the deep white matter, unchanged in appearance compared to 03/26/2022. No acute intracranial finding is apparent. Dictated on workstation # [id number] Dict: 05/19/222212 Trans: 05/19/222223 [facility] [id number] Interpreted by: NALINI DONG MD Electronically signed by: Departure Impression Primary Impression: Dehydration Additional Impression: Dizziness Disposition: 01 HOME, SELF-CARE Condition: Stable Departure-Patient Inst. Decision time for Depature: 00:04 Referrals: SILVIO MATHEW APRN (PCP) Primary Care Physician [facility]/[place] (Family) Primary Care Physician Patient Instructions: Dehydration, Adult ED, Dizziness, Adult ED Add. Discharge Instructions: Follow-up with your doctor in a few days for recheck. Drink plenty of fluids. Continue to monitor and manage your blood sugar levels as you are doing. Return for chest pain, weakness, breathing problems, dizziness, vomiting, uncontrolled blood sugars or other concerns as needed. ANIKA RAINES MD May 19, 2022 21:18
[2022-05-19 21:38] LABS: ALANINE AMINOTRANSFERASE 8 U/L (0-55); ALBUMIN 3.5 GM/DL (3.2-4.5); ALKALINE PHOSPHATASE 107 U/L (40-136); BILIRUBIN,TOTAL 0.2 MG/DL (0.1-1.0); BUN/CREATININE RATIO 21; CALCIUM 8.9 MG/DL (8.5-10.1); CARBON DIOXIDE 21 MMOL/L (21-32); CHLORIDE 101 MMOL/L (98-107); CREATININE SERUM 1.74 MG/DL (0.60-1.30); GFR ESTIMATED 42; GLUCOSE 101 MG/DL (70-105); MAGNESIUM 1.9 MG/DL (1.6-2.4); POTASSIUM 4.6 MMOL/L (3.6-5.0); SODIUM 134 MMOL/L (135-145); TOTAL PROTEIN 6.9 GM/DL (6.4-8.2)
--- NOTE | 2022-05-19 22:15 | Diagnostic Imaging Report ---
INDICATION: Weakness and dizziness. EXAMINATION: Frontal chest was obtained at 9:38 p.m. COMPARISON: 03/26/2022. Port-A-Cath is unchanged. Heart is normal in size. Mediastinal silhouette is unremarkable. There is hyperinflation compatible with COPD. There is no focal infiltrate or pneumothorax or pleural fluid. IMPRESSION: COPD changes with no acute process in the chest. Dictated by: Dictated on workstation # [id number]
--- NOTE | 2022-05-19 22:24 | Diagnostic Imaging Report ---
INDICATION: Dizziness. TECHNIQUE: Multiple contiguous axial images were obtained through the brain without the use of intravenous contrast. Auto Exposure Controls were utilized during the CT exam to meet ALARA standards for radiation dose reduction. COMPARISON: Noncontrast head CT is compared to 03/26/2022. FINDINGS: There are diffuse atrophic changes. There is no extra-axial fluid collection. No intracranial hemorrhage. No intracranial mass or mass effect. No midline shift. There are fairly extensive low-density changes throughout the deep white matter compatible with chronic ischemic change. The appearance was similar on the previous study. Calvarial windows are unremarkable. There is a retention cyst or polyp in the left maxillary sinus. IMPRESSION: Atrophic changes with extensive chronic changes in the deep white matter, unchanged in appearance compared to 03/26/2022. No acute intracranial finding is apparent. Dictated by: Dictated on workstation # [id number]
[2022-05-19 23:51] LABS: BACTERIA,URINE TRACE /HPF; BILIRUBIN,URINE NEGATIVE (NEGATIVE); CLARITY,URINE CLERA; COLOR,URINE YELLOW; GLUCOSE, URINE (UA) NEGATIVE (NEGATIVE); KETONES,URINE NEGATIVE (NEGATIVE); LEUKOCYTE ESTERASE ,URINE NEGATIVE (NEGATIVE); NITRITE,URINE NEGATIVE (NEGATIVE); PROTEIN,URINE 2+ (NEGATIVE); SQUAMOUS EPITHELIAL CELL,UR 0-2 /HPF
[2022-05-19 23:52] LABS: GRANULAR CASTS,URINE 0-2 /LPF
[2022-05-20 00:04] VITALS: BP 155/58
== END 2022-05-20 00:07 | disposition home or self-care (01) ==
LOC: EDUNIT# 20:50 → ER FS 20:54
DX: E86.0 Dehydration (principal); R42 Dizziness and giddiness; I10 Essential (primary) hypertension; E11.621 Type 2 diabetes mellitus with foot ulcer; F17.210 Nicotine dependence, cigarettes, uncomplicated; Z79.4 Long term (current) use of insulin; Z20.822 Contact with and (suspected) exposure to COVID-19; Z28.310 Unvaccinated for COVID-19
CPT/HCPCS: 36415; 70450; 71045; 80053; 81000; 82947; 83605; 83735; 84484; 85025; 86141; 87040; 87636; 93005; 93041

== ENCOUNTER 2022-05-26 21:20 | Emergency (ER) | payer BC, MEDICARE ==
[~2022-05-26] VITALS: Ht 165.1 cm; Wt 75.0 kg
[2022-05-26] MEDS ORDERED: DEXTROSE 10% IV SOLUTION 250 ML IV SCH (21:45)
--- NOTE | 2022-05-26 22:10 | ED General ---
General Chief Complaint: Glucose Problems Stated Complaint: LOW BLOOD SUGAR Source of Information: Patient Exam Limitations: No Limitations History of Present Illness Date Seen by Provider: May 26, 2022 Time Seen by Provider: 21:30 Initial Comments Patient is 67-year-old insulin-dependent diabetic who presents with altered mental status with blood sugar of 40. Patient was at work when he became confused and his continuous glucometer started at beeping alerting staff members who promptly attended the patient were able to give him apple juice peanut butter and crackers. The patient did have recovery of his blood sugar in the 60s then to the 80s. States he has not changed the dose of basal rate in his insulin pump and ate dinner prior to hypoglycemic episode.. He has not been sick lately, but does report loss of appetite and 50 pound weight loss in the past several months. He has not had his basal insulin testing during this period. No other acute symptoms or complaints. Timing/Duration: 1 Hour Severity: Mild Modifying Factors: improves with Other Associated Systoms: Other Allergies and Home Medications Allergies Coded Allergies: metaproterenol (Verified Allergy, Unknown, 12/21/21) Patient Home Medication List Home Medication List Reviewed: Yes Amlodipine Besylate (Amlodipine Besylate) 5 Mg Tablet, 5 MG PO DAILY Prescribed by: NANCY ORR on 04/01/22 112 Aspirin (Aspirin EC) 81 Mg Tablet.dr, 81 MG PO DAILY, (Reported) Entered as Reported by: ANNETTE JONAS on 03/27/22 1152 Benzonatate (Tessalon Perles) 100 Mg Capsule, 200 MG PO TID Prescribed by: NANCY ORR on 04/01/22 112 Hydrocodone/Acetaminophen (Hydrocodone-Acetamin 10-325 mg) 10 Mg-325 Mg Tablet, 1 EA PO Q8H PRN for PAIN-MODERATE (5-7), (Reported) Entered as Reported by: ANNETTE JONAS on 03/27/22 1152 Insulin Lispro (Humalog) 100 Unit/Ml Vial, 1 UNIT SC UD Prescribed by: NANCY ORR on 04/01/22 112 Lisinopril (Lisinopril) 40 Mg Tablet, 40 MG PO DAILY, (Reported) Entered as Reported by: ANNETTE JONAS on 03/27/22 1152 Meclizine HCl (Meclizine HCl) 25 Mg Tablet, 25 MG PO BID PRN for VERTIGO Prescribed by: NANCY ORR on 04/01/22 1123 Pantoprazole Sodium (Pantoprazole Sodium) 40 Mg Tablet.dr, 40 MG PO DAILY, (Reported) Entered as Reported by: SILVIO CHANG on 09/11/18 1336 Zolpidem Tartrate (Ambien) 10 Mg Tablet, 10 MG PO HS PRN for SLEEP, (Reported) Entered as Reported by: ANNETTE JONAS on 03/27/22 1152 Review of Systems Review of Systems Constitutional: see HPI EENTM: see HPI Respiratory: see HPI Cardiovascular: see HPI Gastrointestinal: see HPI Genitourinary: see HPI Musculoskeletal: see HPI Skin: see HPI Psychiatric/Neurological: See HPI Hematologic/Lymphatic: See HPI Immunological/Allergic: see HPI All Other Systems Reviewed Negative Unless Noted: No Past Nzzzzzh-Jaigki-Mykrrq Hx Patient Social History Tobacco Use?: No Immunizations Up To Date PED Vaccines UTD: Yes First/Initial COVID19 Vaccinat: 04/25 Second COVID19 Vaccination Vincent: 05/27 Third COVID19 Vaccination Date: 01/25 Seasonal Allergies Seasonal Allergies: Yes Past Medical History Surgery/Hospitalization HX: DM Surgeries: Yes (L FOOT-MULTIPLE, L Below the Knee Amputation,COLONOSCOPY, CATARACTS) Amputation, Appendectomy, Gallbladder, Orthopedic Respiratory: Yes Pneumonia Currently Using CPAP: No Currently Using BIPAP: No Cardiac: Yes Chronic Edema/Swelling, High Cholesterol, Hypertension, Peripheral Vascular Neurological: Yes (TIA OVER 20 YEARS AGO) Neuropathy, TIA Sexually Transmitted Disease: No Genitourinary: No Bladder Infection Gastrointestinal: No Chronic Constipation, Ulcer, Gall Bladder Disease Musculoskeletal: Yes (RHEUMATOID ARTHRITIS) Arthritis, Rheumatoid Arthritis, Chronic Back Pain, Fractures Endocrine: Yes (HAS INSULIN PUMP) Diabetes, Insulin dep HEENT: Yes (GLASSES) Loss of Vision: Denies Hearing Impairment: Denies Cancer: Yes Prostate Psychosocial: Yes ( INSOMNIA) Sleep Difficulties Integumentary: Yes (DIABETIC ULCER L FOOT resulting in BKA) Blood Disorders: No Adverse Reaction/Blood Tranf: No (N/A) Family Medical History No Pertinent Family Hx Physical Exam Vital Signs Capillary Refill : Height, Weight, BMI Height: 5'5.00" Weight: 193lbs. 8.0oz. 87.605592hw; 28.57 BMI Method:Stated General Appearance: No Apparent Distress, WD/WN Eyes: Bilateral Eye Normal Inspection, Bilateral Eye PERRL, Bilateral Eye EOMI HEENT: PERRL/EOMI, TMs Normal Respiratory: Lungs Clear Cardiovascular: Regular Rate, Rhythm Gastrointestinal: Non Tender, Soft Extremity: Swelling (Left BKA), Other Neurologic/Psychiatric: Alert, Oriented x3 Focused Exam Sepsis Stage: Ruled Out Progress/Results/Core Measures Suspected Sepsis SIRS Temperature: Pulse: Respiratory Rate: Blood Pressure / Mean: Results/Orders My Orders Orders - AMARA CHEATHAM DO Dextrose 10% Iv Solution (D10w 250 Ml Iv (05/26/22 21:45) Accucheck Prn (05/26/22 21:41) Vital Signs/I&O Capillary Refill : Departure Communication (Admissions) Patient with altered mental status secondary to hypoglycemia and poor oral intake. Insulin pump suspended. Blood sugar improved with D10 and oral intake with return to baseline mental status. Patient was able to maintain blood sugar mentation and tolerate oral intake. Will discharge home with instructions to decrease insulin rate by half and eat frequent snacks with complex carbs. Return precautions reviewed. Patient verbalizes understanding agreement discharge instructions prior to departure. Impression Primary Impression: Altered mental status Additional Impression: Hypoglycemia Disposition: 01 HOME, SELF-CARE Condition: Stable Departure-Patient Inst. Decision time for Depature: 22:12 Referrals: SILVIO MATHEW APRN (PCP) Primary Care Physician [facility]/[place] (Family) Primary Care Physician Patient Instructions: Low Blood Sugar, Adult (DC) Add. Discharge Instructions: You were evaluated in the emergency department for low blood sugar and change in mental status. Please decrease the insulin basal infusion rate by one half and eat frequent snacks with complex carbohydrates. Follow-up with your PCP for reevaluation in the next 5 to 7 days for reevaluation. Return ED if new or worsening symptoms. If blood sugar remains low despite eating, suspend insulin pump and contact EMS.. All discharge instructions reviewed with patient and/or family. Voiced understanding. AMARA CHEATHAM DO May 26, 2022 22:10
[2022-05-26] MEDS ORDERED: ACETAMINOPHEN 325 MG TABLET PO ONE (22:30)
[2022-05-26 23:00] VITALS: BP 134/58
== END 2022-05-26 23:00 | disposition home or self-care (01) ==
LOC: EDUNIT# 21:36 → ER FS 21:38
DX: E11.649 Type 2 diabetes mellitus with hypoglycemia without coma (principal); Z79.4 Long term (current) use of insulin; Z96.41 Presence of insulin pump (external) (internal)
CPT/HCPCS: 99283

== ENCOUNTER 2022-05-26 21:55 | Outpatient (RCR) | payer BC, MEDICARE | END 2022-06-06 | disposition home or self-care (01) | LOC: ONC 21:55 | PROVIDERS: ATTEND Radiology Radiation Oncology | DX: C61 Malignant neoplasm of prostate (principal); E11.9 Type 2 diabetes mellitus without complications; E78.00 Pure hypercholesterolemia, unspecified; I10 Essential (primary) hypertension; K21.9 Gastro-esophageal reflux disease without esophagitis ==

== ENCOUNTER 2022-05-27 21:42 | Emergency (ER) | payer BC, MEDICARE ==
[2022-05-27] MEDS ORDERED: LACTATED RINGERS 1,000 ML IV STA (22:19)
[2022-05-27 22:24] LABS: BASOPHILS # (AUTO) 0.1 10^3/uL (0.0-0.1); BASOPHILS % (AUTO) 1 % (0-10); EOSINOPHILS # (AUTO) 0.5 10^3/uL (0.0-0.3); EOSINOPHILS % (AUTO) 7 % (0-10); HEMATOCRIT 38 % (40-54); HEMOGLOBIN 12.7 g/dL (13.3-17.7); LYMPHOCYTES # (AUTO) 1.5 10^3/uL (1.0-4.0); LYMPHOCYTES % (AUTO) 19 % (12-44); MEAN CORPUSCULAR HEMOGLOBIN 29 pg (25-34); MEAN CORPUSCULAR HGB CONC 33 g/dL (32-36); MEAN CORPUSCULAR VOLUME 86 fL (80-99); MEAN PLATELET VOLUME 9.3 fL (9.0-12.2); MONOCYTES # (AUTO) 0.7 10^3/uL (0.0-1.0); MONOCYTES % (AUTO) 8 % (0-12); NEUTROPHILS # (AUTO) 5.2 10^3/uL (1.8-7.8); NEUTROPHILS % (AUTO) 66 % (42-75); PLATELET COUNT 275 10^3/uL (130-400)
[2022-05-27] MEDS ORDERED: ONDANSETRON 4 MG/2 ML (SDV) Z0FRAN IVP ONE (22:30)
[2022-05-27 22:42] LABS: CALCIUM 8.9 MG/DL (8.5-10.1); CREATININE SERUM 1.64 MG/DL (0.60-1.30); POTASSIUM 4.1 MMOL/L (3.6-5.0)
[2022-05-27 22:43] LABS: ALBUMIN 3.7 GM/DL (3.2-4.5); BILIRUBIN,TOTAL 0.2 MG/DL (0.1-1.0); MAGNESIUM 2.1 MG/DL (1.6-2.4)
--- NOTE | 2022-05-27 23:30 | ED General ---
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 The staff went to the front end developer designer, and he was hunched over his table. He was alert, but weak. He has come to the ER numerous times for similar episodes for hypoglycemic episodes. He stated he ate a meal with heavy carbs and bolus himself at 9 PM with just over 14 units of insulin. It was about 45 minutes later that he started feeling like he was having a low. Denies any chest pain, shortness of breath, focal weakness or numbness, fever, vomiting, diarrhea, or any other concerns. Allergies and Home Medications Allergies Coded Allergies: metaproterenol (Verified Allergy, Unknown, 12/21/21) Patient Home Medication List Home Medication List Reviewed: Yes Amlodipine Besylate (Amlodipine Besylate) 5 Mg Tablet, 5 MG PO DAILY Prescribed by: NANCY ORR on 04/01/22 1123 Aspirin (Aspirin EC) 81 Mg Tablet.dr, 81 MG PO DAILY, (Reported) Entered as Reported by: ANNETTE JONAS on 03/27/22 1152 Benzonatate (Tessalon Perles) 100 Mg Capsule, 200 MG PO TID Prescribed by: NANCY ORR on 04/01/22 1123 Hydrocodone/Acetaminophen (Hydrocodone-Acetamin 10-325 mg) 10 Mg-325 Mg Tablet, 1 EA PO Q8H PRN for PAIN-MODERATE (5-7), (Reported) Entered as Reported by: ANNETTE JONAS on 03/27/22 1152 Insulin Lispro (Humalog) 100 Unit/Ml Vial, 1 UNIT SC UD Prescribed by: NANCY ORR on 04/01/22 1123 Lisinopril (Lisinopril) 40 Mg Tablet, 40 MG PO DAILY, (Reported) Entered as Reported by: ANNETTE JONAS on 03/27/22 1152 Meclizine HCl (Meclizine HCl) 25 Mg Tablet, 25 MG PO BID PRN for VERTIGO Prescribed by: NANCY ORR on 04/01/22 1123 Pantoprazole Sodium (Pantoprazole Sodium) 40 Mg Tablet.dr, 40 MG PO DAILY, (Reported) Entered as Reported by: SILVIO CHANG on 09/11/18 1336 Zolpidem Tartrate (Ambien) 10 Mg Tablet, 10 MG PO HS PRN for SLEEP, (Reported) Entered as Reported by: ANNETTE JONAS on 03/27/22 1152 Review of Systems Review of Systems Constitutional: No fever EENTM: no symptoms reported Respiratory: no symptoms reported Cardiovascular: no symptoms reported Gastrointestinal: no symptoms reported Genitourinary: no symptoms reported Musculoskeletal: no symptoms reported, joint pain Psychiatric/Neurological: See HPI Hematologic/Lymphatic: No Symptoms Reported All Other Systems Reviewed Negative Unless Noted: Yes Past Fvfaumv-Iqjkpq-Vjtfpp Hx Patient Social History Tobacco Use?: No Immunizations Up To Date PED Vaccines UTD: Yes First/Initial COVID19 Vaccinat: 04/25 Second COVID19 Vaccination Vincent: 05/27 Third COVID19 Vaccination Date: 01/25 Seasonal Allergies Seasonal Allergies: Yes Past Medical History Surgery/Hospitalization HX: DM Surgeries: Yes (L FOOT-MULTIPLE, L Below the Knee Amputation,COLONOSCOPY, CATARACTS) Amputation, Appendectomy, Gallbladder, Orthopedic Respiratory: Yes Pneumonia Currently Using CPAP: No Currently Using BIPAP: No Cardiac: Yes Chronic Edema/Swelling, High Cholesterol, Hypertension, Peripheral Vascular Neurological: Yes (TIA OVER 20 YEARS AGO) Neuropathy, TIA Sexually Transmitted Disease: No Genitourinary: No Bladder Infection Gastrointestinal: No Chronic Constipation, Ulcer, Gall Bladder Disease Musculoskeletal: Yes (RHEUMATOID ARTHRITIS) Arthritis, Rheumatoid Arthritis, Chronic Back Pain, Fractures Endocrine: Yes (HAS INSULIN PUMP) Diabetes, Insulin dep HEENT: Yes (GLASSES) Loss of Vision: Denies Hearing Impairment: Denies Cancer: Yes Prostate Psychosocial: Yes ( INSOMNIA) Sleep Difficulties Integumentary: Yes (DIABETIC ULCER L FOOT resulting in BKA) Blood Disorders: No Adverse Reaction/Blood Tranf: No (N/A) Family Medical History No Pertinent Family Hx Physical Exam Vital Signs Vital Signs - First Documented 05/27/22 21:45 Temp 36.1 Pulse 75 Resp 12 B/P (MAP) 111/62 (78) Pulse Ox 97 O2 Delivery Room Air Capillary Refill : Height, Weight, BMI Height: 5'5.00" Weight: 193lbs. 8.0oz. 87.030600vp; 28.57 BMI Method:Stated General Appearance: Other (Alert, hunched over) Eyes: Bilateral Eye Normal Inspection HEENT: PERRL/EOMI, Normal ENT Inspection, Pharynx Normal Neck: Full Range of Motion, Normal Inspection, Non Tender, Supple Respiratory: Chest Non Tender, Lungs Clear, Normal Breath Sounds, No Accessory Muscle Use, No Respiratory Distress Cardiovascular: Regular Rate, Rhythm, No Edema, Normal Peripheral Pulses Gastrointestinal: Normal Bowel Sounds, Non Tender, Soft; No Distended, No Guarding Back: Normal Inspection, No CVA Tenderness, No Vertebral Tenderness Extremity: Normal Capillary Refill, Normal Inspection, Normal Range of Motion, Non Tender, No Calf Tenderness, No Pedal Edema Neurologic/Psychiatric: Alert, Oriented x3, No Motor/Sensory Deficits, Normal Mood/Affect Skin: Normal Color, Warm/Dry Lymphatic: No Adenopathy Progress/Results/Core Measures Suspected Sepsis SIRS Temperature: Pulse: Respiratory Rate: Laboratory Tests 05/27/22 22:15: White Blood Count 8.0 Blood Pressure / Mean: Laboratory Tests 05/27/22 22:15: Creatinine 1.64H, Platelet Count 275, Total Bilirubin 0.2 Results/Orders Lab Results Laboratory Tests Test 05/27/22 22:10 05/27/22 22:15 05/27/22 22:52 05/28/22 00:34 Range/Units Glucometer 97 83 217 H 70-110 MG/DL White Blood Count 8.0 4.3-11.0 10^3/uL Red Blood Count 4.42 4.30-5.52 10^6/uL Hemoglobin 12.7 L 13.3-17.7 g/dL Hematocrit 38 L 40-54 % Mean Corpuscular Volume 86 80-99 fL Mean Corpuscular Hemoglobin 29 25-34 pg Mean Corpuscular Hemoglobin Concent 33 32-36 g/dL Red Cell Distribution Width 15.8 H 10.0-14.5 % Platelet Count 275 130-400 10^3/uL Mean Platelet Volume 9.3 9.0-12.2 fL Immature Granulocyte % (Auto) 0 % Neutrophils (%) (Auto) 66 42-75 % Lymphocytes (%) (Auto) 19 12-44 % Monocytes (%) (Auto) 8 0-12 % Eosinophils (%) (Auto) 7 0-10 % Basophils (%) (Auto) 1 0-10 % Neutrophils # (Auto) 5.2 1.8-7.8 10^3/uL Lymphocytes # (Auto) 1.5 1.0-4.0 10^3/uL Monocytes # (Auto) 0.7 0.0-1.0 10^3/uL Eosinophils # (Auto) 0.5 H 0.0-0.3 10^3/uL Basophils # (Auto) 0.1 0.0-0.1 10^3/uL Immature Granulocyte # (Auto) 0.0 0.0-0.1 10^3/uL Sodium Level 139 135-145 MMOL/L Potassium Level 4.1 3.6-5.0 MMOL/L Chloride Level 104 98-107 MMOL/L Carbon Dioxide Level 23 21-32 MMOL/L Anion Gap 12 5-14 MMOL/L Blood Urea Nitrogen 29 H 7-18 MG/DL Creatinine 1.64 H 0.60-1.30 MG/DL Estimat Glomerular Filtration Rate 45 BUN/Creatinine Ratio 18 Glucose Level 87 70-105 MG/DL Calcium Level 8.9 8.5-10.1 MG/DL Corrected Calcium 9.1 8.5-10.1 MG/DL Magnesium Level 2.1 1.6-2.4 MG/DL Total Bilirubin 0.2 0.1-1.0 MG/DL Aspartate Amino Transf (AST/SGOT) 12 5-34 U/L Alanine Aminotransferase (ALT/SGPT) 8 0-55 U/L Alkaline Phosphatase 109 40-136 U/L Total Protein 7.0 6.4-8.2 GM/DL Albumin 3.7 3.2-4.5 GM/DL Lipase 14 8-78 U/L My Orders Orders - NYA CODY MD Cbc With Automated Diff (05/27/22 22:19) Comprehensive Metabolic Panel (05/27/22 22:19) Lipase (05/27/22 22:19) Magnesium (05/27/22 22:19) Ua Culture If Indicated (05/27/22 22:19) Lactated Ringers (Lr 1000 Ml Iv Solution (05/27/22 22:19) Ondansetron Injection (Zofran Injectio (05/27/22 22:30) Medications Given in ED Current Medications Medications Dose Ordered Sig/Shay Route Start Time Stop Time Status Last Admin Dose Admin Ondansetron HCl 4 mg ONCE ONCE IVP 05/27/22 22:30 05/27/22 22:31 DC 05/27/22 22:40 4 MG Vital Signs/I&O 05/27/22 05/28/22 21:45 00:50 Temp 36.1 36.0 Pulse 75 79 Resp 12 21 B/P (MAP) 111/62 (78) 166/71 Pulse Ox 97 96 O2 Delivery Room Air Room Air 05/28/22 00:00 Intake Total 2000 ml Balance 2000 ml Capillary Refill : Point of Care Testing Finger Stick Blood Glucose: 83 Blood Glucose Action Taken: eating PB/Tobias cracker, apple juice was altered AMS, better Progress Note : Progress Note 67-year-old male with above history coming in due to decreased mental status and concerns for low blood sugar. We immediately turned his insulin pump off. 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 He has had numerous episodes recently where he had low blood sugar. We were unable to get into our glucometer because he was not a registered patient. We assumed he had a low so gave him 2 different apple juices followed by crackers with peanut butter. Eventually once he was able to get registered and we were able to check his glucose it was in the 70s. I suspect it was very low. He did just bolus himself 45 minutes prior, but he thought it was appropriate based on the meal he was getting. He has lost a lot of weight recently, and I suspect he is just more sensitive to his insulin. He has chronic kidney disease as well which has been stable. An IV was placed by me with ultrasound guidance on 1 attempt. Basic labs were obtained and seem similar to his prior baseline from last night when this occurred. I have for the patient admission to the hospital, but he is adamant he wants to go home and sleep. He is alert and oriented and able to discuss the risk and benefits of staying versus going. He does have capacity to make this decision at this time. We will continue to feed him, monitor him and recheck his glucose before we are sending home to be sure he will not have a hypoglycemic event unmonitored. On reassessment his glucose is around 200, mental status is back to his baseline. I offered the patient admission again, he is adamantly declining. I told him he should not work until he follows up with his doctor and can get his insulin regimen adjusted since he has had some many lows recently. Departure Impression Primary Impression: Hypoglycemia associated with diabetes Disposition: HOME, SELF-CARE Condition: Improved Departure-Patient Inst. Decision time for Depature: 00:37 Referrals: SILVIO MATHEW APRN (PCP) Primary Care Physician [facility] (Family) Primary Care Physician Patient Instructions: Low Blood Sugar, Adult ED Add. Discharge Instructions: Please call your doctor on Sunday and get an urgent appointment. Please do not work until you have done this so they can adjust your insulin regimen so that you can stop having such dangerous low blood sugars. Work/School Note: Work Release Form Date Seen in the Emergency Department: May 28, 2022 Return to Work: May 30, 2022 Restrictions: Need Release from Doctor NYA CODY MD May 27, 2022 23:30
[2022-05-28 00:50] VITALS: BP 166/71
== END 2022-05-28 00:50 | disposition home or self-care (01) ==
LOC: EDUNIT# 21:42 → ER FS 22:00
DX: E11.649 Type 2 diabetes mellitus with hypoglycemia without coma (principal); E11.22 Type 2 diabetes mellitus with diabetic chronic kidney disease; N18.9 Chronic kidney disease, unspecified; Z79.4 Long term (current) use of insulin; Z89.512 Acquired absence of left leg below knee
CPT/HCPCS: 36415; 80053; 82947; 83690; 83735; 85025; 99291; 99292

== ENCOUNTER 2022-07-22 20:56 | Inpatient (IN) | payer BC, MEDICARE ==
[~2022-07-22] VITALS: Ht 165.1 cm; Wt 74.2 kg
[2022-07-22 21:11] LABS: BASOPHILS % (AUTO) 0 % (0-10); EOSINOPHILS # (AUTO) 0.3 10^3/uL (0.0-0.3); EOSINOPHILS % (AUTO) 3 % (0-10); HEMATOCRIT 38 % (40-54); HEMOGLOBIN 12.5 g/dL (13.3-17.7); LYMPHOCYTES # (AUTO) 1.2 10^3/uL (1.0-4.0); LYMPHOCYTES % (AUTO) 10 % (12-44); MEAN CORPUSCULAR HEMOGLOBIN 28 pg (25-34); MEAN CORPUSCULAR HGB CONC 33 g/dL (32-36); MEAN CORPUSCULAR VOLUME 86 fL (80-99); MEAN PLATELET VOLUME 9.7 fL (9.0-12.2); MONOCYTES # (AUTO) 0.7 10^3/uL (0.0-1.0); MONOCYTES % (AUTO) 6 % (0-12); NEUTROPHILS # (AUTO) 9.4 10^3/uL (1.8-7.8); NEUTROPHILS % (AUTO) 81 % (42-75); PLATELET COUNT 384 10^3/uL (130-400); WHITE BLOOD COUNT 11.7 10^3/uL (4.3-11.0)
[2022-07-22 21:29] LABS: ALANINE AMINOTRANSFERASE 7 U/L (0-55); ALBUMIN 3.3 GM/DL (3.2-4.5); ALKALINE PHOSPHATASE 101 U/L (40-136); BILIRUBIN,TOTAL 0.2 MG/DL (0.1-1.0); BUN/CREATININE RATIO 21; CALCIUM 8.5 MG/DL (8.5-10.1); CARBON DIOXIDE 22 MMOL/L (21-32); CHLORIDE 101 MMOL/L (98-107); CREATININE SERUM 2.25 MG/DL (0.60-1.30); GFR ESTIMATED 31; GLUCOSE 220 MG/DL (70-105); POTASSIUM 3.9 MMOL/L (3.6-5.0); SODIUM 135 MMOL/L (135-145); TOTAL PROTEIN 6.8 GM/DL (6.4-8.2)
[2022-07-22] MEDS ORDERED: ONDANSETRON 4 MG/2 ML (SDV) Z0FRAN IVP ONE (21:30)
--- NOTE | 2022-07-22 21:36 | ED General ---
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 Patient last ate approximately 2 hours prior to ED arrival. He has a [employer] insulin pump with CGM. His blood sugars are in the 100- 190 range in the past 2 hours. He denies blurred vision, headache, chest pain shortness of breath. No focal extremity weakness or loss of sensation. Denies abdominal pain, vomiting diarrhea sweats. Patient has had similar episodes weakness with confusion which have previously been attributed to low blood sugar. No other symptoms or complaints. History is limited by the patient's clinical condition. Timing/Duration: Other (5 minutes) Severity: Moderate Associated Systoms: Other Allergies and Home Medications Allergies Coded Allergies: metaproterenol (Verified Allergy, Unknown, 12/21/21) Patient Home Medication List Home Medication List Reviewed: Yes Amlodipine Besylate (Amlodipine Besylate) 5 Mg Tablet, 5 MG PO DAILY Prescribed by: NANCY ORR on 04/01/22 1123 Aspirin (Aspirin EC) 81 Mg Tablet.dr, 81 MG PO DAILY, (Reported) Entered as Reported by: ANNETTE JONAS on 03/27/22 1152 Benzonatate (Tessalon Perles) 100 Mg Capsule, 200 MG PO TID Prescribed by: NANCY ORR on 04/01/22 1123 Hydrocodone/Acetaminophen (Hydrocodone-Acetamin 10-325 mg) 10 Mg-325 Mg Tablet, 1 EA PO Q8H PRN for PAIN-MODERATE (5-7), (Reported) Entered as Reported by: ANNETTE JONAS on 03/27/22 1152 Insulin Lispro (Humalog) 100 Unit/Ml Vial, 1 UNIT SC UD Prescribed by: NANCY ORR on 04/01/22 1123 Lisinopril (Lisinopril) 40 Mg Tablet, 40 MG PO DAILY, (Reported) Entered as Reported by: ANNETTE JONAS on 03/27/22 1152 Meclizine HCl (Meclizine HCl) 25 Mg Tablet, 25 MG PO BID PRN for VERTIGO Prescribed by: NANCY ORR on 04/01/22 1123 Pantoprazole Sodium (Pantoprazole Sodium) 40 Mg Tablet.dr, 40 MG PO DAILY, (Reported) Entered as Reported by: SILVIO CHANG on 09/11/18 1336 Zolpidem Tartrate (Ambien) 10 Mg Tablet, 10 MG PO HS PRN for SLEEP, (Reported) Entered as Reported by: ANNETTE JONAS on 03/27/22 1152 Review of Systems Review of Systems Constitutional: see HPI EENTM: see HPI Respiratory: see HPI Cardiovascular: see HPI Gastrointestinal: see HPI Genitourinary: see HPI Musculoskeletal: see HPI Skin: see HPI Psychiatric/Neurological: See HPI Hematologic/Lymphatic: See HPI Immunological/Allergic: see HPI All Other Systems Reviewed Negative Unless Noted: No Past Vtzfeqb-Ilahxw-Xdtlfk Hx Patient Social History Tobacco Use?: Yes Tobacco type used: Cigarettes Smoking Status: Current Everyday Smoker Use of E-Cig and/or Vaping dev: No Substance use?: No Alcohol Use?: Yes Alcohol Frequency: Once in a while Immunizations Up To Date PED Vaccines UTD: Yes Influenza Vaccine Up-to-Date: Yes; Up-to-Date First/Initial COVID19 Vaccinat: 04/25 Second COVID19 Vaccination Vincent: 05/27 Third COVID19 Vaccination Date: 01/25 COVID19 Vaccine [employer] Seasonal Allergies Seasonal Allergies: Yes Past Medical History Surgery/Hospitalization HX: Insulin dependent DM, Left BKA, Appendectomy, Gallbladder, TIA, Rheumatoid Arthritis, Prostate CA Surgeries: Yes (L FOOT-MULTIPLE, L Below the Knee Amputation,COLONOSCOPY, CATARACTS) Amputation, Appendectomy, Gallbladder, Orthopedic Respiratory: Yes Pneumonia Currently Using CPAP: No Currently Using BIPAP: No Cardiac: Yes Chronic Edema/Swelling, High Cholesterol, Hypertension, Peripheral Vascular Neurological: Yes (TIA OVER 20 YEARS AGO) Neuropathy, TIA Sexually Transmitted Disease: No Genitourinary: No Bladder Infection Gastrointestinal: No Chronic Constipation, Ulcer, Gall Bladder Disease Musculoskeletal: Yes (RHEUMATOID ARTHRITIS) Arthritis, Rheumatoid Arthritis, Chronic Back Pain, Fractures Endocrine: Yes (HAS INSULIN PUMP) Diabetes, Insulin dep HEENT: Yes (GLASSES) Loss of Vision: Denies Hearing Impairment: Denies Cancer: Yes Prostate Psychosocial: Yes ( INSOMNIA) Sleep Difficulties Integumentary: Yes (DIABETIC ULCER L FOOT resulting in BKA) Blood Disorders: No Adverse Reaction/Blood Tranf: No (N/A) Family Medical History No Pertinent Family Hx Physical Exam Vital Signs Vital Signs - First Documented 07/22/22 20:56 Temp 36.5 Pulse 72 Resp 18 B/P (MAP) 125/52 (76) Pulse Ox 97 O2 Delivery Room Air Capillary Refill : Height, Weight, BMI Height: 5'5.00" Weight: 193lbs. 8.0oz. 87.995977wj; 28.57 BMI Method:Stated General Appearance: Other (Acutely ill, fatigued and weak appearing.) Eyes: Bilateral Eye Normal Inspection, Bilateral Eye PERRL, Bilateral Eye EOMI HEENT: Normal ENT Inspection, Pharynx Normal Neck: Supple Gastrointestinal: Soft Back: Normal Inspection Neurologic/Psychiatric: Alert, No Motor/Sensory Deficits, Other (Confused) Focused Exam Sepsis Stage: Sepsis Possible Source: Genitouriary Time of Focused Exam: 21:00 Respiratory: Lungs Clear Cardiovascular: Regular Rate, Rhythm Capillary Refill: NONE Skin: normal color Within 3hrs of presentation: Admin ABX, Blood cultures prior to ABX's, Focus exam Progress/Results/Core Measures Suspected Sepsis SIRS Temperature: Pulse: Respiratory Rate: Laboratory Tests 07/22/22 21:00: White Blood Count 11.7H Blood Pressure / Mean: Laboratory Tests 07/22/22 21:00: Creatinine 2.25H, Platelet Count 384, Total Bilirubin 0.2 Results/Orders Lab Results Laboratory Tests Test 07/22/22 21:00 07/22/22 21:06 07/22/22 22:00 Range/Units White Blood Count 11.7 H 4.3-11.0 10^3/uL Red Blood Count 4.44 4.30-5.52 10^6/uL Hemoglobin 12.5 L 13.3-17.7 g/dL Hematocrit 38 L 40-54 % Mean Corpuscular Volume 86 80-99 fL Mean Corpuscular Hemoglobin 28 25-34 pg Mean Corpuscular Hemoglobin Concent 33 32-36 g/dL Red Cell Distribution Width 15.2 H 10.0-14.5 % Platelet Count 384 130-400 10^3/uL Mean Platelet Volume 9.7 9.0-12.2 fL Immature Granulocyte % (Auto) 1 % Neutrophils (%) (Auto) 81 H 42-75 % Lymphocytes (%) (Auto) 10 L 12-44 % Monocytes (%) (Auto) 6 0-12 % Eosinophils (%) (Auto) 3 0-10 % Basophils (%) (Auto) 0 0-10 % Neutrophils # (Auto) 9.4 H 1.8-7.8 10^3/uL Lymphocytes # (Auto) 1.2 1.0-4.0 10^3/uL Monocytes # (Auto) 0.7 0.0-1.0 10^3/uL Eosinophils # (Auto) 0.3 0.0-0.3 10^3/uL Basophils # (Auto) 0.0 0.0-0.1 10^3/uL Immature Granulocyte # (Auto) 0.1 0.0-0.1 10^3/uL Sodium Level 135 135-145 MMOL/L Potassium Level 3.9 3.6-5.0 MMOL/L Chloride Level 101 98-107 MMOL/L Carbon Dioxide Level 22 21-32 MMOL/L Anion Gap 12 5-14 MMOL/L Blood Urea Nitrogen 48 H 7-18 MG/DL Creatinine 2.25 H 0.60-1.30 MG/DL Estimat Glomerular Filtration Rate 31 BUN/Creatinine Ratio 21 Glucose Level 220 H 70-105 MG/DL Calcium Level 8.5 8.5-10.1 MG/DL Corrected Calcium 9.1 8.5-10.1 MG/DL Total Bilirubin 0.2 0.1-1.0 MG/DL Aspartate Amino Transf (AST/SGOT) 11 5-34 U/L Alanine Aminotransferase (ALT/SGPT) 7 0-55 U/L Alkaline Phosphatase 101 40-136 U/L Troponin I < 0.30 <0.30 NG/ML Total Protein 6.8 6.4-8.2 GM/DL Albumin 3.3 3.2-4.5 GM/DL Glucometer 197 H 70-110 MG/DL Urine Color YELLOW Urine Clarity TURBID Urine pH 6.0 5-9 Urine Specific [place] 1.025 H 1.016-1.022 Urine Protein 2+ H NEGATIVE Urine Glucose (UA) NEGATIVE NEGATIVE Urine Ketones NEGATIVE NEGATIVE Urine Nitrite NEGATIVE NEGATIVE Urine Bilirubin NEGATIVE NEGATIVE Urine Urobilinogen 0.2 < = 1.0 MG/DL Urine Leukocyte Esterase 3+ H NEGATIVE Urine RBC (Auto) 3+ H NEGATIVE Urine RBC /HPF Urine WBC TNTC H /HPF Urine Crystals NONE /LPF Urine Bacteria /HPF Urine Casts NONE /LPF Urine Mucus NEGATIVE /LPF Urine Culture Indicated YES My Orders Orders - AMARA CHEATHAM DO Cbc With Automated Diff (07/22/22 20:58) Comprehensive Metabolic Panel (07/22/22 20:58) Ekg Tracing (07/22/22 20:58) Accucheck 2 Hr Postpr & Fastin 06,0930,1430,1930 (07/22/22 20:58) Troponin I Fs (07/22/22 20:58) Urinalysis (07/22/22 20:58) Ondansetron Injection (Zofran Injectio (07/22/22 21:30) Ct Head Wo (07/22/22 21:30) Chest 1 View Ap/Pa Only (07/22/22 21:38) Urine Culture (07/22/22 22:00) Ceftriaxone 1 Gm Pre-Mix (Rocephin 1 Gm (07/22/22 22:15) Ed Admission (Communication) (07/22/22 22:33) Blood Culture (07/22/22 22:34) Medications Given in ED Current Medications Medications Dose Ordered Sig/Shay Route Start Time Stop Time Status Last Admin Dose Admin Ceftriaxone Sodium/Dextrose 50 ml @ 100 mls/hr ONCE ONCE IV 07/22/22 22:15 07/22/22 22:44 07/22/22 22:23 100 MLS/HR Ondansetron HCl 4 mg ONCE ONCE IVP 07/22/22 21:30 07/22/22 21:31 DC 07/22/22 21:49 4 MG Vital Signs/I&O 07/22/22 20:56 Temp 36.5 Pulse 72 Resp 18 B/P (MAP) 125/52 (76) Pulse Ox 97 O2 Delivery Room Air Capillary Refill : Point of Care Testing Finger Stick Blood Glucose: 197 Blood Glucose Action Taken: DR. CHEATHAM NOTIFIED Departure Communication (Admissions) CT head: No acute findings. Chest x-ray: Mild pulmonary vascular congestion Metabolic encephalopathy likely secondary to UTI. CT head acute, no focal deficits. Blood sugars and vital signs stable. IV fluids and antibiotics given. Patient not given 30 mL/kg bolus due to findings of pulmonary vascular congestion and concern for fluid overload. Dr. Cm to admit Impression Primary Impression: Acute encephalopathy Additional Impressions: Urinary tract infection Sepsis Disposition: ADMITTED INPATIENT Condition: Stable Admissions Decision to Admit Reason: Admit from ER (General) Decision to Admit/Date: Jul 22, 2022 Time/Decision to Admit Time: 22:20 Transfer Method of Transfer: EMS Departure-Patient Inst. Referrals: SILVIO MATHEW APRN (PCP) Primary Care Physician [facility] (Family) Primary Care Physician AMARA CHEATHAM DO Jul 22, 2022 21:36
[2022-07-22 22:04] LABS: BILIRUBIN,URINE NEGATIVE (NEGATIVE); COLOR,URINE YELLOW; GLUCOSE, URINE (UA) NEGATIVE (NEGATIVE); KETONES,URINE NEGATIVE (NEGATIVE); LEUKOCYTE ESTERASE ,URINE 3+ (NEGATIVE); NITRITE,URINE NEGATIVE (NEGATIVE); PROTEIN,URINE 2+ (NEGATIVE)
--- NOTE | 2022-07-22 22:04 | Diagnostic Imaging Report ---
INDICATION: 67-year-old male with shortness of breath. COMPARISONS: 05/19/2022. FINDINGS: Single view chest shows the cardiac contour to be within normal limits. Mild central venous congestion is seen. No consolidation is present. There is no effusion or pneumothorax. There is aortic calcific atherosclerosis. There is a right subclavian Mediport, stable. Soft tissues and bony thorax are unremarkable. IMPRESSION: 1. Some mild central venous congestion is noted. Otherwise no acute consolidations. 2. Aortic calcific atherosclerosis is noted. 3. Stable right subclavian Mediport. Dictated by: Dictated on workstation # [id number]
[2022-07-22 22:08] LABS: CLARITY,URINE TURBID; WBC,URINE TNTC /HPF
--- NOTE | 2022-07-22 22:09 | Diagnostic Imaging Report ---
PROCEDURE: CT head without contrast. TECHNIQUE: Multiple contiguous axial images were obtained through the brain without the use of intravenous contrast. Auto Exposure Controls were utilized during the CT exam to meet ALARA standards for radiation dose reduction. INDICATION: 67-year-old male presents with altered mental status. COMPARISONS: 05/19/2022. FINDINGS: Midline structures are not displaced. There is advanced for age generalized atrophy with involutional changes with a frontal lobe predominance to the atrophy. There is extensive background chronic areas of microvascular ischemic change. Vazquez-white differentiation is maintained and there is no sulcal effacement. There are no abnormal extra-axial fluid collections or hemorrhage. Basilar cisterns appear normal. There is calcific atherosclerosis within the carotid siphons and visualized vertebral arteries. Sinuses, orbits and mastoid air cells are unremarkable. Bone windows show no calvarial changes. IMPRESSION: Slightly advanced for age atrophy with involutional changes with a slight frontal lobe predominance to the atrophy. There are extensive background chronic areas of microvascular ischemic change. There is also calcific atherosclerosis within the carotid siphons and visualized vertebral arteries. Overall, no acute findings identified by nonenhanced CT criteria. Dictated by: Dictated on workstation # [id number]
[2022-07-22] MEDS ORDERED: cefTRIAXone 1 GM PRE-MIX 50 ML IV ONE (22:15)
[2022-07-23 00:20] VITALS: BP 161/74
[2022-07-23] MEDS ORDERED: ONDANSETRON 4 MG/2 ML (SDV) Z0FRAN IV PRN (00:30)
[2022-07-23] MEDS: NS IV 1000 ML 1,000 ML IV SCH ×2 (00:56→14:02)
[2022-07-23 03:18] VITALS: BP 154/71
[2022-07-23] MEDS ORDERED: ONDA4TAB11 SL (05:18)
[2022-07-23 06:02] LABS: BASOPHILS # (AUTO) 0.1 10^3/uL (0.0-0.1); BASOPHILS % (AUTO) 1 % (0-10); EOSINOPHILS # (AUTO) 0.3 10^3/uL (0.0-0.3); EOSINOPHILS % (AUTO) 2 % (0-10); HEMATOCRIT 35 % (40-54); HEMOGLOBIN 11.3 g/dL (13.3-17.7); LYMPHOCYTES # (AUTO) 1.3 10^3/uL (1.0-4.0); LYMPHOCYTES % (AUTO) 11 % (12-44); MEAN CORPUSCULAR HEMOGLOBIN 28 pg (25-34); MEAN CORPUSCULAR HGB CONC 32 g/dL (32-36); MEAN CORPUSCULAR VOLUME 88 fL (80-99); MEAN PLATELET VOLUME 9.7 fL (9.0-12.2); MONOCYTES # (AUTO) 0.9 10^3/uL (0.0-1.0); MONOCYTES % (AUTO) 7 % (0-12); NEUTROPHILS # (AUTO) 9.4 10^3/uL (1.8-7.8); NEUTROPHILS % (AUTO) 78 % (42-75); PLATELET COUNT 357 10^3/uL (130-400); WHITE BLOOD COUNT 12.1 10^3/uL (4.3-11.0)
[2022-07-23 06:22] LABS: CALCIUM 8.3 MG/DL (8.5-10.1); CREATININE SERUM 2.08 MG/DL (0.60-1.30); POTASSIUM 4.6 MMOL/L (3.6-5.0)
[2022-07-23] MEDS ORDERED: inSUlin ASPART (NovoLOG) 1 UNIT/0.01 ML (CHARGE PER UNIT) SC ONE ×2 (07:30→11:45)
[2022-07-23 07:49] VITALS: BP 176/75
[2022-07-23] MEDS: PANTOPRAZOLE 40 MG (PROTONIX) TAB PO SCH (07:59)
[2022-07-23] MEDS ORDERED: lisINopril 20 MG (PRINIVIL) TABLET PO SCH (09:00)
--- NOTE | 2022-07-23 10:08 | History & Physical-Hospitalist ---
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 Patient last ate approximately 2 hours prior to ED arrival. He has a Medtronic insulin pump with CGM. His blood sugars are in the 100- 190 range in the past 2 hours. He denies blurred vision, headache, chest pain shortness of breath. No focal extremity weakness or loss of sensation. Denies abdominal pain, vomiting diarrhea sweats. Patient has had similar episodes weakness with confusion which have previously been attributed to low blood sugar. No other symptoms or complaints. History is limited by the patient's clinical condition. Upon my arrival the patient was alert and oriented. He did not appear to be in acute distress. 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 He reports no past history of known sepsis or urinary tract infe ction that he recalls. He had no night sweats chills fever dysuria or any change in urinary frequency and denied flank pain. Date Seen 07/23/22 Time Seen by a Provider: 07:00 Attending Physician Tiara Robertson Aprn PCP Admitting Physician: Floyd Torre MD Attending Physician: Floyd Torre MD Referring Physician Date of Admission Jul 23, 2022 at 00:06 Home Medications & Allergies Home Medications Reviewed patient Home Medication Reconciliation performed by pharmacy medication reconciliations rf test technician and/or nursing. Patients Allergies have been reviewed. Allergies Allergies Coded Allergies metaproterenol (Verified Allergy, Unknown, 12/21/21) Past Kizgqti-Qgqses-Viqzkt Hx Patient Social History Tobacco Use?: Yes Tobacco type used: Cigarettes Smoking Status: Current Everyday Smoker Smokeless Tobacco Frequency: Never a User Use of E-Cig and/or Vaping dev: No Substance use?: No Alcohol Use?: Yes Alcohol Frequency: Once in a while Pt feels they are or have been: No Immunizations Up To Date Date of Influenza Vaccine: Feb 04, 2022 First/Initial COVID19 Vaccinat: 04/25 Second COVID19 Vaccination Vincent: 05/27 Tetanus Booster (TDap): More Than 5 Years Hepatitis A: Yes Hepatitis B: Yes PED Vaccines UTD: Yes Date of Pneumonia Vaccine: Dec 12, 2017 Seasonal Allergies Seasonal Allergies: Yes Current Status Advance Directives: No Communicates: Verbally Primary Language: Nepalese Preferred Spoken Language: Nepalese Is interpretation needed?: No Implanted or Applied Medical D: Insulin pump, Stents Past Medical History Surgeries: Amputation, Appendectomy, Gallbladder, Orthopedic Pneumonia Currently Using CPAP: No Currently Using BIPAP: No Chronic Edema/Swelling, High Cholesterol, Hypertension, Peripheral Vascular Neuropathy, TIA Sexually Transmitted Disease: No Bladder Infection Chronic Constipation, Ulcer, Gall Bladder Disease Arthritis, Rheumatoid Arthritis, Chronic Back Pain, Fractures Diabetes, Insulin dep Loss of Vision: Denies Hearing Impairment: Denies Prostate Sleep Difficulties Blood Disorders: No Adverse Reaction/Blood Tranf: No (N/A) Family Medical History No Pertinent Family Hx Review of Systems Constitutional: see HPI Physical Exam Physical Exam Vital Signs Vital Signs - First Documented 07/22/22 20:56 Temp 36.5 Pulse 72 Resp 18 B/P (MAP) 125/52 (76) Pulse Ox 97 O2 Delivery Room Air Capillary Refill : NONE Height, Weight, BMI Height: 5'5.00" Weight: 193lbs. 8.0oz. 87.659161dn; 27.22 BMI Method:Stated General Appearance: No Apparent Distress Neck: Full Range of Motion, Normal Inspection Respiratory: Chest Non Tender, Lungs Clear, Normal Breath Sounds, No Accessory Muscle Use, No Respiratory Distress Cardiovascular: Regular Rate, Rhythm, No Edema, No Gallop, No JVD, No Murmur, Normal Peripheral Pulses Gastrointestinal: Normal Bowel Sounds, No Organomegaly, No Pulsatile Mass, Non Tender, Soft Extremity: Other (Left BKA unremarkable stump no cyanosis clubbing or edema other extremity warm. No sores or callus formation noted.) Neurologic/Psychiatric: Alert, Other ( Oriented x2) Results Results/Procedures Labs Laboratory Tests 07/22/22 21:00 07/23/22 05:20 Patient resulted labs reviewed. Assessment/Plan Admission Diagnosis 1. Urinary tract infection with sepsis not severe clinically improved continue Rocephin culture results pending. 2. Type 1 diabetes bicarb level is down to 13 we will continue normal saline for now and the patient has been given 12 units of insulin normally states he would take 8 but recommended a higher doses infection is likely going to leave him more insulin resistant than at baseline and will continue basal bolus therapy with repeat basic metabolic panel in 3 hours clinically he has no ketones on his breath and respiratory rate is normal and nonlabored. 3. Stage III chronic renal disease patient's baseline creatinine in the 1.8 range. Continue to monitor. Admission Status: Inpatient Order (span 2 midnights) Reason for Inpatient Admission: See admission diagnosis FLOYD TORRE MD Jul 23, 2022 10:08
[2022-07-23 11:28] VITALS: BP 168/75
[2022-07-23 12:35] LABS: POTASSIUM 4.8 MMOL/L (3.6-5.0)
[2022-07-23 12:36] LABS: CALCIUM 8.1 MG/DL (8.5-10.1)
[2022-07-23 12:41] LABS: CREATININE SERUM 2.18 MG/DL (0.60-1.30)
[2022-07-23 16:03] VITALS: BP 138/60
[2022-07-23] MEDS: inSUlin ASPART (NovoLOG) 1 UNIT/0.01 ML (CHARGE PER UNIT) SC SCH (16:49)
[2022-07-23] MEDS: cefTRIAXone 1 GM/50 ML (PRE-MIX) IV SCH (19:18)
[2022-07-23 19:38] VITALS: BP 136/60
[2022-07-24] VITALS (8 sets, daily range): BP systolic 139–199; BP diastolic 65–81
[2022-07-24] MEDS: NS IV 1000 ML 1,000 ML IV SCH ×2 (03:35→16:44)
[2022-07-24 06:00] LABS: BASOPHILS # (AUTO) 0.1 10^3/uL (0.0-0.1); BASOPHILS % (AUTO) 1 % (0-10); EOSINOPHILS # (AUTO) 0.3 10^3/uL (0.0-0.3); EOSINOPHILS % (AUTO) 2 % (0-10); HEMATOCRIT 33 % (40-54); HEMOGLOBIN 10.9 g/dL (13.3-17.7); LYMPHOCYTES # (AUTO) 1.3 10^3/uL (1.0-4.0); LYMPHOCYTES % (AUTO) 12 % (12-44); MEAN CORPUSCULAR HEMOGLOBIN 29 pg (25-34); MEAN CORPUSCULAR HGB CONC 33 g/dL (32-36); MEAN CORPUSCULAR VOLUME 87 fL (80-99); MEAN PLATELET VOLUME 10.2 fL (9.0-12.2); MONOCYTES # (AUTO) 0.9 10^3/uL (0.0-1.0); MONOCYTES % (AUTO) 8 % (0-12); NEUTROPHILS # (AUTO) 8.4 10^3/uL (1.8-7.8); NEUTROPHILS % (AUTO) 77 % (42-75); PLATELET COUNT 360 10^3/uL (130-400); WHITE BLOOD COUNT 10.9 10^3/uL (4.3-11.0)
[2022-07-24] MEDS: inSUlin ASPART (NovoLOG) 1 UNIT/0.01 ML (CHARGE PER UNIT) SC SCH ×3 (06:29→17:58)
[2022-07-24 06:34] LABS: ALBUMIN 2.7 GM/DL (3.2-4.5); BILIRUBIN,TOTAL 0.2 MG/DL (0.1-1.0); CREATININE SERUM 2.05 MG/DL (0.60-1.30); POTASSIUM 4.3 MMOL/L (3.6-5.0); TOTAL PROTEIN 5.9 GM/DL (6.4-8.2)
[2022-07-24] MEDS: PANTOPRAZOLE 40 MG (PROTONIX) TAB PO SCH (07:55)
[2022-07-24] MEDS: lisINopril 40 MG (PRINIVIL) TABLET PO SCH (07:55)
[2022-07-24] MEDS ORDERED: INSU100V SQ (09:51)
[2022-07-24] MEDS ORDERED: amLODIPine 5 MG (NORVASC) TAB PO NR (12:30)
--- NOTE | 2022-07-24 13:53 | Progress Note - Hospitalist ---
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 Patient last ate approximately 2 hours prior to ED arrival. He has a Medtronic insulin pump with CGM. His blood sugars are in the 100- 190 range in the past 2 hours. He denies blurred vision, headache, chest pain shortness of breath. No focal extremity weakness or loss of sensation. Denies abdominal pain, vomiting diarrhea sweats. Patient has had similar episodes weakness with confusion which have previously been attributed to low blood sugar. No other symptoms or complaints. History is limited by the patient's clinical condition. Upon my arrival the patient was alert and oriented. He did not appear to be in acute distress. 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 He reports no past history of known sepsis or urinary tract infection that he recalls. He had no night sweats chills fever dysuria or any change in urinary frequency and denied flank pain. Subjective/Events-last exam Parminder is feeling much better today. He denies dizziness, confusion, fatigue, weakness. He denies dysuria but endorses, "if anything", an increase in urinary frequency. He states he has had this issue since receiving radiation for prostate cancer. He asks about going home today. He had an appetite today and ate a full breakfast Review of Systems General: No Fatigue, No Malaise HEENT: No Head Aches Pulmonary: No Dyspnea Gastrointestinal: No: Nausea, Vomiting, Abdominal Pain Genitourinary: No Dysuria Neurological: No: Weakness Focused Exam Time of Focused Exam: 21:00 Objective Exam Vital Signs Vital Signs Date Time Temp Pulse Resp B/P (MAP) Pulse Ox O2 Delivery O2 Flow Rate FiO2 07/24/22 12:35 65 07/24/22 11:19 36.8 20 199/81 (120) 96 Room Air Capillary Refill : NONE General Appearance: No Apparent Distress, WD/WN HEENT: PERRL/EOMI, Pharynx Normal, Moist Mucous Membranes; No Scleral Icterus (L), No Scleral Icterus (R) Neck: Normal Inspection, Non Tender, Supple Respiratory: Lungs Clear, Normal Breath Sounds, No Accessory Muscle Use, No Respiratory Distress Cardiovascular: Regular Rate, Rhythm, No JVD, No Murmur, Normal Peripheral Pulses Gastrointestinal: Non Tender, Soft; No Distended Extremity: Normal Capillary Refill, Normal Inspection, No Calf Tenderness Neurologic/Psychiatric: Alert, Oriented x3, Normal Mood/Affect Skin: Normal Color, Warm/Dry Results/Procedures Lab Laboratory Tests 07/24/22 05:25 Patient resulted labs reviewed. Imaging: Reviewed Imaging Films, Reviewed Imaging Report Assessment/Plan Assessment and Plan Assess & Plan/Chief Complaint Acute encephalopathy Weakness Type 1 DM -sugars elevated on admit, symptoms correlate with low blood sugars, which he endorses has happened recently -without anion gap, but bicarb trough at 13, bOHB .38 -on IM insulin now, pump off -on IVF for volume replacement Acute on CKD stage III -baseline Cr 1.8, peaked 2.28 in ED, trending down -likely prerenal from volume loss, on IVF -monitor UTI -+leuk esterase, Cx grew klebsiella, receiving ceftriaxone -likely caused increased insulin requirements Dispo: w/o AG, bicarb trending back up, tolerating food. Likely dc tomorrow. DEBBIE ORR DO 07/25/22 0453: Supervisory-Addendum Brief Verification & Attestation Participated in pt care: history, MDM, physical Personally performed: exam, history, MDM, supervision of care Care discussed with: Medical Student Procedures: n/a Results interpretation: Verified all documentation Verification and Attestation of Medical Student E/M Service A medical student performed and documented this service in my presence. I reviewed and verified all information documented by the medical student and made modifications to such information, when appropriate. I personally performed the physical exam and medical decision making. Debbie Orr Jul 25, 2022,04:53 HAILEY BARRAGAN Jul 24, 2022 13:53 DEBBIE ORR DO Jul 25, 2022 04:53
[2022-07-24] MEDS: cloNIDine 0.1 MG (CATAPRES) TAB PO PRN (15:56)
[2022-07-24] MEDS ORDERED: MELATONIN 3 MG TABLET PO PRN (16:15)
[2022-07-24] MEDS ORDERED: diphenhydrAMINE 25 MG TAB (BENADRYL) PO PRN ×2 (16:15)
[2022-07-24] MEDS ORDERED: ENOXAPARIN 40 MG/0.4 ML (LOVENOX) SYR SC SCH (16:15)
[2022-07-24] MEDS ORDERED: DOCUSATE SODIUM 100 MG (COLACE) CAP PO PRN (16:15)
[2022-07-24] MEDS ORDERED: ONDANSETRON 4 MG (ZOFRAN) ORAL DISSOLVE TAB SL PRN (16:15)
[2022-07-24] MEDS ORDERED: LACTULOSE SYRUP 10GM/15ML (ENULOSE) 30ML UDC PO PRN (16:15)
[2022-07-24] MEDS ORDERED: MENTHOL/ZINC OXIDE (CALMOSEPTINE) 113 GM TUBE TP PRN (16:15)
[2022-07-24] MEDS ORDERED: CALCIUM CARBONATE 500 MG (TUMS) TAB.CHEW PO PRN (16:15)
[2022-07-24] MEDS ORDERED: LOPERAMIDE 2 MG (IMODIUM) TABLET PO PRN (16:15)
[2022-07-24] MEDS ORDERED: ACETAMINOPHEN 325 MG TABLET PO PRN (16:15)
[2022-07-24] MEDS ORDERED: ALPRAZolam 0.25 MG (XANAX) TAB PO PRN (16:15)
[2022-07-24] MEDS ORDERED: NON-FORMULARY MEDICATION 1 EA EA (Zolpidem Tartrate (Ambien) 10 MG) PO PRN (16:15)
[2022-07-24] MEDS ORDERED: ENOXAPARIN INJECTION 30 MG/0.3 ML SYR SC SCH (16:30)
[2022-07-24] MEDS ORDERED: ZOLPIDEM 5 MG (AMBIEN) TAB PO PRN (16:30)
[2022-07-24] MEDS: SENNA W/DOCUSATE (SENOKOT S) TABLET PO SCH (19:29)
[2022-07-24] MEDS: polyethylene glycoL POWDER 17 GM (MIRALAX) PACK PO SCH (19:29)
[2022-07-24] MEDS: cefTRIAXone 1 GM/50 ML (PRE-MIX) IV SCH (19:52)
[2022-07-25] VITALS (7 sets, daily range): BP systolic 160–193; BP diastolic 70–78
[2022-07-25] MEDS: cloNIDine 0.1 MG (CATAPRES) TAB PO PRN ×2 (04:25→16:20)
[2022-07-25 05:47] LABS: BASOPHILS # (AUTO) 0.1 10^3/uL (0.0-0.1); BASOPHILS % (AUTO) 1 % (0-10); EOSINOPHILS # (AUTO) 0.2 10^3/uL (0.0-0.3); EOSINOPHILS % (AUTO) 2 % (0-10); HEMATOCRIT 34 % (40-54); HEMOGLOBIN 10.9 g/dL (13.3-17.7); LYMPHOCYTES # (AUTO) 1.2 10^3/uL (1.0-4.0); LYMPHOCYTES % (AUTO) 13 % (12-44); MEAN CORPUSCULAR HEMOGLOBIN 29 pg (25-34); MEAN CORPUSCULAR HGB CONC 32 g/dL (32-36); MEAN CORPUSCULAR VOLUME 89 fL (80-99); MEAN PLATELET VOLUME 10.2 fL (9.0-12.2); MONOCYTES # (AUTO) 0.7 10^3/uL (0.0-1.0); MONOCYTES % (AUTO) 8 % (0-12); NEUTROPHILS # (AUTO) 7.1 10^3/uL (1.8-7.8); NEUTROPHILS % (AUTO) 77 % (42-75); PLATELET COUNT 374 10^3/uL (130-400); WHITE BLOOD COUNT 9.3 10^3/uL (4.3-11.0)
[2022-07-25] MEDS: NS IV 1000 ML 1,000 ML IV SCH ×2 (05:47→18:10)
[2022-07-25 06:06] LABS: ALBUMIN 2.8 GM/DL (3.2-4.5)
[2022-07-25 06:07] LABS: POTASSIUM 5.3 MMOL/L (3.6-5.0)
[2022-07-25 06:08] LABS: CALCIUM 7.7 MG/DL (8.5-10.1)
[2022-07-25 06:11] LABS: BILIRUBIN,TOTAL 0.2 MG/DL (0.1-1.0)
[2022-07-25 06:13] LABS: CREATININE SERUM 1.91 MG/DL (0.60-1.30)
[2022-07-25] MEDS ORDERED: inSUlin ASPART (NovoLOG) 1 UNIT/0.01 ML (CHARGE PER UNIT) SC SCH (07:00)
[2022-07-25] MEDS: PANTOPRAZOLE 40 MG (PROTONIX) TAB PO SCH (08:15)
[2022-07-25] MEDS: polyethylene glycoL POWDER 17 GM (MIRALAX) PACK PO SCH ×2 (08:15→20:11)
[2022-07-25] MEDS: SENNA W/DOCUSATE (SENOKOT S) TABLET PO SCH ×2 (08:15→20:11)
[2022-07-25] MEDS: lisINopril 40 MG (PRINIVIL) TABLET PO SCH (08:15)
[2022-07-25] MEDS: ASPIRIN E.C. 81 MG (ECOTRIN) TAB PO SCH (08:15)
[2022-07-25] MEDS: amLODIPine 5 MG (NORVASC) TAB PO SCH (08:15)
[2022-07-25] MEDS ORDERED: PANTOPRAZOLE 40 MG (PROTONIX) TAB PO SCH (09:00)
--- NOTE | 2022-07-25 14:45 | Progress Note - Hospitalist ---
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 Patient last ate approximately 2 hours prior to ED arrival. He has a Medtronic insulin pump with CGM. His blood sugars are in the 100- 190 range in the past 2 hours. He denies blurred vision, headache, chest pain shortness of breath. No focal extremity weakness or loss of sensation. Denies abdominal pain, vomiting diarrhea sweats. Patient has had similar episodes weakness with confusion which have previously been attributed to low blood sugar. No other symptoms or complaints. History is limited by the patient's clinical condition. Upon my arrival the patient was alert and oriented. He did not appear to be in acute distress. 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 He reports no past history of known sepsis or urinary tract infection that he recalls. He had no night sweats chills fever dysuria or any change in urinary frequency and denied flank pain. Subjective/Events-last exam Parminder had low sugars last night and did not receive his basal dose of insulin for this reason. In the morning his sugars were in the 600s. He asks about going home today and getting back on his insulin pump. At visit, he denies symptoms of ow sugars, denies vision change, urinary frequency, dizziness. Review of Systems Pulmonary: No Dyspnea Cardiovascular: No: Palpitations Gastrointestinal: No: Nausea, Vomiting, Abdominal Pain Genitourinary: No Dysuria, No Frequency Neurological: No: Weakness, Confusion Focused Exam Time of Focused Exam: 21:00 Objective Exam Vital Signs Vital Signs Date Time Temp Pulse Resp B/P (MAP) Pulse Ox O2 Delivery O2 Flow Rate FiO2 07/25/22 13:05 70 07/25/22 11:30 36.5 20 193/77 (115) 97 Room Air Capillary Refill : NONE General Appearance: No Apparent Distress, WD/WN HEENT: PERRL/EOMI; No Scleral Icterus (L), No Scleral Icterus (R) Neck: Non Tender, Supple; No JVD Respiratory: Normal Breath Sounds, No Accessory Muscle Use Cardiovascular: No Edema, No JVD, No Murmur, Normal Peripheral Pulses Gastrointestinal: Non Tender, Soft; No Distended Extremity: Normal Capillary Refill, Normal Inspection, No Pedal Edema Neurologic/Psychiatric: Alert, Oriented x3, Normal Mood/Affect Skin: Normal Color, Warm/Dry Results/Procedures Lab Laboratory Tests 07/25/22 05:33 Patient resulted labs reviewed. Imaging: Reviewed Imaging Films, Reviewed Imaging Report Assessment/Plan Assessment and Plan Assess & Plan/Chief Complaint Acute encephalopathy Weakness Type 1 DM -sugars elevated on admit, symptoms correlate with low blood sugars, which he endorses has happened recently -without anion gap, but bicarb trough at 13, bOHB .38 -on IM insulin now, pump off -on IVF for volume replacement -restarting insulin pump, legal associate to check basal insulin level Acute on CKD stage III -baseline Cr 1.8, peaked 2.28 in ED, trending down -likely prerenal from volume loss, on IVF -monitor UTI -+leuk esterase, Cx grew klebsiella, receiving ceftriaxone -likely caused increased insulin requirements Dispo: w/o AG, bicarb trending back up, tolerating food. restarting insulin pump, possible dc tomorrow. DEBBIE ORR DO 07/26/22 0520: Supervisory-Addendum Brief Verification & Attestation Participated in pt care: history, MDM, physical Personally performed: exam, history, MDM, supervision of care Care discussed with: Medical Student Procedures: n/a Results interpretation: Verified all documentation Verification and Attestation of Medical Student E/M Service A medical student performed and documented this service in my presence. I reviewed and verified all information documented by the medical student and made modifications to such information, when appropriate. I personally performed the physical exam and medical decision making. Debbie Orr Jul 26, 2022,05:20 HAILEY BARRAGAN Jul 25, 2022 14:45 DEBBIE ORR DO Jul 26, 2022 05:20
[2022-07-25] MEDS ORDERED: ENOXAPARIN 40 MG/0.4 ML (LOVENOX) SYR SC SCH (16:30)
[2022-07-25] MEDS: cefTRIAXone 1 GM/50 ML (PRE-MIX) IV SCH (20:10)
[2022-07-26] VITALS: BP 169/72
[2022-07-26 03:19] VITALS: BP 183/73
[2022-07-26] MEDS: cloNIDine 0.1 MG (CATAPRES) TAB PO PRN ×2 (03:31→11:15)
[2022-07-26 06:12] LABS: BASOPHILS # (AUTO) 0.1 10^3/uL (0.0-0.1); BASOPHILS % (AUTO) 1 % (0-10); EOSINOPHILS # (AUTO) 0.3 10^3/uL (0.0-0.3); EOSINOPHILS % (AUTO) 3 % (0-10); HEMATOCRIT 31 % (40-54); HEMOGLOBIN 10.2 g/dL (13.3-17.7); LYMPHOCYTES # (AUTO) 1.4 10^3/uL (1.0-4.0); LYMPHOCYTES % (AUTO) 14 % (12-44); MEAN CORPUSCULAR HEMOGLOBIN 28 pg (25-34); MEAN CORPUSCULAR HGB CONC 33 g/dL (32-36); MEAN CORPUSCULAR VOLUME 85 fL (80-99); MEAN PLATELET VOLUME 10.1 fL (9.0-12.2); MONOCYTES # (AUTO) 0.6 10^3/uL (0.0-1.0); MONOCYTES % (AUTO) 6 % (0-12); NEUTROPHILS # (AUTO) 7.4 10^3/uL (1.8-7.8); NEUTROPHILS % (AUTO) 75 % (42-75); PLATELET COUNT 321 10^3/uL (130-400); WHITE BLOOD COUNT 9.9 10^3/uL (4.3-11.0)
[2022-07-26] MEDS: NS IV 1000 ML 1,000 ML IV SCH (06:17)
[2022-07-26 06:22] LABS: ALBUMIN 2.7 GM/DL (3.2-4.5)
[2022-07-26 06:23] LABS: POTASSIUM 4.8 MMOL/L (3.6-5.0)
[2022-07-26 06:24] LABS: CALCIUM 7.9 MG/DL (8.5-10.1)
[2022-07-26 06:25] LABS: TOTAL PROTEIN 5.8 GM/DL (6.4-8.2)
[2022-07-26 06:27] LABS: BILIRUBIN,TOTAL 0.4 MG/DL (0.1-1.0)
[2022-07-26 06:29] LABS: CREATININE SERUM 1.38 MG/DL (0.60-1.30)
[2022-07-26 07:44] VITALS: BP 184/84
[2022-07-26] MEDS: ASPIRIN E.C. 81 MG (ECOTRIN) TAB PO SCH (07:56)
[2022-07-26] MEDS: PANTOPRAZOLE 40 MG (PROTONIX) TAB PO SCH (07:57)
[2022-07-26] MEDS: SENNA W/DOCUSATE (SENOKOT S) TABLET PO SCH (07:57)
[2022-07-26] MEDS: amLODIPine 5 MG (NORVASC) TAB PO SCH (07:57)
[2022-07-26] MEDS: polyethylene glycoL POWDER 17 GM (MIRALAX) PACK PO SCH (07:57)
[2022-07-26] MEDS: lisINopril 40 MG (PRINIVIL) TABLET PO SCH (07:57)
[2022-07-26 11:10] VITALS: BP 195/80
[2022-07-26] MEDS ORDERED: AMLO-250 PO (11:24)
[2022-07-26] MEDS ORDERED: CLN.1T PO (11:24)
[2022-07-26] MEDS ORDERED: ONDA4TAB11 SL (11:24)
[2022-07-26] MEDS ORDERED: CEFD300C3 PO (11:24)
--- NOTE | 2022-07-26 11:25 | Discharge Summary ---
Diagnosis/Chief Complaint Date of Admission Jul 23, 2022 at 00:06 Date of Discharge Discharge Date: Jul 26, 2022 Discharge Diagnosis Acute encephalopathy Weakness Type 1 DM -sugars elevated on admit, symptoms correlate with low blood sugars, which he endorses has happened recently -without anion gap, but bicarb trough at 13, bOHB .38 -on IM insulin now, pump off -on IVF for volume replacement -restarting insulin pump, therapeutic specialist to check basal insulin level Acute on CKD stage III -baseline Cr 1.8, peaked 2.28 in ED, trending down -likely prerenal from volume loss, on IVF -monitor UTI -+leuk esterase, Cx grew klebsiella, receiving ceftriaxone -likely caused increased insulin requirements Discharge Summary Discharge Physical Examination Allergies: Coded Allergies: metaproterenol (Verified Allergy, Unknown, 12/21/21) Vitals & I&Os Vital Signs Date Time Temp Pulse Resp B/P (MAP) Pulse Ox O2 Delivery O2 Flow Rate FiO2 07/26/22 12:28 36.7 67 20 195/80 95 Room Air General Appearance: Alert, Oriented X3, Cooperative Respiratory: Clear to Auscultation Cardiovascular: Regular Rate Psych/Mental Status: Mental Status NL Hospital Course Was the Problem List Reviewed?: Yes Hospital course: Parminder Lagos is a 67 yo M w/ hx of T1DM who presented on 07/22 with weakness, fatigue, dizziness, nausea and confusion. He was admitted and worked up for hyperglycemia in 190s and a UTI, and he was given subq insulin levemir and aspart. He was started on ceftriaxone for his UTI. On 07/23 his sugars were in the 220s range and he developed a low bicarb of 13. His betaOHbutyrate was checked and was elevated at .38, though he did not meet criteria for DKA. His insulin doses were adjusted at this time and he was tolerated food and fluids. On 07/24 he had another episode of low blood sugars in the 50-60s range and his levemir dose was held. On 07/25 his insulin pump was restarted. On 07/26 he had an episode of nausea while eating his breakfast. He was given a dose of zofran and it resolved. Parminder was discharged on his insulin pump and he was agreeable to following up with his pcp. Labs (last 24 hrs) Laboratory Tests 07/22/22 21:00: White Blood Count 11.7H, Red Blood Count 4.44, Hemoglobin 12.5L, Hematocrit 38L, Mean Corpuscular Volume 86, Mean Corpuscular Hemoglobin 28, Mean Corpuscular Hemoglobin Concent 33, Red Cell Distribution Width 15.2H, Platelet Count 384, Mean Platelet Volume 9.7, Immature Granulocyte % (Auto) 1, Neutrophils (%) (Auto) 81H, Lymphocytes (%) (Auto) 10L, Monocytes (%) (Auto) 6, Eosinophils (%) (Auto) 3, Basophils (%) (Auto) 0, Neutrophils # (Auto) 9.4H, Lymphocytes # (Auto) 1.2, Monocytes # (Auto) 0.7, Eosinophils # (Auto) 0.3, Basophils # (Auto) 0.0, Immature Granulocyte # (Auto) 0.1, Sodium Level 135, Potassium Level 3.9, Chloride Level 101, Carbon Dioxide Level 22, Anion Gap 12, Blood Urea Nitrogen 48H, Creatinine 2.25H, Estimat Glomerular Filtration Rate 31, BUN/Creatinine Ratio 21, Glucose Level 220H, Calcium Level 8.5, Corrected Calcium 9.1, Total Bilirubin 0.2, Aspartate Amino Transf (AST/SGOT) 11, Alanine Aminotransferase (ALT/SGPT) 7, Alkaline Phosphatase 101, Troponin I < 0.30, Total Protein 6.8, Albumin 3.3 07/22/22 21:06: Glucometer 197H 07/22/22 22:00: Urine Color YELLOW, Urine Clarity TURBID, Urine pH 6.0, Urine Specific Atkinson 1.025H, Urine Protein 2+H, Urine Glucose (UA) NEGATIVE, Urine Ketones NEGATIVE, Urine Nitrite NEGATIVE, Urine Bilirubin NEGATIVE, Urine Urobilinogen 0.2, Urine Leukocyte Esterase 3+H, Urine RBC (Auto) 3+H, Urine RBC , Urine WBC TNTCH, Urine Crystals NONE, Urine Bacteria , Urine Casts NONE, Urine Mucus NEGATIVE, Urine Culture Indicated YES 07/23/22 05:19: Glucometer 331H 07/23/22 05:20: White Blood Count 12.1H, Red Blood Count 4.03L, Hemoglobin 11.3L, Hematocrit 35L , Mean Corpuscular Volume 88, Mean Corpuscular Hemoglobin 28, Mean Corpuscular Hemoglobin Concent 32, Red Cell Distribution Width 15.1H, Platelet Count 357, Mean Platelet Volume 9.7, Immature Granulocyte % (Auto) 1, Neutrophils (%) (Auto) 78H, Lymphocytes (%) (Auto) 11L, Monocytes (%) (Auto) 7, Eosinophils (%) (Auto) 2, Basophils (%) (Auto) 1, Neutrophils # (Auto) 9.4H, Lymphocytes # (Auto) 1.3, Monocytes # (Auto) 0.9, Eosinophils # (Auto) 0.3, Basophils # (Auto) 0.1, Immature Granulocyte # (Auto) 0.1, Sodium Level 133L, Potassium Level 4.6, Chloride Level 105, Carbon Dioxide Level 13L, Anion Gap 15H, Blood Urea Nitrogen 44H, Creatinine 2.08H, Estimat Glomerular Filtration Rate 34, BUN/Creatinine Ratio 21, Glucose Level 350H, Calcium Level 8.3L 07/23/22 11:27: Glucometer 400*H 07/23/22 12:08: Sodium Level 132L, Potassium Level 4.8, Chloride Level 104, Carbon Dioxide Level 18L, Anion Gap 10, Blood Urea Nitrogen 46H, Creatinine 2.18H, Estimat Glomerular Filtration Rate 32, BUN/Creatinine Ratio 21, Glucose Level 412*H, Calcium Level 8.1L 07/23/22 15:59: Glucometer 180H 07/23/22 21:13: Glucometer 179H 07/24/22 05:25: White Blood Count 10.9, Red Blood Count 3.83L, Hemoglobin 10.9L, Hematocrit 33L, Mean Corpuscular Volume 87, Mean Corpuscular Hemoglobin 29, Mean Corpuscular Hemoglobin Concent 33, Red Cell Distribution Width 15.2H, Platelet Count 360, Mean Platelet Volume 10.2, Immature Granulocyte % (Auto) 1, Neutrophils (%) (Auto) 77H, Lymphocytes (%) (Auto) 12, Monocytes (%) (Auto) 8, Eosinophils (%) (Auto) 2, Basophils (%) (Auto) 1, Neutrophils # (Auto) 8.4H, Lymphocytes # (Auto) 1.3, Monocytes # (Auto) 0.9, Eosinophils # (Auto) 0.3, Basophils # (Auto) 0.1, Immature Granulocyte # (Auto) 0.1, Sodium Level 134L, Potassium Level 4.3, Chloride Level 108H, Carbon Dioxide Level 15L, Anion Gap 11, Blood Urea Nitrogen 48H, Creatinine 2.05H, Estimat Glomerular Filtration Rate 34, BUN/Creatinine Ratio 23, Glucose Level 323H, Calcium Level 8.0L, Corrected Calcium 9.0, Total Bilirubin 0.2, Aspartate Amino Transf (AST/SGOT) 11, Alanine Aminotransferase (ALT/SGPT) 7, Alkaline Phosphatase 75, Total Protein 5.9L, Albumin 2.7L, Beta-Hydroxybutyrate (Chem panel) 0.37H 07/24/22 05:26: Glucometer 296H 07/24/22 11:22: Glucometer 175H 07/24/22 15:37: Glucometer 191H 07/24/22 20:18: Glucometer 51*L 07/24/22 20:20: Glucometer 46*L 07/24/22 21:26: Glucometer 57*L 07/24/22 22:29: Glucometer 156H 07/25/22 05:22: Glucometer 576*H 07/25/22 05:33: White Blood Count 9.3, Red Blood Count 3.83L, Hemoglobin 10.9L, Hematocrit 34L, Mean Corpuscular Volume 89, Mean Corpuscular Hemoglobin 29, Mean Corpuscular Hemoglobin Concent 32, Red Cell Distribution Width 15.3H, Platelet Count 374, Mean Platelet Volume 10.2, Immature Granulocyte % (Auto) 0, Neutrophils (%) (Auto) 77H, Lymphocytes (%) (Auto) 13, Monocytes (%) (Auto) 8, Eosinophils (%) (Auto) 2, Basophils (%) (Auto) 1, Neutrophils # (Auto) 7.1, Lymphocytes # (Auto) 1.2, Monocytes # (Auto) 0.7, Eosinophils # (Auto) 0.2, Basophils # (Auto) 0.1, Immature Granulocyte # (Auto) 0.0, Sodium Level 130L, Potassium Level 5.3H, Chloride Level 104, Carbon Dioxide Level 16L, Anion Gap 10, Blood Urea Nitrogen 43H, Creatinine 1.91H, Estimat Glomerular Filtration Rate 37, BUN/Creatinine Ratio 23, Glucose Level 662*H, Calcium Level 7.7L, Corrected Calcium 8.7, Total Bilirubin 0.2, Aspartate Amino Transf (AST/SGOT) 9, Alanine Aminotransferase (ALT/SGPT) 10, Alkaline Phosphatase 91, Total Protein 6.0L, Albumin 2.8L 07/25/22 10:57: Glucometer 513*H 07/25/22 15:38: Glucometer 263H 07/25/22 20:46: Glucometer 202H 07/26/22 01:52: Glucometer 238H 07/26/22 05:13: Glucometer 249H 07/26/22 05:59: White Blood Count 9.9, Red Blood Count 3.67L, Hemoglobin 10.2L, Hematocrit 31L, Mean Corpuscular Volume 85, Mean Corpuscular Hemoglobin 28, Mean Corpuscular Hemoglobin Concent 33, Red Cell Distribution Width 14.7H, Platelet Count 321, Mean Platelet Volume 10.1, Immature Granulocyte % (Auto) 0, Neutrophils (%) (Auto) 75, Lymphocytes (%) (Auto) 14, Monocytes (%) (Auto) 6, Eosinophils (%) (Auto) 3, Basophils (%) (Auto) 1, Neutrophils # (Auto) 7.4, Lymphocytes # (Auto) 1.4, Monocytes # (Auto) 0.6, Eosinophils # (Auto) 0.3, Basophils # (Auto) 0.1, Immature Granulocyte # (Auto) 0.0, Sodium Level 132L, Potassium Level 4.8, Chloride Level 105, Carbon Dioxide Level 19L, Anion Gap 8, Blood Urea Nitrogen 31H, Creatinine 1.38H, Estimat Glomerular Filtration Rate 55, BUN/Creatinine Ratio 22, Glucose Level 255H, Calcium Level 7.9L, Corrected Calcium 8.9, Total Bilirubin 0.4, Aspartate Amino Transf (AST/SGOT) 8, Alanine Aminotransferase (ALT/SGPT) 9, Alkaline Phosphatase 74, Total Protein 5.8L, Albumin 2.7L 07/26/22 10:46: Glucometer 330H Microbiology 07/22/22 Blood Culture - Preliminary, Resulted No growth 07/22/22 Urine Culture - Final, Complete Escherichia coli Klebsiella pneumoniae Pending Labs Microbiology Date/Time Source Procedure Growth Status 07/22/22 23:08 Peripheral Right Wrist Blood Culture - Preliminary No growth Resulted 07/22/22 22:00 Urine Clean Catch Urine Culture - Final Escherichia coli Klebsiella pneumoniae Complete Laboratory Tests 07/22/22 21:00: White Blood Count 11.7, Red Blood Count 4.44, Hemoglobin 12.5, Hematocrit 38, Mean Corpuscular Volume 86, Mean Corpuscular Hemoglobin 28, Mean Corpuscular Hemoglobin Concent 33, Red Cell Distribution Width 15.2, Platelet Count 384, Mean Platelet Volume 9.7, Immature Granulocyte % (Auto) 1, Neutrophils (%) (Auto) 81, Lymphocytes (%) (Auto) 10, Monocytes (%) (Auto) 6, Eosinophils (%) (Auto) 3, Basophils (%) (Auto) 0, Neutrophils # (Auto) 9.4, Lymphocytes # (Auto) 1.2, Monocytes # (Auto) 0.7, Eosinophils # (Auto) 0.3, Basophils # (Auto) 0.0, Immature Granulocyte # (Auto) 0.1, Sodium Level 135, Potassium Level 3.9, Chloride Level 101, Carbon Dioxide Level 22, Anion Gap 12, Blood Urea Nitrogen 48, Creatinine 2.25, Estimat Glomerular Filtration Rate 31, BUN/Creatinine Ratio 21, Glucose Level 220, Calcium Level 8.5, Corrected Calcium 9.1, Total Bilirubin 0.2, Aspartate Amino Transf (AST/SGOT) 11, Alanine Aminotransferase (ALT/SGPT) 7, Alkaline Phosphatase 101, Troponin I < 0.30, Total Protein 6.8, Albumin 3.3 07/22/22 21:06: Glucometer 197 07/22/22 22:00: Urine Color YELLOW, Urine Clarity TURBID, Urine pH 6.0, Urine Specific Atkinson 1.025, Urine Protein 2+, Urine Glucose (UA) NEGATIVE, Urine Ketones NEGATIVE, Urine Nitrite NEGATIVE, Urine Bilirubin NEGATIVE, Urine Urobilinogen 0.2, Urine Leukocyte Esterase 3+, Urine RBC (Auto) 3+, Urine RBC , Urine WBC TNTC, Urine Crystals NONE, Urine Bacteria , Urine Casts NONE, Urine Mucus NEGATIVE, Urine Culture Indicated YES 07/23/22 05:19: Glucometer 331 07/23/22 05:20: White Blood Count 12.1, Red Blood Count 4.03, Hemoglobin 11.3, Hematocrit 35, Mean Corpuscular Volume 88, Mean Corpuscular Hemoglobin 28, Mean Corpuscular Hemoglobin Concent 32, Red Cell Distribution Width 15.1, Platelet Count 357, Mean Platelet Volume 9.7, Immature Granulocyte % (Auto) 1, Neutrophils (%) (Auto) 78, Lymphocytes (%) (Auto) 11, Monocytes (%) (Auto) 7, Eosinophils (%) ( Auto) 2, Basophils (%) (Auto) 1, Neutrophils # (Auto) 9.4, Lymphocytes # (Auto) 1.3, Monocytes # (Auto) 0.9, Eosinophils # (Auto) 0.3, Basophils # (Auto) 0.1, Immature Granulocyte # (Auto) 0.1, Sodium Level 133, Potassium Level 4.6, Chloride Level 105, Carbon Dioxide Level 13, Anion Gap 15, Blood Urea Nitrogen 44, Creatinine 2.08, Estimat Glomerular Filtration Rate 34, BUN/Creatinine Ratio 21, Glucose Level 350, Calcium Level 8.3 07/23/22 11:27: Glucometer 400 07/23/22 12:08: Sodium Level 132, Potassium Level 4.8, Chloride Level 104, Carbon Dioxide Level 18, Anion Gap 10, Blood Urea Nitrogen 46, Creatinine 2.18, Estimat Glomerular Filtration Rate 32, BUN/Creatinine Ratio 21, Glucose Level 412, Calcium Level 8.1 07/23/22 15:59: Glucometer 180 07/23/22 21:13: Glucometer 179 07/24/22 05:25: White Blood Count 10.9, Red Blood Count 3.83, Hemoglobin 10.9, Hematocrit 33, Mean Corpuscular Volume 87, Mean Corpuscular Hemoglobin 29, Mean Corpuscular Hemoglobin Concent 33, Red Cell Distribution Width 15.2, Platelet Count 360, Mean Platelet Volume 10.2, Immature Granulocyte % (Auto) 1, Neutrophils (%) (Auto) 77, Lymphocytes (%) (Auto) 12, Monocytes (%) (Auto) 8, Eosinophils (%) (Auto) 2, Basophils (%) (Auto) 1, Neutrophils # (Auto) 8.4, Lymphocytes # (Auto) 1.3, Monocytes # (Auto) 0.9, Eosinophils # (Auto) 0.3, Basophils # (Auto) 0.1, Immature Granulocyte # (Auto) 0.1, Sodium Level 134, Potassium Level 4.3, Chloride Level 108, Carbon Dioxide Level 15, Anion Gap 11, Blood Urea Nitrogen 48, Creatinine 2.05, Estimat Glomerular Filtration Rate 34, BUN/Creatinine Ratio 23, Glucose Level 323, Calcium Level 8.0, Corrected Calcium 9.0, Total Bilirubin 0.2, Aspartate Amino Transf (AST/SGOT) 11, Alanine Aminotransferase (ALT/SGPT) 7, Alkaline Phosphatase 75, Total Protein 5.9, Albumin 2.7, Beta-Hydroxybutyrate (Chem panel) 0.37 07/24/22 05:26: Glucometer 296 07/24/22 11:22: Glucometer 175 07/24/22 15:37: Glucometer 191 07/24/22 20:18: Glucometer 51 07/24/22 20:20: Glucometer 46 07/24/22 21:26: Glucometer 57 07/24/22 22:29: Glucometer 156 07/25/22 05:22: Glucometer 576 07/25/22 05:33: White Blood Count 9.3, Red Blood Count 3.83, Hemoglobin 10.9, Hematocrit 34, Mean Corpuscular Volume 89, Mean Corpuscular Hemoglobin 29, Mean Corpuscular Hemoglobin Concent 32, Red Cell Distribution Width 15.3, Platelet Count 374, Mean Platelet Volume 10.2, Immature Granulocyte % (Auto) 0, Neutrophils (%) (Auto) 77, Lymphocytes (%) (Auto) 13, Monocytes (%) (Auto) 8, Eosinophils (%) (Auto) 2, Basophils (%) (Auto) 1, Neutrophils # (Auto) 7.1, Lymphocytes # (Auto) 1.2, Monocytes # (Auto) 0.7, Eosinophils # (Auto) 0.2, Basophils # (Auto) 0.1, Immature Granulocyte # (Auto) 0.0, Sodium Level 130, Potassium Level 5.3, Chloride Level 104, Carbon Dioxide Level 16, Anion Gap 10, Blood Urea Nitrogen 43, Creatinine 1.91, Estimat Glomerular Filtration Rate 37, BUN/Creatinine Ratio 23, Glucose Level 662, Calcium Level 7.7, Corrected Calcium 8.7, Total Bilirubin 0.2, Aspartate Amino Transf (AST/SGOT) 9, Alanine Aminotransferase (ALT/SGPT) 10, Alkaline Phosphatase 91, Total Protein 6.0, Albumin 2.8 07/25/22 10:57: Glucometer 513 07/25/22 15:38: Glucometer 263 07/25/22 20:46: Glucometer 202 07/26/22 01:52: Glucometer 238 07/26/22 05:13: Glucometer 249 07/26/22 05:59: White Blood Count 9.9, Red Blood Count 3.67, Hemoglobin 10.2, Hematocrit 31, Mean Corpuscular Volume 85, Mean Corpuscular Hemoglobin 28, Mean Corpuscular Hemoglobin Concent 33, Red Cell Distribution Width 14.7, Platelet Count 321, Mean Platelet Volume 10.1, Immature Granulocyte % (Auto) 0, Neutrophils (%) (Auto) 75, Lymphocytes (%) (Auto) 14, Monocytes (%) (Auto) 6, Eosinophils (%) (Auto) 3, Basophils (%) (Auto) 1, Neutrophils # (Auto) 7.4, Lymphocytes # (Auto) 1.4, Monocytes # (Auto) 0.6, Eosinophils # (Auto) 0.3, Basophils # (Auto) 0.1, Immature Granulocyte # (Auto) 0.0, Sodium Level 132, Potassium Level 4.8, Chloride Level 105, Carbon Dioxide Level 19, Anion Gap 8, Blood Urea Nitrogen 31, Creatinine 1.38, Estimat Glomerular Filtration Rate 55, BUN/Creatinine Ratio 22, Glucose Level 255, Calcium Level 7.9, Corrected Calcium 8.9, Total Bilirubin 0.4, Aspartate Amino Transf (AST/SGOT) 8, Alanine Aminotransferase (ALT/SGPT) 9, Alkaline Phosphatase 74, Total Protein 5.8, Albumin 2.7 07/26/22 10:46: Glucometer 330 Discharge Home Medications: Active Scripts Active Cefdinir 300 Mg Capsule 300 Mg PO BID Amlodipine Besylate 5 Mg Tablet 5 Mg PO DAILY Clonidine HCl 0.1 Mg Tablet 0.1 Mg PO Q4HR PRN Ondansetron Odt (Ondansetron) 4 Mg Tab.rapdis 4 Mg SL Q4H PRN Reported Humalog (Insulin Lispro) 100 Unit/Ml Vial 0 SQ UD USE DIRECTED WITH PUMP Hydrocodone-Acetamin 10-325 mg (Hydrocodone/Acetaminophen) 10 Mg-325 Mg Tablet 1 Ea PO Q8H PRN Aspirin EC (Aspirin) 81 Mg Tablet. 81 Mg PO DAILY Ambien (Zolpidem Tartrate) 10 Mg Tablet 10 Mg PO HS PRN Lisinopril 40 Mg Tablet 40 Mg PO DAILY Pantoprazole Sodium 40 Mg Tablet. 40 Mg PO DAILY Instructions to patient/family Please see electronic discharge instructions given to patient. NANCY ORR DO Jul 26, 2022 11:25
[2022-07-26 12:28] VITALS: BP 195/80
--- NOTE | 2022-07-26 14:15 | Progress Note - Hospitalist ---
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 Patient last ate approximately 2 hours prior to ED arrival. He has a [employer] insulin pump with CGM. His blood sugars are in the 100- 190 range in the past 2 hours. He denies blurred vision, headache, chest pain shortness of breath. No focal extremity weakness or loss of sensation. Denies abdominal pain, vomiting diarrhea sweats. Patient has had similar episodes weakness with confusion which have previously been attributed to low blood sugar. No other symptoms or complaints. History is limited by the patient's clinical condition. Upon my arrival the patient was alert and oriented. He did not appear to be in acute distress. 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 He reports no past history of known sepsis or urinary tract infection that he recalls. He had no night sweats chills fever dysuria or any change in urinary frequency and denied flank pain. Subjective/Events-last exam Parminder is feeling nauseous today. He says he was eating his pancake breakfast when he began to have nausea. He was given a dose of zofran and he felt better after. He denied weakness, dizziness, hearing and vision changes. Hospital course: Parminder Lagos is a 67 yo M w/ hx of T1DM who presented on 07/22 with weakness, fatigue, dizziness, nausea and confusion. He was admitted and worked up for hyperglycemia in 190s and a UTI, and he was given subq insulin levemir and aspart. He was started on ceftriaxone for his UTI. On 07/23 his sugars were in the 220s range and he developed a low bicarb of 13. His betaOHbutyrate was checked and was elevated at .38, though he did not meet criteria for DKA. His insulin doses were adjusted at this time and he was tolerated food and fluids. On 07/24 he had another episode of low blood sugars in the 50-60s range and his levemir dose was held. On 07/25 his insulin pump was restarted. On 07/26 he had an episode of nausea while eating his breakfast. He was given a dose of zofran and it resolved. Parminder was discharged on his insulin pump and he was agreeable to following up with his pcp. Review of Systems HEENT: No Visual Changes Pulmonary: No Dyspnea Cardiovascular: No: Chest Pain Gastrointestinal: Nausea; No: Vomiting, Diarrhea, Constipation Neurological: No: Weakness, Numbness, Confusion Focused Exam Time of Focused Exam: 21:00 Objective Exam Vital Signs Vital Signs Date Time Temp Pulse Resp B/P (MAP) Pulse Ox O2 Delivery O2 Flow Rate FiO2 07/26/22 12:28 36.7 67 20 195/80 95 Room Air Capillary Refill : NONE General Appearance: No Apparent Distress, WD/WN HEENT: PERRL/EOMI, Moist Mucous Membranes; No Scleral Icterus (L), No Scleral Icterus (R) Neck: Normal Inspection, Non Tender, Supple; No JVD Respiratory: Normal Breath Sounds Cardiovascular: Regular Rate, Rhythm, No JVD, No Murmur, Normal Peripheral Pulses Gastrointestinal: Non Tender, Soft; No Distended Extremity: No Pedal Edema Neurologic/Psychiatric: Alert, Oriented x3, Normal Mood/Affect, retention specialist II-XII Norm as Tested Skin: Normal Color, Warm/Dry Results/Procedures Lab Laboratory Tests 07/26/22 05:59 Patient resulted labs reviewed. Imaging: Reviewed Imaging Films, Reviewed Imaging Report Assessment/Plan Assessment and Plan Assess & Plan/Chief Complaint Acute encephalopathy Weakness Type 1 DM -sugars elevated on admit, symptoms correlate with low blood sugars, which he endorses has happened recently -without anion gap, but bicarb trough at 13, bOHB .38 -on IM insulin now, pump off -on IVF for volume replacement -restarting insulin pump, forging dies final finisher to check basal insulin level Acute on CKD stage III -baseline Cr 1.8, peaked 2.28 in ED, trending down -likely prerenal from volume loss, on IVF -monitor UTI -+leuk esterase, Cx grew klebsiella, receiving ceftriaxone -likely caused increased insulin requirements Dispo: on insulin pump; dc today DEBBIE ORR DO 07/27/22 0503: Supervisory-Addendum Brief Verification & Attestation Participated in pt care: history, MDM, physical Personally performed: exam, history, MDM, supervision of care Care discussed with: Medical Student Procedures: n/a Results interpretation: Verified all documentation Verification and Attestation of Medical Student E/M Service A medical student performed and documented this service in my presence. I reviewed and verified all information documented by the medical student and made modifications to such information, when appropriate. I personally performed the physical exam and medical decision making. Debbie Orr, Jul 27, 2022,05:03 HAILEY BARRAGAN Jul 26, 2022 14:15 DEBBIE ORR DO Jul 27, 2022 05:03
== END 2022-07-26 13:36 | disposition home or self-care (01) | DRG 871 ==
LOC: EDUNIT# 20:56 → ER FS 20:59 → 4TH 07-23 00:06
PROVIDERS: ADMIT Internal Medicine; ATTEND Internal Medicine
DX: A41.59 Other Gram-negative sepsis (principal); G93.41 Metabolic encephalopathy; N39.0 Urinary tract infection, site not specified; N17.9 Acute kidney failure, unspecified; E10.65 Type 1 diabetes mellitus with hyperglycemia; E10.40 Type 1 diabetes mellitus with diabetic neuropathy, unspecified; I12.9 Hypertensive chronic kidney disease with stage 1 through stage 4 chronic kidney disease, or unspecified chronic kidney disease; E10.22 Type 1 diabetes mellitus with diabetic chronic kidney disease; N18.30 Chronic kidney disease, stage 3 unspecified; F17.210 Nicotine dependence, cigarettes, uncomplicated; E78.00 Pure hypercholesterolemia, unspecified; R35.0 Frequency of micturition; M06.9 Rheumatoid arthritis, unspecified; M19.91 Primary osteoarthritis, unspecified site; Z79.4 Long term (current) use of insulin; Z85.46 Personal history of malignant neoplasm of prostate; Z89.512 Acquired absence of left leg below knee; Z86.73 Personal history of transient ischemic attack (TIA), and cerebral infarction without residual deficits; Z91.09 Other allergy status, other than to drugs and biological substances; Z79.82 Long term (current) use of aspirin; Z79.899 Other long term (current) drug therapy
CPT/HCPCS: 36415; 70450; 71045; 80048; 80053; 81000; 82010; 82947; 84484; 85025; 87040; 87077; 87088; 87186; 93005